=== PATIENT | female | born 1940 | race Caucasian/White ===

== ENCOUNTER 2019-11-09 06:32 | Outpatient (REF) | payer MEDICARE, OTHER, SELFPAY ==
[2019-11-09 09:39] LABS: Estmated Average Glucose 134; Hemoglobin A1C 6.3 % (4.0-6.0)
[2019-11-09 11:08] LABS: Chol HDL Ratio 5.28 mg/dL (0.0-4.40); Cholesterol 190 mg/dL (0-200); Glucose 114 mg/dL (65-115); HDL Cholesterol 36 mg/dL (60-100); LDL Cholesterol Calculated 105 mg/dL (50-129); LDL HDL Ratio 2.92 RATIO (0.00-3.22); Triglycerides 243 mg/dL (0-150)
== END 2019-11-09 06:33 | disposition home or self-care (01) ==
LOC: LAB 06:32
PROVIDERS: Family Provider Family Medicine; PCP Family Medicine; Visit Provider Dermatology
DX: Z01.89 Encounter for other specified special examinations (principal)
CPT/HCPCS: 80061; 82947; 83036

== ENCOUNTER → 2019-11-12 15:14 | Outpatient (BNVA) | payer MEDICARE, OTHER, SELFPAY | PROVIDERS: Family Provider Family Medicine; PCP Family Medicine; Visit Provider Nurse Practitioner Family | DX: N30.10 Interstitial cystitis (chronic) without hematuria (principal); N34.3 Urethral syndrome, unspecified | CPT/HCPCS: 81001 ==

== ENCOUNTER → 2019-11-30 09:07 | Outpatient (BNVA) | payer MEDICARE, OTHER, SELFPAY | PROVIDERS: Family Provider Family Medicine; PCP Family Medicine; Visit Provider Urology | DX: N34.3 Urethral syndrome, unspecified (principal); N30.10 Interstitial cystitis (chronic) without hematuria | CPT/HCPCS: 81001 ==

== ENCOUNTER 2020-02-09 09:43 | Emergency (ER) | payer MEDICARE, BC, SELFPAY ==
[2020-02-09] VITALS (8 sets, daily range): BP systolic 129–212; BP diastolic 74–118; PULSE 77–84; RESP 16–18; TEMP 36.4; O2SAT 91–96
--- NOTE | 2020-02-09 09:59 | ED_ITS ---
HPI - Female Genitourinary General: Chief complaint: Urogenital-Female Stated complaint: UNABLE TO PEE Time Seen by Provider: 02/09/20 09:48 History of Present Illness: HPI Narrative: Patient is a 80-year-old female who comes to the ED with urinary retention. Past medical history of chronic interstitial cystitis and urethral syndrome, multiple UTIs and sees Dr. Garcia in urology for urethral dilations. For the last week, she has been unable to urinate and has had constant dribbling. Patient also has lower abdominal distention and pain. She rates abdominal pain an 8 out of 10. She has had nausea and multiple episodes of vomiting over the past week. Patient says she has chronic diarrhea. Associated symptoms: Reports abdominal pain and nausea; Deny headache(s) Review of Systems Const: Denies: fever, chills or fatigue Eyes: Denies: change in vision or eye discomfort ENMT: Denies: throat pain, painful swallowing, nasal discharge or nasal congestion Card: Denies: chest pain, palpitations, edema, swelling of feet/ankles, shortness of breath on exertion or shortness of breath when lying down Resp: Denies: shortness of breath, productive cough or non-productive cough GI: Reports: abdominal pain, nausea, vomiting and diarrhea; Denies: constipation or blood in stool : Reports: difficulty urinating and urinary dribbling; Denies: painful urination or blood in urine Musc: Denies: neck pain, back pain or extremity swelling Skin/Breast: Denies: rash or new lesion Neuro: Denies: headache, numbness in extremities or weakness in extremities PFS ED PFSH: Medical History Chronic interstitial cystitis Urethral syndrome Surgical History H/O carpal tunnel repair H/O hand surgery H/O: hysterectomy S/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 S/P cholecystectomy S/P thyroidectomy Family History Father , cva Stroke Mother , 96 Dementia Social History Smoking and tobacco status: never smoked Alcohol intake: never Marital status: Current occupational status: retired History of recent travel: No Physical Exam Const: COMMON NORMALS: oriented x3 and alert GENERAL APPEARANCE: cooperative HENMT: COMMON NORMALS: normocephalic HEAD & SCALP: normocephalic MOUTH: moist mucous membranes abnormal Details: parched THROAT: posterior oropharynx normal and uvula midline Eye: COMMON NORMALS: PERRL PUPIL: Yes PERRL Neck/C-Spine: COMMON NORMALS: supple GENERAL: Yes normal visual inspection Resp: COMMON NORMALS: normal respiratory effort, no retractions, no use of accessory muscles and clear to auscultation bilaterally EFFORT & INSPECTION: Yes able to speak in complete sentences and No respiratory distress AUSCULTATION: clear to auscultation bilaterally Cardio: COMMON NORMALS: regular rate, regular rhythm, S1 normal heart sound, S2 normal heart sound, no gallops, no clicks, no murmurs and peripheral pulses 2+ throughout RATE: regular rate RHYTHM: regular rhythm HEART SOUNDS: S1 normal and S2 normal PERIPHERAL PULSES: pulses 2+ throughout GI: COMMON NORMALS: normal to inspection, nondistended, normoactive bowel sounds, soft to palpation and no masses INSPECTION: Yes abdominal distension and Yes scar (vertical scar from umbilicus to pelvis) AUSCULTATION: Yes high- pitched bowel sounds PALPATION: Yes soft and Yes tender (pt had moderate tenderness in R and L lower quadrants) Details: LLQ and RLQ : BLADDER/KIDNEY EXAM: Yes CVA tenderness bilateral Back/Pelvis: GENERAL BACK: Yes CVA tenderness Extremity: COMMON NORMALS: normal to inspection and no pedal edema Neuro: COMMON NORMALS: oriented x3 and moves all extremities SENSORIUM/ORIENTATION: Yes alert Skin: COMMON NORMALS: no rashes or lesions noted GENERAL SKIN EXAM: no rashes or lesions noted and dry skin Course Consultations: Consultation #1: I contacted Dr. Garcia the urologist case. Dr. Garcia has seen patient in the past. After discussing her case with him he told me to give her the decision on if she wants Mcdaniels catheter placed and sent home with it or if she would prefer not to have the Mcdaniels catheter. He was okay with either way. Put her on an antibiotic. He told me to have her call his office to set up an appointment on Tuesday. Time: 13:14 Vital Signs: Vital signs: Vital Signs Temperature 97.5 F L 05/09/20 09:45 Pulse Rate 77 02/09/20 14:22 Respiratory Rate 16 02/09/20 14:22 Blood Pressure 158/84 02/09/20 14:22 Pulse Oximetry 96 02/09/20 14:22 MDM - Female MDM Narrative: Medical decision making narrative: Patient is a 80-year-old female who comes to the ED with urinary retention and dribbling. Patient has a past medical history of chronic interstitial cystitis and urethral syndrome, multiple UTIs and sees Dr. Garcia in urology for urethral dilations. physical exam showed tender lower abdomen and distended bladder. Patient was bladder scanned and Mcdaniels catheter was placed. CBC, CMP, UA, lipase were all unremarkable. CT of the abdomen was performed and showed some thickening of the bladder wall, but no other acute findings. I contacted Dr. Garcia to discuss patient and he recommended that I give patient the choice of sending her home with or without a Mcdaniels catheter, put on antibiotic and have patient call his office on Tuesday to set up an appointment. Patient decided she wanted to keep Mcdaniels catheter in. Nursing provided Mcdaniels catheter education and leg cath bag. I sent her home with prescription for antibiotic. Patient will call Dr. Garcia's office on Tuesday. Patient understood and agreed with plan. Lab Data: Attestation: I reviewed the patient's lab results. Labs: Lab Results 02/09/20 02/09/20 02/09/20 Range/Units 10:19 10:54 10:54 WBC 5.5 (4.0-10.0) 10^3/ uL RBC 3.78 L (4.1-5.3) 10^6/u L Hgb 12.6 (11.5-15.3) g/dL Hct 38.3 (37.0-47.0) % MCV 101.3 H (81-99) fL MCH 33.3 (28.0-34.0) pg MCHC 32.9 (30.0-36.0) g/dL RDW 13.7 (12.1-15.1) % Plt Count 250 (130-400) 10^3/c mm MPV 9.6 (7.4-10.4) fL Neut % (Auto) 56.0 % Lymph % (Auto) 35.8 % Potter % (Auto) 6.4 % Eos % (Auto) 1.1 % Baso % (Auto) 0.5 % Neut # (Auto) 3.1 (1.8-7.7) 10^3/u L Lymph # (Auto) 2.0 (0.8-4.8) 10^3/u L Potter # (Auto) 0.4 (0.2-0.9) 10^3/u L Eos # (Auto) 0.1 (0.0-0.8) 10^3/u L Baso # (Auto) 0.0 (0.0-0.1) 10^3/u L Nucleated RBC % (a uto) 0 % Nucleated RBCs # 0.0 /100WBC Sodium 139 (136-145) mmol/L Potassium 3.9 (3.5-5.1) mmol/L Chloride 99 (98-107) mmol/L Carbon Dioxide 25 (22-29) mmol/L Anion Gap 18.9 (5-19) BUN 13 (8-23) mg/dL Creatinine 0.7 (0.5-0.9) mg/dL Glucose 110 (65-115) mg/dL Calculated Osmolal ity 285 (285-295) mOsm/k g Calcium 10.4 (8.5-10.5) mg/dL Total Bilirubin 0.3 (0.15-1.2) mg/dL AST 28 (0-32) U/L ALT 16 (0-33) U/L Alkaline Phosphata se 62 (35-105) IU/L Total Protein 7.8 (6.6-8.7) g/dL Albumin 4.6 (3.5-5.2) g/dL Globulin 3.2 (1.3-4.6) g/dL Urine Color Yellow (Yellow) Urine Appearance Clear (CLEAR) Urine pH 7 (5-7) Ur Specific Gravit y 1.005 (1.005-1.030) Urine Protein Neg (Negative) Urine Glucose (UA) Norm (Normal) Urine Ketones Negative (Negative) Urine Blood Neg (Negative) Urine Nitrate Negative (Negative) Urine Bilirubin Neg (NEGATIVE) Urine Urobilinogen Norm (Negative) mg/dL Ur Leukocyte Shania ase Negative (Negative) Urine RBC None (0-2) /hpf Urine WBC None (0-5) /hpf Ur Squamous Epith Cells 0-4 H (0-5) Urine Bacteria Trace (NONE) Urine Mucus Trace Imaging Data: CT Abd/Pel: Attestation: I personally reviewed and interpreted this imaging study as follows: Radiologist's impression: [facility] [address] [place] [address] CT Scan Report Signed Patient: Sarah Victoria Unit #: [id number] : 1940 Age/Sex: 80 / F ADM Date: 02/09/20 Loc: ER Room/Bed: Attending Dr: Ordering Provider/Ordering MD: Alek Griffin Date of Service: 02/09/20 Procedure(s): CT abdomen pelvis w con* [id number] Accession Number(s): [id number] Report Number: [id number] WS: [id number] CT abdomen pelvis w con* [id number] REASON FOR EXAM: abdominal pain, urinary retention IV CONTRAST ADMINISTERED: Omnipaque 395 mL TOTAL EXAM DLP: 1537.[address] scans at [facility] use at least one of these dose optimization techniques: automated exposure control; mA and/or kV adjustment per patient size (includes targeted exams where dose is matched to clinical indication); or iterative reconstruction. 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 The lower lungs were normal. The liver shows a hypodense area in the left lobe of the liver consistent with a benign cysts. Measured 1.3 cm. The spleen, stomach, adrenal glands, aorta inferior vena cava, are all normal. Cholecystectomy findings are noted. A small atrophic pancreas is seen. The adrenal glands are normal. Both kidneys show normal appearance There is fusion of the lumbar spine L3-L4-L5-S1 posterior instrumentation satisfactory placed. The ureters appear to be normal. The large bowel in the right was normal. The appendix is not well seen. The small bowel patterns show no dilatation no thickening of the large bowel or small bowel sanchez are seen. CT of the pelvis shows isolated diverticulosis throughout the sigmoid colon area no hernias are noted. A Mcdaniels catheter is seen and a thickened wall urinary bladder. The rectum was normal. There is fecal stasis seen throughout the colon. CT/CT abdomen pelvis w con* [id number] IMPRESSION: A Mcdaniels catheter seen in a thickened wall the urinary bladder. There is fusion L3-L4-L5-S1 posteriorly satisfactory alignment. A small benign cyst of the left lobe of the liver is noted. Status post cholecystectomy. Diverticulosis. Dictated By: Toño Mendez DO Signed By: Toño Mendez DO Signed Date/Time: 02/09/20 1246 DD/ 1238 Discharge Plan Discharge Patient Disposition: Home, Self-Care Clinical Impression: Urinary retention Condition: Stable Prescriptions: New doxycycline hyclate 100 mg capsule 100 mg PO BID 7 Days Qty: 14 RF: 0 No Action cyanocobalamin (vitamin B-12) 2,000 mcg tablet 2,000 mcg PO DAILY RF: 0 citalopram 40 mg tablet 20 mg PO DAILY RF: 0 metoprolol succinate 25 mg tablet extended release 24 hr 25 mg PO DAILY RF: 0 allopurinol 300 mg tablet 300 mg PO DAILY RF: 0 pantoprazole [Protonix] 40 mg tablet,delayed release (DR/EC) 40 mg PO DAILY RF: 0 nystatin 100,000 unit/gram powder 1 applic TOPICAL DAILY RF: 0 duloxetine 40 mg capsule,delayed release(DR/EC) 40 mg PO DAILY RF: 0 pregabalin [Lyrica] 100 mg capsule 100 mg PO DAILY RF: 0 alprazolam [Xanax] 0.25 mg tablet 0.25 mg PO TID PRN (Reason: Anxiety) RF: 0 furosemide 20 mg tablet 20 mg PO DAILY RF: 0 aspirin [Aspir-81] 81 mg tablet,delayed release (DR/EC) 81 mg PO DAILY RF: 0 acetaminophen [Tylenol] 325 mg capsule 325 mg PO QID PRN (Reason: Pain) RF: 0 levothyroxine [Levoxyl] 112 mcg tablet 100 mcg PO DAILY RF: 0 fluconazole 150 mg tablet 150 mg PO Q3D Qty: 2 RF: 0 28-800 mg-mcg Tablet 1 tab PO DAILY RF: 0 Discharge Orders: Discharge Order (Routine); Ordered 02/09/20 Ordered By: Alek Griffin Referrals: Juwan Hernández MD [Primary Care Provider] - Discharge Diet: Regular Discharge Activity: Resume usual activity Patient Instructions: Mcdaniels Catheter Care, Urinary Leg Bag (GEN) Activity Restrictions/Additional Instructions: Call Dr. Garcia's office on Karsten morning to set up an appointment. Nurse will instruct you on catheter care. Take full course of antibiotic as prescribed. Discharge Date/Time: 02/09/20 14:22 Coding Level of Care Code ED Flake Miller Helper for Marisol Reese Exam Comprehensive
[2020-02-09 10:46] LABS: Bilirubin Urine Neg (NEGATIVE); Blood Urine Neg (Negative); Glucose Urine UA Norm (Normal); Ketones Urine Negative (Negative); Leukocyte Esterase Urine Negative (Negative); Nitrate Urine Negative (Negative); Protein Urine Neg (Negative); Specific Gravity, Urine 1.005 (1.005-1.030); Urine Appearance Clear (CLEAR); Urine Color Yellow (Yellow); Urobilinogen Urine Norm (Negative); pH Urine 7 (5-7)
[2020-02-09 10:57] LABS: Squamous Epithelial Cell Urine 0-4 (0-5)
[2020-02-09 10:58] LABS: Add Urine Culture? No; Bacteria Urine TRACE; Mucus Urine TRACE
[2020-02-09] MEDS: sodium chloride 0.9% 500 ML IV (11:03)
[2020-02-09] MEDS: ondansetron 2 mg/ML SDV 2 mL 4 MG IVP (11:03)
[2020-02-09] MEDS: morphine 4 mg/mL SDV 1 mL 2 MG IVP (11:04)
[2020-02-09 11:07] LABS: Basophils % 0.5 %; Eosinophils # 0.1 10^3/uL (0.0-0.8); Eosinophils % 1.1 %; Hematocrit 38.3 % (37.0-47.0); Hemoglobin 12.6 g/dL (11.5-15.3); Lymphocytes % 35.8 %; Mean Corpuscular HGB Conc 32.9 g/dL (30.0-36.0); Mean Corpuscular Hemoglobin 33.3 pg (28.0-34.0); Mean Corpuscular Volume 101.3 fL (81-99); Mean Platelet Volume 9.6 fL (7.4-10.4); Monocytes # 0.4 10^3/uL (0.2-0.9); Monocytes % 6.4 %; Neutrophils # 3.1 10^3/uL (1.8-7.7); Nucleated Red Blood Cells % 0 %; Platelet Count 250 10^3/cmm (130-400); Red Blood Count 3.78 10^6/uL (4.1-5.3); Red Cell Distribution Width 13.7 % (12.1-15.1); White Blood Count 5.5 10^3/uL (4.0-10.0)
[2020-02-09 11:20] LABS: Alanine Aminotransferase 16 U/L (0-33); Albumin Level 4.6 g/dL (3.5-5.2); Alkaline Phosphatase 62 IU/L (35-105); Anion Gap 18.9 (5-19); Aspartate Amino Transferase 28 U/L (0-32); Blood Urea Nitrogen 13 mg/dL (8-23); Calcium 10.4 mg/dL (8.5-10.5); Carbon Dioxide 25 mmol/L (22-29); Chloride 99 mmol/L (98-107); Globulin 3.2 g/dL (1.3-4.6); Glucose 110 mg/dL (65-115); Osmolality Calculated 285 mOsm/kg (285-295); Potassium 3.9 mmol/L (3.5-5.1); Sodium 139 mmol/L (136-145); Total Bilirubin 0.3 mg/dL (0.15-1.2); Total Protein 7.8 g/dL (6.6-8.7)
[2020-02-09] MEDS: LORazepam 2 mg/mL INJ 1 mL 1 MG IVP (11:27)
--- NOTE | 2020-02-09 11:34 | CT_ITS ---
WS: [id number] CT abdomen pelvis w con* [id number] REASON FOR EXAM: abdominal pain, urinary retention IV CONTRAST ADMINISTERED: Omnipaque 395 mL TOTAL EXAM DLP: 1537.[address] scans at [facility] use at least one of these dose optimization techniques: automat ed exposure control; mA and/or kV adjustment per patient size (includes targeted exams where dose is matched to clinical indication); or iterative reconstruction. 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 The lower lungs were normal. The liver shows a hypodense area in the left lobe of the liver consistent with a benign cysts. Measur ed 1.3 cm. The spleen, stomach, adrenal glands, aorta inferior vena cava, are all normal. Cholecystectomy findings are noted. A small atrophic pancreas is seen. The adrenal glands are normal. Both kidneys show normal appearance There is fusion of the lumbar spine L3-L4-L5-S1 posterior instrumentation satisfactory placed. The ureters appear to be normal. The large bowel in the right was normal. The appendix is not well seen. The small bowel patterns show no dilatation no thickening of the large bowel or small bowel sanchez are seen. CT of the pelvis shows isolated diverticulosis throughout the sigmoid colon area no hernias are noted . A Mcdaniels catheter is seen and a thickened wall urinary bladder. The rectum was normal. There is fecal stasis seen throughout the colon. CT/CT abdomen pelvis w con* [id number] IMPRESSION: A Mcdaniels catheter seen in a thickened wall the urinary bladder. There is fusion L3-L4-L5-S1 posteriorly satisfactory alignment. A small benign cyst of the left lobe of the liver is noted. Status post cholecystectomy. Diverticulosis.
--- NOTE | 2020-02-09 11:34 | PC.NURSE ---
Placed on O2 due to drop in oxygen after morphine and ativan.
[2020-02-09] MEDS: iohexol 300 mg/mL 100 mL Btl IV (12:24)
== END 2020-02-09 14:22 | disposition home or self-care (01) ==
PROVIDERS: Emergency Provider Physician Assistant; Family Provider Family Medicine; PCP Family Medicine
DX: R33.9 Retention of urine, unspecified (principal); Z79.82 Long term (current) use of aspirin
CPT/HCPCS: 12345; 36415; 51702; 51798; 74177; 80053; 81001; 85025; 96361; 96374; 96375; 99283; J2060; J2270; J2405; J7040; Q9967

== ENCOUNTER 2020-02-10 09:35 | Observation (INO) | payer MEDICARE, SELFPAY ==
[2020-02-10 09:47] VITALS: BP 181/79; PULSE 94; RESP 18; TEMP 36.9; O2SAT 94; BMI 29.7
--- NOTE | 2020-02-10 09:56 | XR_ITS ---
WS: [id number] XR chest 1V portable [id number] REASON FOR EXAM: cough FINDINGS: The lower lung shows subsegmental atelectasis not noted on previous exam of October 19 9. There is previous sternotomy changes noted. The heart is similar in size. There is no evidence of definite pneumonia, pleural effusion or pulmonary edema. XR/XR chest 1V portable [id number] IMPRESSION: Subsegmental atelectasis particularly in the left lung base. Previous sternotomy changes.
--- NOTE | 2020-02-10 09:56 | CT_ITS ---
WS: [id number] CT head wo con* [id number] REASON FOR EXAM: AMS IV CONTRAST ADMINISTERED: None. TOTAL EXAM DLP: 629.[address] scans at [facility] use at least one of these dose optimization techniques: automat ed exposure control; mA and/or kV adjustment per patient size (includes targeted exams where dose is matched to clinical indication); or iterative reconstruction. FINDINGS: Variation was made to a previous examination June 03, 2018. There is again noted prominence of the sulci and mild dilatation the ventricles similar to the previo us exam. There is no evidence of hemorrhage, mass effect or infarction seen. The luke posterior fossa were normal. The paraventricular area shows small punctate hyperdense areas consistent with small vessel ischemic changes. Arteriosclerotic changes are seen in the cavernous sinus area but no aneurysms or masses. The 7th and 8th nerve complexes were normal. The paranasal sinuses appear to be normal. The orbits optic nerves optic chiasma were normal. CT/CT head wo con* [id number] IMPRESSION: Mild to moderate cerebral atrophy No interval change since previous exam of June 03, 2018 There is arteriosclerotic changes of the vasculature in the brain.
--- NOTE | 2020-02-10 09:57 | W.ED.AMS ---
Documented by User: CHICHI Coello 02/11/20 19:54 HPI - Altered Mental Status General: Chief Complaint: Altered Mental Status Stated Complaint: AMS Time Seen by Provider: 02/10/20 09:57 History of Present Illness: HPI narrative: Patient is a 80-year-old female who comes to the ED via ambulance for altered mental status. Patient has a past medical history of urinary retention, urethral syndrome and chronic interstitial cystitis. Patient was here in the ED yesterday for urinary retention. I was the healthcare provider for her while she was in the ED yesterday. Yesterday I could have a conversation with patient and she and she could follow and answer my questions accurately and accordingly. Today patient has a big change in mental status compared to yesterday. Patient told me that she is currently and [place]. She says she has no more pain anymore because Bebeto took it away. She was yelling glory salv[facility] all throughout my history and physical exam. Patient had a son who many years ago and states that she saw him today. Much of what patient told me during the history made no sense and was not relevant to the question I asked. Review of Systems Const: Denies: fever, chills or fatigue Eyes: Denies: change in vision or eye discomfort ENMT: Denies: throat pain, painful swallowing, nasal discharge or nasal congestion Card: Denies: chest pain, palpitations, edema, swelling of feet/ankles, shortness of breath on exertion or shortness of breath when lying down Resp: Denies: shortness of breath, productive cough or non-productive cough GI: Denies: abdominal pain, nausea, vomiting, diarrhea, constipation or blood in stool : Denies: flank pain, painful urination or blood in urine Musc: Denies: neck pain, back pain or extremity swelling Skin/Breast: Denies: rash or new lesion Neuro: Denies: headache, numbness in extremities or weakness in extremities Psych: Reports: other (Alt mental status) [facility] ED PFSH: Medical History Anxiety disorder Chronic interstitial cystitis Depression Fibromyalgia Irritable bowel syndrome Macrocytic anemia Severe sleep apnea Somatization disorder Urethral syndrome Surgical History H/O carpal tunnel repair H/O hand surgery H/O: hysterectomy S/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 S/P cholecystectomy S/P thyroidectomy Family History Father , cva Stroke Mother , 96 Dementia Social History Smoking and tobacco status: unknown if ever smoked Alcohol intake: never Marital status: Current occupational status: retired History of recent travel: No Physical Exam Narrative: EXAM NARRATIVE: Patient is a 80-year-old female that is lying on the exam bed when I enter the room. I saw patient yesterday in the ED and her mental status has significantly changed since yesterday. Yesterday I could have a conversation with patient she would not answer my questions accordingly and accurately. Today patient cannot have a normal conversation and respond accordingly. She would give me answers to my questions that made no sense and were not relevant to what I asked. She told me multiple times during my history and physical exam that she [facility] and [facility] She told me that I did not need to listen to her heartbeat because she is . Patient also told me she saw her son today, yesterday she told me her son at the age of 14, many years ago. During history and physical exam she was constantly hollering out [facility]. Const: COMMON NORMALS: oriented x3 and alert ORIENTATION/CONSCIOUSNESS: Yes oriented to person, Yes oriented to place and Yes oriented to time HENMT: COMMON NORMALS: normocephalic HEAD & SCALP: normocephalic MOUTH: oral and palatal mucosa normal THROAT: posterior oropharynx normal and uvula midline Eye: COMMON NORMALS: PERRL and conjunctivae normal CONJUNCTIVA: Yes conjunctivae normal PUPIL: Yes PERRL Neck/C-Spine: COMMON NORMALS: supple GENERAL: Yes normal visual inspection Resp: COMMON NORMALS: normal respiratory effort, no retractions, no use of accessory muscles and clear to auscultation bilaterally AUSCULTATION: clear to auscultation bilaterally Cardio: COMMON NORMALS: regular rate, regular rhythm, S1 normal heart sound, S2 normal heart sound, no gallops, no clicks, no murmurs and peripheral pulses 2+ throughout RATE: regular rate RHYTHM: regular rhythm HEART SOUNDS: S1 normal and S2 normal PERIPHERAL PULSES: pulses 2+ throughout GI: COMMON NORMALS: normal to inspection, nondistended, normoactive bowel sounds, soft to palpation, non-tender and no masses PALPATION: Yes soft : COMMON NORMALS: Yes no CVA tenderness BLADDER/KIDNEY EXAM: Yes no CVA tenderness Back/Pelvis: COMMON NORMALS: no CVA tenderness Neuro: HAKAN COMA SCALE: document GCS findings [place]ita coma scale eye opening: Spontaneous Hakan coma scale verbal response: Confused [place]ita coma scale motor response: Obey commands Hachita coma scale total score: 14 COMMON NORMALS: oriented x3 and moves all extremities SENSORIUM/ORIENTATION: Yes alert, Yes oriented to person, Yes oriented to place, Yes oriented to time and Yes orientation impaired (She was unable to tell me the current month or day of the week. Patient new year, current President Annabelle and talked about the coronavirus.) Course Vital Signs: Vital signs: Vital Signs Temperature 98.7 F 02/11/20 15:00 Pulse Rate 109 H 02/11/20 15:00 Respiratory Rate 18 02/11/20 15:00 Blood Pressure 180/75 02/11/20 15:00 Pulse Oximetry 90 02/11/20 15:00 MDM - Altered Mental Status Lab Data: Labs: Lab Results 02/10/20 02/10/20 02/10/20 Range/Units 10:09 10:24 10:24 WBC 6.8 (4.0-10.0) 10^3/ uL RBC 3.59 L (4.1-5.3) 10^6/u L Hgb 11.8 (11.5-15.3) g/dL Hct 36.5 L (37.0-47.0) % MCV 101.7 H (81-99) fL MCH 32.9 (28.0-34.0) pg MCHC 32.3 (30.0-36.0) g/dL RDW 13.9 (12.1-15.1) % Plt Count 243 (130-400) 10^3/c mm MPV 9.8 (7.4-10.4) fL Neut % (Auto) 71.9 % Lymph % (Auto) 20.4 % [place] % (Auto) 6.5 % Eos % (Auto) 0.4 % Baso % (Auto) 0.4 % Neut # (Auto) 4.9 (1.8-7.7) 10^3/u L Lymph # (Auto) 1.4 (0.8-4.8) 10^3/u L [place] # (Auto) 0.4 (0.2-0.9) 10^3/u L Eos # (Auto) 0.0 (0.0-0.8) 10^3/u L Baso # (Auto) 0.0 (0.0-0.1) 10^3/u L Nucleated RBC % (a uto) 0 % Nucleated RBCs # 0.0 /100WBC PT 13.20 (10.5-13.3) SECO NDS INR 0.97 (0.8-1.2) Specimen Type Arterial Sample Site Brachial, left ABG pH 7.49 H (7.35-7.45) ABG pCO2 29.3 L (35-45) mmHg ABG pO2 68.3 L (80.0-100.0) mmH g ABG HCO3 22.5 (22-26) mmol/L ABG O2 Saturation 94.3 ABG Base Excess 0.0 (-2.0-2.0) mmol/ L [place] Test Pos A-a O2 Gradient 44.1 H (5-10) mmHg Hematocrit 37.2 (37-47) % Hgb O2 Saturation 93.6 L (95-100) % Methemoglobin 0.9 (0.4-1.5) % Total Hemoglobin 12.1 (12-16) g/dL Sodium 140.0 (131-143) mmol/L Potassium 3.8 (3.5-5.0) mmol/L Glucose 117.0 H (70-115) mg/dL Ionized Calcium 1.2 (1.1-1.4) mmol/L O2 Delivery Device Room air FiO2 21.0 % Paid Search Specialist ID cak Chloride (98-107) mmol/L Carbon Dioxide (22-29) mmol/L Anion Gap (5-19) BUN (8-23) mg/dL Creatinine (0.5-0.9) mg/dL POC Glucose (70-110) mg/dL Calculated Osmolal ity (285-295) mOsm/k g Lactic Acid (0.5-2.2) mmol/L Lactic Acid (Sepsi s) (0.5-2.2) mmol/L Calcium (8.5-10.5) mg/dL Magnesium (1.7-2.3) mg/dL Total Bilirubin (0.15-1.2) mg/dL AST (0-32) U/L ALT (0-33) U/L Alkaline Phosphata se (35-105) IU/L Ammonia (11-51) umol/L Troponin I 6 Hour (0-10) ng/mL Troponin I Hi Sens Del (0-12) ng/L Troponin T Baselin e (0-10) ng/mL Troponin T 120 Min cabazon (0-10) ng/mL Delta Troponin T (0-10) ABS# Total Protein (6.6-8.7) g/dL Albumin (3.5-5.2) g/dL Globulin (1.3-4.6) g/dL Urine Color (Yellow) Urine Appearance (CLEAR) Urine pH (5-7) Ur Specific Gravit y (1.005-1.030) Urine Protein (Negative) Urine Glucose (UA) (Normal) Urine Ketones (Negative) Urine Blood (Negative) Urine Nitrate (Negative) Urine Bilirubin (NEGATIVE) Urine Urobilinogen (Negative) mg/dL Ur Leukocyte Shania ase (Negative) Urine RBC (0-2) /hpf Urine WBC (0-5) /hpf Ur Squamous Epith Cells (0-5) Urine Bacteria (NONE) Urine Opiates Scre en (Negative) ng/mL Ur Barbiturates Sc reen (Negative) ng/mL Ur Phencyclidine S crn (Negative) ng/mL Ur Amphetamines Sc reen (Negative) ng/mL U Benzodiazepines Scrn (Negative) ng/mL Urine Cocaine Scre en (Negative) ng/mL U Marijuana (THC) Screen (Negative) ng/mL Ethyl Alcohol (0-10) mg/dL 02/10/20 02/10/20 02/10/20 Range/Units 10:24 10:24 10:24 WBC (4.0-10.0) 10^3/ uL RBC (4.1-5.3) 10^6/u L Hgb (11.5-15.3) g/dL Hct (37.0-47.0) % MCV (81-99) fL MCH (28.0-34.0) pg MCHC (30.0-36.0) g/dL RDW (12.1-15.1) % Plt Count (130-400) 10^3/c mm MPV (7.4-10.4) fL Neut % (Auto) % Lymph % (Auto) % [place] % (Auto) % Eos % (Auto) % Baso % (Auto) % Neut # (Auto) (1.8-7.7) 10^3/u L Lymph # (Auto) (0.8-4.8) 10^3/u L [place] # (Auto) (0.2-0.9) 10^3/u L Eos # (Auto) (0.0-0.8) 10^3/u L Baso # (Auto) (0.0-0.1) 10^3/u L Nucleated RBC % (a uto) % Nucleated RBCs # /100WBC PT (10.5-13.3) SECO NDS INR (0.8-1.2) Specimen Type Sample Site ABG pH (7.35-7.45) ABG pCO2 (35-45) mmHg ABG pO2 (80.0-100.0) mmH g ABG HCO3 (22-26) mmol/L ABG O2 Saturation ABG Base Excess (-2.0-2.0) mmol/ L [place] Test A-a O2 Gradient (5-10) mmHg Hematocrit (37-47) % Hgb O2 Saturation (95-100) % Methemoglobin (0.4-1.5) % Total Hemoglobin (12-16) g/dL Sodium 137 (131-143) mmol/L Potassium 3.9 (3.5-5.0) mmol/L Glucose 121 H (70-115) mg/dL Ionized Calcium (1.1-1.4) mmol/L O2 Delivery Device FiO2 % Paid Search Specialist ID Chloride 98 (98-107) mmol/L Carbon Dioxide 22 (22-29) mmol/L Anion Gap 20.9 H (5-19) BUN 17 (8-23) mg/dL Creatinine 1.0 H (0.5-0.9) mg/dL POC Glucose (70-110) mg/dL Calculated Osmolal ity 282 L (285-295) mOsm/k g Lactic Acid 3.0 H (0.5-2.2) mmol/L Lactic Acid (Sepsi s) (0.5-2.2) mmol/L Calcium 10.3 (8.5-10.5) mg/dL Magnesium 2.0 (1.7-2.3) mg/dL Total Bilirubin 0.3 (0.15-1.2) mg/dL AST 25 (0-32) U/L ALT 16 (0-33) U/L Alkaline Phosphata se 60 (35-105) IU/L Ammonia (11-51) umol/L Troponin I 6 Hour (0-10) ng/mL Troponin I Hi Sens Del (0-12) ng/L Troponin T Baselin e 12 H (0-10) ng/mL Troponin T 120 Min cabazon (0-10) ng/mL Delta Troponin T (0-10) ABS# Total Protein 7.6 (6.6-8.7) g/dL Albumin 4.4 (3.5-5.2) g/dL Globulin 3.2 (1.3-4.6) g/dL Urine Color (Yellow) Urine Appearance (CLEAR) Urine pH (5-7) Ur Specific Gravit y (1.005-1.030) Urine Protein (Negative) Urine Glucose (UA) (Normal) Urine Ketones (Negative) Urine Blood (Negative) Urine Nitrate (Negative) Urine Bilirubin (NEGATIVE) Urine Urobilinogen (Negative) mg/dL Ur Leukocyte Shania ase (Negative) Urine RBC (0-2) /hpf Urine WBC (0-5) /hpf Ur Squamous Epith Cells (0-5) Urine Bacteria (NONE) Urine Opiates Scre en (Negative) ng/mL Ur Barbiturates Sc reen (Negative) ng/mL Ur Phencyclidine S crn (Negative) ng/mL Ur Amphetamines Sc reen (Negative) ng/mL U Benzodiazepines Scrn (Negative) ng/mL Urine Cocaine Scre en (Negative) ng/mL U Marijuana (THC) Screen (Negative) ng/mL Ethyl Alcohol < 10 (0-10) mg/dL 02/10/20 02/10/20 02/10/20 Range/Units 10:24 10:47 10:47 WBC (4.0-10.0) 10^3/ uL RBC (4.1-5.3) 10^6/u L Hgb (11.5-15.3) g/dL Hct (37.0-47.0) % MCV (81-99) fL MCH (28.0-34.0) pg MCHC (30.0-36.0) g/dL RDW (12.1-15.1) % Plt Count (130-400) 10^3/c mm MPV (7.4-10.4) fL Neut % (Auto) % Lymph % (Auto) % [place] % (Auto) % Eos % (Auto) % Baso % (Auto) % Neut # (Auto) (1.8-7.7) 10^3/u L Lymph # (Auto) (0.8-4.8) 10^3/u L [place] # (Auto) (0.2-0.9) 10^3/u L Eos # (Auto) (0.0-0.8) 10^3/u L Baso # (Auto) (0.0-0.1) 10^3/u L Nucleated RBC % (a uto) % Nucleated RBCs # /100WBC PT (10.5-13.3) SECO NDS INR (0.8-1.2) Specimen Type Sample Site ABG pH (7.35-7.45) ABG pCO2 (35-45) mmHg ABG pO2 (80.0-100.0) mmH g ABG HCO3 (22-26) mmol/L ABG O2 Saturation ABG Base Excess (-2.0-2.0) mmol/ L [place] Test A-a O2 Gradient (5-10) mmHg Hematocrit (37-47) % Hgb O2 Saturation (95-100) % Methemoglobin (0.4-1.5) % Total Hemoglobin (12-16) g/dL Sodium (131-143) mmol/L Potassium (3.5-5.0) mmol/L Glucose (70-115) mg/dL Ionized Calcium (1.1-1.4) mmol/L O2 Delivery Device FiO2 % Paid Search Specialist ID Chloride (98-107) mmol/L Carbon Dioxide (22-29) mmol/L Anion Gap (5-19) BUN (8-23) mg/dL Creatinine (0.5-0.9) mg/dL POC Glucose (70-110) mg/dL Calculated Osmolal ity (285-295) mOsm/k g Lactic Acid (0.5-2.2) mmol/L Lactic Acid (Sepsi s) (0.5-2.2) mmol/L Calcium (8.5-10.5) mg/dL Magnesium (1.7-2.3) mg/dL Total Bilirubin (0.15-1.2) mg/dL AST (0-32) U/L ALT (0-33) U/L Alkaline Phosphata se (35-105) IU/L Ammonia < 10 L (11-51) umol/L Troponin I 6 Hour (0-10) ng/mL Troponin I Hi Sens Del (0-12) ng/L Troponin T Baselin e (0-10) ng/mL Troponin T 120 Min cabazon (0-10) ng/mL Delta Troponin T (0-10) ABS# Total Protein (6.6-8.7) g/dL Albumin (3.5-5.2) g/dL Globulin (1.3-4.6) g/dL Urine Color Yellow (Yellow) Urine Appearance Sl hazy (CLEAR) Urine pH 5 (5-7) Ur Specific Gravit y 1.010 (1.005-1.030) Urine Protein Neg (Negative) Urine Glucose (UA) Norm (Normal) Urine Ketones Negative (Negative) Urine Blood 3+ H (Negative) Urine Nitrate Negative (Negative) Urine Bilirubin Neg (NEGATIVE) Urine Urobilinogen Norm (Negative) mg/dL Ur Leukocyte Shania ase 1+ H (Negative) Urine RBC 40-50 H (0-2) /hpf Urine WBC 15-25 H (0-5) /hpf Ur Squamous Epith Cells Rare (0-5) Urine Bacteria 2+ H (NONE) Urine Opiates Scre en Positive H (Negative) ng/mL Ur Barbiturates Sc reen Negative (Negative) ng/mL Ur Phencyclidine S crn Negative (Negative) ng/mL Ur Amphetamines Sc reen Negative (Negative) ng/mL U Benzodiazepines Scrn Positive H (Negative) ng/mL Urine Cocaine Scre en Negative (Negative) ng/mL U Marijuana (THC) Screen Negative (Negative) ng/mL Ethyl Alcohol (0-10) mg/dL 02/10/20 02/10/20 02/10/20 Range/Units 10:52 12:19 12:37 WBC (4.0-10.0) 10^3/ uL RBC (4.1-5.3) 10^6/u L Hgb (11.5-15.3) g/dL Hct (37.0-47.0) % MCV (81-99) fL MCH (28.0-34.0) pg MCHC (30.0-36.0) g/dL RDW (12.1-15.1) % Plt Count (130-400) 10^3/c mm MPV (7.4-10.4) fL Neut % (Auto) % Lymph % (Auto) % [place] % (Auto) % Eos % (Auto) % Baso % (Auto) % Neut # (Auto) (1.8-7.7) 10^3/u L Lymph # (Auto) (0.8-4.8) 10^3/u L [place] # (Auto) (0.2-0.9) 10^3/u L Eos # (Auto) (0.0-0.8) 10^3/u L Baso # (Auto) (0.0-0.1) 10^3/u L Nucleated RBC % (a uto) % Nucleated RBCs # /100WBC PT (10.5-13.3) SECO NDS INR (0.8-1.2) Specimen Type Sample Site ABG pH (7.35-7.45) ABG pCO2 (35-45) mmHg ABG pO2 (80.0-100.0) mmH g ABG HCO3 (22-26) mmol/L ABG O2 Saturation ABG Base Excess (-2.0-2.0) mmol/ L [place] Test A-a O2 Gradient (5-10) mmHg Hematocrit (37-47) % Hgb O2 Saturation (95-100) % Methemoglobin (0.4-1.5) % Total Hemoglobin (12-16) g/dL Sodium (131-143) mmol/L Potassium (3.5-5.0) mmol/L Glucose (70-115) mg/dL Ionized Calcium (1.1-1.4) mmol/L O2 Delivery Device FiO2 % Paid Search Specialist ID Chloride (98-107) mmol/L Carbon Dioxide (22-29) mmol/L Anion Gap (5-19) BUN (8-23) mg/dL Creatinine (0.5-0.9) mg/dL POC Glucose 120 (70-110) mg/dL Calculated Osmolal ity (285-295) mOsm/k g Lactic Acid (0.5-2.2) mmol/L Lactic Acid (Sepsi s) 1.3 (0.5-2.2) mmol/L Calcium (8.5-10.5) mg/dL Magnesium (1.7-2.3) mg/dL Total Bilirubin (0.15-1.2) mg/dL AST (0-32) U/L ALT (0-33) U/L Alkaline Phosphata se (35-105) IU/L Ammonia (11-51) umol/L Troponin I 6 Hour (0-10) ng/mL Troponin I Hi Sens Del (0-12) ng/L Troponin T Baselin e (0-10) ng/mL Troponin T 120 Min cabazon 10.80 H (0-10) ng/mL Delta Troponin T -1.20 L (0-10) ABS# Total Protein (6.6-8.7) g/dL Albumin (3.5-5.2) g/dL Globulin (1.3-4.6) g/dL Urine Color (Yellow) Urine Appearance (CLEAR) Urine pH (5-7) Ur Specific Gravit y (1.005-1.030) Urine Protein (Negative) Urine Glucose (UA) (Normal) Urine Ketones (Negative) Urine Blood (Negative) Urine Nitrate (Negative) Urine Bilirubin (NEGATIVE) Urine Urobilinogen (Negative) mg/dL Ur Leukocyte Shania ase (Negative) Urine RBC (0-2) /hpf Urine WBC (0-5) /hpf Ur Squamous Epith Cells (0-5) Urine Bacteria (NONE) Urine Opiates Scre en (Negative) ng/mL Ur Barbiturates Sc reen (Negative) ng/mL Ur Phencyclidine S crn (Negative) ng/mL Ur Amphetamines Sc reen (Negative) ng/mL U Benzodiazepines Scrn (Negative) ng/mL Urine Cocaine Scre en (Negative) ng/mL U Marijuana (THC) Screen (Negative) ng/mL Ethyl Alcohol (0-10) mg/dL 05/10/20 Range/Units 15:44 WBC (4.0-10.0) 10^3/ uL RBC (4.1-5.3) 10^6/u L Hgb (11.5-15.3) g/dL Hct (37.0-47.0) % MCV (81-99) fL MCH (28.0-34.0) pg MCHC (30.0-36.0) g/dL RDW (12.1-15.1) % Plt Count (130-400) 10^3/c mm MPV (7.4-10.4) fL Neut % (Auto) % Lymph % (Auto) % [place] % (Auto) % Eos % (Auto) % Baso % (Auto) % Neut # (Auto) (1.8-7.7) 10^3/u L Lymph # (Auto) (0.8-4.8) 10^3/u L [place] # (Auto) (0.2-0.9) 10^3/u L Eos # (Auto) (0.0-0.8) 10^3/u L Baso # (Auto) (0.0-0.1) 10^3/u L Nucleated RBC % (a uto) % Nucleated RBCs # /100WBC PT (10.5-13.3) SECO NDS INR (0.8-1.2) Specimen Type Sample Site ABG pH (7.35-7.45) ABG pCO2 (35-45) mmHg ABG pO2 (80.0-100.0) mmH g ABG HCO3 (22-26) mmol/L ABG O2 Saturation ABG Base Excess (-2.0-2.0) mmol/ L [place] Test A-a O2 Gradient (5-10) mmHg Hematocrit (37-47) % Hgb O2 Saturation (95-100) % Methemoglobin (0.4-1.5) % Total Hemoglobin (12-16) g/dL Sodium (131-143) mmol/L Potassium (3.5-5.0) mmol/L Glucose (70-115) mg/dL Ionized Calcium (1.1-1.4) mmol/L O2 Delivery Device FiO2 % Paid Search Specialist ID Chloride (98-107) mmol/L Carbon Dioxide (22-29) mmol/L Anion Gap (5-19) BUN (8-23) mg/dL Creatinine (0.5-0.9) mg/dL POC Glucose (70-110) mg/dL Calculated Osmolal ity (285-295) mOsm/k g Lactic Acid (0.5-2.2) mmol/L Lactic Acid (Sepsi s) (0.5-2.2) mmol/L Calcium (8.5-10.5) mg/dL Magnesium (1.7-2.3) mg/dL Total Bilirubin (0.15-1.2) mg/dL AST (0-32) U/L ALT (0-33) U/L Alkaline Phosphata se (35-105) IU/L Ammonia (11-51) umol/L Troponin I 6 Hour 9.87 (0-10) ng/mL Troponin I Hi Sens Del -2.13 L (0-12) ng/L Troponin T Baselin e (0-10) ng/mL Troponin T 120 Min cabazon (0-10) ng/mL Delta Troponin T (0-10) ABS# Total Protein (6.6-8.7) g/dL Albumin (3.5-5.2) g/dL Globulin (1.3-4.6) g/dL Urine Color (Yellow) Urine Appearance (CLEAR) Urine pH (5-7) Ur Specific Gravit y (1.005-1.030) Urine Protein (Negative) Urine Glucose (UA) (Normal) Urine Ketones (Negative) Urine Blood (Negative) Urine Nitrate (Negative) Urine Bilirubin (NEGATIVE) Urine Urobilinogen (Negative) mg/dL Ur Leukocyte Shania ase (Negative) Urine RBC (0-2) /hpf Urine WBC (0-5) /hpf Ur Squamous Epith Cells (0-5) Urine Bacteria (NONE) Urine Opiates Scre en (Negative) ng/mL Ur Barbiturates Sc reen (Negative) ng/mL Ur Phencyclidine S crn (Negative) ng/mL Ur Amphetamines Sc reen (Negative) ng/mL U Benzodiazepines Scrn (Negative) ng/mL Urine Cocaine Scre en (Negative) ng/mL U Marijuana (THC) Screen (Negative) ng/mL Ethyl Alcohol (0-10) mg/dL Imaging Data^: CT Head: Attestation: I personally reviewed and interpreted this imaging study as follows: Radiologist's impression: [facility] [address] [place] [address] CT Scan Report Signed Patient: Sarah Victoria Unit #: [id number] : 1940 Age/Sex: 80 / F ADM Date: 02/10/20 Loc: ER Room/Bed: Attending Dr: Ordering Provider/Ordering MD: Chichi White DO Date of Service: 02/10/20 Procedure(s): CT head wo con* [id number] Accession Number(s): [id number] Report Number: [id number] WS: [id number] CT head wo con* [id number] REASON FOR EXAM: AMS IV CONTRAST ADMINISTERED: None. TOTAL EXAM DLP: 629.[address] scans at [facility] use at least one of these dose optimization techniques: automated exposure control; mA and/or kV adjustment per patient size (includes targeted exams where dose is matched to clinical indication); or iterative reconstruction. FINDINGS: Variation was made to a previous examination June 03, 2018. There is again noted prominence of the sulci and mild dilatation the ventricles similar to the previous exam. There is no evidence of hemorrhage, mass effect or infarction seen. The luke posterior fossa were normal. The paraventricular area shows small punctate hyperdense areas consistent with small vessel ischemic changes. Arteriosclerotic changes are seen in the cavernous sinus area but no aneurysms or masses. The 7th and 8th nerve complexes were normal. The paranasal sinuses appear to be normal. The orbits optic nerves optic chiasma were normal. CT/CT head wo con* [id number] IMPRESSION: Mild to moderate cerebral atrophy No interval change since previous exam of June 03, 2018 There is arteriosclerotic changes of the vasculature in the brain. Dictated By: Toño Mendez DO Signed By: Toño Mendez DO Signed Date/Time: 02/10/20 1018 DD/ 1014 EKG Data^: EKG 1: Attestation: I personally reviewed and interpreted this EKG as follows: EKG interpretation date: 02/10/20 Interpretation: Normal sinus rhythm. 82 bpm, P waves present. No ST segment elevation or depression seen. Discharge Plan Discharge Patient Disposition: Admitted As Inpatient Admit Provider: Juancho Loaiza Referrals: Juwan Hernández MD [Primary Care Provider] - Discharge Date/Time: 02/11/20 01:30 Coding Level of Care Code ED Law Office Manager for Chg Fwd Exam Comprehensive Documented by User: Bridger Gates DO 02/11/20 02:02 HPI - Altered Mental Status General: Chief Complaint: Altered Mental Status Stated Complaint: AMS Time Seen by Provider: 02/10/20 09:57 PFSH ED PFSH: Medical History Anxiety disorder Chronic interstitial cystitis Depression Fibromyalgia Irritable bowel syndrome Macrocytic anemia Severe sleep apnea Somatization disorder Urethral syndrome Surgical History H/O carpal tunnel repair H/O hand surgery H/O: hysterectomy S/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 S/P cholecystectomy S/P thyroidectomy Family History Father , cva Stroke Mother , 96 Dementia Social History Smoking and tobacco status: unknown if ever smoked Alcohol intake: never Marital status: Current occupational status: retired History of recent travel: No Course Vital Signs: Vital signs: Vital Signs Temperature 98.7 F 02/11/20 15:00 Pulse Rate 109 H 02/11/20 15:00 Respiratory Rate 18 02/11/20 15:00 Blood Pressure 180/75 02/11/20 15:00 Pulse Oximetry 90 02/11/20 15:00 MDM - Altered Mental Status MDM Narrative: Medical decision making narrative: This is a 80-year-old female originally seen by Mr. Gaby PA-C. She was checked out to her [facility]. 24 hours or so prior, she had been seen with a complaint of urinary retention and dribbling. Mcdaniels had been placed. She was evidently given antibiotics for a mild urinary tract infection at that point. She returns today, her urine looks worse. Her lactic acid is 3.0. She does not have a fever or leukocytosis, but she has significant mental status changes that developed over the past [address] is negative. The most likely reason for the acute mental status change is a urinary tract infection with baseline dementia. She has been given Rocephin here. She will be admitted for urinary tract infection with mental status changes. Lab Data: Labs: Lab Results 02/10/20 02/10/20 02/10/20 Range/Units 10:09 10:24 10:24 WBC 6.8 (4.0-10.0) 10^3/ uL RBC 3.59 L (4.1-5.3) 10^6/u L Hgb 11.8 (11.5-15.3) g/dL Hct 36.5 L (37.0-47.0) % MCV 101.7 H (81-99) fL MCH 32.9 (28.0-34.0) pg MCHC 32.3 (30.0-36.0) g/dL RDW 13.9 (12.1-15.1) % Plt Count 243 (130-400) 10^3/c mm MPV 9.8 (7.4-10.4) fL Neut % (Auto) 71.9 % Lymph % (Auto) 20.4 % [place] % (Auto) 6.5 % Eos % (Auto) 0.4 % Baso % (Auto) 0.4 % Neut # (Auto) 4.9 (1.8-7.7) 10^3/u L Lymph # (Auto) 1.4 (0.8-4.8) 10^3/u L [place] # (Auto) 0.4 (0.2-0.9) 10^3/u L Eos # (Auto) 0.0 (0.0-0.8) 10^3/u L Baso # (Auto) 0.0 (0.0-0.1) 10^3/u L Nucleated RBC % (a uto) 0 % Nucleated RBCs # 0.0 /100WBC PT 13.20 (10.5-13.3) SECO NDS INR 0.97 (0.8-1.2) Specimen Type Arterial Sample Site Brachial, left ABG pH 7.49 H (7.35-7.45) ABG pCO2 29.3 L (35-45) mmHg ABG pO2 68.3 L (80.0-100.0) mmH g ABG HCO3 22.5 (22-26) mmol/L ABG O2 Saturation 94.3 ABG Base Excess 0.0 (-2.0-2.0) mmol/ L [place] Test Pos A-a O2 Gradient 44.1 H (5-10) mmHg Hematocrit 37.2 (37-47) % Hgb O2 Saturation 93.6 L (95-100) % Methemoglobin 0.9 (0.4-1.5) % Total Hemoglobin 12.1 (12-16) g/dL Sodium 140.0 (131-143) mmol/L Potassium 3.8 (3.5-5.0) mmol/L Glucose 117.0 H (70-115) mg/dL Ionized Calcium 1.2 (1.1-1.4) mmol/L O2 Delivery Device Room air FiO2 21.0 % Paid Search Specialist ID [email or web address] Chloride (98-107) mmol/L Carbon Dioxide (22-29) mmol/L Anion Gap (5-19) BUN (8-23) mg/dL Creatinine (0.5-0.9) mg/dL POC Glucose (70-110) mg/dL Calculated Osmolal ity (285-295) mOsm/k g Lactic Acid (0.5-2.2) mmol/L Lactic Acid (Sepsi s) (0.5-2.2) mmol/L Calcium (8.5-10.5) mg/dL Magnesium (1.7-2.3) mg/dL Total Bilirubin (0.15-1.2) mg/dL AST (0-32) U/L ALT (0-33) U/L Alkaline Phosphata se (35-105) IU/L Ammonia (11-51) umol/L Troponin I 6 Hour (0-10) ng/mL Troponin I Hi Sens Del (0-12) ng/L Troponin T Baselin e (0-10) ng/mL Troponin T 120 Min cabazon (0-10) ng/mL Delta Troponin T (0-10) ABS# Total Protein (6.6-8.7) g/dL Albumin (3.5-5.2) g/dL Globulin (1.3-4.6) g/dL Urine Color (Yellow) Urine Appearance (CLEAR) Urine pH (5-7) Ur Specific Gravit y (1.005-1.030) Urine Protein (Negative) Urine Glucose (UA) (Normal) Urine Ketones (Negative) Urine Blood (Negative) Urine Nitrate (Negative) Urine Bilirubin (NEGATIVE) Urine Urobilinogen (Negative) mg/dL Ur Leukocyte Shania ase (Negative) Urine RBC (0-2) /hpf Urine WBC (0-5) /hpf Ur Squamous Epith Cells (0-5) Urine Bacteria (NONE) Urine Opiates Scre en (Negative) ng/mL Ur Barbiturates Sc reen (Negative) ng/mL Ur Phencyclidine S crn (Negative) ng/mL Ur Amphetamines Sc reen (Negative) ng/mL U Benzodiazepines Scrn (Negative) ng/mL Urine Cocaine Scre en (Negative) ng/mL U Marijuana (THC) Screen (Negative) ng/mL Ethyl Alcohol (0-10) mg/dL 02/10/20 02/10/20 02/10/20 Range/Units 10:24 10:24 10:24 WBC (4.0-10.0) 10^3/ uL RBC (4.1-5.3) 10^6/u L Hgb (11.5-15.3) g/dL Hct (37.0-47.0) % MCV (81-99) fL MCH (28.0-34.0) pg MCHC (30.0-36.0) g/dL RDW (12.1-15.1) % Plt Count (130-400) 10^3/c mm MPV (7.4-10.4) fL Neut % (Auto) % Lymph % (Auto) % [place] % (Auto) % Eos % (Auto) % Baso % (Auto) % Neut # (Auto) (1.8-7.7) 10^3/u L Lymph # (Auto) (0.8-4.8) 10^3/u L [place] # (Auto) (0.2-0.9) 10^3/u L Eos # (Auto) (0.0-0.8) 10^3/u L Baso # (Auto) (0.0-0.1) 10^3/u L Nucleated RBC % (a uto) % Nucleated RBCs # /100WBC PT (10.5-13.3) SECO NDS INR (0.8-1.2) Specimen Type Sample Site ABG pH (7.35-7.45) ABG pCO2 (35-45) mmHg ABG pO2 (80.0-100.0) mmH g ABG HCO3 (22-26) mmol/L ABG O2 Saturation ABG Base Excess (-2.0-2.0) mmol/ L [place] Test A-a O2 Gradient (5-10) mmHg Hematocrit (37-47) % Hgb O2 Saturation (95-100) % Methemoglobin (0.4-1.5) % Total Hemoglobin (12-16) g/dL Sodium 137 (131-143) mmol/L Potassium 3.9 (3.5-5.0) mmol/L Glucose 121 H (70-115) mg/dL Ionized Calcium (1.1-1.4) mmol/L O2 Delivery Device FiO2 % Paid Search Specialist ID Chloride 98 (98-107) mmol/L Carbon Dioxide 22 (22-29) mmol/L Anion Gap 20.9 H (5-19) BUN 17 (8-23) mg/dL Creatinine 1.0 H (0.5-0.9) mg/dL POC Glucose (70-110) mg/dL Calculated Osmolal ity 282 L (285-295) mOsm/k g Lactic Acid 3.0 H (0.5-2.2) mmol/L Lactic Acid (Sepsi s) (0.5-2.2) mmol/L Calcium 10.3 (8.5-10.5) mg/dL Magnesium 2.0 (1.7-2.3) mg/dL Total Bilirubin 0.3 (0.15-1.2) mg/dL AST 25 (0-32) U/L ALT 16 (0-33) U/L Alkaline Phosphata se 60 (35-105) IU/L Ammonia (11-51) umol/L Troponin I 6 Hour (0-10) ng/mL Troponin I Hi Sens Del (0-12) ng/L Troponin T Baselin e 12 H (0-10) ng/mL Troponin T 120 Min cabazon (0-10) ng/mL Delta Troponin T (0-10) ABS# Total Protein 7.6 (6.6-8.7) g/dL Albumin 4.4 (3.5-5.2) g/dL Globulin 3.2 (1.3-4.6) g/dL Urine Color (Yellow) Urine Appearance (CLEAR) Urine pH (5-7) Ur Specific Gravit y (1.005-1.030) Urine Protein (Negative) Urine Glucose (UA) (Normal) Urine Ketones (Negative) Urine Blood (Negative) Urine Nitrate (Negative) Urine Bilirubin (NEGATIVE) Urine Urobilinogen (Negative) mg/dL Ur Leukocyte Shania ase (Negative) Urine RBC (0-2) /hpf Urine WBC (0-5) /hpf Ur Squamous Epith Cells (0-5) Urine Bacteria (NONE) Urine Opiates Scre en (Negative) ng/mL Ur Barbiturates Sc reen (Negative) ng/mL Ur Phencyclidine S crn (Negative) ng/mL Ur Amphetamines Sc reen (Negative) ng/mL U Benzodiazepines Scrn (Negative) ng/mL Urine Cocaine Scre en (Negative) ng/mL U Marijuana (THC) Screen (Negative) ng/mL Ethyl Alcohol < 10 (0-10) mg/dL 02/10/20 02/10/20 02/10/20 Range/Units 10:24 10:47 10:47 WBC (4.0-10.0) 10^3/ uL RBC (4.1-5.3) 10^6/u L Hgb (11.5-15.3) g/dL Hct (37.0-47.0) % MCV (81-99) fL MCH (28.0-34.0) pg MCHC (30.0-36.0) g/dL RDW (12.1-15.1) % Plt Count (130-400) 10^3/c mm MPV (7.4-10.4) fL Neut % (Auto) % Lymph % (Auto) % [place] % (Auto) % Eos % (Auto) % Baso % (Auto) % Neut # (Auto) (1.8-7.7) 10^3/u L Lymph # (Auto) (0.8-4.8) 10^3/u L [place] # (Auto) (0.2-0.9) 10^3/u L Eos # (Auto) (0.0-0.8) 10^3/u L Baso # (Auto) (0.0-0.1) 10^3/u L Nucleated RBC % (a uto) % Nucleated RBCs # /100WBC PT (10.5-13.3) SECO NDS INR (0.8-1.2) Specimen Type Sample Site ABG pH (7.35-7.45) ABG pCO2 (35-45) mmHg ABG pO2 (80.0-100.0) mmH g ABG HCO3 (22-26) mmol/L ABG O2 Saturation ABG Base Excess (-2.0-2.0) mmol/ L [place] Test A-a O2 Gradient (5-10) mmHg Hematocrit (37-47) % Hgb O2 Saturation (95-100) % Methemoglobin (0.4-1.5) % Total Hemoglobin (12-16) g/dL Sodium (131-143) mmol/L Potassium (3.5-5.0) mmol/L Glucose (70-115) mg/dL Ionized Calcium (1.1-1.4) mmol/L O2 Delivery Device FiO2 % Paid Search Specialist ID Chloride (98-107) mmol/L Carbon Dioxide (22-29) mmol/L Anion Gap (5-19) BUN (8-23) mg/dL Creatinine (0.5-0.9) mg/dL POC Glucose (70-110) mg/dL Calculated Osmolal ity (285-295) mOsm/k g Lactic Acid (0.5-2.2) mmol/L Lactic Acid (Sepsi s) (0.5-2.2) mmol/L Calcium (8.5-10.5) mg/dL Magnesium (1.7-2.3) mg/dL Total Bilirubin (0.15-1.2) mg/dL AST (0-32) U/L ALT (0-33) U/L Alkaline Phosphata se (35-105) IU/L Ammonia < 10 L (11-51) umol/L Troponin I 6 Hour (0-10) ng/mL Troponin I Hi Sens Del (0-12) ng/L Troponin T Baselin e (0-10) ng/mL Troponin T 120 Min cabazon (0-10) ng/mL Delta Troponin T (0-10) ABS# Total Protein (6.6-8.7) g/dL Albumin (3.5-5.2) g/dL Globulin (1.3-4.6) g/dL Urine Color Yellow (Yellow) Urine Appearance Sl hazy (CLEAR) Urine pH 5 (5-7) Ur Specific Gravit y 1.010 (1.005-1.030) Urine Protein Neg (Negative) Urine Glucose (UA) Norm (Normal) Urine Ketones Negative (Negative) Urine Blood 3+ H (Negative) Urine Nitrate Negative (Negative) Urine Bilirubin Neg (NEGATIVE) Urine Urobilinogen Norm (Negative) mg/dL Ur Leukocyte Shania ase 1+ H (Negative) Urine RBC 40-50 H (0-2) /hpf Urine WBC 15-25 H (0-5) /hpf Ur Squamous Epith Cells Rare (0-5) Urine Bacteria 2+ H (NONE) Urine Opiates Scre en Positive H (Negative) ng/mL Ur Barbiturates Sc reen Negative (Negative) ng/mL Ur Phencyclidine S crn Negative (Negative) ng/mL Ur Amphetamines Sc reen Negative (Negative) ng/mL U Benzodiazepines Scrn Positive H (Negative) ng/mL Urine Cocaine Scre en Negative (Negative) ng/mL U Marijuana (THC) Screen Negative (Negative) ng/mL Ethyl Alcohol (0-10) mg/dL 02/10/20 02/10/20 02/10/20 Range/Units 10:52 12:19 12:37 WBC (4.0-10.0) 10^3/ uL RBC (4.1-5.3) 10^6/u L Hgb (11.5-15.3) g/dL Hct (37.0-47.0) % MCV (81-99) fL MCH (28.0-34.0) pg MCHC (30.0-36.0) g/dL RDW (12.1-15.1) % Plt Count (130-400) 10^3/c mm MPV (7.4-10.4) fL Neut % (Auto) % Lymph % (Auto) % [place] % (Auto) % Eos % (Auto) % Baso % (Auto) % Neut # (Auto) (1.8-7.7) 10^3/u L Lymph # (Auto) (0.8-4.8) 10^3/u L [place] # (Auto) (0.2-0.9) 10^3/u L Eos # (Auto) (0.0-0.8) 10^3/u L Baso # (Auto) (0.0-0.1) 10^3/u L Nucleated RBC % (a uto) % Nucleated RBCs # /100WBC PT (10.5-13.3) SECO NDS INR (0.8-1.2) Specimen Type Sample Site ABG pH (7.35-7.45) ABG pCO2 (35-45) mmHg ABG pO2 (80.0-100.0) mmH g ABG HCO3 (22-26) mmol/L ABG O2 Saturation ABG Base Excess (-2.0-2.0) mmol/ L [place] Test A-a O2 Gradient (5-10) mmHg Hematocrit (37-47) % Hgb O2 Saturation (95-100) % Methemoglobin (0.4-1.5) % Total Hemoglobin (12-16) g/dL Sodium (131-143) mmol/L Potassium (3.5-5.0) mmol/L Glucose (70-115) mg/dL Ionized Calcium (1.1-1.4) mmol/L O2 Delivery Device FiO2 % Paid Search Specialist ID Chloride (98-107) mmol/L Carbon Dioxide (22-29) mmol/L Anion Gap (5-19) BUN (8-23) mg/dL Creatinine (0.5-0.9) mg/dL POC Glucose 120 (70-110) mg/dL Calculated Osmolal ity (285-295) mOsm/k g Lactic Acid (0.5-2.2) mmol/L Lactic Acid (Sepsi s) 1.3 (0.5-2.2) mmol/L Calcium (8.5-10.5) mg/dL Magnesium (1.7-2.3) mg/dL Total Bilirubin (0.15-1.2) mg/dL AST (0-32) U/L ALT (0-33) U/L Alkaline Phosphata se (35-105) IU/L Ammonia (11-51) umol/L Troponin I 6 Hour (0-10) ng/mL Troponin I Hi Sens Del (0-12) ng/L Troponin T Baselin e (0-10) ng/mL Troponin T 120 Min cabazon 10.80 H (0-10) ng/mL Delta Troponin T -1.20 L (0-10) ABS# Total Protein (6.6-8.7) g/dL Albumin (3.5-5.2) g/dL Globulin (1.3-4.6) g/dL Urine Color (Yellow) Urine Appearance (CLEAR) Urine pH (5-7) Ur Specific Gravit y (1.005-1.030) Urine Protein (Negative) Urine Glucose (UA) (Normal) Urine Ketones (Negative) Urine Blood (Negative) Urine Nitrate (Negative) Urine Bilirubin (NEGATIVE) Urine Urobilinogen (Negative) mg/dL Ur Leukocyte Shania ase (Negative) Urine RBC (0-2) /hpf Urine WBC (0-5) /hpf Ur Squamous Epith Cells (0-5) Urine Bacteria (NONE) Urine Opiates Scre en (Negative) ng/mL Ur Barbiturates Sc reen (Negative) ng/mL Ur Phencyclidine S crn (Negative) ng/mL Ur Amphetamines Sc reen (Negative) ng/mL U Benzodiazepines Scrn (Negative) ng/mL Urine Cocaine Scre en (Negative) ng/mL U Marijuana (THC) Screen (Negative) ng/mL Ethyl Alcohol (0-10) mg/dL 02/10/20 Range/Units 15:44 WBC (4.0-10.0) 10^3/ uL RBC (4.1-5.3) 10^6/u L Hgb (11.5-15.3) g/dL Hct (37.0-47.0) % MCV (81-99) fL MCH (28.0-34.0) pg MCHC (30.0-36.0) g/dL RDW (12.1-15.1) % Plt Count (130-400) 10^3/c mm MPV (7.4-10.4) fL Neut % (Auto) % Lymph % (Auto) % [place] % (Auto) % Eos % (Auto) % Baso % (Auto) % Neut # (Auto) (1.8-7.7) 10^3/u L Lymph # (Auto) (0.8-4.8) 10^3/u L [place] # (Auto) (0.2-0.9) 10^3/u L Eos # (Auto) (0.0-0.8) 10^3/u L Baso # (Auto) (0.0-0.1) 10^3/u L Nucleated RBC % (a uto) % Nucleated RBCs # /100WBC PT (10.5-13.3) SECO NDS INR (0.8-1.2) Specimen Type Sample Site ABG pH (7.35-7.45) ABG pCO2 (35-45) mmHg ABG pO2 (80.0-100.0) mmH g ABG HCO3 (22-26) mmol/L ABG O2 Saturation ABG Base Excess (-2.0-2.0) mmol/ L [place] Test A-a O2 Gradient (5-10) mmHg Hematocrit (37-47) % Hgb O2 Saturation (95-100) % Methemoglobin (0.4-1.5) % Total Hemoglobin (12-16) g/dL Sodium (131-143) mmol/L Potassium (3.5-5.0) mmol/L Glucose (70-115) mg/dL Ionized Calcium (1.1-1.4) mmol/L O2 Delivery Device FiO2 % Paid Search Specialist ID Chloride (98-107) mmol/L Carbon Dioxide (22-29) mmol/L Anion Gap (5-19) BUN (8-23) mg/dL Creatinine (0.5-0.9) mg/dL POC Glucose (70-110) mg/dL Calculated Osmolal ity (285-295) mOsm/k g Lactic Acid (0.5-2.2) mmol/L Lactic Acid (Sepsi s) (0.5-2.2) mmol/L Calcium (8.5-10.5) mg/dL Magnesium (1.7-2.3) mg/dL Total Bilirubin (0.15-1.2) mg/dL AST (0-32) U/L ALT (0-33) U/L Alkaline Phosphata se (35-105) IU/L Ammonia (11-51) umol/L Troponin I 6 Hour 9.87 (0-10) ng/mL Troponin I Hi Sens Del -2.13 L (0-12) ng/L Troponin T Baselin e (0-10) ng/mL Troponin T 120 Min cabazon (0-10) ng/mL Delta Troponin T (0-10) ABS# Total Protein (6.6-8.7) g/dL Albumin (3.5-5.2) g/dL Globulin (1.3-4.6) g/dL Urine Color (Yellow) Urine Appearance (CLEAR) Urine pH (5-7) Ur Specific Gravit y (1.005-1.030) Urine Protein (Negative) Urine Glucose (UA) (Normal) Urine Ketones (Negative) Urine Blood (Negative) Urine Nitrate (Negative) Urine Bilirubin (NEGATIVE) Urine Urobilinogen (Negative) mg/dL Ur Leukocyte Shania ase (Negative) Urine RBC (0-2) /hpf Urine WBC (0-5) /hpf Ur Squamous Epith Cells (0-5) Urine Bacteria (NONE) Urine Opiates Scre en (Negative) ng/mL Ur Barbiturates Sc reen (Negative) ng/mL Ur Phencyclidine S crn (Negative) ng/mL Ur Amphetamines Sc reen (Negative) ng/mL U Benzodiazepines Scrn (Negative) ng/mL Urine Cocaine Scre en (Negative) ng/mL U Marijuana (THC) Screen (Negative) ng/mL Ethyl Alcohol (0-10) mg/dL Discharge Plan Discharge Patient Disposition: Admitted As Inpatient Admit Provider: Juancho Loaiza Referrals: Juwan Hernández MD [Primary Care Provider] - Discharge Date/Time: 02/11/20 01:30 Coding Level of Care Code ED Law Office Manager for Chg Fwd Exam Comprehensive
[2020-02-10 10:07] VITALS: O2SAT 95
--- NOTE | 2020-02-10 10:08 | PC.NURSE ---
pt transported to CT by stretcher with tech
[2020-02-10 10:20] LABS: ABG PCO2 29.3 mmHg (35-45); ABG PH Result 7.49 (7.35-7.45); Alveolar-Arterial Oxygen Gradi 44.1 mmHg (5-10); Arterial Blood Gas Hematocrit 37.2 % (37-47); Blood Gas Allen Test Pos; Blood Gas Sample Site Brachial, left; Blood Gas Sample Type Arterial; HCO3 ABG 22.5 mmol/L (22-26); HGB O2 Sat 93.6 % (95-100); Ionized Calcium Level - ABG 1.2 mmol/L (1.1-1.4); Methemoglobin 0.9 % (0.4-1.5); Oxygen Device ROOM AIR; Oxygen Saturation ABG 94.3; PO2 ABG 68.3 mmHg (80.0-100.0); Potassium Level - ABG 3.8 mmol/L (3.5-5.0); Total Hemoglobin 12.1 g/dL (12-16)
[2020-02-10 10:42] LABS: Basophils % 0.4 %; Eosinophils % 0.4 %; Hematocrit 36.5 % (37.0-47.0); Hemoglobin 11.8 g/dL (11.5-15.3); Lymphocytes # 1.4 10^3/uL (0.8-4.8); Lymphocytes % 20.4 %; Mean Corpuscular HGB Conc 32.3 g/dL (30.0-36.0); Mean Corpuscular Hemoglobin 32.9 pg (28.0-34.0); Mean Corpuscular Volume 101.7 fL (81-99); Mean Platelet Volume 9.8 fL (7.4-10.4); Monocytes # 0.4 10^3/uL (0.2-0.9); Monocytes % 6.5 %; Neutrophils # 4.9 10^3/uL (1.8-7.7); Neutrophils % 71.9 %; Nucleated Red Blood Cells % 0 %; Platelet Count 243 10^3/cmm (130-400); Red Blood Count 3.59 10^6/uL (4.1-5.3); Red Cell Distribution Width 13.9 % (12.1-15.1); White Blood Count 6.8 10^3/uL (4.0-10.0)
[2020-02-10 10:55] LABS: Glucose Point of Care 120 mg/dL (70-110)
[2020-02-10 10:57] LABS: Alanine Aminotransferase 16 U/L (0-33); Albumin Level 4.4 g/dL (3.5-5.2); Alkaline Phosphatase 60 IU/L (35-105); Anion Gap 20.9 (5-19); Aspartate Amino Transferase 25 U/L (0-32); Blood Urea Nitrogen 17 mg/dL (8-23); Calcium 10.3 mg/dL (8.5-10.5); Carbon Dioxide 22 mmol/L (22-29); Chloride 98 mmol/L (98-107); Globulin 3.2 g/dL (1.3-4.6); Glucose 121 mg/dL (65-115); Osmolality Calculated 282 mOsm/kg (285-295); Potassium 3.9 mmol/L (3.5-5.1); Sodium 137 mmol/L (136-145); Total Bilirubin 0.3 mg/dL (0.15-1.2); Total Protein 7.6 g/dL (6.6-8.7)
[2020-02-10 10:59] VITALS: BP 200/79; PULSE 82; O2SAT 96
[2020-02-10 11:01] LABS: Troponin(5th) Baseline 12 ng/mL (0-10)
[2020-02-10 11:06] LABS: Ammonia < 10 umol/L (11-51)
[2020-02-10 11:07] LABS: Alcohol Level < 10 mg/dL (0-10)
[2020-02-10 11:09] LABS: Bilirubin Urine Neg (NEGATIVE); Blood Urine 3+ (Negative); Glucose Urine UA Norm (Normal); Ketones Urine Negative (Negative); Leukocyte Esterase Urine 1+ (Negative); Nitrate Urine Negative (Negative); Protein Urine Neg (Negative); Urine Appearance SL Hazy (CLEAR); Urine Color Yellow (Yellow); Urobilinogen Urine Norm (Negative); pH Urine 5 (5-7)
--- NOTE | 2020-02-10 11:14 | PC.NURSE ---
pt continues to be disoriented, shouting loudly statements praise wing I'm now and I'm in heaven . Pt asked to respect noise levels and not disturb other patients and Pt started yodeling very loudly. ED provider notified. Orders received.
[2020-02-10 11:15] LABS: Add Urine Culture? No; Bacteria Urine 2+; RBC Urine 40-50 /hpf (0-2); Squamous Epithelial Cell Urine RARE (0-5); WBC Urine 15-25 /hpf (0-5)
[2020-02-10] MEDS: ziprasidone 20 mg/mL SDV IM ×2 (11:16→16:38)
[2020-02-10 11:18] LABS: Amphetamines Screen Urine Negative (Negative); Barbiturates Screen Urine Negative (Negative); Benzodiazepines Screen Urine Positive (Negative); Cocaine Screen Urine Negative (Negative); Opiate Screen Urine Positive (Negative); PCP Screen Urine Negative (Negative); THC Screen Urine Negative (Negative)
--- NOTE | 2020-02-10 11:51 | PC.NURSE ---
pt oxygen saturation 87-88% on room air. 2L supplemental oxygen applied via nasal cannula
--- NOTE | 2020-02-10 11:56 | ECG_ITS ---
Measurements Intervals [place] Rate: 77 P: 44 OR: 171 QRS: -14 QRSD: 94 T: 94 QT: 395 QTc: 449 SINUS RHYTHM WITH OCCASIONAL VENTRICULAR PREMATURE COMPLEXES ANTERIOR MYOCARDIAL INFARCTION , OF INDETERMINATE AGE [40+ ms Q WAVE AND/OR ST/T ABNORMALITY IN V3/V4] INFERIOR MYOCARDIAL INFARCTION , PROBABLY OLD [40+ ms Q WAVE AND/OR ST/T ABNORMALITY IN II/aVF] MODERATE T-WAVE ABNORMALITY, CONSIDER LATERAL ISCHEMIA [-0.1+ mV T WAVE IN I/aVL/V5/V6] Compared to ECG 06/03/2018 12:04:59 Ventricular premature complex(es) now present T-wave abnormality now present Possible ischemia now present Myocardial infarct finding still present Electronically Signed On 02-10-2020 20:16:17 CDT by Gerard Sousa M.D. [id number]
[2020-02-10 12:23] LABS: Reflex Lactate Order REFLEX LACTIC ORDERD
[2020-02-10 12:54] LABS: Lactic Acid level (Lactate) 1.3 mmol/L (0.5-2.2)
[2020-02-10 13:11] LABS: INR 0.97 (0.8-1.2)
[2020-02-10 15:07] VITALS: BP 135/71; PULSE 70; RESP 18; O2SAT 96
[2020-02-10] MEDS: LORazepam 2 mg/mL INJ 1 mL 1 MG IVP (15:20)
--- NOTE | 2020-02-10 15:56 | ECG_ITS ---
Measurements Intervals [place] Rate: 79 P: 51 OR: 159 QRS: -15 QRSD: 94 T: 30 QT: 360 QTc: 415 SINUS RHYTHM POSSIBLE LEFT ATRIAL ENLARGEMENT [-0.1mV P WAVE IN V1/V2] LOW QRS VOLTAGE IN PRECORDIAL LEADS [QRS DEFLECTION < 1.0 mV IN CHEST LEADS] POSSIBLE ANTERIOR MYOCARDIAL INFARCTION [30 ms Q WAVE IN V3/V4, OR R < 0.2 mV IN V4], PROBABLY OLD INFERIOR MYOCARDIAL INFARCTION [40+ ms Q WAVE AND/OR ST/T ABNORMALITY IN II/aVF], PROBABLY OLD Compared to ECG 06/03/2018 12:04:59 Low QRS voltage now present Myocardial infarct finding still present Electronically Signed On 02-10-2020 20:15:56 CDT by Gerard Sousa M.D. [id number]
[2020-02-10 16:02] LABS: Troponin 5 6HR 9.87 ng/mL (0-10)
[2020-02-10 16:06] LABS: Troponin 5 6HR Delta -2.13 ng/L (0-12)
[2020-02-10] MEDS: cefTRIAXone 1,000 mg SDV 1000 MG IM (18:37)
[2020-02-10 22:34] VITALS: BP 128/74; PULSE 72; RESP 18; O2SAT 98
--- NOTE | 2020-02-10 22:54 | PM.HP ---
Providers/Chief Complaint Primary Care Provider: Juwan Hernández MD Chief Complaint: AMS History of Present Illness Sarah Victoria is a 80 year old female who carries a complex psychiatric history comes in with chief complaint of abdominal bloating and dysuria. Patient is not able to stay consistent with her reason to come to the hospital. She was seen in the ER yesterday and was discharged with doxycycline for urinary complaints. She has returned to the ER complaining about abdominal bloating, and dysuria. She is denying fever, nausea, vomiting. She is endorsing pain all over her body, while I was interviewing her she asked me if roof of the room is leaking, and water is dripping from the room which is making her uncomfortable. She is suffering from tangential thoughts, she started talking about her life, loves her and is afraid to get because of her current psychiatric history. She started complaining about her abdominal girth increasing and bloating. She is denying chest pain, shortness of breath, but is endorsing abdominal pain, she is not able to describe her abdominal pain. While her discussing abdominal pain she started talking about back surgery. When I asked her about food intake she stated that she coughs a lot while eating, she has not noticed any specific pattern with solids versus liquids. Nursing staff has tried to place her to [facility] psych but she has been declined. Because of her high lactic acid and possible worsening cystitis causing this delirious episode hospital service was requested to admit her overnight. Diagnostics in the ER revealed normal hemodynamics, no leukocytosis, no source of high lactic acid found, no active seizures, hemoglobin stable, CT abdomen yesterday did not show ischemic colitis Review of Systems Const: Reports: chills, body aches and fatigue; Denies: fever Eyes: Denies: change in vision ENMT: Denies: throat pain Card: Denies: chest pain Resp: Denies: shortness of breath GI: Reports: abdominal pain and heartburn/indigestion; Denies: nausea, vomiting, diarrhea or constipation : Reports: difficulty urinating, painful urination, urinary urgency, urinary hesitancy and urinary dribbling Musc: Reports: back pain and muscle cramps; Denies: neck pain Skin/Breast: Denies: rash Neuro: Reports: confusion and behavioral changes Psych: Reports: anxiety, sleeping less, change in appetite, irritability, difficulty concentrating and visual hallucinations Endo: Denies: excessive urination Grant/Lymph: Denies: easy bruising All/Imm: Denies: hives Medications/Allergies Home Medications Medication Instructions Recorded Confirmed Last Taken Type acetaminophen 325 mg capsule 325 mg PO QID PRN 11/12/19 02/10/20 02/09/20 History alprazolam 0.25 mg tablet 0.25 mg PO TID PRN 11/12/19 02/10/20 02/08/20 History aspirin 81 mg tablet,delayed 81 mg PO DAILY 11/12/19 02/10/20 02/08/20 History release duloxetine 40 mg capsule,delayed 40 mg PO DAILY 11/12/19 02/10/20 02/08/20 History release furosemide 20 mg tablet 20 mg PO DAILY 11/12/19 02/10/20 02/08/20 History nystatin 100,000 unit/gram topical 1 applic TOPICAL DAILY 11/12/19 02/10/20 02/08/20 History powder pantoprazole 40 mg tablet,delayed 40 mg PO DAILY 11/12/19 02/10/20 02/08/20 History release pregabalin 100 mg capsule 100 mg PO DAILY 11/12/19 02/10/20 02/08/20 History allopurinol 300 mg tablet 300 mg PO DAILY 11/30/19 02/10/20 02/08/20 History citalopram 40 mg tablet 20 mg PO DAILY 11/30/19 02/10/20 02/08/20 History cyanocobalamin (vitamin B-12) 2,000 mcg PO DAILY 11/30/19 02/10/20 02/08/20 History 2,000 mcg tablet levothyroxine 112 mcg tablet 100 mcg PO DAILY tab 11/30/19 02/10/20 02/08/20 History metoprolol succinate 25 mg 25 mg PO DAILY 11/30/19 02/10/20 02/08/20 History tablet,extended release 24 hr fluconazole 150 mg tablet 150 mg PO Q3D #2 tab 12/31/19 02/10/20 02/08/20 Rx [id number] [id number] 1 tab PO DAILY 02/09/20 02/10/20 02/08/20 History [] doxycycline hyclate 100 mg PO BID 7 Days #14 cap 02/09/20 02/10/20 Unknown Rx Allergies Allergy/AdvReac Type Severity Reaction Status Date / Time acetaminophen [From Ultracet] Allergy NA Verified 11/09/19 14:10 levofloxacin [From Levaquin] Allergy NA Verified 11/09/19 14:10 nitrofurantoin Allergy NA Verified 11/09/19 14:10 [From Macrobid] Penicillins Allergy NA Verified 11/09/19 14:10 phenazopyridine Allergy NA Verified 11/09/19 14:10 [From Pyridium] streptomycin Allergy NA Verified 11/09/19 14:10 Sulfa (Sulfonamide Allergy NA Verified 11/09/19 14:10 Antibiotics) tramadol [From Ultracet] Allergy NA Verified 11/09/19 14:10 PFSH Acute PFSH: Medical History Anxiety disorder Chronic interstitial cystitis Depression Fibromyalgia Irritable bowel syndrome Macrocytic anemia Severe sleep apnea Somatization disorder Urethral syndrome Surgical History H/O carpal tunnel repair H/O hand surgery H/O: hysterectomy S/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 S/P cholecystectomy S/P thyroidectomy Family History Father , cva Stroke Mother , 96 Dementia Social History Smoking and tobacco status: unknown if ever smoked Alcohol intake: never Marital status: Current occupational status: retired History of recent travel: No Vitals/I&O/Wt Last Vital Signs Temp 98.5 F 02/10/20 09:47 Pulse 82 02/10/20 10:59 Resp 18 02/10/20 09:47 BP 200/79 02/10/20 10:59 Pulse Ox 96 02/10/20 10:59 Weight last 48 hrs Weight 86.183 kg Physical Exam Narrative: EXAM NARRATIVE: Head to toe examination Patient started yelling when I entered the room She complained about leakage in the room and water dripping on her abdomen which is bothering her Very agitated and irritable, Tangential thoughts Poor span of concentration, She is stating gnosticism slogans S1, S2 no signs of heart failure Abdomen soft, nontender, nondistended no signs of peritonitis EOMI, PERRLA Bilateral breath sounds with good air movement without adventitious sounds Skin does not show any sign ischemia gangrene ulcer No active signs of seizure No signs of stroke No facial asymmetry She is awake and alert oriented to time place and person, GCS 15 Flight of ideas with special consideration to religiousity Pertinent negatives No signs of stroke No signs of seizure Data : 02/10/20 10:24 02/10/20 10:24 Micro: Microbiology 02/10/20 10:25 Blood Culture - Preliminary Blood SPECIMEN COLLECTED 02/10/20 10:24 Blood Culture - Preliminary Blood SPECIMEN COLLECTED A&P Assessment and plan (1) Acute hyperactive delirium due to another medical condition: Status: Acute (2) Urethral syndrome: Status: Acute (3) Chronic interstitial cystitis: Status: Acute (4) High serum lactic acid: Status: Acute Additional A&P Information Hyperactive delirium due to cystitis Pyuria, patient is afebrile, no leukocytosis, endorsing dysuria She does not want to have IV antibiotics and is stating that she would not like to have any kind of medications. Considering her drug allergies I would use Augmentin for now because of her limited options Urine culture Chest x-ray has right lower lobe infiltrates, she is endorsing coughing while eating, aspiration pneumonitis should be considered as well, Augmentin should suffice that as well High lactic acid without active source of infection No signs of ischemic colitis on CT abdomen, no active pneumonia, she has chronic cystitis without active septic sign, she is afebrile She has been on Lasix at home, clinically looks dry, she is avoiding IV fluids, Encouraged her to increase her p.o. intake, repeat lactic acid in the morning QUANG due to dehydration Encourage increased p.o. intake, currently refusing IV access and IV fluids Hyperactive delirium She will need placement to [facility] Full code DVT prophylaxis Lovenox Cardiac diet Attestations Medical Necessity Statement*: Anticipating discharge in less than 48 hours continue treatment for hyperactive delirium and UTI, she will need placement to [facility] Time Spent in Patient Care: 50 Coding Level of Care Code Acute Rope Making Machine Operator for [facility] Fwd Diagnoses Acute hyperactive delirium due to another medical condition F05 Urethral syndrome N34.3 Chronic interstitial cystitis N30.10 High serum lactic acid R79.89
[2020-02-10 23:07] VITALS: BP 141/68; PULSE 82; RESP 18; O2SAT 93
--- NOTE | 2020-02-10 23:07 | PC.NURSE ---
myers output was approximately 1500 MLs
[2020-02-11] VITALS (8 sets, daily range): BP systolic 119–196; BP diastolic 60–99; PULSE 68–120; RESP 18–24; TEMP 36.5–37.4; O2SAT 90–96
[2020-02-11] MEDS: haloperidol inj 5 mg/mL INJ 1 mL IM (00:23)
[2020-02-11] MEDS: LORazepam 2 mg/mL INJ 1 mL 1.5 MG IVP (02:26)
--- NOTE | 2020-02-11 02:44 | PC.NURSE ---
Addendum entered by Cathy Payton RN 02/11/20 03:51: patient is now on telemetry and showing NSR. will hope she will leave them on once awake. Original Note: patient slightly groggy and confused when reached the floor. during setup patient refused telemetry 3 times, kept trying to pull them off and refused to allow anyone to reach the sticky pads under the edges of her gown was slightly combatitive. 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
[2020-02-11] MEDS: acetaminophen 325 mg Tablet PO (05:24)
[2020-02-11] MEDS: ALPRAZolam 0.25 mg Tablet PO ×2 (05:29→14:31)
--- NOTE | 2020-02-11 05:45 | PC.NURSE ---
patient woke after a mere hourish very loud and cheering, priasing the Lord, sewing in her little world but was a happy loud unless you did something that wasnt part of her current game then shed start cussing but not directly at anyone. she was mumbling about getting her sewing parmar, fixing her marriage, some ballgame. and complaining of a headache. xanax and tyenol were given.
[2020-02-11 06:35] LABS: Basophils % 0.4 %; Eosinophils % 0.4 %; Hematocrit 38.2 % (37.0-47.0); Hemoglobin 12.3 g/dL (11.5-15.3); Lymphocytes # 1.7 10^3/uL (0.8-4.8); Lymphocytes % 24.4 %; Mean Corpuscular HGB Conc 32.2 g/dL (30.0-36.0); Mean Corpuscular Hemoglobin 33.4 pg (28.0-34.0); Mean Corpuscular Volume 103.8 fL (81-99); Mean Platelet Volume 10.1 fL (7.4-10.4); Monocytes # 0.4 10^3/uL (0.2-0.9); Monocytes % 5.2 %; Neutrophils # 4.8 10^3/uL (1.8-7.7); Neutrophils % 69.2 %; Nucleated Red Blood Cells % 0 %; Platelet Count 249 10^3/cmm (130-400); Red Blood Count 3.68 10^6/uL (4.1-5.3); Red Cell Distribution Width 13.9 % (12.1-15.1); White Blood Count 6.9 10^3/uL (4.0-10.0)
[2020-02-11 06:52] LABS: Lactic Acid level (Lactate) 1.5 mmol/L (0.5-2.2)
[2020-02-11 07:13] LABS: Slide Review Slide Review Perform
[2020-02-11] MEDS: haloperidol inj 5 mg/mL INJ 1 mL IVP ×2 (08:14→22:13)
--- NOTE | 2020-02-11 10:16 | PC.CHAP ---
Pastoral Care Encounter/Spiritual Assessment Type of Contact [] Declined electrical test technician visit [] Patient/Family/Request visit [] Outpatient visit [] Follow-up visit [] Physician referral [] Code/Alert [x] Routine visit [] Staff referral [] Actively dying [] Patient sleeping [] Family support [] [] Out of room [] Palliative care [] [] Receiving care in room [] Pre-surgical visit [] Trauma [] Long length of stay [] ICU visit [] Other: Relational/Emotional Strength [] Patient feels connected with others/family/visitors/staff [] Distress [] Loneliness/isolation [] Abandonment Spirituality of Patient [] Person of Greta [] Attends Zoroastrian of their Greta [x] Believes in Prayer [] Reads Bible or Denominational materials [] There are Spiritual issues to be addressed Packaging Engineer Interventions [x] Prayer [] Active listening [] Non-anxious presence [] Spiritual/emotional support [] Crisis/trauma care [] Spiritual counseling [] Bereavement support [] Provided bereavement packet [] Provided Bible/devotional materials [] Provided toy/stuffed animal, coloring book to patient or family member [] Provided Communion [] Anointing/[place] [] Salvation [x] Completed spiritual assessment [] Other: Impact on Illness or Injury [] Angry [x] Fearful [x] Anxious [] Often cries [] Exhaustion [] Unable to work [] Unable to attend faith [] Unable to walk/stand [] Unable to read [] Unable to drive [] Unable to eat/drink [] Unable to sleep [] Unable to be with family [] Patient intubated [] Other: Summary Patient drifts in and out. Not realizing where she is. Can be combative, but easily calmed by soft talking and holding of hand. Visited Patient twice. Time spent with patient 20min
--- NOTE | 2020-02-11 12:24 | PM.PN ---
Subjective Subjective: Interval history: The patient began yelling when I came in the room and said no distractions . She then began to squeeze on her left fingertips with her right fingers and squeezing them multiple times while counting from 1-5 in various orders. The sitter that is with her, said that the patient believes that her fingers are buttons and that one is for love had another is for hell. The patient completely ignored any of my questions and would not communicate with me in any way. She has apparently been yelling out throughout the day and saying that she is seeing the [employer] and the 10 commandments. Vitals/I&O/Wt Last Vital Signs Temp 98.6 F 02/11/20 10:56 Pulse 110 H 02/11/20 10:56 Resp 20 H 02/11/20 10:56 BP 168/75 02/11/20 10:56 Pulse Ox 95 02/11/20 10:56 02/10/20 02/11/20 02/11/20 22:59 06:59 14:59 Output Total 550 / 550 Balance -550 / -550 Weight last 48 hrs Weight 190 lb Physical Exam Narrative: EXAM NARRATIVE: General: Alert, however I am unable to assess her orientation as she will not answer questions. Speaking with her eyes closed most of the time, however she had her eyes open when I initially walked into the room. Cardiac: Regular rate and rhythm without murmurs Lungs: Clear to auscultation without crackles, wheezes or rhonchi. Abdomen: Soft, nontender, no hepatosplenomegaly noted. Extremities: No edema Data : 02/11/20 06:13 02/10/20 10:24 Micro: Microbiology 02/10/20 10:47 Urine Culture - Preliminary Urine Catheterized 02/10/20 10:25 Blood Culture - Preliminary Blood NEGATIVE TO DATE 02/10/20 10:24 Blood Culture - Preliminary Blood NEGATIVE TO DATE A&P Additional A&P Information 1. Acute delirium with hyperactivity -the patient has significant delirium and refuses to communicate with me in any way. She is hallucinating and is refusing all medications and IVs. At this time I do not feel that the cause is secondary to infection. The patient did receive 1 dose of Rocephin IM in the ER yesterday. She is refusing any further antibiotics or medications by mouth. The patient in my opinion can safely be transferred to geriatric psychiatry at this time. We will work on getting this set up. 2. Possible cystitis -the patient had possible cystitis, however I am not convinced that this is the cause of her above issues. The patient received Rocephin IM yesterday and if she continues to refuse oral antibiotics, we can give another dose IM tonight. Cultures pending, however again I do not feel that this is a certain infection. 3. Elevated lactic acid -repeat lactic acid level was normal at 1.3. 4. Hypothyroidism -I will check thyroid levels to rule this out as an underlying cause. 5. Prophylaxis -Lovenox while the patient is here for DVT prophylaxis. Attestations Medical Necessity Statement*: The patient is currently here to rule out underlying causes of the patient's acute delirium. I believe that this is likely a psychiatric cause and not secondary to infection. The patient does have a history of underlying psychiatric issues. We will work on placement. Coding Level of Care Code Acute Crew Leader Gluing for Marisol Reese
[2020-02-11 13:02] LABS: Free T4 Free Thyroxine 0.96 ng/dL (0.82-1.77); Thyroid Stimulating Hormone 4.38 uIU/mL (0.27-4.20)
[2020-02-11] MEDS: cefTRIAXone 1,000 MG in sodium chloride 0.9% (plus) 50 ML 100 MG IV (17:36)
[2020-02-12] VITALS (8 sets, daily range): BP systolic 176–192; BP diastolic 74–107; PULSE 87–111; RESP 18–20; TEMP 36.4–37.6; O2SAT 93–96
[2020-02-12] MEDS: haloperidol inj 5 mg/mL INJ 1 mL IVP (07:15)
[2020-02-12] MEDS: acetaminophen 325 mg Tablet PO (07:18)
--- NOTE | 2020-02-12 08:33 | PM.PN ---
Subjective Subjective: Interval history: The patient is more awake today and interactive. She states things like amen, hallelujah, and suffering over and over. She allowed me to examine her today. She denied any pain. Vitals/I&O/Wt Last Vital Signs Temp 99.5 F 02/12/20 03:00 Pulse 111 H 02/12/20 03:00 Resp 18 02/12/20 03:00 BP 192/94 02/12/20 03:00 Pulse Ox 94 02/12/20 03:00 02/11/20 02/12/20 02/12/20 22:59 06:59 14:59 Intake Total 0 / 0 Output Total 1375 / 1375 Balance 0 / 0 -1375 / -1375 Weight last 48 hrs Weight 190 lb Physical Exam Narrative: EXAM NARRATIVE: General: Alert, not oriented to time or place. Cardiac: Regular rate and rhythm without murmurs Lungs: Clear to auscultation without crackles, wheezes or rhonchi. Abdomen: Soft, nontender, no hepatosplenomegaly noted. Extremities: No edema Data : 02/11/20 06:13 02/10/20 10:24 Micro: Microbiology 02/10/20 10:47 Urine Culture - Preliminary Urine Catheterized 02/10/20 10:25 Blood Culture - Preliminary Blood NEGATIVE TO DATE 02/10/20 10:24 Blood Culture - Preliminary Blood NEGATIVE TO DATE A&P Additional A&P Information 1. Acute delirium with hyperactivity -the patient has significant delirium and has interacted a little bit more today. That being said, she continues to not answer questions well and repeats phrases and words over and over. The patient by no means can care for herself. The patient would certainly benefit from geriatric psychiatry at this time. 2. Possible cystitis -the patient had possible cystitis, however I am not convinced that this is the cause of her above issues. Just in case there is an infection, the patient has been getting Rocephin IM every 24 hours. Urine culture is still pending. Preliminary shows no growth at day 1. 3. Elevated lactic acid -repeat lactic acid level was normal at 1.3. 4. Hypothyroidism -TSH and T4 levels are in the normal range. 5. Prophylaxis -Lovenox while the patient is here for DVT prophylaxis. Attestations Medical Necessity Statement*: The patient is here while awaiting transfer to geriatric psychiatry. We will plan on discharge when a bed is available. Coding Level of Care Code Acute Vmware Consultant for Marisol Reese
[2020-02-12] MEDS: levothyroxine 100 mcg Tablet PO (09:18)
[2020-02-12] MEDS: citalopram 20 mg Tablet PO (09:18)
[2020-02-12] MEDS: duloxetine 20 mg Capsule 40 MG PO (09:18)
[2020-02-12] MEDS: aspirin 81 mg EC Tablet PO (09:19)
[2020-02-12] MEDS: metoprolol succinate ER (24 HR) 25 mg Tablet PO (09:19)
[2020-02-12] MEDS: pantoprazole DR 40 mg Tablet PO (09:19)
[2020-02-12] MEDS: allopurinol 300 mg Tablet PO (09:19)
[2020-02-12] MEDS: cephALEXin 500 mg Capsule PO ×4 (09:21→22:27)
[2020-02-12] MEDS: enoxaparin 40 mg/0.4 mL Syringe SUBCUT (09:22)
[2020-02-12 09:33] LABS: Basophils % 0.2 %; Hematocrit 38.6 % (37.0-47.0); Hemoglobin 12.7 g/dL (11.5-15.3); Lymphocytes # 1.1 10^3/uL (0.8-4.8); Lymphocytes % 12.6 %; Mean Corpuscular HGB Conc 32.9 g/dL (30.0-36.0); Mean Corpuscular Hemoglobin 33.1 pg (28.0-34.0); Mean Corpuscular Volume 100.5 fL (81-99); Mean Platelet Volume 9.3 fL (7.4-10.4); Monocytes # 0.5 10^3/uL (0.2-0.9); Monocytes % 6.3 %; Neutrophils # 6.9 10^3/uL (1.8-7.7); Neutrophils % 80.4 %; Nucleated Red Blood Cells % 0 %; Platelet Count 276 10^3/cmm (130-400); Red Blood Count 3.84 10^6/uL (4.1-5.3); Red Cell Distribution Width 14.1 % (12.1-15.1); White Blood Count 8.6 10^3/uL (4.0-10.0)
[2020-02-12 09:53] LABS: Alanine Aminotransferase 19 U/L (0-33); Alkaline Phosphatase 66 IU/L (35-105); Anion Gap 20.8 (5-19); Aspartate Amino Transferase 40 U/L (0-32); Blood Urea Nitrogen 13 mg/dL (8-23); Calcium 9.6 mg/dL (8.5-10.5); Carbon Dioxide 23 mmol/L (22-29); Chloride 98 mmol/L (98-107); Creatinine Clr Calc Pharmacy 65.3564; Globulin 2.7 g/dL (1.3-4.6); Glucose 148 mg/dL (65-115); Osmolality Calculated 285 mOsm/kg (285-295); Potassium 3.8 mmol/L (3.5-5.1); Sodium 138 mmol/L (136-145); Total Bilirubin 0.4 mg/dL (0.15-1.2); Total Protein 7.7 g/dL (6.6-8.7)
[2020-02-12] MEDS: metoprolol tartrate 1 mg/1 mL SDV 5 mL 5 MG IV ×3 (13:01→22:04)
[2020-02-12 14:43] LABS: Glucose Point of Care 155 mg/dL (70-110)
--- NOTE | 2020-02-12 14:48 | ECG_ITS ---
Measurements Intervals [place] Rate: 73 P: 61 MI: 159 QRS: -8 QRSD: 89 T: 77 QT: 394 QTc: 436 SINUS RHYTHM LOW QRS VOLTAGE IN PRECORDIAL LEADS [QRS DEFLECTION < 1.0 mV IN CHEST LEADS] V3/V4], OF INDET OF INDETERMINATE AGE INFERIOR MYOCARDIAL INFARCTION [40+ ms Q WAVE AND/OR ST/T ABNORMALITY IN II/aVF], PROBABL PROBABLY OLD Compared to ECG 02/10/2020 12:45:51 Low QRS voltage now present Electronically Signed On 02-12-2020 19:45:31 CDT by Juancho Adamson M.D. [id number]
[2020-02-12] MEDS: nitroglycerin 0.4 mg sublingual Tablet SUBLINGUAL (15:05)
[2020-02-12 16:28] LABS: Troponin(5th) Baseline 18 ng/mL (0-10)
--- NOTE | 2020-02-12 16:48 | ECG_ITS ---
Measurements Intervals [place] Rate: 89 P: 62 NH: 168 QRS: 9 QRSD: 82 T: 105 QT: 355 QTc: 434 SINUS RHYTHM WITH OCCASIONAL ECTOPIC PREMATURE COMPLEXES POSSIBLE LEFT ATRIAL ENLARGEMENT [-0.1mV P WAVE IN V1/V2] POSSIBLE INFERIOR MYOCARDIAL INFARCTION [30 ms Q WAVE IN II/aVF], OF INDETER INDETERMINATE AGE ANTEROSEPTAL MYOCARDIAL INFARCTION [40+ ms Q WAVE IN V1-V4], OF INDETERMINATE AGE Compared to ECG 02/10/2020 12:45:51 Ventricular premature complex(es) no longer present T-wave abnormality no longer present Possible ischemia no longer present Myocardial infarct finding still present Electronically Signed On 02-12-2020 19:48:30 CDT by Juancho Adamson M.D. [id number]
[2020-02-12] MEDS: amlodipine 5 mg Tablet PO (18:07)
[2020-02-12] MEDS: ALPRAZolam 0.25 mg Tablet PO (20:48)
--- NOTE | 2020-02-12 20:48 | ECG_ITS ---
Measurements Intervals [place] Rate: 89 P: 62 ID: [id number] QRS: 9 QRSD: 82 T: 105 QT: 355 QTc: 434 SINUS RHYTHM WITH OCCASIONAL ECTOPIC PREMATURE COMPLEXES POSSIBLE LEFT ATRIAL ENLARGEMENT [-0.1mV P WAVE IN V1/V2] POSSIBLE INFERIOR MYOCARDIAL INFARCTION [30 ms Q WAVE IN II/aVF], OF INDETERMINATE AGE ANTEROSEPTAL MYOCARDIAL INFARCTION [40+ ms Q WAVE IN V1-V4], OF INDETERMINATE AGE Compared to ECG 02/10/2020 12:45:51 Ventricular premature complex(es) no longer present T-wave abnormality no longer present Possible ischemia no longer present Myocardial infarct finding still present [id number]
[2020-02-12] MEDS: sodium chloride 0.9% 1,000 ML 100 ML IV (20:49)
[2020-02-12 21:51] LABS: Troponin 5 6HR 16.01 ng/mL (0-10); Troponin 5 6HR Delta -1.99 ng/L (0-12)
--- NOTE | 2020-02-12 22:11 | PC.NURSE ---
REPORTED BP TO NURSE!
--- NOTE | 2020-02-12 23:36 | PC.NURSE ---
pt complaint of being dirty, and having wet clothes, stated she had been wet all day from sweat - assessed and changed bedding to find skin slough off on her back in a round reddened, shearing 1x7/8 area. Cleaned and applied tegaderm. Pt currently resting with clean brief and bedding.
[2020-02-13] VITALS (7 sets, daily range): BP systolic 144–182; BP diastolic 71–81; PULSE 68–86; RESP 17–24; TEMP 36.4–37.2; O2SAT 89–95
[2020-02-13] MEDS: haloperidol inj 5 mg/mL INJ 1 mL IVP (01:05)
--- NOTE | 2020-02-13 01:55 | ECG_ITS ---
Measurements Intervals [place] Rate: 83 P: 53 SD: 140 QRS: 30 QRSD: 109 T: 79 QT: 402 QTc: 473 SINUS RHYTHM WITH OCCASIONAL VENTRICULAR PREMATURE COMPLEXES POSSIBLE LEFT ATRIAL ENLARGEMENT [-0.1mV P WAVE IN V1/V2] MODERATE T-WAVE ABNORMALITY, CONSIDER ANTERIOR ISCHEMIA [-0.1+ mV T WAVE IN V3/V4] Compared to ECG 02/12/2020 17:17:19 Ventricular premature complex(es) now present T-wave abnormality now present Possible ischemia now present Myocardial infarct finding no longer present Electronically Signed On 02-13-2020 20:30:13 CDT by Gerard Sousa M.D. [id number]
[2020-02-13 02:36] LABS: Troponin(5th) Baseline 15 ng/mL (0-10)
[2020-02-13 05:23] LABS: Basophils % 0.3 %; Eosinophils % 0.2 %; Hematocrit 36.3 % (37.0-47.0); Hemoglobin 12.1 g/dL (11.5-15.3); Lymphocytes # 1.7 10^3/uL (0.8-4.8); Lymphocytes % 14.9 %; Mean Corpuscular HGB Conc 33.3 g/dL (30.0-36.0); Mean Corpuscular Hemoglobin 33.5 pg (28.0-34.0); Mean Corpuscular Volume 100.6 fL (81-99); Mean Platelet Volume 9.9 fL (7.4-10.4); Monocytes # 0.8 10^3/uL (0.2-0.9); Monocytes % 7.2 %; Neutrophils # 8.8 10^3/uL (1.8-7.7); Neutrophils % 76.9 %; Nucleated Red Blood Cells % 0 %; Platelet Count 279 10^3/cmm (130-400); Red Blood Count 3.61 10^6/uL (4.1-5.3); Red Cell Distribution Width 13.7 % (12.1-15.1); White Blood Count 11.4 10^3/uL (4.0-10.0)
[2020-02-13 06:14] LABS: Alanine Aminotransferase 17 U/L (0-33); Albumin Level 4.4 g/dL (3.5-5.2); Alkaline Phosphatase 62 IU/L (35-105); Anion Gap 20.2 (5-19); Aspartate Amino Transferase 37 U/L (0-32); Blood Urea Nitrogen 14 mg/dL (8-23); Calcium 8.8 mg/dL (8.5-10.5); Carbon Dioxide 21 mmol/L (22-29); Chloride 93 mmol/L (98-107); Creatinine Clr Calc Pharmacy 65.3564; Glucose 116 mg/dL (65-115); Magnesium 2.6 mg/dL (1.7-2.3); Osmolality Calculated 267 mOsm/kg (285-295); Phosphorus 3.2 mg/dL (2.5-4.5); Potassium 4.2 mmol/L (3.5-5.1); Sodium 130 mmol/L (136-145); Total Bilirubin 0.5 mg/dL (0.15-1.2); Total Protein 6.4 g/dL (6.6-8.7)
[2020-02-13 06:15] LABS: Troponin 5 2HR 15.01 ng/mL (0-10); Troponin 5 2HR Delta 0.01 ABS# (0-10)
[2020-02-13 08:31] LABS: Troponin 5 6HR 14.13 ng/mL (0-10)
[2020-02-13 08:34] LABS: Troponin 5 6HR Delta -0.87 ng/L (0-12)
--- NOTE | 2020-02-13 10:41 | PC.SOCIAL ---
IMM Not Updated Attempted to contact patient's by phone to update IMM, unable to reach him at this time.
[2020-02-13] MEDS: levothyroxine 100 mcg Tablet PO (12:01)
[2020-02-13] MEDS: amlodipine 5 mg Tablet PO (12:01)
[2020-02-13] MEDS: ALPRAZolam 0.25 mg Tablet PO ×2 (12:01→20:34)
[2020-02-13] MEDS: aspirin 81 mg EC Tablet PO (12:01)
[2020-02-13] MEDS: pantoprazole DR 40 mg Tablet PO (12:02)
[2020-02-13] MEDS: cephALEXin 500 mg Capsule PO ×4 (12:02→20:31)
[2020-02-13] MEDS: duloxetine 20 mg Capsule 40 MG PO (12:02)
[2020-02-13] MEDS: allopurinol 300 mg Tablet PO (12:02)
[2020-02-13] MEDS: enoxaparin 40 mg/0.4 mL Syringe SUBCUT (12:03)
[2020-02-13] MEDS: sodium chloride 0.9% 1,000 ML 100 ML IV ×2 (12:03→17:27)
[2020-02-13] MEDS: citalopram 20 mg Tablet PO (12:05)
[2020-02-13] MEDS: metoprolol succinate ER (24 HR) 100 mg Tablet PO ×2 (12:05→12:09)
--- NOTE | 2020-02-13 14:09 | XR_ITS ---
WS: [id number] PORTABLE CHEST HISTORY: chest pain COMPARISON: 02/10/2020 Prior median sternotomy. Cardiac valve replacement is also present. Slight elevation of the RIGHT hemidiaphragm is stable. Atelectasis at the LEFT costophrenic angle. No pleural effusion or pneumothorax. Cardiac size: Mildly enlarged cardiac silhouette. Mediastinum/Aorta: Mild atherosclerosis aorta. No osseous abnormality seen. XR/XR chest 1V portable [id number] IMPRESSION: 1. Persistent atelectasis at the LEFT lung base. 2. No pneumonia.
--- NOTE | 2020-02-13 19:15 | PC.NURSE ---
Introduction of staff and report received, aidet.
[2020-02-13 20:24] LABS: Vitamin B12 > 2000 pg/mL (232-1245)
[2020-02-14] VITALS: BP 155/74; PULSE 68; RESP 18; TEMP 36.7; O2SAT 96
[2020-02-14] MEDS: sodium chloride 0.9% 1,000 ML 100 ML IV ×2 (02:31→07:42)
[2020-02-14 03:48] VITALS: BP 159/74; PULSE 62; RESP 18; TEMP 36.6; O2SAT 94
[2020-02-14] MEDS: acetaminophen 325 mg Tablet PO ×3 (03:56→21:55)
[2020-02-14 05:53] LABS: Basophils % 0.4 %; Eosinophils # 0.1 10^3/uL (0.0-0.8); Eosinophils % 1.9 %; Hemoglobin 11.7 g/dL (11.5-15.3); Lymphocytes # 1.8 10^3/uL (0.8-4.8); Lymphocytes % 24.5 %; Mean Corpuscular HGB Conc 32.5 g/dL (30.0-36.0); Mean Corpuscular Volume 101.4 fL (81-99); Mean Platelet Volume 9.5 fL (7.4-10.4); Monocytes # 0.6 10^3/uL (0.2-0.9); Monocytes % 8.1 %; Neutrophils # 4.8 10^3/uL (1.8-7.7); Neutrophils % 64.8 %; Nucleated Red Blood Cells % 0 %; Platelet Count 225 10^3/cmm (130-400); Red Blood Count 3.55 10^6/uL (4.1-5.3); Red Cell Distribution Width 13.5 % (12.1-15.1); White Blood Count 7.4 10^3/uL (4.0-10.0)
[2020-02-14 06:12] LABS: Alanine Aminotransferase 16 U/L (0-33); Albumin Level 3.7 g/dL (3.5-5.2); Alkaline Phosphatase 55 IU/L (35-105); Anion Gap 15.8 (5-19); Aspartate Amino Transferase 32 U/L (0-32); Blood Urea Nitrogen 10 mg/dL (8-23); Calcium 9.1 mg/dL (8.5-10.5); Carbon Dioxide 22 mmol/L (22-29); Chloride 99 mmol/L (98-107); Creatinine Clr Calc Pharmacy 65.3564; Globulin 2.7 g/dL (1.3-4.6); Glucose 113 mg/dL (65-115); Magnesium 2.4 mg/dL (1.7-2.3); Osmolality Calculated 273 mOsm/kg (285-295); Phosphorus 3.4 mg/dL (2.5-4.5); Potassium 3.8 mmol/L (3.5-5.1); Sodium 133 mmol/L (136-145); Total Bilirubin 0.3 mg/dL (0.15-1.2); Total Protein 6.4 g/dL (6.6-8.7)
[2020-02-14 07:22] VITALS: BP 130/71; PULSE 66; RESP 16; TEMP 37.1; O2SAT 94
[2020-02-14] MEDS: cephALEXin 500 mg Capsule PO ×4 (07:39→21:51)
[2020-02-14] MEDS: duloxetine 20 mg Capsule 40 MG PO (07:39)
[2020-02-14] MEDS: citalopram 20 mg Tablet PO (07:39)
[2020-02-14] MEDS: amlodipine 5 mg Tablet PO (07:39)
[2020-02-14] MEDS: aspirin 81 mg EC Tablet PO (07:39)
[2020-02-14] MEDS: ALPRAZolam 0.25 mg Tablet PO ×2 (07:40→17:49)
[2020-02-14] MEDS: pantoprazole DR 40 mg Tablet PO (07:40)
[2020-02-14] MEDS: levothyroxine 100 mcg Tablet PO (07:40)
[2020-02-14] MEDS: allopurinol 300 mg Tablet PO (07:40)
--- NOTE | 2020-02-14 08:26 | PM.PN ---
Subjective Subjective: Interval history: Date of service 02/13/2020 The patient continues to have some confusion, however slightly less than yesterday. She is slightly more interactive and has been able to ambulate some. Vitals/I&O/Wt Last Vital Signs Temp 98.7 F 02/14/20 07:22 Pulse 66 02/14/20 07:22 Resp 16 02/14/20 07:22 BP 130/71 02/14/20 07:22 Pulse Ox 94 02/14/20 07:22 02/13/20 02/14/20 02/14/20 22:59 06:59 14:59 Intake Total 780 / 1260 906.667 / 2166.667 518.333 / 518.333 Output Total 950 / 1500 1200 / 2700 Balance -170 / -240 -293.333 / -533.333 518.333 / 518.333 Physical Exam Narrative: EXAM NARRATIVE: General: Alert, oriented to time place. Cardiac: Regular rate and rhythm without murmurs Lungs: Clear to auscultation without crackles, wheezes or rhonchi. Abdomen: Soft, nontender to palpation, no hepatosplenomegaly noted. Extremities: No edema Data : 02/15/20 06:33 02/15/20 06:33 Micro: Microbiology 02/12/20 15:00 C.difficile Toxin B Gene (PCR) - Final Stool - Stool Aspirate A&P Additional A&P Information 1. Acute delirium with hyperactivity -the patient is showing signs of slight significant improvement at this time. The underlying cause may be secondary to acute cystitis, however it is not completely clear. If the patient is continuing to improve, we may be able to discharge back home instead of needing to transfer to geriatric psychiatry. Will follow. 2. Possible cystitis -the patient is urine culture is not growing out anything, however she is improving with IV hydration and Rocephin. Continue with treatment. 3. Elevated lactic acid -normal 4. Hypothyroidism -TSH and T4 levels are in the normal range. 5. Hypertension-the patient's blood pressures were significantly elevated and are starting to improve as the patient is taking oral medications again. We will continue to adjust as needed. 6. Prophylaxis -Lovenox while the patient is here for DVT prophylaxis. Attestations Medical Necessity Statement*: Patient continues need inpatient care secondary to continued confusion and treatment of her cystitis. Coding Level of Care Code Acute [employer] Customs And Border Officer for Marisol Reese
--- NOTE | 2020-02-14 08:40 | PM.PN ---
Subjective Subjective: Interval history: The patient is significantly more lucid today. She is now able to carry on a conversation with only a few positives for missed information. She is speaking of her and wanting to see him. She is no longer tearful. She has some burning with urination and some mild abdominal pain, however denies other chest pains, shortness of breath or other issues. Vitals/I&O/Wt Last Vital Signs Temp 98.7 F 02/14/20 07:22 Pulse 66 02/14/20 07:22 Resp 16 02/14/20 07:22 BP 130/71 02/14/20 07:22 Pulse Ox 94 02/14/20 07:22 02/13/20 02/14/20 02/14/20 22:59 06:59 14:59 Intake Total 780 / 1260 906.667 / 2166.667 518.333 / 518.333 Output Total 950 / 1500 1200 / 2700 Balance -170 / -240 -293.333 / -533.333 518.333 / 518.333 Physical Exam Narrative: EXAM NARRATIVE: General: Alert, oriented to time place. Cardiac: Regular rate and rhythm without murmurs Lungs: Clear to auscultation without crackles, wheezes or rhonchi. Abdomen: Soft, nontender to palpation, no hepatosplenomegaly noted. Extremities: No edema Data : 02/14/20 05:45 02/14/20 05:45 Micro: Microbiology 02/12/20 15:00 C.difficile Toxin B Gene (PCR) - Final Stool - Stool Aspirate A&P Additional A&P Information 1. Acute delirium with hyperactivity -the patient is showing signs of significant improvement at this time. The underlying cause may be secondary to acute cystitis, however it is not completely clear. If the patient is continuing to improve, we may be able to discharge back home instead of needing to transfer to geriatric psychiatry. Will follow. 2. Possible cystitis -the patient is urine culture is not growing out anything, however she is improving with IV hydration and Rocephin. Continue with treatment. 3. Elevated lactic acid -normal 4. Hypothyroidism -TSH and T4 levels are in the normal range. 5. Hypertension-the patient's blood pressures were significantly elevated and are starting to improve as the patient is taking oral medications again. We will continue to adjust as needed. 6. Prophylaxis -Lovenox while the patient is here for DVT prophylaxis. Attestations Medical Necessity Statement*: The patient continues need inpatient monitoring for elevated blood pressures and confusion with cystitis. My hope is that she can be discharged home over the next 1 to 2 days. Coding Level of Care Code Acute Building Construction Superintendent for Marisol Reese
[2020-02-14 11:15] VITALS: BP 136/73; PULSE 64; RESP 16; TEMP 37; O2SAT 96
[2020-02-14] MEDS: enoxaparin 40 mg/0.4 mL Syringe SUBCUT (14:28)
[2020-02-14 15:54] VITALS: BP 140/78; PULSE 74; RESP 16; TEMP 37.4; O2SAT 94
[2020-02-14 19:34] VITALS: BP 108/52; PULSE 68; RESP 18; TEMP 36.6; O2SAT 98
[2020-02-15] VITALS: BP 149/66; PULSE 77; RESP 18; TEMP 36.6; O2SAT 97
[2020-02-15 04:00] VITALS: BP 154/70; PULSE 86; RESP 18; TEMP 36.7; O2SAT 98
[2020-02-15] MEDS: acetaminophen 325 mg Tablet PO ×2 (04:36→13:08)
[2020-02-15 07:07] VITALS: BP 154/74; PULSE 82; RESP 16; TEMP 36.4; O2SAT 96
[2020-02-15] MEDS: sodium chloride 0.9% 1,000 ML 100 ML IV (07:09)
[2020-02-15 07:10] LABS: Basophils % 0.7 %; Eosinophils # 0.2 10^3/uL (0.0-0.8); Eosinophils % 2.9 %; Hematocrit 35.2 % (37.0-47.0); Hemoglobin 11.5 g/dL (11.5-15.3); Lymphocytes # 1.4 10^3/uL (0.8-4.8); Lymphocytes % 26.1 %; Mean Corpuscular HGB Conc 32.7 g/dL (30.0-36.0); Mean Corpuscular Hemoglobin 33.1 pg (28.0-34.0); Mean Corpuscular Volume 101.4 fL (81-99); Mean Platelet Volume 9.8 fL (7.4-10.4); Monocytes # 0.4 10^3/uL (0.2-0.9); Monocytes % 8.1 %; Neutrophils # 3.4 10^3/uL (1.8-7.7); Neutrophils % 61.8 %; Nucleated Red Blood Cells % 0 %; Platelet Count 231 10^3/cmm (130-400); Red Blood Count 3.47 10^6/uL (4.1-5.3); Red Cell Distribution Width 13.9 % (12.1-15.1); White Blood Count 5.5 10^3/uL (4.0-10.0)
[2020-02-15 07:32] LABS: Alanine Aminotransferase 21 U/L (0-33); Albumin Level 3.9 g/dL (3.5-5.2); Alkaline Phosphatase 56 IU/L (35-105); Anion Gap 17.8 (5-19); Aspartate Amino Transferase 34 U/L (0-32); Blood Urea Nitrogen 8 mg/dL (8-23); Calcium 9.5 mg/dL (8.5-10.5); Carbon Dioxide 23 mmol/L (22-29); Chloride 99 mmol/L (98-107); Globulin 2.7 g/dL (1.3-4.6); Glucose 113 mg/dL (65-115); Osmolality Calculated 279 mOsm/kg (285-295); Potassium 3.8 mmol/L (3.5-5.1); Sodium 136 mmol/L (136-145); Total Bilirubin 0.2 mg/dL (0.15-1.2); Total Protein 6.6 g/dL (6.6-8.7)
--- NOTE | 2020-02-15 09:52 | PC.CHAP ---
Pastoral Care Encounter/Spiritual Assessment Type of Contact [] Declined verification lead visit [] Patient/Family/Request visit [] Outpatient visit [x] Follow-up visit [] Physician referral [] Code/Alert [x] Routine visit [] Staff referral [] Actively dying [] Patient sleeping [] Family support [] [] Out of room [] Palliative care [] [] Receiving care in room [] Pre-surgical visit [] Trauma [] Long length of stay [] ICU visit [] Other: Relational/Emotional Strength [] Patient feels connected with others/family/visitors/staff [] Distress [] Loneliness/isolation [] Abandonment Spirituality of Patient [] Person of Greta [] Attends Alevism of their Greta [] Believes in Prayer [] Reads Bible or Oriental Orthodox materials [] There are Spiritual issues to be addressed Electric Repair Supervisor Interventions [x] Prayer [] Active listening [] Non-anxious presence [] Spiritual/emotional support [] Crisis/trauma care [] Spiritual counseling [] Bereavement support [] Provided bereavement packet [] Provided Bible/devotional materials [] Provided toy/stuffed animal, coloring book to patient or family member [] Provided Communion [] Anointing/[place] [] Salvation [x] Completed spiritual assessment [] Other: Impact on Illness or Injury [] Angry [] Fearful [] Anxious [] Often cries [] Exhaustion [] Unable to work [] Unable to attend christianity [] Unable to walk/stand [] Unable to read [] Unable to drive [] Unable to eat/drink [] Unable to sleep [] Unable to be with family [] Patient intubated [] Other: Summary Patient up walking. Patient cleared eyes and smiling Time spent with patient 5 min
[2020-02-15] MEDS: citalopram 20 mg Tablet PO (10:56)
[2020-02-15] MEDS: aspirin 81 mg EC Tablet PO (10:56)
[2020-02-15] MEDS: allopurinol 300 mg Tablet PO (10:56)
[2020-02-15] MEDS: duloxetine 20 mg Capsule 40 MG PO (10:57)
[2020-02-15] MEDS: metoprolol succinate ER (24 HR) 100 mg Tablet PO (10:57)
[2020-02-15] MEDS: amlodipine 5 mg Tablet PO (10:57)
[2020-02-15] MEDS: pantoprazole DR 40 mg Tablet PO (10:58)
[2020-02-15] MEDS: cephALEXin 500 mg Capsule PO ×2 (11:01→14:34)
[2020-02-15] MEDS: enoxaparin 40 mg/0.4 mL Syringe SUBCUT (11:01)
[2020-02-15] MEDS: levothyroxine 100 mcg Tablet PO (11:02)
[2020-02-15 11:36] VITALS: BP 162/74; PULSE 77; RESP 15; TEMP 36.6; O2SAT 98
--- NOTE | 2020-02-15 11:58 | PM.DCS ---
Discharge Providers Date of Admission: 02/10/20 23:02 Date of Discharge: February 15, 2020 Attending Provider at Admission: Juancho Loaiza MD Attending Provider at Discharge: Alek Colmenares MD Primary Care Provider: Juwan Hernández MD Diagnoses at Discharge Discharge Diagnosis (1) Acute hyperactive delirium due to another medical condition: Status: Acute (2) Urethral syndrome: Status: Acute (3) Chronic interstitial cystitis: Status: Acute (4) High serum lactic acid: Status: Acute (5) Urinary tract infection: Status: Acute Reason for Visit Reason for Visit: Reason For Visit: AMS Hospital Course Hospital Course: The patient was brought to the emergency department secondary to increasing confusion with combativeness directed towards her and visual hallucinations. The patient was initially going to be transferred to geriatric psychiatry, however there was concern that she may have cystitis, so she was admitted for further evaluation. The patient was given Rocephin in the hospital IM because she refused all IVs and medications. Initially the patient was using her fingers like buttons to press 1 for love and another for help. She had significant combativeness and would not communicate with staff regarding any needs. As her stay progressed, her altered mental status did improve gradually. The patient continued to receive Rocephin and eventually this could be given IV. The patient's urine culture did not grow out anything, however she had been on doxycycline, so it is possible that it was a false negative culture. At the time of discharge the patient is now remembering information from earlier in the day and the day before, interacting and speaking in a normal manner. She is tearful occasionally, however much more appropriate. I feel that she does have some underlying dementia that is affecting this and that the infection likely led to worsening of this. That being said I cannot be certain that this will not worsen over time. If she continues to have problems with combativeness in the future, then geriatric psychiatry should be again considered. We were unable to get her transferred during her stay. Since she is doing well, we will hold off on transfer at this time. I spoke with the family yesterday regarding the patient's improvements and they are in agreement to see how she does at home and go from there. Alternative options would be to go to a nursing facility. Currently the patient is in agreement with discharge home. All questions were answered. She will be discharged home on Keflex as she is allergies to multiple other antibiotics. Her blood pressure was also significantly elevated during her hospital stay and amlodipine was added that has helped bring it into a more normal range. This may need adjusted further as an outpatient. Physical Exam Narrative: EXAM NARRATIVE: General: Alert, oriented to time place. Cardiac: Regular rate and rhythm without murmurs Lungs: Clear to auscultation without crackles, wheezes or rhonchi. Abdomen: Soft, minimal tenderness to palpation over the suprapubic region, no hepatosplenomegaly noted. Extremities: No edema Discharge Data Data Completed and Pending: Completed Studies During Hospitalization Category Date Time Status CT head wo con* [id number] Urgent Cat Scan 02/10/20 09:56 Completed XR chest 1V maribel ble [id number] Routine Exams 02/13/20 14:09 Completed XR chest 1V maribel ble [id number] Stat Exams 02/10/20 09:56 Completed Pending at discharge Category Date Time Status Arterial Blood Ga s Full Routine Lab 02/10/20 10:09 Results Labs from last 24 hours 02/15/20 02/15/20 06:33 06:33 WBC 5.5 RBC 3.47 L Hgb 11.5 Hct 35.2 L MCV 101.4 H MCH 33.1 MCHC 32.7 RDW 13.9 Plt Count 231 MPV 9.8 Neut % (Auto) 61.8 Lymph % (Auto) 26.1 [place] % (Auto) 8.1 Eos % (Auto) 2.9 Baso % (Auto) 0.7 Neut # (Auto) 3.4 Lymph # (Auto) 1.4 [place] # (Auto) 0.4 Eos # (Auto) 0.2 Baso # (Auto) 0.0 Nucleated RBC % (a uto) 0 Nucleated RBCs # 0.0 Sodium 136 Potassium 3.8 Chloride 99 Carbon Dioxide 23 Anion Gap 17.8 BUN 8 Creatinine 0.7 Glucose 113 Calculated Osmolal ity 279 L Calcium 9.5 Total Bilirubin 0.2 AST 34 H ALT 21 Alkaline Phosphata se 56 C-React Prot High Sens 0.880 H Total Protein 6.6 Albumin 3.9 Globulin 2.7 Vitals: Last Vital Signs Temp 97.9 F 02/15/20 11:36 Pulse 77 02/15/20 11:36 Resp 15 02/15/20 11:36 BP 162/74 02/15/20 11:36 Pulse Ox 98 05/15/20 11:36 Discharge Plan Discharge Patient Disposition: Home, Self-Care Condition: Stable Prescriptions: New amlodipine 5 mg Tablet 5 mg PO DAILY Qty: 30 RF: 0 cephalexin 500 mg Capsule 500 mg PO TID 7 Days Qty: 21 RF: 0 Continued cyanocobalamin (vitamin B-12) 2,000 mcg tablet 2,000 mcg PO DAILY RF: 0 citalopram 40 mg tablet 20 mg PO DAILY RF: 0 metoprolol succinate 25 mg tablet extended release 24 hr 25 mg PO DAILY RF: 0 allopurinol 300 mg tablet 300 mg PO DAILY RF: 0 pantoprazole [Protonix] 40 mg tablet,delayed release (DR/EC) 40 mg PO DAILY RF: 0 nystatin 100,000 unit/gram powder 1 applic TOPICAL DAILY RF: 0 duloxetine 40 mg capsule,delayed release(DR/EC) 40 mg PO DAILY RF: 0 pregabalin [Lyrica] 100 mg capsule 100 mg PO DAILY RF: 0 alprazolam [Xanax] 0.25 mg tablet 0.25 mg PO TID PRN (Reason: Anxiety) RF: 0 furosemide 20 mg tablet 20 mg PO DAILY RF: 0 aspirin [Aspir-81] 81 mg tablet,delayed release (DR/EC) 81 mg PO DAILY RF: 0 acetaminophen [Tylenol] 325 mg capsule 325 mg PO QID PRN (Reason: Pain) RF: 0 levothyroxine [Levoxyl] 112 mcg tablet 100 mcg PO DAILY RF: 0 fluconazole 150 mg tablet 150 mg PO Q3D Qty: 2 RF: 0 28-800 mg-mcg Tablet 1 tab PO DAILY RF: 0 doxycycline hyclate 100 mg capsule 100 mg PO BID 7 Days Qty: 14 RF: 0 Discharge Orders: Discharge Order (Routine); Ordered 02/15/20 Ordered By: Alek Colmenares Referrals: Juwan Hernández MD [Primary Care Provider] - 1 week Discharge Diet: Usual diet Discharge Activity: Increase activity as tolerated Activity Restrictions/Additional Instructions: If there are concerns that her confusion is significantly worsening or she has becoming combative, please call [facility] for further instructions or consider going to the ER. Discharge Attestations Time Spent in Discharge Care*: greater than 30 min Specific Discharge Activities: Specific discharge activities: documenting/other paperwork and evaluating patient/reviewing data Quality Metrics Clinical Quality Measures During this hospital stay, did patient experience: None Coding Level of Care Code Acute Drum Carrier for Chg Fwd Diagnoses Acute hyperactive delirium due to another medical condition F05 Urethral syndrome N34.3 Chronic interstitial cystitis N30.10 High serum lactic acid R79.89 Urinary tract infection N39.0
[2020-02-15 13:45] VITALS: BP 162/74; PULSE 77; RESP 15; TEMP 36.6; O2SAT 98
== END 2020-02-15 15:38 | disposition home or self-care (01) ==
LOC: ER 17:06 → MEDSURG 23:29
PROVIDERS: Emergency Medicine; Physician Assistant; Admitting Provider Internal Medicine; Emergency Provider Nurse Practitioner Family; PCP Family Medicine; Visit Provider Family Medicine
DX: F05 Delirium due to known physiological condition (principal); N34.3 Urethral syndrome, unspecified; N30.10 Interstitial cystitis (chronic) without hematuria; R79.89 Other specified abnormal findings of blood chemistry; Z79.82 Long term (current) use of aspirin; G47.33 Obstructive sleep apnea (adult) (pediatric); M79.7 Fibromyalgia; E03.9 Hypothyroidism, unspecified; I10 Essential (primary) hypertension; E86.0 Dehydration
CPT/HCPCS: 12345; 36415; 36416; 36600; 70450; 71045; 80051; 80053; 80306; 80307; 81001; 82140; 82607; 82810; 82962; 83605; 83735; 83986; 84100; 84439; 84443; 84484; 85025; 85610; 86141; 87040; 87086; 87493; 93005; 96361; 96365; 96366; 96372; 96375; 97110; 97116; 97161; 97530; 99283; 99285; A4216; G0378; J0696; J1630; J1650; J2060; J3486; J3490; J7030

== ENCOUNTER 2020-03-03 14:47 | Emergency (ER) | payer MEDICARE, BC, SELFPAY ==
[2020-03-03 15:01] VITALS: BP 117/58; PULSE 80; RESP 14; TEMP 36.3; O2SAT 95; BMI 31.4
[2020-03-03 16:16] VITALS: RESP 17
--- NOTE | 2020-03-03 16:48 | W.ED.FEMALGU ---
HPI - Female Genitourinary General: Chief complaint: Urogenital-Female Stated complaint: UTI S/S Time Seen by Provider: 03/03/20 16:12 History of Present Illness: HPI Narrative: 72-year-old female comes in complaining of right flank pain that started 3 weeks ago. She also states she has been on Keflex for the last 2 or 3 weeks for bladder infection. She was seen a few weeks ago initially thought evidently there was some urinary retention and she had a catheter was placed. She was discharged home from that ER visit returned the next day was admitted for urosepsis seen Dr. Colmenares. She reports her temp at home was 99 8 she denies any vomiting or diarrhea but has been very nauseous she complains of a generalized abdominal pain more focal to the right flank. She also complains of continued dysuria urgency and frequency. During exam I noticed that her back pain is very very positional and she is lying in a left lateral recumbent position on the bed slight head of the bed slightly elevated when she rotates in her back she cries out in extreme pain she denies taking anything for it at home. MD elicited complaint: dysuria, UTI and flank pain Pertinent past history: recurrent UTIs Onset (ago): week(s) Location of symptoms: flank (Right flank) and other (Right suprapubic area) Severity: moderate Female Urogenital Radiation: Suprapubic and R Flank Severity scale (1-10): 6 Quality of pain: cramping and sharp Consistency: intermittent Vaginal discharge: none Vaginal bleeding: none Urinary symptoms: Dysuria and Flank Pain Exacerbating factors: none Relieving factors: none Associated symptoms: Reports abdominal pain, short of breath and nausea Treatment prior to arrival: other (Oral antibiotics) Review of Systems Const: Denies: fever(s), chills, body aches, change in appetite, fatigue or malaise ENMT: Denies: throat pain, ear or mastoid pain, nasal discharge or nasal congestion Card: Denies: chest pain, edema, dyspnea on exertion or orthopnea Resp: Denies: dyspnea, productive cough or non-productive cough GI: Reports: abdominal pain and nausea : Denies: flank pain, difficulty voiding, dysuria, urinary frequency or urinary urgency Skin/Breast: Denies: rash or pruritus PFSH ED PFSH: Medical History Anxiety disorder Chronic interstitial cystitis Depression Fibromyalgia Irritable bowel syndrome Macrocytic anemia Severe sleep apnea Somatization disorder Urethral syndrome Surgical History H/O carpal tunnel repair H/O hand surgery H/O: hysterectomy S/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 S/P cholecystectomy S/P thyroidectomy Family History Father , cva Stroke Mother , 96 Dementia Social History Smoking and tobacco status: never smoked Alcohol intake: never Marital status: Current occupational status: retired History of recent travel: No Physical Exam Const: COMMON NORMALS: no acute distress GENERAL APPEARANCE: cooperative and comfortable ORIENTATION/CONSCIOUSNESS: Yes awake, Yes oriented to person, Yes oriented to place and Yes oriented to time HENMT: COMMON NORMALS: normocephalic, atraumatic, hearing grossly normal bilaterally, external ears normal, EAC's normal, TM's normal bilaterally, Normal nasal mucous membranes and turbinates present, moist oral mucous membranes and oropharynx normal HEAD & SCALP: normocephalic and atraumatic NOSE: Normal nasal mucous membranes and turbinates present EXTERNAL EAR: Yes external ears normal EXTERNAL AUDITORY CANAL: EAC's normal TYMPANIC MEMBRANE: TM's normal bilaterally Eye: COMMON NORMALS: Equal, round and reactive pupils present, EOMs intact bilaterally, conjunctivae normal and no scleral icterus CONJUNCTIVA: Yes conjunctivae normal PUPIL: Yes Equal, round and reactive pupils present Neck/C-Spine: COMMON NORMALS: full ROM, no lymphadenopathy, supple and no JVD Lymph: LYMPHATIC: no lymphadenopathy noted and no lymphedema noted Resp: COMMON NORMALS: normal respiratory effort, No retractions, No use of accessory muscles and clear to auscultation bilaterally AUSCULTATION: clear to auscultation bilaterally Cardio: COMMON NORMALS: no JVD, regular rate, regular rhythm and No murmurs present (Cardio) RATE: regular rate RHYTHM: regular rhythm GI: COMMON NORMALS: Soft to palpation and No hepatosplenomegaly present AUSCULTATION: Yes normoactive bowel sounds PALPATION: Yes Soft to palpation, No Tenderness to palpation present (GI), No Guarding due to palpation present (GI) and Yes No hepatosplenomegaly present Extremity: COMMON NORMALS: normal to inspection, capillary refill normal, no clubbing, cyanosis or edema, no calf tenderness and no pedal edema Neuro: SENSORIUM/ORIENTATION: Yes oriented to person, Yes oriented to place and Yes oriented to time Skin: COMMON NORMALS: no rashes or lesions noted GENERAL SKIN EXAM: no rashes or lesions noted Course Vital Signs: Vital signs: Vital Signs Temperature 97.4 F L 03/03/20 15:01 Pulse Rate 65 03/03/20 18:23 Respiratory Rate 18 03/03/20 18:23 Blood Pressure 125/52 03/03/20 18:23 Pulse Oximetry 93 03/03/20 18:23 MDM - Female MDM Narrative: Medical decision making narrative: Is unremarkable. I recommend that she follow-up with Dr. Garcia as needed follow-up with Dr. Hernández to see about doing something for her back on a long-term basis most of her pain today seem to be precipitated by any movement or twisting in her back. Lab Data: Labs: Lab Results 03/03/20 03/03/20 03/03/20 Range/Units 17:03 17:03 17:31 WBC 4.1 (4.0-10.0) 10^3/ uL RBC 3.27 L (4.1-5.3) 10^6/u L Hgb 10.8 L (11.5-15.3) g/dL Hct 34.5 L (37.0-47.0) % MCV 105.5 H (81-99) fL MCH 33.0 (28.0-34.0) pg MCHC 31.3 (30.0-36.0) g/dL RDW 13.3 (12.1-15.1) % Plt Count 254 (130-400) 10^3/c mm MPV 9.8 (7.4-10.4) fL Neut % (Auto) 49.5 % Lymph % (Auto) 40.6 % [place] % (Auto) 8.0 % Eos % (Auto) 1.2 % Baso % (Auto) 0.5 % Neut # (Auto) 2.1 (1.8-7.7) 10^3/u L Lymph # (Auto) 1.7 (0.8-4.8) 10^3/u L [place] # (Auto) 0.3 (0.2-0.9) 10^3/u L Eos # (Auto) 0.1 (0.0-0.8) 10^3/u L Baso # (Auto) 0.0 (0.0-0.1) 10^3/u L Nucleated RBC % (a uto) 0 % Nucleated RBCs # 0.0 /100WBC Sodium 131 L (136-145) mmol/L Potassium 4.4 (3.5-5.1) mmol/L Chloride 94 L (98-107) mmol/L Carbon Dioxide 24 (22-29) mmol/L Anion Gap 17.4 (5-19) BUN 12 (8-23) mg/dL Creatinine 0.8 (0.5-0.9) mg/dL Glucose 105 (65-115) mg/dL Calculated Osmolal ity 268 L (285-295) mOsm/k g Calcium 9.5 (8.5-10.5) mg/dL Total Bilirubin 0.2 (0.15-1.2) mg/dL AST 20 (0-32) U/L ALT 13 (0-33) U/L Alkaline Phosphata se 72 (35-105) IU/L Total Protein 7.0 (6.6-8.7) g/dL Albumin 4.2 (3.5-5.2) g/dL Globulin 2.8 (1.3-4.6) g/dL Urine Color Straw (Yellow) Urine Appearance Clear (CLEAR) Urine pH 6 (5-7) Ur Specific Gravit y 1.010 (1.005-1.030) Urine Protein Neg (Negative) Urine Glucose (UA) Norm (Normal) Urine Ketones Negative (Negative) Urine Blood Neg (Negative) Urine Nitrate Negative (Negative) Urine Bilirubin Neg (NEGATIVE) Urine Urobilinogen Norm (Negative) mg/dL Ur Leukocyte Shania ase Negative (Negative) Discharge Plan Discharge Patient Disposition: Home, Self-Care Clinical Impression: Back pain Condition: Stable Prescriptions: New baclofen 10 mg tablet 10 mg PO Q8H Qty: 20 RF: 0 No Action cyanocobalamin (vitamin B-12) 2,000 mcg tablet 2,000 mcg PO DAILY RF: 0 citalopram 40 mg tablet 40 mg PO DAILY RF: 0 metoprolol succinate 25 mg tablet extended release 24 hr 25 mg PO DAILY RF: 0 pantoprazole [Protonix] 40 mg tablet,delayed release (DR/EC) 40 mg PO DAILY RF: 0 alprazolam [Xanax] 0.25 mg tablet 0.5 mg PO TID PRN (Reason: Anxiety) RF: 0 furosemide 20 mg tablet 20 mg PO DAILY RF: 0 aspirin [Aspir-81] 81 mg tablet,delayed release (DR/EC) 81 mg PO DAILY RF: 0 levothyroxine [Levoxyl] 112 mcg tablet 100 mcg PO DAILY RF: 0 Tylenol Extra Strength 500 mg Tablet 500 - 1,000 mg PO QID PRN (Reason: Pain) RF: 0 cephalexin 500 mg capsule 500 mg PO QID RF: 0 risperidone 1 mg tablet See Rx Instructions .ROUTE .COMPLEX RF: 0 fluconazole 150 mg tablet 150 mg PO DAILY RF: 0 amlodipine 5 mg tablet 10 mg PO DAILY RF: 0 Discharge Orders: Discharge Order (Routine); Ordered 03/03/20 Ordered By: Shahzad Evans Referrals: Juwan Hernández MD [Primary Care Provider] - Discharge Diet: Usual diet Discharge Activity: Increase activity as tolerated Activity Restrictions/Additional Instructions: Stop Keflex. You do not have a bladder infection. Use baclofen PRN follow-up with Dr. Boothe sometime this week for discussion of long-term maintenance of chronic back problems Discharge Date/Time: 03/03/20 18:23 Coding Level of Care Code ED Fiction And Nonfiction Prose Writer for Chg Fwd Exam Comprehensive
[2020-03-03] MEDS: ondansetron 2 mg/ML SDV 2 mL 4 MG IVP (17:03)
[2020-03-03 17:04] VITALS: RESP 17; O2SAT 97
[2020-03-03] MEDS: morphine 4 mg/mL SDV 1 mL IVP (17:04)
[2020-03-03 17:16] LABS: Basophils % 0.5 %; Eosinophils # 0.1 10^3/uL (0.0-0.8); Eosinophils % 1.2 %; Hematocrit 34.5 % (37.0-47.0); Hemoglobin 10.8 g/dL (11.5-15.3); Lymphocytes # 1.7 10^3/uL (0.8-4.8); Lymphocytes % 40.6 %; Mean Corpuscular HGB Conc 31.3 g/dL (30.0-36.0); Mean Corpuscular Volume 105.5 fL (81-99); Mean Platelet Volume 9.8 fL (7.4-10.4); Monocytes # 0.3 10^3/uL (0.2-0.9); Neutrophils # 2.1 10^3/uL (1.8-7.7); Neutrophils % 49.5 %; Nucleated Red Blood Cells % 0 %; Platelet Count 254 10^3/cmm (130-400); Red Blood Count 3.27 10^6/uL (4.1-5.3); Red Cell Distribution Width 13.3 % (12.1-15.1); White Blood Count 4.1 10^3/uL (4.0-10.0)
[2020-03-03 17:29] LABS: Alanine Aminotransferase 13 U/L (0-33); Albumin Level 4.2 g/dL (3.5-5.2); Alkaline Phosphatase 72 IU/L (35-105); Anion Gap 17.4 (5-19); Aspartate Amino Transferase 20 U/L (0-32); Blood Urea Nitrogen 12 mg/dL (8-23); Calcium 9.5 mg/dL (8.5-10.5); Carbon Dioxide 24 mmol/L (22-29); Chloride 94 mmol/L (98-107); Globulin 2.8 g/dL (1.3-4.6); Glucose 105 mg/dL (65-115); Osmolality Calculated 268 mOsm/kg (285-295); Potassium 4.4 mmol/L (3.5-5.1); Sodium 131 mmol/L (136-145); Total Bilirubin 0.2 mg/dL (0.15-1.2)
[2020-03-03 17:48] LABS: Add Urine Microscopic? NO
[2020-03-03 17:59] LABS: Bilirubin Urine Neg (NEGATIVE); Blood Urine Neg (Negative); Glucose Urine UA Norm (Normal); Ketones Urine Negative (Negative); Leukocyte Esterase Urine Negative (Negative); Nitrate Urine Negative (Negative); Protein Urine Neg (Negative); Urine Appearance Clear (CLEAR); Urine Color Straw (Yellow); Urobilinogen Urine Norm (Negative); pH Urine 6 (5-7)
[2020-03-03 18:23] VITALS: BP 125/52; PULSE 65; RESP 18; O2SAT 93
== END 2020-03-03 18:23 | disposition home or self-care (01) ==
PROVIDERS: Emergency Medicine; Emergency Provider Family Medicine; PCP Family Medicine
DX: M54.9 Dorsalgia, unspecified (principal); Z79.82 Long term (current) use of aspirin
CPT/HCPCS: 12345; 36415; 80053; 81003; 85025; 96374; 96375; 99281; 99283; J2270; J2405

== ENCOUNTER → 2020-03-24 14:42 | Outpatient (BNVA) | payer MEDICARE, BC, SELFPAY | PROVIDERS: PCP Family Medicine; Visit Provider Nurse Practitioner Family | DX: N30.10 Interstitial cystitis (chronic) without hematuria (principal); B37.3 Candidiasis of vulva and vagina | CPT/HCPCS: 81001 ==

== ENCOUNTER 2020-04-08 06:00 | Outpatient (RCR) | payer MEDICARE, BC, SELFPAY | END 2020-05-02 23:59 | disposition home or self-care (01) | LOC: SPT 06:00 | PROVIDERS: PCP Family Medicine; Referring Provider Family Medicine; Visit Provider Family Medicine | DX: G89.29 Other chronic pain (principal); M54.89 Other dorsalgia | CPT/HCPCS: 97110; 97161 ==

== ENCOUNTER 2020-05-03 06:00 | Outpatient (RCR) | payer MEDICARE, BC, SELFPAY | END 2020-06-02 23:59 | disposition home or self-care (01) | LOC: SPT 06:00 | PROVIDERS: PCP Family Medicine; Referring Provider Family Medicine; Visit Provider Family Medicine | DX: G89.29 Other chronic pain (principal); M54.9 Dorsalgia, unspecified | CPT/HCPCS: 97110 ==

== ENCOUNTER 2020-05-28 10:09 | Outpatient (CLI) | payer MEDICARE, BC, SELFPAY ==
--- NOTE | 2020-05-28 10:15 | XR_ITS ---
WS: [id number] DEXA (DUAL ENERGY X-RAY ABSORPTIOMETRY) Bone mineral density was performed using a [employer] machine. 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 Left forearm BMD: 0.714 g/cm2. T score: -1.9 Z score: 0.7 Total hip BMD: Left: 1.047 g/cm2. T score: 0.3 Z score: 1.6 Right: 1.084 g/cm2. T score: 0.6 Z score: 1.9 10 year probability of a major osteoporotic fracture is 15%. XR/XR DEXA axial skeleton* [id number] IMPRESSION: OSTEOPENIA based upon the WHO classification for females.
== END 2020-05-28 10:10 | disposition home or self-care (01) ==
LOC: RADWPI 10:14
PROVIDERS: Family Provider Family Medicine; PCP Family Medicine; Visit Provider Neurological Surgery
DX: M81.0 Age-related osteoporosis without current pathological fracture (principal); M85.88 Other specified disorders of bone density and structure, other site
CPT/HCPCS: 77080

== ENCOUNTER 2021-08-26 14:00 | Outpatient (CLI) | payer MEDICARE, BC, SELFPAY ==
--- NOTE | 2021-08-26 14:11 | MM_ITS ---
WS: [id number] BILATERAL SCREENING DIGITAL MAMMOGRAM WITH CAD HISTORY: SCREENING COMPARISON: 12/30/2016 and 03/13/2007 Bilateral CC and MLO views submitted. Computer aided detection analyzed. Breast composition: There are scattered areas of fibroglandular density. No suspicious masses, microc alcifications or architectural distortion. Benign rodlike calcifications along the 6:00 axis of the R IGHT breast. There are additional benign calcifications in the central LEFT breast. MM/[place] [id number] IMPRESSION: BI-RADS: 2-Benign FOLLOW UP: 1 Year Follow-up
== END 2021-08-26 14:01 | disposition home or self-care (01) ==
LOC: RADSHAW 14:10
PROVIDERS: PCP Family Medicine; Visit Provider Family Medicine
DX: Z12.31 Encounter for screening mammogram for malignant neoplasm of breast (principal)
CPT/HCPCS: 77067

== ENCOUNTER → 2022-02-10 14:54 | Outpatient (BNVA) | payer MEDICARE, SELFPAY | PROVIDERS: PCP Family Medicine; Visit Provider Clinical Nurse Specialist Adult Health | DX: R44.3 Hallucinations, unspecified (principal); N39.0 Urinary tract infection, site not specified | CPT/HCPCS: 80053; 81000; 85025; 85651; 86140; 87086 ==

== ENCOUNTER → 2022-02-18 16:36 | Outpatient (BNVA) | payer MEDICARE, SELFPAY | PROVIDERS: PCP Family Medicine; Visit Provider Family Medicine | DX: R53.83 Other fatigue (principal); N39.0 Urinary tract infection, site not specified | CPT/HCPCS: 80053; 81002; 84443; 85025; 85651; 86140; 86141; 87086 ==

== ENCOUNTER 2022-03-04 06:00 | Outpatient (RCR) | payer MEDICARE, SELFPAY | END 2022-04-01 23:59 | disposition home or self-care (01) | LOC: SPT 06:00 | PROVIDERS: PCP Family Medicine; Referring Provider Family Medicine; Visit Provider Family Medicine | DX: R26.9 Unspecified abnormalities of gait and mobility (principal); M54.89 Other dorsalgia | CPT/HCPCS: 97110; 97161 ==

== ENCOUNTER 2022-05-03 06:00 | Outpatient (RCR) | payer MEDICARE, SELFPAY | END 2022-06-02 23:59 | disposition home or self-care (01) | LOC: SPT 06:00 | PROVIDERS: PCP Family Medicine; Referring Provider Family Medicine; Visit Provider Family Medicine | DX: R26.9 Unspecified abnormalities of gait and mobility (principal); M54.89 Other dorsalgia | CPT/HCPCS: 97110 ==

== ENCOUNTER → 2022-05-03 12:51 | Outpatient (BNVA) | payer MEDICARE, SELFPAY | PROVIDERS: PCP Family Medicine; Referring Provider Family Medicine; Visit Provider Podiatrist Foot & Ankle Surgery | DX: M21.611 Bunion of right foot (principal); M21.621 Bunionette of right foot; M21.612 Bunion of left foot; M21.622 Bunionette of left foot; M1A.9XX1 Chronic gout, unspecified, with tophus (tophi); M20.40 Other hammer toe(s) (acquired), unspecified foot; G57.82 Other specified mononeuropathies of left lower limb | CPT/HCPCS: 99204 ==

== ENCOUNTER → 2022-05-05 08:38 | Outpatient (BNVA) | payer MEDICARE, SELFPAY | PROVIDERS: PCP Family Medicine; Visit Provider Family Medicine | DX: R30.0 Dysuria (principal) | CPT/HCPCS: 81000; 87086 ==

== ENCOUNTER → 2022-05-18 12:52 | Outpatient (BNVA) | payer MEDICARE, SELFPAY | PROVIDERS: PCP Family Medicine; Visit Provider Family Medicine | DX: R30.0 Dysuria (principal) | CPT/HCPCS: 81000; 87086 ==

== ENCOUNTER → 2022-06-10 10:18 | Outpatient (BNVA) | payer MEDICARE, SELFPAY | PROVIDERS: PCP Family Medicine; Visit Provider Family Medicine | DX: R30.0 Dysuria (principal) | CPT/HCPCS: 81000 ==

== ENCOUNTER → 2022-07-23 18:20 | Outpatient (BNVA) | payer MEDICARE, SELFPAY | PROVIDERS: PCP Family Medicine; Visit Provider Podiatrist Foot & Ankle Surgery | DX: Z98.890 Other specified postprocedural states (principal); M1A.9XX1 Chronic gout, unspecified, with tophus (tophi); M20.40 Other hammer toe(s) (acquired), unspecified foot; M21.611 Bunion of right foot; M21.621 Bunionette of right foot; G57.82 Other specified mononeuropathies of left lower limb; M21.612 Bunion of left foot; M21.622 Bunionette of left foot | CPT/HCPCS: 10140; 80503 ==

== ENCOUNTER → 2022-08-06 14:03 | Outpatient (BNVA) | payer MEDICARE, SELFPAY | PROVIDERS: PCP Family Medicine; Visit Provider Podiatrist Foot & Ankle Surgery | DX: G57.82 Other specified mononeuropathies of left lower limb (principal); M10.9 Gout, unspecified; M20.41 Other hammer toe(s) (acquired), right foot; M21.611 Bunion of right foot; M21.621 Bunionette of right foot; M21.612 Bunion of left foot; M21.622 Bunionette of left foot; M20.42 Other hammer toe(s) (acquired), left foot | CPT/HCPCS: 64455; 73630 ==

== ENCOUNTER → 2022-09-02 10:42 | Outpatient (BNVA) | payer MEDICARE, SELFPAY | PROVIDERS: PCP Family Medicine; Visit Provider Clinical Nurse Specialist Adult Health | DX: N39.0 Urinary tract infection, site not specified (principal); N30.10 Interstitial cystitis (chronic) without hematuria; N30.00 Acute cystitis without hematuria | CPT/HCPCS: 81000; 87086 ==

== ENCOUNTER 2022-09-30 12:50 | Outpatient (CLI) | payer MEDICARE, SELFPAY ==
--- NOTE | 2022-09-30 13:09 | US_ITS ---
WS: [id number] ULTRASOUND SOFT TISSUES RIGHT third toe. HISTORY: History of chronic. Pain RIGHT foot. Pain at site of gout and surgery. COMPARISON: 4 radiograph 08/06/2022. TECHNIQUE: 2-D and color Doppler imaging is submitted. Soft tissue surrounding the RIGHT third toe demonstrates no abnormality. There is no fluid collection . Patient also describes pain involving the LEFT foot along the plantar surface of the third toe. Altho ugh this was not requested the snaker driving horses did a few images in the area of pain with no abnormality. US/US soft tissue/extremity [id number] IMPRESSION: No soft tissue abnormality involving the RIGHT third toe.
== END 2022-09-30 12:51 | disposition home or self-care (01) ==
PROVIDERS: PCP Family Medicine; Visit Provider Podiatrist Foot & Ankle Surgery
DX: M79.671 Pain in right foot (principal); M1A.9XX1 Chronic gout, unspecified, with tophus (tophi)
CPT/HCPCS: 76882

== ENCOUNTER → 2022-10-13 11:25 | Outpatient (BNVA) | payer MEDICARE, SELFPAY | PROVIDERS: PCP Family Medicine; Visit Provider Podiatrist Foot & Ankle Surgery | DX: M10.9 Gout, unspecified (principal); M21.611 Bunion of right foot; M21.612 Bunion of left foot; M21.622 Bunionette of left foot; M21.621 Bunionette of right foot; G57.82 Other specified mononeuropathies of left lower limb | CPT/HCPCS: 99213 ==

== ENCOUNTER 2022-10-26 08:36 | Outpatient (CLI) | payer MEDICARE, SELFPAY ==
--- NOTE | 2022-10-26 08:55 | MM_ITS ---
WS: [id number] VIEWS: MLO and CC views both breasts. 3D digital tomosynthesis is also included in this exam. Comparison made with prior exam of 03/13/2017, 12/30/2016, 08/26/2021.. Findings: There was no sign of mass, architectural distortion or suspicious calcification in either breast. Sc attered fibroglandular densities MM/[place] [id number] Impression: BI-RADS: 2-Benign FOLLOW-UP: 1 Year Follow-up This mammogram was also analyzed by the Computer Aided Detection System R2 Imag e Psychiatric Aides Teacher.
== END 2022-10-26 08:37 | disposition home or self-care (01) ==
LOC: RAD 08:38
PROVIDERS: PCP Family Medicine; Referring Provider Obstetrics & Gynecology; Visit Provider Family Medicine
DX: Z12.31 Encounter for screening mammogram for malignant neoplasm of breast (principal)
CPT/HCPCS: 77063; 77067

== ENCOUNTER 2022-11-09 12:36 | Outpatient (CLI) | payer MEDICARE, SELFPAY ==
--- NOTE | 2022-11-09 12:52 | XRR_ITS ---
PROCEDURE INFORMATION: Exam: XR Left Hip Exam date and time: 11/09/2022 1:02 PM Age: 82 years old Clinical indication: Pain and injury or trauma; Fall; Blunt trauma (contusions or hematomas); Hip pain; Left hip; Prior surgery; Surgery type: L spine; Additional info: Left hip pain TECHNIQUE: Imaging protocol: Radiologic exam of the Left hip. Views: 2 or 3 views hip with pelvis when performed. COMPARISON: CT abdomen pelvis w con* [id number] 02/09/2020 12:20 PM FINDINGS: Bones/joints: Mild degenerative changes left hip joint consisting of mild joint space narrowing and subchondral sclerosis. No fracture or malalignment. Soft tissues: Unremarkable. XR/XR hip LT 2-3V wo/w pel* [id number] IMPRESSION: Mild degenerative changes right left joint. No acute bony abnormalities.
== END 2022-11-09 12:37 | disposition home or self-care (01) ==
LOC: RAD 12:40
PROVIDERS: PCP Family Medicine; Visit Provider Family Medicine
DX: M16.12 Unilateral primary osteoarthritis, left hip (principal)
CPT/HCPCS: 73502

== ENCOUNTER → 2022-11-11 09:45 | Outpatient (BNVA) | payer MEDICARE, SELFPAY | PROVIDERS: PCP Family Medicine; Visit Provider Podiatrist Foot & Ankle Surgery | DX: M1A.9XX1 Chronic gout, unspecified, with tophus (tophi) (principal); M20.40 Other hammer toe(s) (acquired), unspecified foot; G57.82 Other specified mononeuropathies of left lower limb; M21.612 Bunion of left foot; M21.611 Bunion of right foot; M21.622 Bunionette of left foot; M21.621 Bunionette of right foot | CPT/HCPCS: 99214 ==

== ENCOUNTER 2022-11-26 08:11 | Day surgery (SDC) | payer MEDICARE, SELFPAY ==
[2022-11-25 14:01] VITALS: BMI 33.8
[2022-11-26] VITALS (7 sets, daily range): BP systolic 126–174; BP diastolic 52–78; PULSE 63–79; RESP 14–18; TEMP 36.2–36.5; O2SAT 91–97
--- NOTE | 2022-11-26 | XR_ITS ---
WS: [id number] Right foot, C-arm fluoroscopy views, 11/26/2022 Clinical Data: CHRISTINE PICS Comparison: None. Findings: There is a longitudinal screw fusing the DIP joint of the right third toe. XR/XR foot RT 2V [id number] Impression: Longitudinal orthopedic screw fusing the middle and distal phalanges of the rig ht third toe.
--- NOTE | 2022-11-26 08:45 | ECG_ITS ---
[facility] Test Date: 2022-11-26 Pat Name: Sarah Victoria Department: Room: Gender: Female Training And Development Director: : 1940 Requested By: Eva Morgan Order Number: [id number] Rona MD: Gerard Sousa M.D. Measurements Intervals [place] Rate: 69 P: 42 AL: 138 QRS: -6 QRSD: 92 T: 75 QT: 402 QTc: 433 Interpretive Statements SINUS RHYTHM POSSIBLE ANTERIOR MYOCARDIAL INFARCTION , OF INDETERMINATE AGE [30 ms Q WAVE IN V3/V4, OR R < 0.2 mV IN V4] INFERIOR MYOCARDIAL INFARCTION , PROBABLY OLD [40+ ms Q WAVE AND/OR ST/T ABNORMALITY IN II/aVF] Compared to ECG 02/13/2020 02:11:51 Myocardial infarct finding now present Ventricular premature complex(es) no longer present T-wave abnormality no longer present Possible ischemia no longer present Electronically Signed On 11-26-2022 16:52:34 DIRECTOR MORTGAGE by eGrard Sousa M.D. [id number]
--- NOTE | 2022-11-26 08:57 | ANES.PREANE2 ---
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 Operation Date: 11/26/22 10:00 Proposed Procedures p ?Excision of tophaceous gout and arthrodesis of interphalangeal joint right third toe 69672, 87701,M10.9,M79.673,M1A.9XX1,M20.40(Right) - Giorgi Atkinson DPM s arthrodesis of interphalangeal joint right third toe(Right) - Giorgi Atkinson DPM Familial anesthetic complications: PONV many years ago Was Beta Maicol taken within 24 hours: N/A Was Clonidine taken within 24 hours: Yes Last intake: > 8 hrs Social No alcohol and No tobacco Exam alert, oriented x 3, clear to auscultation bilaterally and regular rate & rhythm Airway Mallampati: Class II Dentition: full Pulmonary Sleep Apnea (patient only ever wore her cpap twice, but states she doesn't snore anymore either) CV/HEM Hypertension S/P AVR in 2019 GI Gastroesophageal Reflux Disease Metabolic Thyroid Disease [facility] [place] Fibromyalgia and Lower Back Pain Anesthetic Plan ASA status: 3 Anesthesia: MAC Risk of > 500 ml blood loss (7ml/kg in children): No Medications/Allergies Home Medications Medication Instructions Recorded Confirmed Last Taken Type alprazolam 0.25 mg tablet (Xanax) 0.5 mg PO TID PRN Anxiety 11/12/19 11/25/22 11/26/22 07:00 History aspirin 81 mg tablet,delayed 81 mg PO DAILY 11/12/19 11/25/22 11/25/22 History release (Aspir-) cyanocobalamin (vitamin B-12) 2,000 mcg PO DAILY 11/30/19 11/25/22 11/25/22 History 2,000 mcg tablet metoprolol succinate 25 mg 25 mg PO DAILY 11/30/19 11/25/22 11/25/22 History tablet,extended release 24 hr acetaminophen 500 mg tablet 500 - 1,000 mg PO QID PRN Pain 03/03/20 11/25/22 11/25/22 History (Tylenol Extra Strength) levothyroxine 100 mcg capsule 100 mcg PO DAILY 04/21/22 11/25/22 11/25/22 History furosemide 40 mg tablet 40 mg PO DAILY 06/01/22 11/25/22 11/25/22 History losartan 25 mg tablet 25 mg PO DAILY 06/01/22 11/25/22 11/25/22 History potassium chloride 20 mEq 20 meq PO DAILY 06/01/22 11/25/22 11/25/22 History tablet,extended release(part/cryst) fluoxetine 20 mg capsule 20 mg PO DAILY #30 caps 07/05/22 11/25/22 11/25/22 Rx pantoprazole 40 mg tablet,delayed 40 mg PO DAILY #90 tabs 11/09/22 11/25/22 11/25/22 Rx release (Protonix) Allergies Allergy/AdvReac Type Severity Reaction Status Date / Time levofloxacin [From Levaquin] Allergy Severe NA Verified 11/26/22 08:50 codeine Allergy Intermediate headache/ Verified 11/26/22 08:50 lips numb hydrocodone Allergy Intermediate itching Verified 11/26/22 08:50 Penicillins Allergy Intermediate NA Verified 11/26/22 08:50 acetaminophen [From Ultracet] Allergy NA Verified 11/26/22 08:50 nitrofurantoin Allergy NA Verified 11/26/22 08:50 [From Macrobid] phenazopyridine Allergy NA Verified 11/26/22 08:50 [From Pyridium] streptomycin Allergy NA Verified 11/26/22 08:50 Sulfa (Sulfonamide Allergy NA Verified 11/26/22 08:50 Antibiotics) tramadol [From Ultracet] Allergy NA Verified 11/26/22 08:50 bupropion [From Wellbutrin] AdvReac Severe Unknown Verified 11/26/22 08:50 baclofen AdvReac Intermediate hallucinati Verified 11/26/22 08:50 ons duloxetine [From Cymbalta] AdvReac Intermediate stomach Verified 11/26/22 08:50 pain atorvastatin [From Lipitor] AdvReac Mild nausea Verified 11/26/22 08:50 PFSH Anesthesia Medical History Anxiety disorder Chronic interstitial cystitis Depression Fibromyalgia Irritable bowel syndrome Macrocytic anemia Severe sleep apnea Somatization disorder Urethral syndrome Surgical History H/O carpal tunnel repair H/O hand surgery H/O: hysterectomy S/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 S/P cholecystectomy S/P thyroidectomy Family History Father , cva Stroke Mother , 96 Dementia Social History Smoking and tobacco status: never smoked Alcohol intake: never Marital status: Current occupational status: retired Data Anesthesia Cardiac Studies: No Data to Display
--- NOTE | 2022-11-26 08:59 | XR_ITS ---
WS: [id number] Exam: XR foot RT min 3V* [id number] Date/Time of Exam: 11/26/2022 9:08 AM Reason For Exam: pre op No fracture or dislocation. Postoperative change at the distal end of the proximal fifth phalanx. Deg enerative changes in the IP joints and first MP joint. Normal soft tissues. XR/XR foot RT min 3V* [id number] IMPRESSION: 1. No fracture or dislocation. 2. Additional minor findings as detailed above.
--- NOTE | 2022-11-26 09:09 | W.PM.OPSUD ---
Surgery/Procedure H&P Update DATE OF PROCEDURE: November 26, 2022 DATE H&P PERFORMED: 11/11/22 CHANGES TO PREVIOUS DOCUMENTATION: None PREOP DIAGNOSIS: Tophaceous gout right third toe. PLANNED PROCEDURE: Operation Date: 11/26/22 10:00 Proposed Procedures p ?Excision of tophaceous gout and arthrodesis of interphalangeal joint right third toe 30790, 75392,M10.9,M79.673,M1A.9XX1,M20.40(Right) - Giorgi Atkinson DPM s arthrodesis of interphalangeal joint right third toe(Right) - Giorgi Atkinson DPM
[2022-11-26] MEDS: sodium chloride 0.9% 1,000 ML 30 ML IV (09:14)
--- NOTE | 2022-11-26 09:17 | PM.OP ---
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 Post-op diagnosis: Same Post-op findings: Tophaceous gout to the right third toe. Procedure done: Excision of tophaceous gout and arthrodesis of interphalangeal joint right third toe. CPT code 79209, 96147 Implants: 2.0 screw, 4 nylon Surgeon: Giorgi Atkinson D.P.M. 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 Brief History: Patient having tophaceous gout recurrence at the right third toe involves the distal phalangeal joint, gouty tophi tenting the skin several nodules visualized.? She states that her right third toe is painful on a daily basis, and has a history of incision and debridement with curettage of tophaceous gout which had only a brief window of relief and then a reoccurrence of additional gouty tophi returned.? She is wishing to undergo surgical intervention I discussed that source of tophaceous gout could involve both tendon and/or joint.? Surgical approach would be incision and debridement and arthrodesis of the distal interphalangeal joint of the right third toe.? I reviewed at length with the patient, the risks, potential complications, benefits, alternatives, expectations, and typical outcomes associated with the surgery. The risks and potential complications were explained in detail, including but not limited to infection, wound dehiscence or soft tissue complications, bleeding and hematoma, chronic edema, neuritis or nerve damage producing numbness or chronic pain, CRPS, failure to relieve pain or worsening pain, thick / painful / unsightly scar, limited motion / stiffness, malposition, delayed union, malunion, or nonunion, fracture, reaction to implants, anesthetic complications, venous thromboembolism, and deformity recurrence.? I discussed the notion of no regrets with the patient as it pertains to complications and outcomes. The patient seemed to understand the nature of the proposed care and required convalescence. They asked appropriate questions, answered to their satisfaction. They are aware no guarantees can be made as to a satisfactory outcome and they understand there may be other possible unforeseen complications or outcomes not listed here that will be treated accordingly if they arise. There were no written or implied guarantees given to the patient. They gave informed consent to proceed. discussed surgical option to remove tophaceous gout- Joint fusion to the right third toe at the DIPJ.? Would require K wire fixation versus 2.0 millimeter screw. Procedure: Under mild patient the patient was brought to the operating room and remained on the gurney in supine position. A timeout was performed. Anesthesia was then administered by the anesthesia service. Local anesthesia was then injected by myself consisting of 10 cc of 0.5% Marcaine plain in a right third ray block fashion as well as 10 cc of Exparel infiltrated dorsally and plantarly at the right forefoot proximal to the operative site in a grid like fashion subcutaneously. Well-padded pneumatic tourniquet applied to the right ankle. Right lower extremity was scrubbed, prepped and draped utilizing normal aseptic technique. Right foot was exanguinated with an Esmarch bandage and the tourniquet inflated to 250 mmHg. Attention was directed to the dorsal aspect of the right toe. Able to visualize gouty tophi clusters under the skin. A transverse incision was performed at the level of the distal interphalangeal joint dorsally at the right third toe through skin with a #15 blade, gouty tophi was encountered this was excised utilizing pickups, 15 blade as well as [place] elevator and irrigated with copious months of Staticin solution. Arthrosis at the distal interphalangeal joint of the right third toe was appreciated with erosive changes, loss of cartilage and spurring. Arthrodesis site was prepared utilizing bone nippers to transect the cartilage at the right third toe distal interphalangeal joint. This was then compressed and fixated utilizing standard AO technique with a Tarzan 2 mm headed screw care taken not to cross or violate the proximal interphalangeal joint. This was confirmed in all 3 views utilizing intraoperative C arm. A robust fixation was appreciated with excellent compression at the arthrodesis site of the right third distal interphalangeal joint. The incision was irrigated with copious amounts of sterile solution. Extensor tendons were reapproximated dorsally with the 4-0 Vicryl. Skin reapproximated with 4 nylon both distally at the right third toe and dorsally. The incision was dressed with Adaptic, sterile 4 x 4's, Kerlix and Ismael wrap. Postop shoe was applied. Tourniquet was then deflated and a prompt hyperemic response was noted to the distal digits of the right foot. Patient tolerated the procedure and anesthesia well and was transferred to the PACU with vital signs stable and vascular status intact. Following a period of postop monitoring she will be discharged home may be weightbearing as tolerated with a postop shoe at all times. Was also given a cam boot to have that option available to her for additional support, offloading and protection. She was given at home care instructions. She was provided my cell phone number to contact with any postoperative questions or concerns. She was instructed to keep her postoperative dressings clean, dry and intact until her follow-up visit scheduled in podiatry clinic next week. Was prescribed tramadol to be taken judiciously as needed for pain postoperatively.
[2022-11-26 09:23] LABS: Anion Gap 20.5 (5-19); Blood Urea Nitrogen 19 mg/dL (8-23); Calcium 9.5 mg/dL (8.5-10.5); Carbon Dioxide 22 mmol/L (22-29); Chloride 103 mmol/L (98-107); Glucose 115 mg/dL (65-115); Osmolality Calculated 295 mOsm/kg (285-295); Potassium 4.5 mmol/L (3.5-5.1); Sodium 141 mmol/L (136-145)
[2022-11-26] MEDS: clindamycin 600 MG/50 ML PREMIX 100 MG IV (09:23)
--- NOTE | 2022-11-26 18:04 | ANE.PACU2 ---
Inpatient post-anesthesia follow up: Airway intact: Yes Vital signs: Temperature 97.7 F Pulse Rate 66 Respiratory Rate 18 Blood Pressure 142/78 Pulse Oximetry 96 Oxygen Delivery Me thod Room Air Oxygen Flow Rate Fraction of Inspir ed Oxygen Hydration adequate: Yes Nausea and vomiting: No Pain level: 1 Mental status: Baseline
== END 2022-11-26 11:40 | disposition home or self-care (01) ==
PROVIDERS: Anesthesiology; PCP Family Medicine; Visit Provider Podiatrist Foot & Ankle Surgery
PROC: (CPT 28024; principal; 2022-11-26 09:50)
PROC: (CPT 28740; 2022-11-26 09:50)
DX: M1A.9XX1 Chronic gout, unspecified, with tophus (tophi) (principal); M19.071 Primary osteoarthritis, right ankle and foot; G47.30 Sleep apnea, unspecified; I10 Essential (primary) hypertension; K21.9 Gastro-esophageal reflux disease without esophagitis; M79.7 Fibromyalgia; Z79.82 Long term (current) use of aspirin; F41.9 Anxiety disorder, unspecified; F32.A Depression, unspecified
CPT/HCPCS: 28024; 36415; 73620; 73630; 76000; 80048; 93005; C1713; C9290; J2704; J3010; J3490; J7030

== ENCOUNTER → 2022-12-03 13:31 | Outpatient (BNVA) | payer MEDICARE, SELFPAY | PROVIDERS: PCP Family Medicine; Visit Provider Podiatrist Foot & Ankle Surgery | DX: Z98.890 Other specified postprocedural states (principal) | CPT/HCPCS: 99024 ==

== ENCOUNTER → 2022-12-09 13:42 | Outpatient (BNVA) | payer MEDICARE, SELFPAY | PROVIDERS: PCP Family Medicine; Visit Provider Podiatrist Foot & Ankle Surgery | DX: Z98.890 Other specified postprocedural states (principal) | CPT/HCPCS: 99024 ==

== ENCOUNTER → 2022-12-15 14:44 | Outpatient (BNVA) | payer MEDICARE, SELFPAY | PROVIDERS: PCP Family Medicine; Visit Provider Podiatrist Foot & Ankle Surgery | DX: Z98.890 Other specified postprocedural states (principal) | CPT/HCPCS: 99024 ==

== ENCOUNTER → 2022-12-27 09:06 | Outpatient (BNVA) | payer MEDICARE, SELFPAY | PROVIDERS: PCP Family Medicine; Visit Provider Specialist | DX: M70.62 Trochanteric bursitis, left hip (principal) | CPT/HCPCS: 20610; 73502; 99204; J1100; J2795; J3301 ==

== ENCOUNTER 2022-12-30 06:00 | Outpatient (RCR) | payer MEDICARE, SELFPAY | END 2022-12-31 23:59 | disposition home or self-care (01) | LOC: SPT 06:00 | PROVIDERS: Visit Provider Specialist | DX: M70.62 Trochanteric bursitis, left hip (principal); M25.552 Pain in left hip | CPT/HCPCS: 97161 ==

== ENCOUNTER 2023-01-01 06:00 | Outpatient (RCR) | payer MEDICARE, SELFPAY | END 2023-01-30 23:59 | disposition home or self-care (01) | LOC: SPT 06:00 | PROVIDERS: Visit Provider Specialist | DX: M70.62 Trochanteric bursitis, left hip (principal); M25.552 Pain in left hip | CPT/HCPCS: 97110 ==

== ENCOUNTER → 2023-01-01 18:13 | Outpatient (BNVA) | payer MEDICARE, SELFPAY | PROVIDERS: PCP Family Medicine; Visit Provider Nurse Practitioner Family | DX: R39.9 Unspecified symptoms and signs involving the genitourinary system (principal); N39.0 Urinary tract infection, site not specified; N30.00 Acute cystitis without hematuria | CPT/HCPCS: 87086 ==

== ENCOUNTER → 2023-01-06 13:09 | Outpatient (BNVA) | payer MEDICARE, SELFPAY | PROVIDERS: PCP Family Medicine; Visit Provider Podiatrist Foot & Ankle Surgery | DX: Z98.890 Other specified postprocedural states (principal) | CPT/HCPCS: 73630; 99024 ==

== ENCOUNTER 2023-01-31 06:00 | Outpatient (RCR) | payer MEDICARE, SELFPAY | END 2023-03-02 23:59 | disposition home or self-care (01) | LOC: SPT 06:00 | PROVIDERS: Visit Provider Specialist | DX: M70.62 Trochanteric bursitis, left hip (principal); M25.552 Pain in left hip | CPT/HCPCS: 97110 ==

== ENCOUNTER 2023-02-02 06:00 | Outpatient (RCR) | payer MEDICARE, SELFPAY | END 2023-03-02 23:59 | disposition home or self-care (01) | LOC: SPT 06:00 | PROVIDERS: Visit Provider Family Medicine | DX: H81.10 Benign paroxysmal vertigo, unspecified ear (principal) | CPT/HCPCS: 95992; 97161 ==

== ENCOUNTER → 2023-02-17 13:26 | Outpatient (BNVA) | payer MEDICARE, SELFPAY | PROVIDERS: Visit Provider Podiatrist Foot & Ankle Surgery | DX: Z98.890 Other specified postprocedural states (principal) | CPT/HCPCS: 99024 ==

== ENCOUNTER 2023-03-03 06:00 | Outpatient (RCR) | payer MEDICARE, SELFPAY | END 2023-03-22 23:59 | disposition home or self-care (01) | LOC: SPT 06:00 | PROVIDERS: Visit Provider Specialist | DX: M70.62 Trochanteric bursitis, left hip (principal); M25.552 Pain in left hip | CPT/HCPCS: 97110 ==

== ENCOUNTER 2023-03-23 09:50 | Outpatient (CLI) | payer MEDICARE, SELFPAY ==
--- NOTE | 2023-03-23 10:00 | USCV_ITS ---
Sarah Victoria Age: 83 Gender: F : 1940 Exam Date: 03/23/2023 10:10 Ordering Phys: Juwan Hernández MD Technologist: Samuel Schwartz [place] [facility] [place]: increasing dyspnea BP: 152 / 74 HR: 79 Rhythm: Sinus Technical Quality: Adequate MEASUREMENTS (Male / Female) Normal Values 2D ECHO LVOT Diameter 2.1 cm LV Ejection Fraction MOD 2C 59.9 % LV Ejection Fraction 2C AL 61.5 % LA Diameter 3.4 cm LA Width 3.1 cm LA Height 4.1 cm RA Width 3.8 cm RA Height 4.2 cm Aorta at Sinotubular Diameter 2.2 cm IVC Diameter 1.3 cm M-MODE MV E Point Septal Separation 0.9 cm DOPPLER AV Peak Velocity 212.0 cm/s LVOT Peak Velocity 99.0 cm/s AV Area Cont Eq vti 1.9 cm squared AV Area Cont Eq pk 1.6 cm squared MV Peak Velocity 100.0 cm/s MV Area PHT 2.7 cm squared Mitral E to A Ratio 0.8 MV E' Velocity 36.5 cm/s Mitral E to MV E' Ratio 8.4 Mitral E to LV E' Lateral Ratio 9.1 Mitral E to LV E' Septal Ratio 7.9 TR Peak Velocity 310.1 cm/s TR Peak Gradient 38.5 mmHg TR Mean Velocity 231.6 cm/s TR Mean Gradient 22.8 mmHg TR Velocity Time Integral 78.2 cm Right Atrial Pressure 3.0 mmHg Pulmonary Artery Systolic Pressu 41.5 mmHg PV Peak Velocity 124.3 cm/s RV Acceleration Time 0.1 s RV Ejection Time 0.2 s RV AcT/ET 0.3 FINDINGS Left Ventricle Normal left ventricular size, systolic function and wall thickness, with no regional wall motion abnormalities. Left ventricular ejection fraction is estimated at 55-60 %. Abnormal septal motion. Grade I diastolic dysfunction (abnormal relaxation filling pattern), normal to mildly elevated filling pressures. Right Ventricle Normal right ventricular size and systolic function. Right ventricular systolic pressure 42 mmHg. Right Atrium Normal right atrial size. Left Atrium Mildly increased left atrial size. Mitral Valve Structurally normal mitral valve. No mitral valve stenosis. Trace mitral valve regurgitation. Aortic Valve Thickened and calcified aortic valve. Aortic valve sclerosis without stenosis. Trace aortic valve regurgitation. Tricuspid Valve Structurally normal tricuspid valve. No tricuspid valve stenosis. Juvq-zr-[id number] tricuspid valve regurgitation. Pulmonic Valve Pulmonic valve not well visualized. No pulmonary valve stenosis. No pulmonary valve regurgitation. Pericardium No pericardial effusion. Aorta Normal size aortic root and proximal ascending aorta. Plaque seen in the ascending aorta. IVC Normal IVC dimension with >50% respiratory change of the inferior vena cava. CONCLUSIONS 1. Normal left ventricular size, systolic function and wall thickness, with no regional wall motion abnormalities. Left ventricular ejection fraction is estimated at 55-60 %. Abnormal septal motion. Grade I diastolic dysfunction (abnormal relaxation filling pattern), normal to mildly elevated filling pressures. 2. Mildly increased left atrial size. 3. [id number] tricuspid valve regurgitation. 4. Aortic valve sclerosis without stenosis. Trace aortic valve regurgitation. 5. No prior similar studies to compare. Patricia Marrero MD (Electronically Signed) Final Date: 29 March 2023 12:35 S
== END 2023-03-23 09:51 | disposition home or self-care (01) ==
PROVIDERS: PCP Family Medicine; Visit Provider Family Medicine
DX: R07.9 Chest pain, unspecified (principal); R06.00 Dyspnea, unspecified; Z95.2 Presence of prosthetic heart valve; R93.1 Abnormal findings on diagnostic imaging of heart and coronary circulation; I51.7 Cardiomegaly; I07.1 Rheumatic tricuspid insufficiency; I35.8 Other nonrheumatic aortic valve disorders
CPT/HCPCS: 80053; 83880; 84443; 85025; 93306

== ENCOUNTER 2023-04-02 13:43 | Emergency (ER) | payer MEDICARE, SELFPAY ==
[2023-04-02 13:49] VITALS: BP 155/71; PULSE 91; RESP 20; TEMP 36.1; O2SAT 98; BMI 32.2
--- NOTE | 2023-04-02 13:52 | ECG_ITS ---
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 Measurements Intervals [place] Rate: 81 P: 44 AL: 130 QRS: 13 QRSD: 89 T: 62 QT: 375 QTc: 435 Interpretive Statements SINUS RHYTHM LOW QRS VOLTAGE IN PRECORDIAL LEADS [QRS DEFLECTION < 1.0 mV IN CHEST LEADS] NONSPECIFIC T-WAVE ABNORMALITY Compared to ECG 11/26/2022 09:08:24 Low QRS voltage now present T-wave abnormality now present Myocardial infarct finding no longer present Electronically Signed On 04-02-2023 15:55:51 CDT by Gerard Sousa M.D. [email or web address]
--- NOTE | 2023-04-02 13:52 | XRR_ITS ---
PROCEDURE INFORMATION: Exam: XR Chest Exam date and time: 04/02/2023 2:14 PM Age: 83 years old Clinical indication: Pain; Angina pectoris; Additional info: Chest pain TECHNIQUE: Imaging protocol: Radiologic exam of the chest. Views: 1 view. COMPARISON: CR XR chest 1V portable [id number] 02/13/2020 2:37 PM FINDINGS: Lungs: There are pulmonary parenchymal calcifications consistent with remote granulomatous organism exposure. No focal pulmonary consolidation. Pleural spaces: Unremarkable. No pleural effusion. No pneumothorax. Heart/Mediastinum: Unremarkable. No cardiomegaly. Bones/joints: Unremarkable. Other findings: There are post-sternotomy changes and postoperative changes overlying the mediastinum. XR/XR chest 1V portable [id number] IMPRESSION: No evidence for acute cardiopulmonary disease.
[2023-04-02] MEDS: LORazepam 2 mg/mL INJ 1 mL 1 MG IVP (14:06)
--- NOTE | 2023-04-02 14:17 | ED_ITS ---
HPI - Chest Pain General: Chief Complaint: Chest Pain Stated Complaint: chest tightness, SOB Time Seen by Provider: 04/02/23 13:52 History of Present Illness: Patient presents to the ER with complaints of shortness of breath and chest pain. She states she has artificial aortic valve and is starting to leak and needs she needs replaced. Patient's been short of breath for the last couple weeks she has seen her PCP about this and had an echo. Patient reports her chest pain is a pressure on both left and right sides radiating around to her back and started today. She rates it as minor in nature nothing brings it on nothing makes it worse. She also reports that her hands on both sides are falling asleep. Per patient she does not have a history of LA cardiac stents or open heart surgery. But she does have the aortic valve. Review of Systems General: Reports: 10 or more systems reviewed and unremarkable except in HPI and below PFS ED PFSH: Medical History Anxiety disorder Chronic interstitial cystitis Depression Fibromyalgia Irritable bowel syndrome Macrocytic anemia Severe sleep apnea Somatization disorder Urethral syndrome Surgical History H/O carpal tunnel repair H/O hand surgery H/O: hysterectomy S/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 S/P cholecystectomy S/P thyroidectomy Family History Father , cva Stroke Mother , 96 Dementia Social History Smoking and tobacco status: never smoked Alcohol intake: never Substance/Drug Use: never Marital status: Current occupational status: retired Physical Exam Const: COMMON NORMALS: no acute distress, average body habitus, patient oriented x3, no limitations, healthy appearing, alert and well nourished OTHER: Anxious appearing with fast speech HENMT: COMMON NORMALS: normocephalic, atraumatic, hearing grossly normal bilaterally, external ears normal, Normal external nose present and moist oral mucous membranes HEAD & SCALP: normocephalic and atraumatic NOSE: Normal external nose present EXTERNAL EAR: Yes external ears normal Eye: COMMON NORMALS: Equal, round and reactive pupils present, EOMs intact bilaterally, conjunctivae normal and no scleral icterus CONJUNCTIVA: Yes conj unctivae normal PUPIL: Yes Equal, round and reactive pupils present Neck/C-Spine: COMMON NORMALS: full ROM, no lymphadenopathy, supple, no meningeal signs, no JVD and Thyroid normal THYROID: Thyroid normal Chest: COMMONS NORMALS: normal inspection of the chest and normal palpation of entire chest wall Resp: COMMON NORMALS: normal respiratory effort, No retractions, No use of accessory muscles and clear to auscultation bilaterally AUSCULTATION: clear to auscultation bilaterally Cardio: COMMON NORMALS: no JVD, regular rate, regular rhythm, S1 normal heart sound present, S2 normal heart sound present, No gallops present (Cardio), No clicks present (Cardio), No murmurs present (Cardio) and No rub (Cardio) RATE: regular rate RHYTHM: regular rhythm HEART SOUNDS: S1 normal heart sound present and S2 normal heart sound present GI: COMMON NORMALS: Normal to inspection, nondistended, normoactive bowel sounds present, Soft to palpation, non-tender, No hepatosplenomegaly present and no masses PALPATION: Yes Soft to palpation and Yes No hepatosplenomegaly present : COMMON NORMALS: Yes no CVA tenderness BLADDER/KIDNEY EXAM: Yes no CVA tenderness Back/Pelvis: COMMON NORMALS: no CVA tenderness Neuro: COMMON NORMALS: patient oriented x3 SENSORIUM/ORIENTATION: Yes alert MENINGEAL SIGNS: Yes no meningeal signs Course Vital Signs: Vital signs: Vital Signs Temperature 96.9 F L 04/02/23 13:49 Pulse Rate 75 04/02/23 15:17 Respiratory Rate 22 H 04/02/23 15:17 Blood Pressure 124/46 04/02/23 15:17 Pulse Oximetry 96 04/02/23 15:17 Oxygen Delivery Me thod Room Air 04/02/23 15:17 MDM - Chest Pain Medical Decision Making Presents to the ER complaining of chest tightness and shortness of breath. Patient does states she has a aortic valve that needs replaced. Patient states this been going on for several weeks. Patient undergone a chest pain work-up with a baseline troponin of 23 delta troponin of 0.7 and 2-hour troponin of 22.7. EKGs showed nonspecific T wave abnormalities. Is thought that patient's chest pain is noncardiac in nature and the shortness of breath is mild if any upon examination. Patient be discharged home to follow-up with her primary care doctor in approximately 1 week or sooner as needed. Differential Diagnosis Unlikely acute massive pulmonary embolism, acute respiratory failure, acute myocardial infarction, cardiac arrest or sudden cardiac Medical Records I reviewed the patient's medical records. Lab Data I reviewed the patient's lab results. 04/02/23 Unknown 04/02/23 Unknown Radiology Impressions Chest X-Ray 04/02/23 13:52 IMPRESSION: No evidence for acute cardiopulmonary disease. Laboratory Results WBC 6.3 10^3/uL (4.0-10.0) 04/02/23 Unknown RBC 3.84 10^6/uL (4.1-5.3) L 04/02/23 Unknown Hgb 12.5 g/dL (11.5-15.3) 04/02/23 Unknown Hct 36.8 % (37.0-47.0) L 04/02/23 Unknown MCV 95.8 fl (81-99) 04/02/23 Unknown MCH 32.6 pg (28.0-34.0) 04/02/23 Unknown MCHC 34.0 g/dL (30.0-36.0) 04/02/23 Unknown RDW 13.2 % (12.1-15.1) 04/02/23 Unknown Plt Count 219 10^3/cmm (130-400) 04/02/23 Unknown MPV 9.9 fL (7.4-10.4) 04/02/23 Unknown Neut % (Auto) 49.4 % 04/02/23 Unknown Lymph % (Auto) 41.7 % 04/02/23 Unknown Kidder % (Auto) 6.7 % 04/02/23 Unknown Eos % (Auto) 1.4 % 04/02/23 Unknown Baso % (Auto) 0.5 % 04/02/23 Unknown Neut # (Auto) 3.11 10^3/uL (1.8-7.7) 04/02/23 Unknown Lymph # (Auto) 2.6 10^3/uL (0.8-4.8) 04/02/23 Unknown Kidder # (Auto) 0.4 10^3/uL (0.2-0.9) 04/02/23 Unknown Eos # (Auto) 0.1 10^3/uL (0.0-0.8) 04/02/23 Unknown Baso # (Auto) 0.0 10^3/uL (0.0-0.1) 04/02/23 Unknown Nucleated RBC % (auto) 0 % 04/02/23 Unknown Nucleated RBCs # 0.0 /100WBC 04/02/23 Unknown Sodium 135 mmol/L (136-145) L 04/02/23 Unknown Potassium 3.9 mmol/L (3.5-5.1) 04/02/23 Unknown Chloride 98 mmol/L (98-107) 04/02/23 Unknown Carbon Dioxide 22 mmol/L (22-29) 04/02/23 Unknown Anion Gap 18.9 (5-19) 04/02/23 Unknown BUN 22 mg/dL (8-23) 04/02/23 Unknown Creatinine 1.3 mg/dL (0.5-0.9) H 04/02/23 Unknown GFR Calculation Not Reportable 04/02/23 Unknown Glucose 137 mg/dL (65-115) H 04/02/23 Unknown Calculated Osmolality 285 mOsm/kg (285-295) 04/02/23 Unknown Calcium 8.9 mg/dL (8.5-10.5) 04/02/23 Unknown Total Bilirubin 0.2 mg/dL (0.15-1.2) 04/02/23 Unknown AST 23 U/L (0-32) 04/02/23 Unknown ALT 15 U/L (0-33) 04/02/23 Unknown Alkaline Phosphatase 62 U/L (35-105) 04/02/23 Unknown Troponin T Baseline 23 ng/L (0-10) H 04/02/23 Unknown Troponin T 120 Minute 22.30 ng/L (0-10) H 04/02/23 16:05 Delta Troponin T -0.70 ABS# (0-10) L 04/02/23 16:05 NT-Pro-B Natriuret Pep 298 pg/mL (0-450) 04/02/23 Unknown Total Protein 6.6 g/dL (6.6-8.7) 04/02/23 Unknown Albumin 4.4 g/dL (3.5-5.2) 04/02/23 Unknown Globulin 2.2 g/dL (1.3-4.6) 04/02/23 Unknown Urine Color Straw (Yellow) 04/02/23 14:30 Urine Appearance Clear (CLEAR) 04/02/23 14:30 Urine pH 5 (5-7) 04/02/23 14:30 Ur Specific [place] 1.010 (1.005-1.030) 04/02/23 14:30 Urine Protein Neg (Negative) 04/02/23 14:30 Urine Glucose (UA) Norm (Normal) 04/02/23 14:30 Urine Ketones Negative (Negative) 04/02/23 14:30 Urine Blood Neg (Negative) 04/02/23 14:30 Urine Nitrate Negative (Negative) 04/02/23 14:30 Urine Bilirubin Neg (Negative) 04/02/23 14:30 Urine Urobilinogen Norm mg/dL (Negative) 04/02/23 14:30 Ur Leukocyte Esterase Trace (Negative) H 04/02/23 14:30 Urine RBC None /hpf (0-2) 04/02/23 14:30 Urine WBC 5-10 /hpf (0-5) H 04/02/23 14:30 Ur Squamous Epith Cells 5-10 /hpf (0-5) H 04/02/23 14:30 Amorphous Sediment Not Reportable 04/02/23 14:30 Urine Bacteria Trace /hpf (NONE) 04/02/23 14:30 EKG Data EKG 1: I personally reviewed and interpreted this EKG as follows: EKG interpretation date: 04/02/23 EKG interpretation time: 14:13 Prior EKG tracings: not available for review Interpretation: EKG shows ventricular rate 81 beats a minute, GA interval 130, QRS duration 89, QTc 412, sinus rhythm, nonspecific T wave abnormality. Discharge Plan Discharge Patient Disposition: Home Clinical Impression: Atypical chest pain, Shortness of breath Condition: Stable Prescriptions: No Action cyanocobalamin (vitamin B-12) 2,000 mcg tablet 2,000 mcg PO DAILY metoprolol succinate 25 mg tablet extended release 24 hr 25 mg PO DAILY furosemide 40 mg tablet 40 mg PO BID pantoprazole [Protonix] 40 mg tablet,delayed release (DR/EC) 40 mg PO DAILY Qty: 90 3RF fluoxetine 20 mg capsule 20 mg PO DAILY Qty: 30 11RF acetaminophen [Tylenol Extra Strength] 500 mg Tablet 500 - 1,000 mg PO BID losartan 50 mg tablet 50 mg PO DAILY Aspir-81 81 mg Tablet,Delayed Release (Dr/Ec) 81 mg PO DAILY levothyroxine 100 mcg tablet 100 mcg PO DAILY Klor-Con M20 20 mEq tablet,ER particles/crystals 20 meq PO DAILY ibuprofen 200 mg Tablet 200 - 400 mg PO BID clotrimazole 10 mg debra 10 mg PO TID PRN (Reason: mouth sores) cranberry 400 mg Capsule 400 mg PO BID Rx Instructions: administer with meals Cbd Gummies See Rx Instructions .ROUTE .COMPLEX Rx Instructions: as needed Silver Biotics 5 ml PO DAILY alprazolam 0.5 mg tablet 0.5 mg PO BID Discharge Orders: Discharge ED (Routine); Ordered 04/02/23 Ordered By: Antione Ray Referrals: Juwan Hernández MD [Primary Care Provider] - 1 week Patient Instructions: Noncardiac Chest Pain (ED), Shortness of Breath (ED) Coding Level of Care Code ED [employer] P[employer] Representative for Marisol Reese
[2023-04-02 14:29] VITALS: BP 130/66; PULSE 88; RESP 16; O2SAT 93
[2023-04-02 14:29] LABS: Basophils % 0.5 %; Eosinophils # 0.1 10^3/uL (0.0-0.8); Eosinophils % 1.4 %; Hematocrit 36.8 % (37.0-47.0); Hemoglobin 12.5 g/dL (11.5-15.3); Lymphocytes # 2.6 10^3/uL (0.8-4.8); Lymphocytes % 41.7 %; Mean Corpuscular Hemoglobin 32.6 pg (28.0-34.0); Mean Corpuscular Volume 95.8 fl (81-99); Mean Platelet Volume 9.9 fL (7.4-10.4); Monocytes # 0.4 10^3/uL (0.2-0.9); Monocytes % 6.7 %; Neutrophils # 3.11 10^3/uL (1.8-7.7); Neutrophils % 49.4 %; Nucleated Red Blood Cells % 0 %; Platelet Count 219 10^3/cmm (130-400); Red Blood Count 3.84 10^6/uL (4.1-5.3); Red Cell Distribution Width 13.2 % (12.1-15.1); White Blood Count 6.3 10^3/uL (4.0-10.0)
[2023-04-02 14:33] VITALS: BP 121/56; PULSE 89; RESP 23; O2SAT 94
[2023-04-02 14:43] LABS: Troponin(5th) Baseline 23 ng/L (0-10)
[2023-04-02 14:52] LABS: Alanine Aminotransferase 15 U/L (0-33); Albumin Level 4.4 g/dL (3.5-5.2); Alkaline Phosphatase 62 U/L (35-105); Anion Gap 18.9 (5-19); Aspartate Amino Transferase 23 U/L (0-32); Blood Urea Nitrogen 22 mg/dL (8-23); Calcium 8.9 mg/dL (8.5-10.5); Carbon Dioxide 22 mmol/L (22-29); Chloride 98 mmol/L (98-107); Globulin 2.2 g/dL (1.3-4.6); Glucose 137 mg/dL (65-115); NT Pro B Type Natriuretic Pept 298 pg/mL (0-450); Osmolality Calculated 285 mOsm/kg (285-295); Potassium 3.9 mmol/L (3.5-5.1); Sodium 135 mmol/L (136-145); Total Bilirubin 0.2 mg/dL (0.15-1.2); Total Protein 6.6 g/dL (6.6-8.7)
[2023-04-02 15:17] VITALS: BP 124/46; PULSE 75; RESP 22; O2SAT 96
[2023-04-02 15:29] LABS: Add Urine Culture? No; Add Urine Microscopic? YES; Bacteria Urine TRACE /hpf; Bilirubin Urine Neg (Negative); Blood Urine Neg (Negative); Glucose Urine UA Norm (Normal); Ketones Urine Negative (Negative); Leukocyte Esterase Urine Trace (Negative); Nitrate Urine Negative (Negative); Protein Urine Neg (Negative); Urine Appearance Clear (CLEAR); Urine Color Straw (Yellow); Urobilinogen Urine Norm (Negative); pH Urine 5 (5-7)
--- NOTE | 2023-04-02 16:03 | PC.PHAR ---
pt states her takes care of her medications-waiting for pts to get done with dialysis to verify pts medications-
--- NOTE | 2023-04-02 16:16 | ECG_ITS ---
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 Measurements Intervals [place] Rate: 67 P: 51 AR: 134 QRS: 16 QRSD: 86 T: 67 QT: 359 QTc: 381 Interpretive Statements SINUS RHYTHM WITH OCCASIONAL VENTRICULAR PREMATURE COMPLEXES LOW QRS VOLTAGE IN PRECORDIAL LEADS [QRS DEFLECTION < 1.0 mV IN CHEST LEADS] NONSPECIFIC T-WAVE ABNORMALITY Compared to ECG 04/02/2023 14:13:08 Ventricular premature complex(es) now present T-wave abnormality still present Electronically Signed On 04-03-2023 14:51:11 CDT by Gerard Sousa M.D. [email or web address]
[2023-04-02 17:06] VITALS: BP 154/68; PULSE 72; RESP 16; O2SAT 97
== END 2023-04-02 17:08 | disposition home or self-care (01) ==
PROVIDERS: Emergency Provider Emergency Medicine; PCP Family Medicine
DX: R07.89 Other chest pain (principal); R06.02 Shortness of breath; Z79.899 Other long term (current) drug therapy
CPT/HCPCS: 36415; 71045; 80053; 81001; 83880; 84484; 85025; 93005; 96374; 99285; J2060

== ENCOUNTER → 2023-04-14 09:35 | Outpatient (BNVA) | payer MEDICARE, SELFPAY | PROVIDERS: PCP Family Medicine; Visit Provider Specialist | DX: M70.62 Trochanteric bursitis, left hip (principal); M10.9 Gout, unspecified | CPT/HCPCS: 20610; 99213; J1100; J2795; J3301 ==

== ENCOUNTER → 2023-05-09 13:53 | Outpatient (BNVA) | payer MEDICARE, SELFPAY | PROVIDERS: PCP Family Medicine; Visit Provider Specialist | DX: M70.61 Trochanteric bursitis, right hip | CPT/HCPCS: 20610; 73502; 99214; J1100; J2795; J3301 ==

== ENCOUNTER 2023-05-30 09:36 | Outpatient (RCR) | payer MEDICARE, SELFPAY | END 2023-06-02 23:59 | disposition home or self-care (01) | LOC: SPT 09:36 | PROVIDERS: Visit Provider Specialist | DX: M70.61 Trochanteric bursitis, right hip (principal) | CPT/HCPCS: 97161 ==

== ENCOUNTER 2023-06-03 06:00 | Outpatient (RCR) | payer MEDICARE, SELFPAY | END 2023-07-02 23:59 | disposition home or self-care (01) | LOC: SPT 06:00 | PROVIDERS: PCP Family Medicine; Visit Provider Specialist | DX: M70.61 Trochanteric bursitis, right hip (principal) | CPT/HCPCS: 97110 ==

== ENCOUNTER → 2023-06-14 11:10 | Outpatient (BNVA) | payer MEDICARE, SELFPAY | PROVIDERS: PCP Family Medicine; Visit Provider Clinical Nurse Specialist Adult Health | DX: R30.0 Dysuria (principal) | CPT/HCPCS: 81000; 87077; 87086; 87184 ==

== ENCOUNTER 2023-06-17 16:58 | Emergency (ER) | payer MEDICARE, SELFPAY ==
[2023-06-17 17:09] VITALS: BP 180/82; PULSE 67; RESP 18; TEMP 36.9; O2SAT 96; BMI 32.1
--- NOTE | 2023-06-17 17:22 | ED_ITS ---
HPI - Female Genitourinary General: Chief complaint: Urogenital-Female Stated complaint: Lower abdominal pain, nausea, back and neck pain Time Seen by Provider: 06/17/23 17:06 Source: patient and family Mode of arrival: ambulatory Limitations: no limitations History of Present Illness: Patient is 83-year-old female reports has been on 4 days of cefdinir for E. coli UTI prescribed by her doctor. She states has been having dysuria and vaginal pain as well as lower and upper abdominal pain, neck and back pain. She has had nausea. Denies fever or chills. Other chronic complaints as well. She has taken Tylenol for pain. She is allergic to Pyridium. Denies hematuria. Denies vomiting. Has had some constipation with no diarrhea or black or bloody stools. Reports she has had many UTIs and has multiple antibiotic allergies Associated symptoms: Reports abdominal pain, nausea and weakness; Deny fevers/chills or headache(s) Review of Systems Const: Reports: body aches; Denies: fever(s) or chills Card: Denies: chest pain, edema or dyspnea on exertion Resp: Denies: dyspnea or non-productive cough GI: Reports: abdominal pain, nausea and constipation; Denies: vomiting : Reports: flank pain and dysuria; Denies: hematuria Musc: Reports: neck pain (Chronic) and back pain (Chronic) Neuro: Denies: headache(s) Psych: Reports: anxiety PFS ED PFSH: Medical History Anxiety disorder Chronic interstitial cystitis Depression Fibromyalgia Irritable bowel syndrome Macrocytic anemia Severe sleep apnea Somatization disorder Urethral syndrome Surgical History H/O carpal tunnel repair H/O hand surgery H/O: hysterectomy S/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 S/P cholecystectomy S/P thyroidectomy Family History Father , cva Stroke Mother , 96 Dementia Social History Smoking and tobacco status: never smoked Alcohol intake: never Substance/Drug Use: never Marital status: Current occupational status: retired Physical Exam Const: COMMON NORMALS: healthy appearing GENERAL APPEARANCE: cooperative, well kempt, anxious and well hydrated HENMT: COMMON NORMALS: normocephalic and atraumatic HEAD & SCALP: normocephalic and atraumatic Eye: COMMON NORMALS: Equal, round and reactive pupils present PUPIL: Yes Equal, round and reactive pupils present Neck/C-Spine: COMMON NORMALS: full ROM and no meningeal signs Lymph: LYMPHATIC: no lymphadenopathy noted Resp: COMMON NORMALS: normal respiratory effort and clear to auscultation bilaterally AUSCULTATION: clear to auscultation bilaterally Cardio: COMMON NORMALS: regular rate, regular rhythm and Peripheral pulses 2+ throughout; negative for No murmurs present (Cardio) RATE: regular rate RHYTHM: regular rhythm PERIPHERAL PULSES: Peripheral pulses 2+ throughout GI: COMMON NORMALS: Normal to inspection, nondistended, normoactive bowel sounds present; negative for non-tender (general mild TTP WITHOUT peritoneal signs) : COMMON NORMALS: No no CVA tenderness (bilateral CVA ttp) BLADDER/KIDNEY EXAM: No no CVA tenderness (bilateral CVA ttp) Back/Pelvis: COMMON NORMALS: negative for no CVA tenderness (bilateral CVA ttp) Extremity: COMMON NORMALS: normal to inspection and full ROM Neuro: MENINGEAL SIGNS: Yes no meningeal signs Psych: APPEARANCE: Yes well kempt MOOD & AFFECT: Yes anxious Course Vital Signs: Vital signs: Vital Signs Temperature 98.4 F 06/17/23 17:09 Pulse Rate 67 06/17/23 17:09 Respiratory Rate 18 06/17/23 17:09 Blood Pressure 154/68 06/17/23 18:12 Pulse Oximetry 96 06/17/23 17:09 Oxygen Delivery Me thod Room Air 06/17/23 17:09 [facility] - Female Medical Decision Making Patient is a 83-year-old female who presents with multiple complaints that appear to be chronic in nature. When I asked the patient what brought her to the ER today she states it is because she is having vaginal pain and dysuria, neck and back pain and nausea and has been ongoing since diagnosed with a UTI and does not seem to be getting better. She is afebrile and nontoxic-appearing. She is quite anxious. Past labs and microbiology reviewed. She has been on 4 days of cefdinir for E. coli UTI. She has mild diffuse abdominal tenderness on exam with bilateral CVA tenderness but no peritoneal signs. Will check basic labs, recheck her urine, CT of the abdomen pelvis without contrast and provide IV Toradol and Zofran and reassess. Patient's UTI appears to be resolving, CT and labs are unremarkable. She continues to complain of pain in her neck and back and seems to be consistent with her chronic fibromyalgia pain. She tells me multiple times that she has fibromyalgia. She has multiple drug allergies. She is also having increased anxiety and has not had her nighttime anxiety lytic. She is otherwise stable for discharge home I do not feel she would benefit from further emergent treatment or hospitalization. She was treated with IV fluids, pain medicine and nausea medicine. Advised to continue her cefdinir as prescribed and follow-up closely with her PCP. Return precautions given. Differential Diagnosis Likely abdominal pain, calculus of kidney, constipation, diverticulitis and gastroenteritis Medical Records I reviewed the patient's medical records. Lab Data I reviewed the patient's lab results. 06/17/23 17:30 06/17/23 17:30 Radiology Impressions Abdomen/Pelvis CT 06/17/23 17:25 IMPRESSION: No acute findings. Laboratory Results WBC 7.12 10^3/uL (3.29-11.43) 06/17/23 17:30 RBC 3.43 10^6/uL (3.85-5.65) L 06/17/23 17:30 Hgb 10.80 g/dL (11.27-16.99) L 06/17/23 17:30 Hct 31.5 % (36-47) L 06/17/23 17:30 MCV 91.8 fl (85-98) 06/17/23 17:30 MCH 31.5 pg (27-33) 06/17/23 17:30 MCHC 34.3 g/dL (30-55) 06/17/23 17:30 RDW 13.1 % (12.1-15.1) 06/17/23 17:30 Plt Count 291 10^3/cmm (157-399) 06/17/23 17:30 MPV 8.8 fL (7.4-10.4) 06/17/23 17: Neut % (Auto) 55.6 % 06/17/23 17:30 Lymph % (Auto) 30.9 % 06/17/23 17:30 [place] % (Auto) 7.7 % 06/17/23 17:30 Eos % (Auto) 1.0 % 06/17/23 17:30 Baso % (Auto) 0.6 % 06/17/23 17:30 Neut # (Auto) 3.96 10^3/uL (1.8-7.7) 06/17/23 17:30 Lymph # (Auto) 2.2 10^3/uL (0.8-4.8) 06/17/23 17:30 [place] # (Auto) 0.6 10^3/uL (0.2-0.9) 06/17/23 17:30 Eos # (Auto) 0.1 10^3/uL (0.0-0.8) 06/17/23 17:30 Baso # (Auto) 0.0 10^3/uL (0.0-0.1) 06/17/23 17: Nucleated RBC % (auto) 0 % 06/17/23 17: Nucleated RBCs # 0.0 /100WBC 06/17/23 17:30 Sodium 126 mmol/L (136-145) L 06/17/23 17:30 Potassium 4.3 mmol/L (3.5-5.1) 06/17/23 17:30 Chloride 89 mmol/L (98-107) L 06/17/23 17:30 Carbon Dioxide 25 mmol/L (22-29) 06/17/23 17:30 Anion Gap 16.3 (5-19) 06/17/23 17:30 BUN 15 mg/dL (8-23) 06/17/23 17:30 Creatinine 0.9 mg/dL (0.5-0.9) 06/17/23 17:30 GFR Calculation Not Reportable 06/17/23 17:30 Glucose 104 mg/dL (65-115) 06/17/23 17:30 Calculated Osmolality 263 mOsm/kg (285-295) L 06/17/23 17:30 Calcium 8.9 mg/dL (8.5-10.5) 06/17/23 17:30 Total Bilirubin 0.2 mg/dL (0.15-1.2) 06/17/23 17:30 AST 24 U/L (0-32) 06/17/23 17:30 ALT 19 U/L (0-33) 06/17/23 17:30 Alkaline Phosphatase 78 U/L (35-105) 06/17/23 17:30 Total Protein 6.6 g/dL (6.6-8.7) 06/17/23 17:30 Albumin 3.9 g/dL (3.5-5.2) 06/17/23 17:30 Globulin 2.7 g/dL (1.3-4.6) 06/17/23 17:30 Lipase 34 U/L (13-60) 06/17/23 17:30 Urine Color Yellow (Yellow) 06/17/23 17:53 Urine Appearance Cloudy (CLEAR) A 06/17/23 17:53 Urine pH 6 (5-7) 06/17/23 17:53 Ur Specific [place] 1.010 (1.005-1.030) 06/17/23 17:53 Urine Protein Neg (Negative) 06/17/23 17:53 Urine Glucose (UA) Norm (Normal) 06/17/23 17:53 Urine Ketones Negative (Negative) 06/17/23 17:53 Urine Blood Neg (Negative) 06/17/23 17:53 Urine Nitrate Negative (Negative) 06/17/23 17:53 Urine Bilirubin Neg (Negative) 06/17/23 17:53 Urine Urobilinogen Norm mg/dL (Negative) 06/17/23 17:53 Ur Leukocyte Esterase 1+ (Negative) H 06/17/23 17:53 Urine RBC 0-4 /hpf (0-2) H 06/17/23 17:53 Urine WBC 0-4 /hpf (0-5) H 06/17/23 17:53 Ur Squamous Epith Cells 15-25 /hpf (0-5) H 06/17/23 17:53 Amorphous Sediment Not Reportable 06/17/23 17:53 Urine Bacteria None /hpf (NONE) 06/17/23 17:53 Coronavirus 229E (PCR) Not detected (NOT DETECT) 06/17/23 17:53 SARS-CoV-2 (PCR) Not detected (NOT DETECT) 06/17/23 17:53 All radiology interpretation(s) finalized by discharge Discharge Plan Discharge Patient Disposition: Home Clinical Impression: Bacterial UTI, Fibromyalgia, Anxiety Condition: Stable Prescriptions: No Action cyanocobalamin (vitamin B-12) 2,000 mcg tablet 2,000 mcg PO DAILY metoprolol succinate 25 mg tablet extended release 24 hr 25 mg PO DAILY furosemide 40 mg tablet 40 mg PO BID pantoprazole [Protonix] 40 mg tablet,delayed release (DR/EC) 40 mg PO DAILY Qty: 90 3RF alprazolam 1 mg tablet 1 mg PO BID Qty: 60 5RF sertraline [Zoloft] 50 mg tablet 50 mg PO DAILY Qty: 30 11RF cefdinir 300 mg capsule 300 mg PO Q12H Qty: 14 0RF acetaminophen [Tylenol Extra Strength] 500 mg Tablet 500 - 1,000 mg PO BID losartan 50 mg tablet 50 mg PO DAILY Aspir-81 81 mg Tablet,Delayed Release (Dr/Ec) 81 mg PO DAILY levothyroxine 100 mcg tablet 100 mcg PO DAILY Klor-Con M20 20 mEq tablet,ER particles/crystals 20 meq PO DAILY ibuprofen 200 mg Tablet 200 - 400 mg PO BID clotrimazole 10 mg debra 10 mg PO TID PRN (Reason: mouth sores) cranberry 400 mg Capsule 400 mg PO BID Rx Instructions: administer with meals Cbd Gummies See Rx Instructions .ROUTE .COMPLEX Rx Instructions: as needed Silver Biotics 5 ml PO DAILY Discharge Orders: Discharge ED (Routine); Ordered 06/17/23 Ordered By: Smita Bang Referrals: Juwan Hernández MD [Primary Care Provider] - 06/20/23 (call for ER follow up appointment) Discharge Diet: Regular Discharge Activity: Resume usual activity Patient Instructions: Urinary Tract Infection in Women (DC), Fibromyalgia (ED), Anxiety (ED), Pain Management Activity Restrictions/Additional Instructions: Continue cefdinir as prescribed by your doctor for continued treatment of UTI Continue current medications Stay well-hydrated and rest until feeling better Follow-up with your family physician Tuesday Return to the ER for new or worsening symptoms Print Language: French Coding Level of Care Code 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
--- NOTE | 2023-06-17 17:25 | CTR_ITS ---
PROCEDURE INFORMATION: Exam: CT Abdomen And Pelvis Without Contrast Exam date and time: 06/17/2023 5:52 PM Age: 83 years old Clinical indication: Abdominal pain; Generalized; Patient HX: Diffuse abd and back pain. Currently has UTI. ; Additional info: Abd pain/back pain TECHNIQUE: Imaging protocol: Computed tomography of the abdomen and pelvis without contrast. Radiation optimization: All CT scans at this facility use at least one of these dose optimization techniques: automated exposure control; mA and/or kV adjustment per patient size (includes targeted exams where dose is matched to clinical indication); or iterative reconstruction. REPORTING DATA: Count of CT and Cardiac NM exams in prior 12 months: This patient has received 0 known CTs and 0 known cardiac nuclear medicine studies in the 12 months prior to the current study. COMPARISON: CT abdomen pelvis w con* [id number] 02/09/2020 12:20 PM RADIATION DOSE METRICS: Total DLP (mGy-cm): 991.45 FINDINGS: Liver: 1.3 cm cyst noted in the left hepatic lobe. Gallbladder and bile ducts: Cholecystectomy. No ductal dilation. Pancreas: Normal. No ductal dilation. Spleen: Normal. No splenomegaly. Adrenal glands: Normal. No mass. Kidneys and ureters: No renal stones. No hydronephrosis. Stomach and bowel: Colonic diverticulosis. No obstruction. No mucosal thickening. Appendix: No evidence of appendicitis. Intraperitoneal space: Unremarkable. No free air. No significant fluid collection. Vasculature: Unremarkable. No abdominal aortic aneurysm. Lymph nodes: Unremarkable. No enlarged lymph nodes. Urinary bladder: Unremarkable as visualized. Reproductive: Hysterectomy. Bones/joints: Posterior spinal decompression and fusion hardware noted at the L3-S1 segment with intervertebral disc spacers. No acute fracture. Soft tissues: Unremarkable. CT/CT abdomen pelvis con [id number] IMPRESSION: No acute findings.
[2023-06-17 17:38] LABS: Basophils % 0.6 %; Eosinophils # 0.1 10^3/uL (0.0-0.8); Hematocrit 31.5 % (36-47); Lymphocytes # 2.2 10^3/uL (0.8-4.8); Lymphocytes % 30.9 %; Mean Corpuscular HGB Conc 34.3 g/dL (30-55); Mean Corpuscular Hemoglobin 31.5 pg (27-33); Mean Corpuscular Volume 91.8 fl (85-98); Mean Platelet Volume 8.8 fL (7.4-10.4); Monocytes # 0.6 10^3/uL (0.2-0.9); Monocytes % 7.7 %; Neutrophils # 3.96 10^3/uL (1.8-7.7); Neutrophils % 55.6 %; Nucleated Red Blood Cells % 0 %; Platelet Count 291 10^3/cmm (157-399); Red Blood Count 3.43 10^6/uL (3.85-5.65); Red Cell Distribution Width 13.1 % (12.1-15.1); White Blood Count 7.12 10^3/uL (3.29-11.43)
[2023-06-17] MEDS: sodium chloride 0.9% 1,000 ML 999 ML IV (17:39)
[2023-06-17] MEDS: ondansetron 2 mg/ML SDV 2 mL 4 MG IVP (17:41)
[2023-06-17] MEDS: ketorolac 30 mg/mL INJ IVP (17:41)
[2023-06-17 18:08] LABS: Alanine Aminotransferase 19 U/L (0-33); Albumin Level 3.9 g/dL (3.5-5.2); Alkaline Phosphatase 78 U/L (35-105); Anion Gap 16.3 (5-19); Aspartate Amino Transferase 24 U/L (0-32); Blood Urea Nitrogen 15 mg/dL (8-23); Calcium 8.9 mg/dL (8.5-10.5); Carbon Dioxide 25 mmol/L (22-29); Chloride 89 mmol/L (98-107); Globulin 2.7 g/dL (1.3-4.6); Glucose 104 mg/dL (65-115); Lipase 34 U/L (13-60); Osmolality Calculated 263 mOsm/kg (285-295); Potassium 4.3 mmol/L (3.5-5.1); Sodium 126 mmol/L (136-145); Total Bilirubin 0.2 mg/dL (0.15-1.2); Total Protein 6.6 g/dL (6.6-8.7)
[2023-06-17 18:12] VITALS: BP 154/68
[2023-06-17 18:22] LABS: Bilirubin Urine Neg (Negative); Blood Urine Neg (Negative); Glucose Urine UA Norm (Normal); Ketones Urine Negative (Negative); Nitrate Urine Negative (Negative); Protein Urine Neg (Negative); Urine Appearance Cloudy (CLEAR); Urine Color Yellow (Yellow); Urobilinogen Urine Norm (Negative); pH Urine 6 (5-7)
[2023-06-17 18:23] LABS: Add Urine Culture? No; Add Urine Microscopic? YES; Leukocyte Esterase Urine 1+ (Negative); RBC Urine 0-4 /hpf (0-2); Squamous Epithelial Cell Urine 15-25 /hpf (0-5); WBC Urine 0-4 /hpf (0-5)
[2023-06-17 20:01] LABS: Adenovirus Not Detected (NOT DETECT); Chlamydia Pneumoniae Not Detected (NOT DETECT); Coronavirus 229E,HKU1,NL63,OC4 Not Detected (NOT DETECT); Human Metapneumovirus Not Detected (NOT DETECT); Human Rhinovirus/Enterovirus Not Detected (NOT DETECT); Influenza A Not Detected (NOT DETECT); Influenza A H1 Not Detected (NOT DETECT); Influenza A H1-2009 Not Detected (NOT DETECT); Influenza A H3 Not Detected (NOT DETECT); Influenza B Not Detected (NOT DETECT); Mycoplasma Pneumoniae Not Detected (NOT DETECT); Parainfluenza Virus Type 1 Not Detected (NOT DETECT); Parainfluenza Virus Type 2 Not Detected (NOT DETECT); Parainfluenza Virus Type 3 Not Detected (NOT DETECT); Parainfluenza Virus Type 4 Not Detected (NOT DETECT); Respiratory Syncytial Virus A Not Detected (NOT DETECT); Respiratory Syncytial Virus B Not Detected (NOT DETECT); SARS-COV-2 Not Detected (NOT DETECT)
[2023-06-17] MEDS: ALPRAZolam 0.5 mg Tablet PO (20:30)
[2023-06-17] MEDS: TRAMadol 50 mg Tablet 100 MG PO (20:30)
== END 2023-06-17 20:55 | disposition home or self-care (01) ==
PROVIDERS: Emergency Medicine; Emergency Provider Nurse Practitioner Family; PCP Family Medicine
DX: N39.0 Urinary tract infection, site not specified (principal); B96.89 Other specified bacterial agents as the cause of diseases classified elsewhere; F41.9 Anxiety disorder, unspecified; M79.7 Fibromyalgia; Z79.82 Long term (current) use of aspirin; Z20.822 Contact with and (suspected) exposure to COVID-19
CPT/HCPCS: 36415; 74176; 80053; 81001; 83690; 85025; 87635; 96374; 96375; 99285; J1885; J2405; J7030

== ENCOUNTER → 2023-06-21 14:49 | Outpatient (BNVA) | payer MEDICARE, SELFPAY | PROVIDERS: PCP Family Medicine; Visit Provider Family Medicine | DX: N39.0 Urinary tract infection, site not specified; E87.1 Hypo-osmolality and hyponatremia | CPT/HCPCS: 80048; 85025; 87086 ==

== ENCOUNTER → 2023-06-23 13:08 | Outpatient (BNVA) | payer MEDICARE, SELFPAY | PROVIDERS: PCP Family Medicine; Visit Provider Family Medicine | DX: R30.0 Dysuria (principal) | CPT/HCPCS: 81000 ==

== ENCOUNTER → 2023-06-29 09:20 | Outpatient (BNVA) | payer MEDICARE, SELFPAY | PROVIDERS: PCP Family Medicine; Visit Provider Family Medicine | DX: E87.1 Hypo-osmolality and hyponatremia (principal) | CPT/HCPCS: 80048 ==

== ENCOUNTER 2023-07-03 06:00 | Outpatient (RCR) | payer MEDICARE, SELFPAY | END 2023-08-02 23:59 | disposition home or self-care (01) | LOC: SPT 06:00 | PROVIDERS: PCP Family Medicine; Visit Provider Specialist | DX: M25.559 Pain in unspecified hip (principal); M54.2 Cervicalgia | CPT/HCPCS: 97110 ==

== ENCOUNTER → 2023-07-07 09:27 | Outpatient (BNVA) | payer MEDICARE, SELFPAY | PROVIDERS: PCP Family Medicine; Visit Provider Family Medicine | DX: R19.7 Diarrhea, unspecified (principal); F32.9 Major depressive disorder, single episode, unspecified; E87.1 Hypo-osmolality and hyponatremia; Z95.2 Presence of prosthetic heart valve | CPT/HCPCS: 80053; 85025; 87045; 87324; 87427; 87449 ==

== ENCOUNTER → 2023-07-28 09:01 | Outpatient (BNVA) | payer MEDICARE, SELFPAY | PROVIDERS: PCP Family Medicine; Visit Provider Specialist | DX: M70.61 Trochanteric bursitis, right hip (principal); Z71.89 Other specified counseling; M25.552 Pain in left hip | CPT/HCPCS: 20610; J1100; J2795; J3301 ==

== ENCOUNTER 2023-08-03 06:00 | Outpatient (RCR) | payer MEDICARE, SELFPAY | END 2023-09-01 23:59 | disposition home or self-care (01) | LOC: SPT 06:00 | PROVIDERS: PCP Family Medicine; Referring Provider Family Medicine; Visit Provider Family Medicine | DX: M70.61 Trochanteric bursitis, right hip (principal); M25.551 Pain in right hip; M54.50 Low back pain, unspecified | CPT/HCPCS: 97110 ==

== ENCOUNTER → 2023-08-11 10:45 | Outpatient (BNVA) | payer MEDICARE, SELFPAY | PROVIDERS: PCP Family Medicine; Visit Provider Internal Medicine | DX: F41.9 Anxiety disorder, unspecified (principal); R61 Generalized hyperhidrosis; R06.00 Dyspnea, unspecified; E03.9 Hypothyroidism, unspecified; Z79.890 Hormone replacement therapy; Z90.710 Acquired absence of both cervix and uterus | CPT/HCPCS: 99204 ==

== ENCOUNTER 2023-09-02 06:00 | Outpatient (RCR) | payer MEDICARE, SELFPAY | END 2023-10-02 23:59 | disposition home or self-care (01) | LOC: SPT 06:00 | PROVIDERS: PCP Family Medicine; Referring Provider Family Medicine; Visit Provider Family Medicine | DX: M70.61 Trochanteric bursitis, right hip (principal) | CPT/HCPCS: 97110 ==

== ENCOUNTER → 2023-09-06 13:06 | Outpatient (BNVA) | payer MEDICARE, SELFPAY | PROVIDERS: PCP Family Medicine; Visit Provider Family Medicine | DX: F41.9 Anxiety disorder, unspecified (principal); R25.2 Cramp and spasm | CPT/HCPCS: 83735; 84439; 84443 ==

== ENCOUNTER → 2023-09-13 10:34 | Outpatient (BNVA) | payer MEDICARE, SELFPAY | PROVIDERS: PCP Family Medicine; Visit Provider Internal Medicine | DX: E03.9 Hypothyroidism, unspecified; E16.2 Hypoglycemia, unspecified | CPT/HCPCS: 99214 ==

== ENCOUNTER 2023-09-29 15:04 | Emergency (ER) | payer MEDICARE, SELFPAY ==
[2023-09-29 15:19] VITALS: BP 171/102; PULSE 100; TEMP 36.5; O2SAT 97; BMI 31.6
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
--- NOTE | 2023-09-29 15:37 | XRR_ITS ---
PROCEDURE INFORMATION: Exam: XR Left Knee Exam date and time: 09/29/2023 3:53 PM Age: 83 years old Clinical indication: Pain and injury or trauma; Fall; Blunt trauma; Knee; Left TECHNIQUE: Imaging protocol: Radiologic exam of the left knee. Views: 3 views. COMPARISON: US soft tissue/extremity [id number] 09/30/2022 1:41 PM FINDINGS: Bones/joints: No joint effusion. No acute fracture identified. No dislocation evident. Soft tissues: small subcutaneous calcifications present in the medial soft tissues superficial to the medial femoral condyle. Vasculature: Vascular calcifications are noted. XR/XR knee LT 3V* [id number] IMPRESSION: No acute fracture identified.
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
[2023-09-29] MEDS: naproxen 500 mg Tablet PO (15:43)
--- NOTE | 2023-09-29 15:45 | XRR_ITS ---
PROCEDURE INFORMATION: Exam: XR Left Hip Exam date and time: 09/29/2023 3:55 PM Age: 83 years old Clinical indication: Pain and injury or trauma; Fall; Blunt trauma (contusions or hematomas); Hip pain; Left hip; Additional info: Fall/pain TECHNIQUE: Imaging protocol: Radiologic exam of the left hip. Views: 2 or 3 views hip with pelvis when performed. COMPARISON: Radiographs 12/27/2022 FINDINGS: Bones/joints: The sacroiliac joints and pubic symphysis are not diastatic. The osseous ring of the pelvis appears intact. There is no acute fracture identified in the left hip. Curvilinear lucency overlies the right hip intertrochanteric region, thought to reflect artifact from overlying densities in the absence of clinical symptoms. Clinical correlation is therefore required. Enthesopathic changes noted associated with the iliac crest. Previous lumbosacral spinal fusion with hardware. Soft tissues: No acute abnormality evident. XR/XR hip LT 2-3V wo/w pel* [id number] IMPRESSION: No acute fracture identified in the left hip. Curvilinear lucency overlying right intertrochanteric region, favored artifact in the absence of clinical signs or symptoms, please correlate clinically.
[2023-09-29 16:28] VITALS: BP 137/77; PULSE 91; O2SAT 92
--- NOTE | 2023-09-29 16:33 | CTR_ITS ---
PROCEDURE INFORMATION: Exam: CT Pelvis Without Contrast; Skeletal Exam date and time: 09/29/2023 4:46 PM Age: 83 years old Clinical indication: Injury or trauma; Fall; Blunt trauma (contusions or hematomas); Bilateral TECHNIQUE: Imaging protocol: Computed tomography of the pelvis without contrast. Exam focused on the skeleton. Radiation optimization: All CT scans at this facility use at least one of these dose optimization techniques: automated exposure control; mA and/or kV adjustment per patient size (includes targeted exams where dose is matched to clinical indication); or iterative reconstruction. REPORTING DATA: Count of CT and Cardiac NM exams in prior 12 months: This patient has received [address] and 0 known cardiac nuclear medicine studies in the 12 months prior to the current study. COMPARISON: CT abdomen pelvis wo con [id number] 06/17/2023 5:52 PM RADIATION DOSE METRICS: Total DLP (mGy-cm): 505 FINDINGS: Stomach and bowel: Mild colonic diverticulosis. Reproductive: Stable hysterectomy. Vasculature: Calcification of the abdominal aorta and/or iliac arteries consistent with atherosclerotic vessel disease. 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 Compared with previous axial series 4, image 66. This is also present on CT abdomen pelvis dated February 09, 2020. Chronic probably benign condition. Soft tissues: Unremarkable. Other findings: Stable postoperative changes over the lumbar spine with metallic fixation and metallic artifact. CT/CT pelvis wo con [id number] IMPRESSION: 1. Stable postoperative changes over the lumbar spine with metallic fixation and metallic artifact. 2. 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 Compared with previous axial series 4, image 66. This was also present on CT abdomen pelvis dated February 09, 2020. Chronic probably benign condition. No followup needed. 3. No acute posttraumatic findings.
[2023-09-29] MEDS: morphine 4 mg/mL SDV 1 mL IM (17:39)
[2023-09-29] MEDS: ondansetron 2 mg/ML SDV 2 mL 4 MG IVP (17:43)
--- NOTE | 2023-10-04 10:02 | DCPLANNER ---
I faxed patients enitre ER visit from 10/30/[address] Tubbs office for referral to ENT. Fax number of [phone]. Phone number to Dr. Grigsby office is [phone]. This clinic will contact patient for appt.
== END 2023-09-29 18:09 | disposition home or self-care (01) ==
PROVIDERS: Emergency Provider Emergency Medicine; PCP Family Medicine
DX: S02.2XXA Fracture of nasal bones, initial encounter for closed fracture (principal); Z79.82 Long term (current) use of aspirin; W18.09XA Striking against other object with subsequent fall, initial encounter
CPT/HCPCS: 70450; 70486; 72125; 72192; 73080; 73502; 73562; 96372; 96374; 99285; J2270; J2405

== ENCOUNTER → 2023-10-10 15:51 | Outpatient (BNVA) | payer MEDICARE, SELFPAY | PROVIDERS: PCP Family Medicine; Visit Provider Clinical Nurse Specialist Adult Health | DX: R11.2 Nausea with vomiting, unspecified (principal); R30.0 Dysuria | CPT/HCPCS: 81000; 87077; 87086; 87184; 87400; 87426 ==

== ENCOUNTER 2023-10-13 16:49 | Emergency (ER) | payer MEDICARE, SELFPAY ==
[2023-10-13 16:50] VITALS: BP 157/67; PULSE 88; RESP 16; TEMP 36.4; O2SAT 94; BMI 32.8
--- NOTE | 2023-10-13 17:52 | XRR_ITS ---
PROCEDURE INFORMATION: Exam: XR Chest Exam date and time: 10/13/2023 6:32 PM Age: 83 years old Clinical indication: Pain; Chest pressure; Additional info: Cp TECHNIQUE: Imaging protocol: Radiologic exam of the chest. Views: 1 view. COMPARISON: CR XR chest 1V portable [id number] 10/09/2022 14:14 FINDINGS: Tubes, catheters and devices: Heart valve prosthesis. Lungs: Mild linear atelectasis or scar in the left lung base. Calcified granuloma in the right base. The lungs otherwise are clear. Pleural spaces: Unremarkable. No pleural effusion. No pneumothorax. Heart/Mediastinum: Unremarkable. No cardiomegaly. Diaphragm: Stable chronic elevation of the right diaphragm. Bones/joints: Sternotomy wires. Thoracic curvature. XR/XR chest 1V portable [id number] IMPRESSION: No acute findings.
--- NOTE | 2023-10-13 17:59 | ECG_ITS ---
[facility] Test Date: 2023-10-13 Pat Name: Sarah Victoria Department: Room: Gender: Female [place] Operator: : 1940 Requested By: Aida Isabel Order Number: [id number] Rona MD: Gerard Sousa M.D. Measurements Intervals [place] Rate: 77 P: 57 NV: 170 QRS: -12 QRSD: 88 T: 80 QT: 371 QTc: 421 Interpretive Statements SINUS RHYTHM LOW QRS VOLTAGE IN PRECORDIAL LEADS [QRS DEFLECTION < 1.0 mV IN CHEST LEADS] POSSIBLE ANTERIOR MYOCARDIAL INFARCTION , OF INDETERMINATE AGE [30 ms Q WAVE IN V3/V4, OR R < 0.2 mV IN V4] POSSIBLE INFERIOR MYOCARDIAL INFARCTION , OF INDETERMINATE AGE [30 ms Q WAVE IN II/aVF] Compared to ECG 04/02/2023 16:16:53 Myocardial infarct finding now present Ventricular premature complex(es) no longer present T-wave abnormality no longer present Electronically Signed On 10-13-2023 21:50:29 CONTACT WORKER by Gerard Sousa M.D. [id number]
--- NOTE | 2023-10-13 18:01 | CTR_ITS ---
PROCEDURE INFORMATION: Exam: CT Head Without Contrast Exam date and time: 10/13/2023 7:01 PM Age: 83 years old Clinical indication: Pain; Headache; Additional info: MAXWELL TECHNIQUE: Imaging protocol: Computed tomography of the head without contrast. Radiation optimization: All CT scans at this facility use at least one of these dose optimization techniques: automated exposure control; mA and/or kV adjustment per patient size (includes targeted exams where dose is matched to clinical indication); or iterative reconstruction. COMPARISON: CT head wo con* [id number] 29/09/2023 16:39 RADIATION DOSE METRICS: Total DLP (mGy-cm): 1075 FINDINGS: Brain: Moderate diffuse cortical volume loss. Moderate hypodensities in supratentorial periventricular and subcortical white matter, consistent with microangiopathy. No intracranial hemorrhage. Cerebral ventricles: No ventriculomegaly. Paranasal sinuses: Visualized sinuses are unremarkable. No fluid levels. Mastoid air cells: Visualized mastoid air cells are well aerated. Bones/joints: Unremarkable. No acute fracture. Soft tissues: Unremarkable. Vasculature: No hyperdense artery. CT/CT head wo con* [id number] IMPRESSION: 1. No acute intracranial abnormality.
[2023-10-13 18:12] VITALS: RESP 16; O2SAT 98
[2023-10-13] MEDS: ondansetron 2 mg/ML SDV 2 mL 4 MG IVP (18:12)
[2023-10-13] MEDS: morphine 4 mg/mL SDV 1 mL IVP (18:12)
--- NOTE | 2023-10-13 18:24 | ED_ITS ---
HPI - General Adult 2 General: Chief complaint: General Medical Stated complaint: lots of pain, d, n Time Seen by Provider: 10/13/23 17:41 Source: patient Mode of arrival: ambulatory Limitations: no limitations History of Present Illness: 83-year-old female who would have a fall 2 weeks ago and she had fractured her nose. She states that since then she hurts everywhere she is telling me that her head hurts her face hurts her throat hurts her back hurts all of her skin hurts and itches. States she feels like she has a knot on her head she is felt dizzy she is felt nauseous denies any worsening improving factors. Associated symptoms: Reports chest pain and headache(s); Deny dyspnea, nausea, rash or vomiting Review of Systems 2 Const: Reports: body aches; Denies: fever(s), chills or change in appetite Eyes: Denies: blurry vision or eye discomfort ENMT: Reports: throat pain; Denies: dental pain Card: Reports: chest pain Resp: Denies: dyspnea GI: Reports: abdominal pain; Denies: nausea, vomiting or diarrhea Musc: Reports: back pain and extremity pain; Denies: neck pain Skin/Breast: Reports: pruritus; Denies: rash Neuro: Reports: headache(s) PFSH ED 2 PFSH: Medical History Macrocytic anemia Severe sleep apnea Irritable bowel syndrome Fibromyalgia Depression Somatization disorder Anxiety disorder Urethral syndrome Chronic interstitial cystitis Surgical History S/P thyroidectomy H/O: hysterectomy S/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 H/O hand surgery H/O carpal tunnel repair S/P cholecystectomy Family History Father , cva Stroke Mother , 96 Dementia Social History Smoking and tobacco/nicotine status: never used tobacco/nicotine Alcohol intake: never Substance/Drug Use: never Marital status: Current occupational status: retired Physical Exam 2 Const: COMMON NORMALS: no acute distress, patient oriented x3 and healthy appearing HENMT: COMMON NORMALS: normocephalic and atraumatic HEAD & SCALP: n ormocephalic and atraumatic Eye: COMMON NORMALS: Equal, round and reactive pupils present and EOMs intact bilaterally PUPIL: Yes Equal, round and reactive pupils present Neck/C-Spine: COMMON NORMALS: full ROM and supple Chest: COMMONS NORMALS: normal inspection of the chest and normal palpation of entire chest wall Resp: COMMON NORMALS: normal respiratory effort, No retractions, No use of accessory muscles and clear to auscultation bilaterally AUSCULTATION: clear to auscultation bilaterally Cardio: COMMON NORMALS: regular rate, regular rhythm and No murmurs present (Cardio) RATE: regular rate RHYTHM: regular rhythm GI: COMMON NORMALS: Normal to inspection, nondistended, normoactive bowel sounds present, Soft to palpation, non-tender and no masses PALPATION: Yes Soft to palpation Extremity: COMMON NORMALS: normal to inspection and full ROM Neuro: COMMON NORMALS: patient oriented x3, moves all extremities and no focal motor deficits Psych: COMMON NORMALS: mental status grossly normal, Normal thought process present and cooperative THOUGHT PROCESS: Normal thought process present Skin: COMMON NORMALS: no rashes or lesions noted and no wounds GENERAL SKIN EXAM: no rashes or lesions noted Course 2 Vital Signs: Vital signs: Vital Signs Temperature 97.5 F L 10/13/23 16:50 Pulse Rate 74 10/13/23 19:18 Respiratory Rate 32 H 10/13/23 19:18 Blood Pressure 129/71 10/13/23 19:18 Pulse Oximetry 96 10/13/23 19:18 Oxygen Delivery Me thod Room Air 10/13/23 19:18 MDM - General Adult Medical Decision Making Patient presents here with pain all over along with itchiness and a headache did repeat her head CT is normal blood work here is all normal she is stable for discharge follow-up with PCP return if worsening. Medical Records I reviewed the patient's medical records. Lab Data I reviewed the patient's lab results. 10/13/23 18:05 10/13/23 18:05 Radiology Impressions Chest X-Ray 10/13/23 17:52 IMPRESSION: No acute findings. Head CT 10/13/23 18:01 IMPRESSION: 1. No acute intracranial abnormality. Laboratory Results WBC 6.74 10^3/uL (3.29-11.43) 10/13/23 18:05 RBC 3.70 10^6/uL (3.85-5.65) L 10/13/23 18:05 Hgb 11.50 g/dL (11.27-16.99) 10/13/23 18:05 Hct 34.5 % (36-47) L 10/13/23 18:05 MCV 93.2 fl (85-98) 10/13/23 18:05 MCH 31.1 pg (27-33) 10/13/23 18: MCHC 33.3 g/dL (30-55) 10/13/23 18:05 RDW 13.3 % (12.1-15.1) 10/13/23 18:05 Plt Count 263 10^3/cmm (157-399) 10/13/23 18:05 MPV 9.3 fL (7.4-10.4) 10/13/23 18:05 Neut % (Auto) 51.0 % 10/13/23 18:05 Lymph % (Auto) 36.2 % 10/13/23 18:05 Becker % (Auto) 8.5 % 10/13/23 18:05 Eos % (Auto) 2.4 % 10/13/23 18:05 Baso % (Auto) 1.2 % 10/13/23 18:05 Neut # (Auto) 3.44 10^3/uL (1.8-7.7) 10/13/23 18:05 Lymph # (Auto) 2.4 10^3/uL (0.8-4.8) 10/13/23 18:05 Becker # (Auto) 0.6 10^3/uL (0.2-0.9) 10/13/23 18:05 Eos # (Auto) 0.2 10^3/uL (0.0-0.8) 10/13/23 18:05 Baso # (Auto) 0.1 10^3/uL (0.0-0.1) 10/13/23 18:05 Nucleated RBC % (auto) 0 % 10/13/23 18:05 Nucleated RBCs # 0.0 /100WBC 10/13/23 18:05 Sodium 132 mmol/L (136-145) L 10/13/23 18:05 Potassium 4.6 mmol/L (3.5-5.1) 10/13/23 18:05 Chloride 94 mmol/L (98-107) L 10/13/23 18:05 Carbon Dioxide 23 mmol/L (22-29) 10/13/23 18:05 Anion Gap 19.6 (5-19) H 10/13/23 18:05 BUN 19 mg/dL (8-23) 10/13/23 18:05 Creatinine 0.9 mg/dL (0.5-0.9) 10/13/23 18:05 GFR Calculation Not Reportable 10/13/23 18:05 Glucose 103 mg/dL (65-115) 10/13/23 18:05 Calculated Osmolality 277 mOsm/kg (285-295) L 10/13/23 18:05 Calcium 9.1 mg/dL (8.5-10.5) 10/13/23 18:05 Total Bilirubin 0.2 mg/dL (0.15-1.2) 10/13/23 18:05 AST 22 U/L (0-32) 10/13/23 18:05 ALT 15 U/L (0-33) 10/13/23 18:05 Alkaline Phosphatase 73 U/L (35-105) 10/13/23 18:05 Troponin T Baseline 18 ng/L (0-10) H 10/13/23 18:05 Total Protein 6.9 g/dL (6.6-8.7) 10/13/23 18:05 Albumin 4.5 g/dL (3.5-5.2) 10/13/23 18:05 Globulin 2.4 g/dL (1.3-4.6) 10/13/23 18:05 Urine Color Yellow (Yellow) 10/13/23 18:44 Urine Appearance Cloudy (CLEAR) A 10/13/23 18:44 Urine pH 5 (5-7) 10/13/23 18:44 Ur Specific [place] 1.020 (1.005-1.030) 10/13/23 18:44 Urine Protein Neg (Negative) 10/13/23 18:44 Urine Glucose (UA) Norm (Normal) 10/13/23 18:44 Urine Ketones Negative (Negative) 10/13/23 18:44 Urine Blood Neg (Negative) 10/13/23 18:44 Urine Nitrate Negative (Negative) 10/13/23 18:44 Urine Bilirubin Neg (Negative) 10/13/23 18:44 Urine Urobilinogen Norm mg/dL (Negative) 10/13/23 18:44 Ur Leukocyte Esterase Trace (Negative) H 10/13/23 18:44 Urine RBC None /hpf (0-2) 10/13/23 18:44 Urine WBC 25-40 /hpf (0-5) H 10/13/23 18:44 Ur Squamous Epith Cells 0-4 /hpf (0-5) H 10/13/23 18:44 Ur Transition Epith Cell 0-4 /hpf 10/13/23 18:44 Ur Renal Epithelial Cell 0-4 /hpf 10/13/23 18:44 Amorphous Sediment 1+ /hpf 10/13/23 18:44 Urine Bacteria Trace /hpf (NONE) 10/13/23 18:44 Fine Granular Casts 0-4 /lpf H 10/13/23 18:44 Urine Mucus None /hpf 10/13/23 18:44 All radiology interpretation(s) finalized by discharge EKG Data EKG 1: I personally reviewed and interpreted this EKG as follows: EKG interpretation date: 10/13/23 EKG interpretation time: 17:59 Computer generated interpretation: Chest X-Ray 10/13/23 17:52 IMPRESSION: No acute findings. Head CT 10/13/23 18:01 IMPRESSION: 1. No acute intracranial abnormality. Discharge Plan Discharge Patient Disposition: Home Clinical Impression: Headache Condition: Stable Prescriptions: No Action cyanocobalamin (vitamin B-12) 2,000 mcg tablet 2,000 mcg PO DAILY metoprolol succinate 25 mg tablet extended release 24 hr 25 mg PO DAILY furosemide 40 mg tablet 40 mg PO BID pantoprazole [Protonix] 40 mg tablet,delayed release (DR/EC) 40 mg PO DAILY Qty: 90 3RF duloxetine [Cymbalta] 20 mg capsule,delayed release(DR/EC) 20 mg PO DAILY Qty: 30 11RF methenamine hippurate 1 gram tablet 1 g PO BID Qty: 60 11RF levothyroxine 100 mcg tablet See Rx Instructions .ROUTE .COMPLEX Qty: 90 3RF Dose Instruction: Take 1 tablet by mouth once daily Rx Instructions: Take 1 tablet by mouth once daily clotrimazole 10 mg debra See Rx Instructions .ROUTE .COMPLEX Qty: 90 3RF Dose Instruction: DISSOLVE 1 TABLET BY MOUTH THREE TIMES DAILY NEEDED Rx Instructions: DISSOLVE 1 TABLET BY MOUTH THREE TIMES DAILY NEEDED alprazolam 1 mg tablet 1 mg PO BID Qty: 60 5RF cefdinir 300 mg capsule 300 mg PO Q12H Qty: 14 0RF acetaminophen [Tylenol Extra Strength] 500 mg Tablet 500 - 1,000 mg PO BID losartan 50 mg tablet 50 mg PO DAILY Aspir-81 81 mg Tablet,Delayed Release (Dr/Ec) 81 mg PO DAILY Klor-Con M20 20 mEq tablet,ER particles/crystals 20 meq PO DAILY ibuprofen 200 mg Tablet 200 - 400 mg PO BID cranberry 400 mg Capsule 400 mg PO BID Rx Instructions: administer with meals Cbd Gummies See Rx Instructions .ROUTE .COMPLEX Rx Instructions: as needed Silver Biotics 5 ml PO DAILY Discharge Orders: Discharge ED (Routine); Ordered 10/13/23 Ordered By: Aida Isabel Referrals: Juwan Hernández MD [Primary Care Provider] - 1-3 days Discharge Diet: Advance as tolerated Discharge Activity: Resume usual activity Patient Instructions: Headache Coding Level of Care Code ED Technical Assistance Consultant for Marisol Reese
[2023-10-13 18:42] LABS: Basophils # 0.1 10^3/uL (0.0-0.1); Basophils % 1.2 %; Eosinophils # 0.2 10^3/uL (0.0-0.8); Eosinophils % 2.4 %; Hematocrit 34.5 % (36-47); Lymphocytes # 2.4 10^3/uL (0.8-4.8); Lymphocytes % 36.2 %; Mean Corpuscular HGB Conc 33.3 g/dL (30-55); Mean Corpuscular Hemoglobin 31.1 pg (27-33); Mean Corpuscular Volume 93.2 fl (85-98); Mean Platelet Volume 9.3 fL (7.4-10.4); Monocytes # 0.6 10^3/uL (0.2-0.9); Monocytes % 8.5 %; Neutrophils # 3.44 10^3/uL (1.8-7.7); Nucleated Red Blood Cells % 0 %; Platelet Count 263 10^3/cmm (157-399); Red Cell Distribution Width 13.3 % (12.1-15.1); White Blood Count 6.74 10^3/uL (3.29-11.43)
[2023-10-13 18:53] VITALS: BP 142/66; PULSE 77; RESP 24; O2SAT 96
[2023-10-13 19:05] LABS: Troponin(5th) Baseline 18 ng/L (0-10)
[2023-10-13 19:06] LABS: Alanine Aminotransferase 15 U/L (0-33); Albumin Level 4.5 g/dL (3.5-5.2); Alkaline Phosphatase 73 U/L (35-105); Anion Gap 19.6 (5-19); Aspartate Amino Transferase 22 U/L (0-32); Blood Urea Nitrogen 19 mg/dL (8-23); Calcium 9.1 mg/dL (8.5-10.5); Carbon Dioxide 23 mmol/L (22-29); Chloride 94 mmol/L (98-107); Globulin 2.4 g/dL (1.3-4.6); Glucose 103 mg/dL (65-115); Osmolality Calculated 277 mOsm/kg (285-295); Potassium 4.6 mmol/L (3.5-5.1); Sodium 132 mmol/L (136-145); Total Bilirubin 0.2 mg/dL (0.15-1.2); Total Protein 6.9 g/dL (6.6-8.7)
[2023-10-13 19:18] VITALS: BP 129/71; PULSE 74; RESP 32; O2SAT 96
[2023-10-13 19:21] LABS: Bilirubin Urine Neg (Negative); Blood Urine Neg (Negative); Glucose Urine UA Norm (Normal); Ketones Urine Negative (Negative); Nitrate Urine Negative (Negative); Protein Urine Neg (Negative); Urine Appearance Cloudy (CLEAR); Urine Color Yellow (Yellow); Urobilinogen Urine Norm (Negative); pH Urine 5 (5-7)
[2023-10-13 19:22] LABS: Add Urine Microscopic? YES; Leukocyte Esterase Urine Trace (Negative)
[2023-10-13 19:24] LABS: Bacteria Urine TRACE /hpf; Renal Epithelial Cells Urine 0-4 /hpf; Squamous Epithelial Cell Urine 0-4 /hpf (0-5); Transitional Epi Cells Urine 0-4 /hpf; WBC Urine 25-40 /hpf (0-5)
[2023-10-13 19:25] LABS: Add Urine Culture? No; Amorphous Sediment Urine 1+ /hpf; Fine Granular Casts Urine 0-4 /lpf
[2023-10-13] MEDS: diphenhydrAMINE 25 mg Capsule PO (19:46)
--- NOTE | 2023-10-13 19:53 | ECG_ITS ---
[facility] Test Date: 2023-12-23 Pat Name: Sarah Victoria Department: Room: Gender: Female Payroll Manager: : 1940 Requested By: Aida Isabel Order Number: [id number] Rona MD: Phill Mata M.D. Measurements Intervals [place] Rate: 80 P: 0 NH: 0 QRS: -7 QRSD: 84 T: 54 QT: 281 QTc: 324 Interpretive Statements SUPRAVENTRICULAR RHYTHM LOW QRS VOLTAGE IN PRECORDIAL LEADS [QRS DEFLECTION < 1.0 mV IN CHEST LEADS] POSSIBLE ANTERIOR MYOCARDIAL INFARCTION , PROBABLY OLD [30 ms Q WAVE IN V3/V4, OR R < 0.2 mV IN V4] POSSIBLE INFERIOR MYOCARDIAL INFARCTION , PROBABLY OLD [30 ms Q WAVE IN II/aVF] Compared to ECG 10/13/2023 17:59:56 Supraventricular rhythm now present Sinus rhythm no longer present Myocardial infarct finding still present Electronically Signed On 12-24-2023 15:58:30 CDT by Phill Mata M.D. [email or web address]
[2023-10-13 20:11] VITALS: BP 129/71; PULSE 74; RESP 32; TEMP 36.4; O2SAT 96
--- NOTE | 2023-10-14 09:02 | DCPLANNER ---
Message was sent to [facility] on 10/14/23 at 0902. Clinic to contact patient
== END 2023-10-13 20:12 | disposition home or self-care (01) ==
PROVIDERS: Nurse Practitioner Family; Emergency Provider Emergency Medicine; PCP Family Medicine
DX: R51.9 Headache, unspecified (principal); Z79.82 Long term (current) use of aspirin
CPT/HCPCS: 36415; 70450; 71045; 80053; 81001; 84484; 85025; 93005; 96374; 96375; 99285; J2270; J2405

== ENCOUNTER → 2023-10-21 13:20 | Outpatient (BNVA) | payer MEDICARE, SELFPAY | PROVIDERS: PCP Family Medicine; Visit Provider Family Medicine | DX: R30.0 Dysuria (principal) | CPT/HCPCS: 81000; 87086 ==

== ENCOUNTER → 2023-10-31 15:01 | Outpatient (BNVA) | payer MEDICARE, SELFPAY | PROVIDERS: PCP Family Medicine; Visit Provider Family Medicine | DX: E87.1 Hypo-osmolality and hyponatremia (principal); D64.9 Anemia, unspecified | CPT/HCPCS: 80053; 85025 ==

== ENCOUNTER → 2023-11-01 12:43 | Outpatient (BNVA) | payer MEDICARE, SELFPAY | PROVIDERS: PCP Family Medicine; Visit Provider Family Medicine | DX: R19.7 Diarrhea, unspecified (principal) | CPT/HCPCS: 87177; 87209 ==

== ENCOUNTER → 2023-11-03 09:31 | Outpatient (BNVA) | payer MEDICARE, SELFPAY | PROVIDERS: PCP Family Medicine; Visit Provider Nurse Practitioner | DX: M70.61 Trochanteric bursitis, right hip (principal); M70.62 Trochanteric bursitis, left hip; Z71.89 Other specified counseling | CPT/HCPCS: 20610; J1100; J2795; J3301 ==

== ENCOUNTER → 2023-11-04 12:21 | Outpatient (BNVA) | payer MEDICARE, SELFPAY | PROVIDERS: PCP Family Medicine; Visit Provider Nurse Practitioner | DX: R30.0 Dysuria (principal) | CPT/HCPCS: 81003 ==

== ENCOUNTER → 2023-11-08 11:40 | Outpatient (BNVA) | payer MEDICARE, SELFPAY | PROVIDERS: PCP Family Medicine; Visit Provider Family Medicine | DX: E03.9 Hypothyroidism, unspecified (principal) | CPT/HCPCS: 82533; 84439; 84443 ==

== ENCOUNTER 2023-11-16 07:21 | Oncology outpatient (recurring) (ONCR) | payer MEDICARE, SELFPAY ==
[2023-11-16 08:13] VITALS: BP 123/68; PULSE 83; RESP 16; TEMP 36.2; O2SAT 93
[2023-11-16] MEDS: cosyntropin 0.25 mg SDV IVP (08:14)
[2023-11-16 08:46] LABS: Cosyntropin Baseline 5.87 mcg/dL
[2023-11-16 09:33] LABS: Cosyntropin 30 Minute 15.92 mcg/dL
[2023-11-16 09:38] VITALS: BP 120/69; PULSE 72; RESP 16; TEMP 36.6; O2SAT 98
[2023-11-16 10:24] LABS: Cosyntropin 1 Hour 19.09 mcg/dL
== END 2023-12-01 23:59 | disposition home or self-care (01) ==
LOC: ONCMED 07:22
PROVIDERS: PCP Family Medicine; Visit Provider Internal Medicine
DX: R79.89 Other specified abnormal findings of blood chemistry (principal)
CPT/HCPCS: 82533; 96374; 96375; J0834

== ENCOUNTER → 2023-11-17 09:36 | Outpatient (BNVA) | payer MEDICARE, SELFPAY | PROVIDERS: PCP Family Medicine; Visit Provider Internal Medicine | DX: F41.9 Anxiety disorder, unspecified (principal); R61 Generalized hyperhidrosis; E03.9 Hypothyroidism, unspecified; E16.2 Hypoglycemia, unspecified; Z79.890 Hormone replacement therapy | CPT/HCPCS: 99214 ==

== ENCOUNTER 2023-12-02 06:00 | Outpatient (RCR) | payer MEDICARE, SELFPAY | END 2024-01-01 23:59 | disposition home or self-care (01) | LOC: SPT 06:00 | PROVIDERS: PCP Family Medicine; Referring Provider Family Medicine; Visit Provider Family Medicine | DX: M70.61 Trochanteric bursitis, right hip (principal) | CPT/HCPCS: 97110 ==

== ENCOUNTER → 2023-12-15 13:40 | Outpatient (BNVA) | payer MEDICARE, SELFPAY | PROVIDERS: PCP Family Medicine; Referring Provider Internal Medicine; Visit Provider Nurse Practitioner Family | DX: L74.511 Primary focal hyperhidrosis, face (principal); T14.8XXA Other injury of unspecified body region, initial encounter; X58.XXXA Exposure to other specified factors, initial encounter; L82.1 Other seborrheic keratosis; D22.5 Melanocytic nevi of trunk; L57.8 Other skin changes due to chronic exposure to nonionizing radiation; L81.4 Other melanin hyperpigmentation | CPT/HCPCS: 99204 ==

== ENCOUNTER 2023-12-23 17:40 | Emergency (ER) | payer MEDICARE, SELFPAY ==
[2023-12-23 17:44] VITALS: BP 133/70; PULSE 101; RESP 20; TEMP 36.4; O2SAT 96
[2023-12-23 19:02] LABS: Basophils % 0.7 %; Eosinophils # 0.1 10^3/uL (0.0-0.8); Eosinophils % 2.3 %; Hematocrit 36.8 % (36-47); Lymphocytes # 2.1 10^3/uL (0.8-4.8); Lymphocytes % 36.8 %; Mean Corpuscular HGB Conc 32.1 g/dL (30-55); Mean Corpuscular Hemoglobin 31.6 pg (27-33); Mean Corpuscular Volume 98.4 fl (85-98); Mean Platelet Volume 9.1 fL (7.4-10.4); Monocytes # 0.5 10^3/uL (0.2-0.9); Monocytes % 7.9 %; Neutrophils # 2.94 10^3/uL (1.8-7.7); Neutrophils % 51.3 %; Nucleated Red Blood Cells % 0 %; Platelet Count 271 10^3/cmm (157-399); Red Blood Count 3.74 10^6/uL (3.85-5.65); Red Cell Distribution Width 13.8 % (12.1-15.1); White Blood Count 5.73 10^3/uL (3.29-11.43)
--- NOTE | 2023-12-23 19:10 | ED_ITS ---
HPI - General Adult 2 General: Chief complaint: General Medical Stated complaint: hallucinations Time Seen by Provider: 12/23/23 18:59 History of Present Illness: Patient presents to the ER with complaints of pain all over and hallucinations. Patient says she has been seeing people and dogs in her house and not really there. This been going on for about the last 3 days. Patient is recently had surgery on her right middle finger. Patient has seen Follow-up on it and she says it looks okay. Patient says she gets urinary tract infections a lot and may have 1 now. Review of Systems 2 General: Reports: 10 or more systems reviewed and unremarkable except in HPI and below PFSH ED 2 PFSH: Medical History Greater trochanteric bursitis of both hips Macrocytic anemia Severe sleep apnea Irritable bowel syndrome Fibromyalgia Depression Somatization disorder Anxiety disorder Urethral syndrome Chronic interstitial cystitis Surgical History S/P thyroidectomy H/O: hysterectomy S/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 H/O hand surgery H/O carpal tunnel repair S/P cholecystectomy Family History Father , cva Stroke Mother , 96 Dementia Social History Smoking and tobacco/nicotine status: never used tobacco/nicotine Alcohol intake: never Substance/Drug Use: never Marital status: Current occupational status: retired Physical Exam 2 Const: COMMON NORMALS: no acute distress, average body habitus, patient oriented x3, no limitations, healthy appearing, alert and well nourished HENMT: COMMON NORMALS: normocephalic, atraumatic, hearing grossly normal bilaterally, external ears normal, Normal external nose present, moist oral mucous membranes and oropharynx normal HEAD & SCALP: normocephalic and atraumatic NOSE: Normal external nose present EXTERNAL EAR: Yes external ears normal Neck/C-Spine: COMMON NORMALS: no JVD Chest: COMMONS NORMALS: normal inspection of the chest and normal palpation of entire chest wall Resp: COMMON NORMALS: normal respiratory effort, No retractions, No use of accessory muscles and clear to auscultation bilaterally AUSCULTATION: clear to auscultation bilaterally Cardio: COMMON NORMALS: no JVD, regular rate, regular rhythm, S1 normal heart sound present, S2 normal heart sound present, No gallops present (Cardio), No clicks present (Cardio), No murmurs present (Cardio) and No rub (Cardio) R ATE: regular rate RHYTHM: regular rhythm HEART SOUNDS: S1 normal heart sound present and S2 normal heart sound present GI: COMMON NORMALS: Normal to inspection, nondistended, normoactive bowel sounds present, Soft to palpation, non-tender, No hepatosplenomegaly present and no masses PALPATION: Yes Soft to palpation and Yes No hepatosplenomegaly present Neuro: COMMON NORMALS: patient oriented x3 SENSORIUM/ORIENTATION: Yes alert Course 2 Vital Signs: Vital signs: Vital Signs Temperature 97.6 F 12/23/23 17:44 Pulse Rate 83 12/23/23 23:07 Respiratory Rate 18 12/23/23 23:07 Blood Pressure 176/85 12/23/23 23:07 Pulse Oximetry 97 12/23/23 23:07 Oxygen Delivery Me thod Room Air 12/23/23 22:29 [facility] - General Adult Medical Decision Making Consult to Dr. Holguin for possible admission for hallucinations, went over patient's physical exam, lab work, x-ray, head CT, medications, he suggested that she may not meet the criteria with all of her lab work being normal he did suggest a B12 level upon talking to the patient she is on B12 supplementation because her B12 level was low in the past. He also suggested follow-up with neurology. Patient be discharged home we will consult case management to consult neurology. Differential Diagnosis Visual and auditory hallucinations Medical Records I reviewed the patient's medical records. Lab Data I reviewed the patient's lab results. 12/23/23 18:53 12/23/23 18:53 Radiology Impressions Abdomen X-Ray 12/23/23 19:11 IMPRESSION: Prominent fecal debris in the proximal colon with relative decompression of the rectosigmoid. Findings may reflect constipation. An obstructing process in the distal colon cannot be excluded. Head CT 12/23/23 21:27 IMPRESSION: No evidence of acute intracranial hemorrhage, mass effect, or edema. Age expected involutional change. Laboratory Results WBC 5.73 10^3/uL (3.29-11.43) 12/23/23 18:53 RBC 3.74 10^6/uL (3.85-5.65) L 12/23/23 18:53 Hgb 11.80 g/dL (11.27-16.99) 12/23/23 18:53 Hct 36.8 % (36-47) 12/23/23 18:53 MCV 98.4 fl (85-98) H 12/23/23 18:53 MCH 31.6 pg (27-33) 12/23/23 18:53 MCHC 32.1 g/dL (30-55) 12/23/23 18:53 RDW 13.8 % (12.1-15.1) 12/23/23 18:53 Plt Count 271 10^3/cmm (157-399) 12/23/23 18:53 MPV 9.1 fL (7.4-10.4) 12/23/23 18:53 Neut % (Auto) 51.3 % 12/23/23 18:53 Lymph % (Auto) 36.8 % 12/23/23 18:53 [place] % (Auto) 7.9 % 12/23/23 18:53 Eos % (Auto) 2.3 % 12/23/23 18:53 Baso % (Auto) 0.7 % 12/23/23 18:53 Neut # (Auto) 2.94 10^3/uL (1.8-7.7) 12/23/23 18:53 Lymph # (Auto) 2.1 10^3/uL (0.8-4.8) 12/23/23 18:53 [place] # (Auto) 0.5 10^3/uL (0.2-0.9) 12/23/23 18:53 Eos # (Auto) 0.1 10^3/uL (0.0-0.8) 12/23/23 18:53 Baso # (Auto) 0.0 10^3/uL (0.0-0.1) 12/23/23 18:53 Nucleated RBC % (auto) 0 % 12/23/23 18:53 Nucleated RBCs # 0.0 /100WBC 12/23/23 18:53 Sodium 137 mmol/L (136-145) 12/23/23 18:53 Potassium 3.8 mmol/L (3.5-5.1) 12/23/23 18:53 Chloride 98 mmol/L (98-107) 12/23/23 18:53 Carbon Dioxide 24 mmol/L (22-29) 12/23/23 18:53 Anion Gap 18.8 (5-19) 12/23/23 18:53 BUN 18 mg/dL (8-23) 12/23/23 18:53 Creatinine 1.0 mg/dL (0.5-0.9) H 12/23/23 18:53 GFR Calculation Not Reportable 12/23/23 18:53 Glucose 87 mg/dL (65-115) 12/23/23 18:53 Calculated Osmolality 285 mOsm/kg (285-295) 12/23/23 18:53 Calcium 9.3 mg/dL (8.5-10.5) 12/23/23 18:53 Magnesium 1.8 mg/dL (1.7-2.3) 12/23/23 18:53 Total Bilirubin 0.2 mg/dL (0.15-1.2) 12/23/23 18:53 AST 20 U/L (0-32) 12/23/23 18:53 ALT 14 U/L (0-33) 12/23/23 18:53 Alkaline Phosphatase 69 U/L (35-105) 12/23/23 18:53 Total Protein 7.2 g/dL (6.6-8.7) 12/23/23 18:53 Albumin 4.2 g/dL (3.5-5.2) 12/23/23 18:53 Globulin 3.0 g/dL (1.3-4.6) 12/23/23 18:53 Procalcitonin 0.09 ng/mL (0-0.5) 12/23/23 18:53 TSH 2.52 uIU/mL (0.27-4.20) 12/23/23 18:53 Urine Color Yellow (Yellow) 12/23/23 20:14 Urine Appearance Clear (CLEAR) 12/23/23 20:14 Urine pH 5 (5-7) 12/23/23 20:14 Ur Specific [place] 1.015 (1.005-1.030) 12/23/23 20:14 Urine Protein Neg (Negative) 12/23/23 20:14 Urine Glucose (UA) Norm (Normal) 12/23/23 20:14 Urine Ketones Negative (Negative) 12/23/23 20:14 Urine Blood Neg (Negative) 12/23/23 20:14 Urine Nitrate Negative (Negative) 12/23/23 20:14 Urine Bilirubin Neg (Negative) 12/23/23 20:14 Urine Urobilinogen Neg mg/dL (Negative) 12/23/23 20:14 Ur Leukocyte Esterase Negative (Negative) 12/23/23 20:14 All radiology interpretation(s) finalized by discharge Discharge Plan Discharge Patient Disposition: Home Clinical Impression: Auditory hallucinations, Visual hallucination Condition: Stable Prescriptions: No Action cyanocobalamin (vitamin B-12) 2,000 mcg tablet 2,000 mcg PO DAILY metoprolol succinate 25 mg tablet extended release 24 hr 25 mg PO DAILY furosemide 40 mg tablet 40 mg PO BID duloxetine 60 mg capsule,delayed release(DR/EC) 60 mg PO DAILY Qty: 90 11RF methenamine hippurate 1 gram tablet 1 g PO BID Qty: 60 11RF alprazolam 1 mg tablet 1 mg PO TID Qty: 90 5RF celecoxib [Celebrex] 100 mg capsule 100 mg PO DAILY Qty: 30 11RF Rx Instructions: take with food. clotrimazole 10 mg debra See Rx Instructions .ROUTE .COMPLEX Qty: 90 3RF Dose Instruction: DISSOLVE 1 TABLET BY MOUTH THREE TIMES DAILY NEEDED Rx Instructions: DISSOLVE 1 TABLET BY MOUTH THREE TIMES DAILY NEEDED doxycycline monohydrate 100 mg capsule 100 mg PO BID Qty: 14 0RF levothyroxine 100 mcg tablet See Rx Instructions .ROUTE .COMPLEX Qty: 90 3RF Dose Instruction: Take 1 tablet by mouth once daily Rx Instructions: Take 1 tablet by mouth once daily pantoprazole [Protonix] 40 mg tablet,delayed release (DR/EC) 40 mg PO DAILY Qty: 90 3RF fluconazole 150 mg tablet 150 mg PO Q3D Qty: 3 0RF Rx Instructions: may repeat dose 72 hrs after if symptoms persist acetaminophen [Tylenol Extra Strength] 500 mg Tablet 500 - 1,000 mg PO BID losartan 50 mg tablet 50 mg PO DAILY Aspir-81 81 mg Tablet,Delayed Release (Dr/Ec) 81 mg PO DAILY Klor-Con M20 20 mEq tablet,ER particles/crystals 20 meq PO DAILY cranberry 400 mg Capsule 400 mg PO BID Rx Instructions: administer with meals Silver Biotics 5 ml PO DAILY Discharge Orders: Discharge ED (Routine); Ordered 12/23/23 Ordered By: Antione Ray Referrals: Juwan Hernández MD [Primary Care Provider] - 1 week Patient Instructions: Hallucinations (ED) Activity Restrictions/Additional Instructions: Your physical exam and lab work including imaging did not reveal an acute cause of your hallucinations. It was suggested we refer you to Dr. Guadarrama at as an outpatient. Case management will be consulted for this and they will be calling you probably Tuesday morning to arrange an appointment. Otherwise follow-up with your family practice physician with a neck 7 days for further evaluation and treatment. Please use [id number] anticonstipation medicine such as MiraLAX, milk of mag or mag citrate for constipation. Coding Level of Care Code ED Service Plumber for Marisol Reese
--- NOTE | 2023-12-23 19:11 | XRR_ITS ---
PROCEDURE INFORMATION: Exam: XR Abdomen Exam date and time: 12/23/2023 7:46 PM Age: 83 years old Clinical indication: Abdominal pain; Generalized; Prior surgery; Surgery date: 6+ months; Surgery type: Aortic valve. Gb. Hysterectomy; Patient HX: Diffuse abd pain with constipation; Additional info: Abd pain constipation TECHNIQUE: Imaging protocol: Radiologic exam of the abdomen. Views: Frontal supine view of the abdomen. 1 View. COMPARISON: CT abdomen pelvis con [id number] 06/17/2023 5:52 PM FINDINGS: Tubes, catheters and devices: Aortic valve prosthesis and sternal wires are partly visualized. No abnormal calcification over the kidneys or expected course of either ureter. Gastrointestinal tract: Abundant fecal debris in the proximal colon with relative decompression of the rectosigmoid. No small bowel dilation. Bones/joints: Lumbar fusion hardware noted. Subjective bony demineralization. XR/XR abdomen 1V* [id number] IMPRESSION: Prominent fecal debris in the proximal colon with relative decompression of the rectosigmoid. Findings may reflect constipation. An obstructing process in the distal colon cannot be excluded.
[2023-12-23 19:25] LABS: Alanine Aminotransferase 14 U/L (0-33); Albumin Level 4.2 g/dL (3.5-5.2); Alkaline Phosphatase 69 U/L (35-105); Anion Gap 18.8 (5-19); Aspartate Amino Transferase 20 U/L (0-32); Blood Urea Nitrogen 18 mg/dL (8-23); Calcium 9.3 mg/dL (8.5-10.5); Carbon Dioxide 24 mmol/L (22-29); Chloride 98 mmol/L (98-107); Creatinine Clr Calc Pharmacy 51.6506; Glucose 87 mg/dL (65-115); Osmolality Calculated 285 mOsm/kg (285-295); Potassium 3.8 mmol/L (3.5-5.1); Sodium 137 mmol/L (136-145); Total Bilirubin 0.2 mg/dL (0.15-1.2); Total Protein 7.2 g/dL (6.6-8.7)
[2023-12-23 19:57] LABS: Procalcitonin 0.09 ng/mL (0-0.5); Thyroid Stimulating Hormone 2.52 uIU/mL (0.27-4.20)
[2023-12-23 20:04] LABS: Magnesium 1.8 mg/dL (1.7-2.3)
[2023-12-23] MEDS: ondansetron 2 mg/ML SDV 2 mL 4 MG IVP (20:47)
[2023-12-23 20:49] VITALS: RESP 16; O2SAT 97
[2023-12-23] MEDS: morphine 4 mg/mL SDV 1 mL IVP (20:49)
[2023-12-23 21:00] VITALS: BP 137/75; PULSE 92; O2SAT 94
[2023-12-23 21:13] LABS: Add Urine Microscopic? NO; Charge for UA Resulting for Rev
[2023-12-23 21:19] LABS: Bilirubin Urine Neg (Negative); Blood Urine Neg (Negative); Glucose Urine UA Norm (Normal); Ketones Urine Negative (Negative); Leukocyte Esterase Urine Negative (Negative); Nitrate Urine Negative (Negative); Protein Urine Neg (Negative); Specific Gravity, Urine 1.015 (1.005-1.030); Urine Appearance Clear (CLEAR); Urine Color Yellow (Yellow); Urobilinogen Urine Neg (Negative); pH Urine 5 (5-7)
--- NOTE | 2023-12-23 21:27 | CTR_ITS ---
PROCEDURE INFORMATION: Exam: CT Head Without Contrast Exam date and time: 12/23/2023 9:46 PM Age: 83 years old Clinical indication: Pain; Visual disturbance; Headache; Patient HX: MAXWELL with visual hallucinations TECHNIQUE: Imaging protocol: Computed tomography of the head without contrast. Radiation optimization: All CT scans at this facility use at least one of these dose optimization techniques: automated exposure control; mA and/or kV adjustment per patient size (includes targeted exams where dose is matched to clinical indication); or iterative reconstruction. COMPARISON: CT head wo con* [id number] 10/13/2023 7:01 PM RADIATION DOSE METRICS: Total DLP (mGy-cm): 1005.78 FINDINGS: Brain: Diffuse cerebral volume loss noted throughout. Low attenuation noted in the white matter. No mass effect. No intra-axial or extra-axial hemorrhage. Preserved viveros-white interfaces. Cerebral ventricles: Mild ex vacuo ventriculomegaly. Paranasal sinuses: Visualized sinuses are unremarkable. No fluid levels. Mastoid air cells: Visualized mastoid air cells are well aerated. Bones/joints: No destructive lesion. No acute fracture. Soft tissues: Unremarkable. CT/CT head wo con* [id number] IMPRESSION: No evidence of acute intracranial hemorrhage, mass effect, or edema. Age expected involutional change.
[2023-12-23 22:29] VITALS: BP 137/75; PULSE 98; RESP 18; O2SAT 95
[2023-12-23 23:07] VITALS: BP 176/85; PULSE 83; RESP 18; O2SAT 97
--- NOTE | 2023-12-26 08:13 | DCPLANNER ---
Message sent to Neurology - Your physical exam and lab work including imaging did not reveal an acute cause of your hallucinations. It was suggested we refer you to Dr. Guadarrama at as an outpatient.
== END 2023-12-23 23:08 | disposition home or self-care (01) ==
PROVIDERS: Internal Medicine; Emergency Provider Emergency Medicine; PCP Family Medicine
DX: R44.1 Visual hallucinations (principal); R44.0 Auditory hallucinations; Z79.82 Long term (current) use of aspirin
CPT/HCPCS: 36415; 70450; 74018; 80053; 81003; 83735; 84145; 84443; 85025; 96374; 96375; 99285; J2270; J2405

== ENCOUNTER 2024-01-02 06:00 | Outpatient (RCR) | payer MEDICARE, SELFPAY | END 2024-01-31 23:59 | disposition home or self-care (01) | LOC: SPT 06:00 | PROVIDERS: PCP Family Medicine; Visit Provider Family Medicine | DX: M70.61 Trochanteric bursitis, right hip (principal) | CPT/HCPCS: 97110 ==

== ENCOUNTER → 2024-01-19 07:51 | Outpatient (BNVA) | payer MEDICARE, SELFPAY | PROVIDERS: PCP Family Medicine; Visit Provider Otolaryngology | DX: S02.2XXA Fracture of nasal bones, initial encounter for closed fracture (principal); W19.XXXA Unspecified fall, initial encounter; W18.09XA Striking against other object with subsequent fall, initial encounter | CPT/HCPCS: 99204 ==

== ENCOUNTER 2024-02-01 06:00 | Outpatient (RCR) | payer MEDICARE, SELFPAY | END 2024-03-02 23:59 | disposition home or self-care (01) | LOC: SPT 06:00 | PROVIDERS: PCP Family Medicine; Visit Provider Family Medicine | DX: M70.61 Trochanteric bursitis, right hip (principal) | CPT/HCPCS: 97110 ==

== ENCOUNTER → 2024-02-06 14:25 | Outpatient (BNVA) | payer MEDICARE, SELFPAY | PROVIDERS: PCP Family Medicine; Visit Provider Podiatrist Foot & Ankle Surgery | DX: M79.671 Pain in right foot (principal); M79.672 Pain in left foot; G62.89 Other specified polyneuropathies | CPT/HCPCS: 73630; 99213 ==

== ENCOUNTER → 2024-02-17 12:52 | Outpatient (BNVA) | payer MEDICARE, SELFPAY | PROVIDERS: PCP Family Medicine; Visit Provider Specialist | DX: M70.61 Trochanteric bursitis, right hip (principal); M70.62 Trochanteric bursitis, left hip | CPT/HCPCS: 20610; J1100; J2795; J3301 ==

== ENCOUNTER → 2024-02-20 15:43 | Outpatient (BNVA) | payer MEDICARE, SELFPAY | PROVIDERS: PCP Family Medicine; Visit Provider Family Medicine | DX: R30.0 Dysuria | CPT/HCPCS: 81003; 87086 ==

== ENCOUNTER → 2024-02-28 08:10 | Outpatient (BNVA) | payer MEDICARE, SELFPAY | PROVIDERS: PCP Family Medicine; Visit Provider Family Medicine | DX: E53.8 Deficiency of other specified B group vitamins (principal) | CPT/HCPCS: 82607 ==

== ENCOUNTER 2024-03-03 06:00 | Outpatient (RCR) | payer MEDICARE, SELFPAY | END 2024-04-01 23:59 | disposition home or self-care (01) | LOC: SPT 06:00 | PROVIDERS: PCP Family Medicine; Visit Provider Family Medicine | DX: M70.61 Trochanteric bursitis, right hip (principal) | CPT/HCPCS: 97110 ==

== ENCOUNTER → 2024-03-08 07:29 | Outpatient (BNVA) | payer MEDICARE, SELFPAY | PROVIDERS: PCP Family Medicine; Visit Provider Psychiatry & Neurology Neurology | DX: R29.818 Other symptoms and signs involving the nervous system (principal); G44.309 Post-traumatic headache, unspecified, not intractable; R41.3 Other amnesia; R44.1 Visual hallucinations; R41.0 Disorientation, unspecified; E53.8 Deficiency of other specified B group vitamins; M79.7 Fibromyalgia; M17.31 Unilateral post-traumatic osteoarthritis, right knee; D51.9 Vitamin B12 deficiency anemia, unspecified; G62.89 Other specified polyneuropathies; D64.9 Anemia, unspecified; R06.00 Dyspnea, unspecified; I51.9 Heart disease, unspecified; R29.90 Unspecified symptoms and signs involving the nervous system; S06.0XAA Concussion with loss of consciousness status unknown, initial encounter; W19.XXXA Unspecified fall, initial encounter; Y99.9 Unspecified external cause status | CPT/HCPCS: 36415; 82306; 82565; 82607; 82746; 83921; 84591; 99203 ==

== ENCOUNTER → 2024-03-19 13:30 | Outpatient (BNVA) | payer MEDICARE, SELFPAY | PROVIDERS: PCP Family Medicine; Visit Provider Nurse Practitioner Family | DX: L74.511 Primary focal hyperhidrosis, face (principal); L74.519 Primary focal hyperhidrosis, unspecified; L74.510 Primary focal hyperhidrosis, axilla; L82.1 Other seborrheic keratosis; D22.5 Melanocytic nevi of trunk | CPT/HCPCS: 17000; 17110; 99214 ==

== ENCOUNTER 2024-04-02 06:00 | Outpatient (RCR) | payer MEDICARE, SELFPAY | END 2024-05-02 23:59 | disposition home or self-care (01) | LOC: SPT 06:00 | PROVIDERS: PCP Family Medicine; Visit Provider Family Medicine | DX: M70.61 Trochanteric bursitis, right hip (principal) | CPT/HCPCS: 97110 ==

== ENCOUNTER 2024-04-10 10:21 | Outpatient (CLI) | payer MEDICARE, SELFPAY ==
--- NOTE | 2024-04-10 11:00 | MR_ITS ---
WS: [email or web address] MRI HEAD WITH CONTRAST TECHNIQUE: Sagittal T1, T2 axial, T2 axial FLAIR, axial susceptibility weighted imaging, axial diffus ion weighted images, and coronal T2 images were obtained. Pre and post-T1 axial and post T1 coronal i mages. ADC and FSPGR images. CLINICAL INFORMATION: R41.3 - Other amnesia COMPARISON: MRI [address] 12/23/2023 FINDINGS: No evidence of restricted diffusion to suggest acute ischemia. Mild to moderate small vessel changes. Moderate parenchymal volume loss worse in the frontal lobes. Moderate atrophy temporal lobes and hip pocampal formations. A few tiny chronic lacunar infarcts in the cerebellum. Normal vascular flow void s at the skull base. No extra-axial fluid collections. Paranasal sinuses are well aerated. Mastoid ai r cells are well aerated. Normal posterior nasopharynx. No hemosiderin on the susceptibility weighted images. Normal optic chiasm and pituitary infundibulum. No abnormal gadolinium enhancement. Normal visualized dural venous sinuses. MR/MR head wo/w con [id number] IMPRESSION: 1. No evidence of restricted diffusion to suggest acute ischemia. 2. Mild to moderate small vessel changes with moderate parenchymal volume loss worse in the frontal lobes and temporal lobes. This has progressed since 2006 3. 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 4. No hemosiderin on susceptibility-weighted images. 5. No abnormal gadolinium enhancement.
--- NOTE | 2024-04-10 11:45 | MR_ITS ---
WS: [email or web address] MRA CAROTID WITHOUT AND WITH GADOLINIUM ENHANCEMENT TECHNIQUE: Axial 2-D TOF and gadolinium bolus images obtained with axial images and axial, sagittal, and coronal 2-D reformatted images. CLINICAL INFORMATION: R41.3 - Other amnesia COMPARISON: None. FINDINGS: Codominant and patent vertebral arteries bilaterally. Proximal basilar artery is patent. RIGHT: RIGHT common carotid artery is patent. No significant RIGHT ICA stenosis. Mild atheromatous di sease. RIGHT ICA is patent to the skull base. LEFT: LEFT common carotid artery is patent. No significant LEFT ICA stenosis. Mild atheromatous disea se. LEFT ICA is patent to the skull base. Proximal subclavian arteries are patent. MR/MR angio neck w con* [id number] IMPRESSION: 1. Codominant and patent vertebral arteries bilaterally. 2. No significant ICA stenosis bilaterally. Mild atheromatous plaque in both c arotid bulbs and ICAs. 3. Both ICAs are patent to the skull base.
--- NOTE | 2024-04-10 12:15 | MR_ITS ---
WS: [email or web address] MRA HEAD TECHNIQUE: Axial 3-D TOF images obtained with axial images and axial, sagittal, and coronal 2-D refor matted images. CLINICAL INFORMATION: R41.3 - Other amnesia COMPARISON: 2006 FINDINGS: Distal vertebral arteries are patent. Basilar artery is patent. Normal vascularity to the COMPENSATION ANALYST territo ry bilaterally. Mild segmental atheromatous disease in the COMPENSATION ANALYST territories. No flow limiting stenosis . Both ICAs are patent at the skull base. Normal vascularity to the FREEMAN and MCA territories bilaterally . No evidence of flow-limiting stenosis. MR/MR angio head wo con [id number] IMPRESSION: 1. Mild intracranial atheromatous disease progressed since 2005. 2. No evidence of flow-limiting stenosis.
[2024-04-10] MEDS: gadobenate dimeglumine 20 mL vial IV (12:43)
== END 2024-04-10 10:22 | disposition home or self-care (01) ==
LOC: RAD 10:21
PROVIDERS: PCP Family Medicine; Visit Provider Psychiatry & Neurology Neurology
DX: R41.3 Other amnesia (principal)
CPT/HCPCS: 70544; 70548; 70553; A9577

== ENCOUNTER → 2024-04-11 14:15 | Outpatient (BNVA) | payer MEDICARE, SELFPAY | PROVIDERS: PCP Family Medicine; Visit Provider Podiatrist Foot & Ankle Surgery | DX: G62.89 Other specified polyneuropathies (principal); M20.41 Other hammer toe(s) (acquired), right foot | CPT/HCPCS: 99213 ==

== ENCOUNTER → 2024-04-30 14:22 | Outpatient (BNVA) | payer MEDICARE, SELFPAY | PROVIDERS: PCP Family Medicine; Visit Provider Podiatrist Foot & Ankle Surgery | DX: S90.32XA Contusion of left foot, initial encounter; X58.XXXA Exposure to other specified factors, initial encounter | CPT/HCPCS: 73630; 99212; 99213 ==

== ENCOUNTER 2024-05-03 06:00 | Outpatient (RCR) | payer MEDICARE, SELFPAY | END 2024-06-02 23:59 | disposition home or self-care (01) | LOC: SPT 06:00 | PROVIDERS: PCP Family Medicine; Visit Provider Family Medicine | DX: M70.61 Trochanteric bursitis, right hip (principal) | CPT/HCPCS: 97110 ==

== ENCOUNTER → 2024-05-04 12:52 | Outpatient (BNVA) | payer MEDICARE, SELFPAY | PROVIDERS: PCP Family Medicine; Visit Provider Specialist | DX: M70.61 Trochanteric bursitis, right hip (principal); M70.62 Trochanteric bursitis, left hip; Z71.89 Other specified counseling | CPT/HCPCS: 20610; J1100; J2795; J3301 ==

== ENCOUNTER 2024-05-15 08:59 | Outpatient (CLI) | payer MEDICARE, SELFPAY ==
--- NOTE | 2024-05-15 09:03 | MM_ITS ---
WS: [email or web address] BILATERAL 3D TOMOSYNTHESIS DIGITAL SCREENING MAMMOGRAPHY WITH CAD CLINICAL INFORMATION: SCREENING HISTORY: Screening mammogram. No current complaints. COMPARISON: 2022 TECHNIQUE: Bilateral CC and MLO views. FINDINGS: The breasts are composed of heterogeneous fibroglandular density tissue, which can limit the detectio n of small underlying mass lesions. No suspicious mass, asymmetry, calcifications, or architectural d istortion. No evidence of malignancy. Stable secretory calcifications RIGHT breast. Stable calcificat ions LEFT breast. MM/[place] [id number] IMPRESSION: BI-RADS: 2-Benign FOLLOW UP: 1 Year Follow-up Recommend return to annual screening mammography.
== END 2024-05-15 09:00 | disposition home or self-care (01) ==
LOC: RAD 08:59
PROVIDERS: PCP Family Medicine; Visit Provider Obstetrics & Gynecology
DX: S06.0XAA Concussion with loss of consciousness status unknown, initial encounter (principal); R41.0 Disorientation, unspecified; X58.XXXA Exposure to other specified factors, initial encounter; R56.9 Unspecified convulsions; Z12.31 Encounter for screening mammogram for malignant neoplasm of breast
CPT/HCPCS: 73630; 77063; 77067; 95819; 99212; 99213

== ENCOUNTER → 2024-05-29 08:58 | Outpatient (BNVA) | payer MEDICARE, SELFPAY | PROVIDERS: PCP Family Medicine; Visit Provider Orthopaedic Surgery | DX: M54.50 Low back pain, unspecified (principal); M54.9 Dorsalgia, unspecified; R10.2 Pelvic and perineal pain; G89.29 Other chronic pain | CPT/HCPCS: 72110; 99204 ==

== ENCOUNTER 2024-06-03 06:00 | Outpatient (RCR) | payer MEDICARE, SELFPAY | END 2024-07-02 23:59 | disposition home or self-care (01) | LOC: SPT 06:00 | PROVIDERS: PCP Family Medicine; Visit Provider Family Medicine | DX: M70.61 Trochanteric bursitis, right hip (principal) | CPT/HCPCS: 97110 ==

== ENCOUNTER 2024-06-07 10:32 | Outpatient (CLI) | payer MEDICARE, SELFPAY ==
--- NOTE | 2024-06-07 11:00 | MR_ITS ---
WS: [email or web address] MRI CERVICAL SPINE NONCONTRAST TECHNIQUE: Sagittal T1, T2 and STIR imaging. Axial T2, gradient, and fiesta imaging. Gadolinium not a dministered due to inability to obtain IV access CLINICAL INFORMATION: R44.1 - Visual hallucinations COMPARISON: MRI [address] 2022 FINDINGS: Straightening of the normal cervical lordosis. Cord signal is normal. Spondylitic changes have progre ssed since 2018. Disc bulging worse at C5-6 with progressed disc desiccation at C4-C5 C5-C6 and C6-C7 . C2-C3: Mild facet arthropathy. Spinal canal and foramina are patent. C3-C4: Moderate LEFT facet arthropathy. Mild LEFT foraminal narrowing. C4-C5: Advanced RIGHT facet arthropathy. Mild RIGHT and no significant LEFT foraminal narrowing. C5-C6: Small LEFT paracentral disc osteophyte protrusion with slight indentation of the cervical cord . Mild central canal stenosis. Moderate to advanced facet arthropathy with mild LEFT foraminal narrow ing. C6-C7: Disc osteophyte complex with endplate ridging. Mild LEFT and no significant RIGHT foraminal na rrowing. Spinal canal is patent. Mild facet arthropathy. C7-T1: Endplate ridging. Mild LEFT and no significant RIGHT foraminal narrowing. Spinal canal is rousseau nt. Visualized brain stem structures: Normal. Prevertebral soft tissues: Normal. MR/MR cervical spin wo con* [id number] IMPRESSION: 1. Straightening of the normal cervical lordosis. 2. LEFT paracentral protrusion C5-C6 with mild central canal stenosis and slig ht indentation on the cervical cord. 3. Mild bony foraminal narrowing LEFT C3-C4, RIGHT C4-C5, LEFT C6-7, and LEFT C7-T1. 4. Moderate LEFT C3-C4 and advanced RIGHT C4-5 facet arthropathy.
== END 2024-06-07 10:33 | disposition home or self-care (01) ==
LOC: RAD 10:34
PROVIDERS: PCP Family Medicine; Visit Provider Psychiatry & Neurology Neurology
DX: M47.892 Other spondylosis, cervical region (principal); M25.78 Osteophyte, vertebrae; M99.61 Osseous and subluxation stenosis of intervertebral foramina of cervical region; M50.20 Other cervical disc displacement, unspecified cervical region; S06.0XAA Concussion with loss of consciousness status unknown, initial encounter; R44.1 Visual hallucinations; G44.309 Post-traumatic headache, unspecified, not intractable; R41.0 Disorientation, unspecified
CPT/HCPCS: 72141

== ENCOUNTER → 2024-06-19 13:38 | Outpatient (BNVA) | payer MEDICARE, SELFPAY | PROVIDERS: PCP Family Medicine; Visit Provider Orthopaedic Surgery | DX: M54.2 Cervicalgia (principal); M54.50 Low back pain, unspecified; G89.29 Other chronic pain | CPT/HCPCS: 99214 ==

== ENCOUNTER → 2024-07-05 16:16 | Outpatient (BNVA) | payer MEDICARE, SELFPAY | PROVIDERS: PCP Family Medicine; Visit Provider Family Medicine | DX: M10.9 Gout, unspecified (principal) | CPT/HCPCS: 80053; 84550 ==

== ENCOUNTER → 2024-07-17 14:11 | Outpatient (BNVA) | payer MEDICARE, SELFPAY | PROVIDERS: PCP Family Medicine; Visit Provider Podiatrist Foot & Ankle Surgery | DX: G62.89 Other specified polyneuropathies (principal); M79.7 Fibromyalgia | CPT/HCPCS: 99213 ==

== ENCOUNTER → 2024-07-19 14:57 | Outpatient (BNVA) | payer MEDICARE, SELFPAY | PROVIDERS: PCP Family Medicine; Visit Provider Nurse Practitioner Family | DX: L74.511 Primary focal hyperhidrosis, face (principal); L74.519 Primary focal hyperhidrosis, unspecified; L74.510 Primary focal hyperhidrosis, axilla; L82.1 Other seborrheic keratosis; L57.8 Other skin changes due to chronic exposure to nonionizing radiation | CPT/HCPCS: 17000; 17110; 99214 ==

== ENCOUNTER → 2024-08-01 14:20 | Outpatient (BNVA) | payer MEDICARE, SELFPAY | PROVIDERS: PCP Family Medicine; Visit Provider Psychiatry & Neurology Neurology | DX: M79.7 Fibromyalgia (principal); G44.309 Post-traumatic headache, unspecified, not intractable; E55.9 Vitamin D deficiency, unspecified; E03.9 Hypothyroidism, unspecified; R10.2 Pelvic and perineal pain; M47.816 Spondylosis without myelopathy or radiculopathy, lumbar region; Z98.890 Other specified postprocedural states; M54.50 Low back pain, unspecified | CPT/HCPCS: 72148; 72195; 99212; 99213 ==

== ENCOUNTER 2024-08-01 15:40 | Outpatient (CLI) | payer MEDICARE, SELFPAY | END 2024-08-01 15:41 | disposition home or self-care (01) | LOC: RAD 15:41 | PROVIDERS: PCP Family Medicine; Visit Provider Orthopaedic Surgery | DX: M79.7 Fibromyalgia (principal) | CPT/HCPCS: 36415; 82306; 82607; 83735; 84207; 84425; 84591 ==

== ENCOUNTER → 2024-08-17 13:00 | Outpatient (BNVA) | payer MEDICARE, SELFPAY | PROVIDERS: PCP Family Medicine; Visit Provider Specialist | DX: M70.61 Trochanteric bursitis, right hip; M70.62 Trochanteric bursitis, left hip; Z71.89 Other specified counseling | CPT/HCPCS: 20610; J1100; J2795; J3301 ==

== ENCOUNTER → 2024-09-10 14:33 | Outpatient (BNVA) | payer MEDICARE, SELFPAY | PROVIDERS: PCP Family Medicine; Visit Provider Internal Medicine Cardiovascular Disease | DX: R07.9 Chest pain, unspecified (principal) | CPT/HCPCS: 93005; 99204 ==

== ENCOUNTER → 2024-09-13 14:52 | Outpatient (BNVA) | payer MEDICARE, SELFPAY | PROVIDERS: PCP Family Medicine; Visit Provider Orthopaedic Surgery | DX: M48.062 Spinal stenosis, lumbar region with neurogenic claudication (principal) | CPT/HCPCS: 99214 ==

== ENCOUNTER 2024-09-21 10:53 | Outpatient (CLI) | payer MEDICARE, SELFPAY ==
--- NOTE | 2024-09-21 12:00 | USCV_ITS ---
Sarah Victoria Age: 84 Gender: F : 1940 Exam Date: 09/21/2024 12:21 Ordering Phys: Juancho Adamson MD ([email or web address]) Technologist: [place] [facility] [place]: sob sob BP: 140 / 70 HR: 67 Rhythm: Sinus Technical Quality: Adequate MEASUREMENTS (Male / Female) Normal Values 2D ECHO LVOT Diameter 2.0 cm LV Ejection Fraction MOD 4C 56.3 % LV Ejection Fraction MOD 2C 54.2 % LV Ejection Fraction 2C AL 55.0 % LA Diameter 3.3 cm RA Systolic Volume 4C AL 21.8 ml RA Systolic Volume 4C MOD 20.8 ml LA Sys Volume AL 33.6 cm cubed LA Sys Volume Index AL 16.1 cm cubed/m squared Aorta at Sinotubular Diameter 2.4 cm IVC Diameter 1.5 cm M-MODE LA Ao Ratio MM 1.5 AV Cusp Separation MM 1.6 cm DOPPLER AV Peak Velocity 316.7 cm/s LVOT Peak Velocity 72.0 cm/s AV Area Cont Eq vti 1.1 cm squared AV Area Cont Eq pk 0.7 cm squared MV Peak Velocity 88.0 cm/s MV Area PHT 3.1 cm squared Mitral E to A Ratio 0.7 TV Peak Velocity 235.3 cm/s TR Peak Velocity 271.0 cm/s TR Peak Gradient 29.4 mmHg TR Mean Velocity 209.0 cm/s TR Mean Gradient 20.2 mmHg TR Velocity Time Integral 83.1 cm TV Peak E Velocity 80.0 cm/s PV Peak Velocity 90.5 cm/s FINDINGS Left Ventricle Technically limited quality echocardiogram because of poor ultrasonic windows. Left ventricle is normal size. LV systolic function is normal with EF 50 to 55%. No regional wall motion abnormalities are seen. Grade 1 diastolic dysfunction Right Ventricle Normal in size and function Right Atrium Normal in size Left Atrium Normal in size Mitral Valve Structurally normal mitral valve. Mild mitral regurgitation. Aortic Valve Aortic valve is thickened. Mild aortic stenosis with aortic valve area 1.12 cm squared and mean gradient of 10 mmHg. Mild aortic regurgitation Tricuspid Valve Mild tricuspid regurgitation. RVSP is normal. Pulmonic Valve Not well visualized Pericardium Normal Aorta Normal in size IVC Appears to be normal CONCLUSIONS Technically limited quality echocardiogram because of poor ultrasonic windows. LV systolic function is normal with EF 50 to 55%. Mild mitral regurgitation Mild aortic stenosis with aortic valve area 1.12 cm squared and mean gradient of 10 mmHg. Mild aortic regurgitation Mild tricuspid regurgitation. Phill Mata MD (Electronically Signed) Final Date: 06 October 2024 10:33 S
== END 2024-09-21 10:54 | disposition home or self-care (01) ==
LOC: RAD 10:53
PROVIDERS: PCP Family Medicine; Visit Provider Internal Medicine Cardiovascular Disease
DX: I50.30 Unspecified diastolic (congestive) heart failure (principal); I35.8 Other nonrheumatic aortic valve disorders
CPT/HCPCS: 93306

== ENCOUNTER → 2024-10-09 09:31 | Outpatient (BNVA) | payer MEDICARE, SELFPAY | PROVIDERS: PCP Family Medicine; Visit Provider Podiatrist Foot & Ankle Surgery | DX: G62.89 Other specified polyneuropathies (principal); M10.9 Gout, unspecified | CPT/HCPCS: 99213 ==

== ENCOUNTER → 2024-10-19 12:34 | Outpatient (BNVA) | payer MEDICARE, SELFPAY | PROVIDERS: PCP Family Medicine; Visit Provider Family Medicine | DX: N30.10 Interstitial cystitis (chronic) without hematuria | CPT/HCPCS: 81000; 87077; 87086; 87184 ==

== ENCOUNTER → 2024-10-30 16:02 | Outpatient (BNVA) | payer MEDICARE, SELFPAY | PROVIDERS: PCP Family Medicine; Visit Provider Orthopaedic Surgery | DX: M48.062 Spinal stenosis, lumbar region with neurogenic claudication (principal); M54.50 Low back pain, unspecified; M54.2 Cervicalgia | CPT/HCPCS: 72040; 72100; 99213 ==

== ENCOUNTER → 2024-12-13 12:44 | Outpatient (BNVA) | payer MEDICARE, SELFPAY | PROVIDERS: PCP Family Medicine; Visit Provider Orthopaedic Surgery | DX: M48.062 Spinal stenosis, lumbar region with neurogenic claudication (principal) | CPT/HCPCS: 99213 ==

== ENCOUNTER → 2024-12-18 10:52 | Outpatient (BNVA) | payer MEDICARE, SELFPAY | PROVIDERS: PCP Family Medicine; Visit Provider Nurse Practitioner Family | DX: M48.062 Spinal stenosis, lumbar region with neurogenic claudication (principal) | CPT/HCPCS: 99214 ==

== ENCOUNTER → 2024-12-19 12:25 | Outpatient (BNVA) | payer MEDICARE, SELFPAY | PROVIDERS: PCP Family Medicine; Visit Provider Family Medicine | DX: F41.9 Anxiety disorder, unspecified (principal); R44.3 Hallucinations, unspecified; E03.9 Hypothyroidism, unspecified; R06.00 Dyspnea, unspecified | CPT/HCPCS: 80053; 83880; 84443; 85025 ==

== ENCOUNTER → 2024-12-25 13:34 | Outpatient (BNVA) | payer MEDICARE, SELFPAY | PROVIDERS: PCP Family Medicine; Visit Provider Family Medicine | DX: I10 Essential (primary) hypertension (principal) | CPT/HCPCS: 84550 ==

== ENCOUNTER → 2024-12-26 11:45 | Outpatient (BNVA) | payer MEDICARE, SELFPAY | PROVIDERS: PCP Family Medicine; Visit Provider Specialist | DX: M70.61 Trochanteric bursitis, right hip (principal); M70.62 Trochanteric bursitis, left hip; Z71.89 Other specified counseling | CPT/HCPCS: 20610; 73502; 99213; J1100; J2795; J3301; J9999 ==

== ENCOUNTER → 2025-01-02 14:18 | Outpatient (BNVA) | payer MEDICARE, SELFPAY | PROVIDERS: PCP Family Medicine; Visit Provider Nurse Practitioner Family | DX: M79.18 Myalgia, other site (principal); M48.062 Spinal stenosis, lumbar region with neurogenic claudication | CPT/HCPCS: 20553; 99214; J1010; J3490 ==

== ENCOUNTER → 2025-01-15 10:58 | Outpatient (BNVA) | payer MEDICARE, SELFPAY | PROVIDERS: PCP Family Medicine; Visit Provider Podiatrist Foot & Ankle Surgery | DX: M79.671 Pain in right foot (principal); M79.672 Pain in left foot; G62.89 Other specified polyneuropathies | CPT/HCPCS: 99213 ==

== ENCOUNTER → 2025-01-29 10:41 | Outpatient (BNVA) | payer MEDICARE, SELFPAY | PROVIDERS: PCP Family Medicine; Visit Provider Nurse Practitioner Family | DX: M48.062 Spinal stenosis, lumbar region with neurogenic claudication (principal) | CPT/HCPCS: 99213 ==

== ENCOUNTER 2025-02-09 10:38 | Emergency (ER) | payer MEDICARE, SELFPAY ==
[2025-02-09 10:45] VITALS: BP 172/78; PULSE 94; RESP 18; TEMP 36.7; O2SAT 94
--- NOTE | 2025-02-09 10:48 | CTR_ITS ---
PROCEDURE INFORMATION: Exam: CT Head Without Contrast Exam date and time: 02/09/2025 11:13 AM Age: 85 years old Clinical indication: Injury or trauma; Fall; Blunt trauma (contusions or hematomas) TECHNIQUE: Imaging protocol: Computed tomography of the head without contrast. Radiation optimization: All CT scans at this facility use at least one of these dose optimization techniques: automated exposure control; mA and/or kV adjustment per patient size (includes targeted exams where dose is matched to clinical indication); or iterative reconstruction. COMPARISON: MR head wo/w con [id number] 04/10/2024 10:49 AM RADIATION DOSE METRICS: Total DLP (mGy-cm): 1077 FINDINGS: Brain: Mild nonspecific white matter low attenuation which may be related to microvascular ischemic changes. No acute confluent lobar ischemic infarct. No acute intracranial hemorrhage. Cerebral ventricles: The ventricles and sulci are prominent in size compatible with moderate atrophy. Paranasal sinuses: No fluid levels. Mastoid air cells: Visualized mastoid air cells are well aerated. Bones: No acute calvarial fracture. Soft tissues: Visualized soft tissues are unremarkable. CT/CT head wo con* [id number] IMPRESSION: No acute intracranial abnormality. If symptoms persist, consider further evaluation with MRI, if there are no contraindications to obtaining a MRI scan.
--- NOTE | 2025-02-09 10:48 | CTR_ITS ---
PROCEDURE INFORMATION: Exam: CT Cervical Spine Without Contrast Exam date and time: 02/09/2025 11:13 AM Age: 85 years old Clinical indication: Injury or trauma; Fall; Blunt trauma TECHNIQUE: Imaging protocol: Computed tomography of the cervical spine without contrast. Radiation optimization: All CT scans at this facility use at least one of these dose optimization techniques: automated exposure control; mA and/or kV adjustment per patient size (includes targeted exams where dose is matched to clinical indication); or iterative reconstruction. COMPARISON: MR cervical spin wo con* [id number] 06/07/2024 11:17 AM RADIATION DOSE METRICS: Total DLP (mGy-cm): 261.4 FINDINGS: Bones/joints: The cervical vertebral body heights are maintained. There is a 0.2 cm anterolisthesis of C4 on C5. The facet joints are not jumped or perched. C2-C3: No significant disc bulge or herniation. No severe spinal canal stenosis. No significant neuroforaminal narrowing. C3-C4: Spinal canal is patent. Moderate left neuroforaminal narrowing secondary to uncovertebral and facet hypertrophy. C4-C5: Spinal canal is patent. Mild right neuroforaminal narrowing secondary to uncovertebral and facet hypertrophy. C5-C6: Broad-based disc osteophyte complex with mild central canal stenosis. No significant neuroforaminal narrowing. C6-C7: No significant disc bulge or herniation. No severe spinal canal stenosis. No significant neuroforaminal narrowing. C7-T1: No significant disc bulge or herniation. No severe spinal canal stenosis. No significant neuroforaminal narrowing. Lungs: Lung apices are normal. Soft tissues: Bilateral carotid bulb calcifications. CT/CT cervical spin wo con* [id number] IMPRESSION: No acute bony abnormality. If symptoms persist, consider further evaluation with MRI, if there are no contraindications to obtaining a MRI scan.
--- NOTE | 2025-02-09 10:48 | CTR_ITS ---
PROCEDURE INFORMATION: Exam: CT Abdomen And Pelvis With Contrast Exam date and time: 02/09/2025 11:18 AM Age: 85 years old Clinical indication: Abdominal pain; Fall TECHNIQUE: Imaging protocol: Computed tomography of the abdomen and pelvis with contrast. Radiation optimization: All CT scans at this facility use at least one of these dose optimization techniques: automated exposure control; mA and/or kV adjustment per patient size (includes targeted exams where dose is matched to clinical indication); or iterative reconstruction. Contrast material: OMNI 350; Contrast volume: 100 ml; Contrast route: INTRAVENOUS (IV); COMPARISON: MR pelvis wo con* [id number] 08/01/2024 4:03 PM RADIATION DOSE METRICS: Total DLP (mGy-cm): 1050.33 FINDINGS: Lungs: Lung bases are clear. No pleural effusion. Liver: Normal. No mass. Gallbladder and biliary ducts: The gallbladder has been resected. Pancreas: Normal. No ductal dilation. Spleen: Normal. No splenomegaly. Adrenal glands: Normal. No mass. Kidneys and ureters: Normal. No hydronephrosis. Stomach and bowel: Multiple diverticula involve the sigmoid colon. There is no sign of diverticulitis. Appendix: No evidence of appendicitis. Intraperitoneal space: Unremarkable. No free air. No significant fluid collection. Vasculature: Unremarkable. No abdominal aortic aneurysm. Lymph nodes: Unremarkable. No enlarged lymph nodes. Urinary bladder: Unremarkable as visualized. Reproductive: Unremarkable as visualized. Bones/joints: Metallic surgical hardware can be seen in the lumbar spine. Soft tissues: Unremarkable. CT/CT abdomen pelvis w con* [id number] IMPRESSION: No acute findings.
--- NOTE | 2025-02-09 10:48 | XRR_ITS ---
PROCEDURE INFORMATION: Exam: XR Chest Exam date and time: 02/09/2025 11:17 AM Age: 85 years old Clinical indication: Injury or trauma; Fall; Blunt trauma (contusions or hematomas); Prior surgery; Surgery date: 6+ months; Surgery type: Cabg TECHNIQUE: Imaging protocol: Radiologic exam of the chest. Views: 1 view. COMPARISON: CR XR chest 1V portable [id number] 10/13/2023 6:32 PM FINDINGS: Lungs: Unremarkable. No consolidation or mass. Pleural spaces: Unremarkable. No pleural effusion. No pneumothorax. Heart/Mediastinum: Unremarkable. No cardiomegaly. Diaphragm: There is chronic elevation of the right hemidiaphragm. Bones/joints: Sternal sutures are noted. XR/XR chest 1V portable [id number] IMPRESSION: No acute findings.
--- NOTE | 2025-02-09 10:50 | W.ED.FALL ---
HPI - Fall General: Chief Complaint: Fall Stated Complaint: fall left side pain Time Seen by Provider: 02/09/25 10:41 Source: patient Mode of arrival: ambulatory Limitations: no limitations History of Present Illness: 85-year-old female states that she has had some generalized weakness over the last 4 to 5 days states she got up in the [place] and fell and was unable to get up. She typically walks a walker states she did hit her head has some head neck pain also complains of some low back and left flank pain denies any fevers had some slight confusion at home but able answer all my questions here appropriately Associated symptoms-after fall: Reports headache(s) and neck pain; Denies abdominal pain or chest pain Related Data Home Medications ?Medication ?Instructions ?Recorded ?Confirmed furosemide 40 mg tablet 40 mg PO BID 06/01/22 02/09/25 Silver Biotics 5 ml PO DAILY 04/02/23 02/09/25 aspirin 81 mg tablet,delayed 81 mg PO DAILY 04/02/23 02/09/25 release cyanocobalamin (vitamin B-12) 2,000 mcg PO DAILY 02/09/25 02/09/25 2,000 mcg tablet,extended release (Vitamin B-12 ER) estradiol 0.01% (0.1 mg/gram) See Rx Instructions .Route .COMPLEX 02/09/25 02/09/25 vaginal cream levothyroxine 100 mcg tablet 100 mcg PO DAILY 02/09/25 02/09/25 losartan 50 mg tablet 50 mg PO DAILY 02/09/25 02/09/25 pantoprazole 40 mg tablet,delayed 40 mg PO BID 02/09/25 02/09/25 release Previous Rx's ?Medication ?Instructions ?Recorded Rollator walker with seat #1 ea 01/26/24 acetaminophen 500 mg tablet 500 - 1,000 mg (1 - 2 x 500 mg) PO 03/02/24 (Tylenol Extra Strength) BID pain #100 tabs allopurinol 100 mg tablet 100 mg PO BID #60 tabs 08/17/24 metoprolol succinate 25 mg 25 mg PO DAILY #90 tabs 08/23/24 tablet,extended release 24 hr potassium chloride 20 mEq 20 meq PO DAILY #30 tabs 10/02/24 tablet,extended release(part/cryst) (Klor-Con M) clotrimazole 10 mg debra See Rx Instructions .Route 10/22/24 .COMPLEX #90 ea methenamine hippurate 1 gram tablet 1 g PO BID #180 tabs 12/19/24 amlodipine 5 mg tablet 5 mg PO DAILY #90 tabs 01/04/25 alprazolam 1 mg tablet 1 mg PO TID #90 tabs 02/01/25 duloxetine 20 mg capsule,delayed 20 mg PO QDAY #30 caps 02/07/25 release olanzapine 2.5 mg tablet (Zyprexa) 2.5 mg PO DAILY #60 tabs 02/07/25 cephalexin 500 mg capsule 500 mg PO TID 7 days #21 caps 02/09/25 Allergies Allergy/AdvReac Type Severity Reaction Status Date / Time levofloxacin (From Levaquin) Allergy Severe NA Verified 01/29/25 10:44 codeine Allergy Intermediate headache/ Verified 01/29/25 10:44 lips numb hydrocodone Allergy Intermediate itching Verified 01/29/25 10:44 Penicillins Allergy Intermediate NA Verified 01/29/25 10:44 solifenacin (From Vesicare) Allergy Intermediate hallucinati Verified 01/29/25 10:44 ons nitrofurantoin (From Allergy NA Verified 01/29/25 10:44 Macrobid) phenazopyridine (From Allergy NA Verified 01/29/25 10:44 Pyridium) streptomycin Allergy NA Verified 01/29/25 10:44 Sulfa (Sulfonamide Allergy NA Verified 01/29/25 10:44 Antibiotics) tramadol (From Ultracet) Allergy NA Verified 01/29/25 10:44 bupropion (From Wellbutrin) AdvReac Severe Unknown Verified 01/29/25 10:44 baclofen AdvReac Intermediate hallucinati Verified 01/29/25 10:44 ons duloxetine (From Cymbalta) AdvReac Intermediate stomach Verified 01/29/25 10:44 pain fluoxetine AdvReac Intermediate hallucinati Verified 01/29/25 10:44 ons sertraline (From Zoloft) AdvReac Intermediate diarrhea/ Verified 01/29/25 10:44 hyponatremia atorvastatin (From Lipitor) AdvReac Mild nausea Verified 01/29/25 10:44 Review of Systems Const: Reports: fatigue; Denies: fever(s), chills, body aches or change in appetite ENMT: Denies: throat pain or dental pain Card: Denies: chest pain Resp: Denies: dyspnea GI: Denies: abdominal pain, nausea, vomiting or diarrhea Musc: Reports: neck pain and back pain Skin/Breast: Denies: rash Neuro: Reports: headache(s) PFS ED PFSH: Medical History Greater trochanteric bursitis of both hips Macrocytic anemia Severe sleep apnea Irritable bowel syndrome Fibromyalgia Depression Somatization disorder Anxiety disorder Urethral syndrome Chronic interstitial cystitis Surgical History S/P thyroidectomy H/O: hysterectomy S/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 H/O hand surgery H/O carpal tunnel repair S/P cholecystectomy Family History Father , cva Stroke Mother , 96 Dementia Social History Smoking and tobacco/nicotine status: never used tobacco/nicotine Physical Exam Const: COMMON NORMALS: no acute distress, patient oriented x3 and healthy appearing HENMT: COMMON NORMALS: normocephalic HEAD & SCALP: normocephalic OTHER: tenderness to posterior scalp Eye: COMMON NORMALS: conjunctivae normal CONJUNCTIVA: Yes conjunctivae normal Neck/C-Spine: OTHER: tenderness along c spine Chest: COMMONS NORMALS: normal inspection of the chest and normal palpation of entire chest wall Resp: COMMON NORMALS: normal respiratory effort, No retractions, No use of accessory muscles and clear to auscultation bilaterally AUSCULTATION: clear to auscultation bilaterally Cardio: COMMON NORMALS: regular rate, regular rhythm and No murmurs present (Cardio) RATE: regular rate RHYTHM: regular rhythm GI: COMMON NORMALS: Normal to inspection, nondistended, normoactive bowel sounds present, Soft to palpation, non-tender and no masses PALPATION: Yes Soft to palpation Back/Pelvis: OTHER: tenderness over left flank Extremity: COMMON NORMALS: normal to inspection and full ROM Neuro: COMMON NORMALS: patient oriented x3, moves all extremities and no focal motor deficits Psych: COMMON NORMALS: mental status grossly normal, Normal thought process present and cooperative THOUGHT PROCESS: Normal thought process present Skin: COMMON NORMALS: no rashes or lesions noted and no wounds GENERAL SKIN EXAM: no rashes or lesions noted Course Vital Signs: Vital signs: Vital Signs Temperature 98.0 F 02/09/25 10:45 Pulse Rate 81 02/09/25 12:00 Respiratory Rate 18 02/09/25 10:45 Blood Pressure 143/73 02/09/25 12:00 Pulse Oximetry 93 02/09/25 12:00 Oxygen Delivery Me thod Room Air 02/09/25 12:00 MDM - Fall Medical Decision Making Patient presents after falls had some weakness she has been well-appearing here she is able to walk with a walker she does have a UTI no other acute findings no signs of sepsis we will start her on antibiotics she is follow-up with her PCP and return if worsening. Medical Records I reviewed the patient's medical records. Lab Data I reviewed the patient's lab results. 02/09/25 11:10 02/09/25 11:10 Radiology Impressions Abdomen/Pelvis CT 02/09/25 10:48 IMPRESSION: No acute findings. Cervical Spine CT 02/09/25 10:48 IMPRESSION: No acute bony abnormality. If symptoms persist, consider further evaluation with MRI, if there are no contraindications to obtaining a MRI scan. Chest X-Ray 02/09/25 10:48 IMPRESSION: No acute findings. Head CT 02/09/25 10:48 IMPRESSION: No acute intracranial abnormality. If symptoms persist, consider further evaluation with MRI, if there are no contraindications to obtaining a MRI scan. Laboratory Results WBC 8.34 10^3/uL (3.29-11.43) 02/09/25 11:10 RBC 3.70 10^6/uL (3.85-5.65) L 02/09/25 11:10 Hgb 11.90 g/dL (11.27-16.99) 02/09/25 11:10 Hct 35.6 % (36-47) L 02/09/25 11:10 MCV 96.2 fl (85-98) 02/09/25 11:10 MCH 32.2 pg (27-33) 02/09/25 11:10 MCHC 33.4 g/dL (30-55) 02/09/25 11:10 RDW 14.4 % (12.1-15.1) 02/09/25 11:10 Plt Count 195 10^3/cmm (157-399) 02/09/25 11:10 MPV 9.2 fL (7.4-10.4) 02/09/25 11:10 Neut % (Auto) 65.1 % 02/09/25 11:10 Lymph % (Auto) 26.3 % 02/09/25 11:10 [place] % (Auto) 7.2 % 02/09/25 11:10 Eos % (Auto) 0.1 % 02/09/25 11:10 Baso % (Auto) 0.6 % 02/09/25 11:10 Neut # (Auto) 5.43 10^3/uL (1.8-7.7) 02/09/25 11:10 Lymph # (Auto) 2.2 10^3/uL (0.8-4.8) 02/09/25 11:10 [place] # (Auto) 0.6 10^3/uL (0.2-0.9) 02/09/25 11:10 Eos # (Auto) 0.0 10^3/uL (0.0-0.8) 02/09/25 11:10 Baso # (Auto) 0.1 10^3/uL (0.0-0.1) 02/09/25 11:10 Nucleated RBC % (auto) 0 % 02/09/25 11:10 Nucleated RBCs # 0.0 /100WBC 02/09/25 11:10 Sodium 135 mmol/L (136-145) L 02/09/25 11:10 Potassium 3.8 mmol/L (3.5-5.1) 02/09/25 11:10 Chloride 98 mmol/L (98-107) 02/09/25 11:10 Carbon Dioxide 20 mmol/L (22-29) L 02/09/25 11:10 Anion Gap 20.8 (5-19) H 02/09/25 11:10 BUN 14 mg/dL (8-23) 02/09/25 11:10 Creatinine 0.9 mg/dL (0.5-0.9) 02/09/25 11:10 GFR Calculation Not Reportable 02/09/25 11:10 Glucose 123 mg/dL (65-115) H 02/09/25 11:10 Calculated Osmolality 282 mOsm/kg (285-295) L 02/09/25 11:10 Calcium 9.6 mg/dL (8.5-10.5) 02/09/25 11:10 Total Bilirubin 0.3 mg/dL (0.15-1.2) 02/09/25 11:10 AST 23 U/L (0-32) 02/09/25 11:10 ALT 16 U/L (0-33) 02/09/25 11:10 Alkaline Phosphatase 65 U/L (35-105) 02/09/25 11:10 Total Protein 7.1 g/dL (6.6-8.7) 02/09/25 11:10 Albumin 4.5 g/dL (3.5-5.2) 02/09/25 11:10 Globulin 2.6 g/dL (1.3-4.6) 02/09/25 11:10 TSH 3.70 uIU/mL (0.27-4.20) 02/09/25 11:10 Urine Color Yellow (Yellow) 02/09/25 11: Urine Appearance Cloudy (CLEAR) A 02/09/25 11: Urine pH 6.0 (5-7) 02/09/25 11:30 Ur Specific [place] 1.044 (1.005-1.030) H 02/09/25 11: Urine Protein 1+ (Negative) A 02/09/25 11: Urine Glucose (UA) Negative (Normal) 02/09/25 11: Urine Ketones Negative (Negative) 02/09/25 11: Urine Blood Trace (Negative) A 02/09/25 11: Urine Nitrate Positive (Negative) A 02/09/25 11: Urine Bilirubin Negative (Negative) 02/09/25 11:30 Urine Urobilinogen 0.2 mg/dL (Negative) 02/09/25 11:30 Ur Leukocyte Esterase 2+ (Negative) A 02/09/25 11: Urine RBC 11-20 /hpf (0-2) H 02/09/25 11:30 Urine WBC 51-100 /hpf (0-5) H 02/09/25 11:30 Ur Squamous Epith Cells 0-5 /hpf (0-5) 02/09/25 11: Amorphous Sediment Not Reportable 02/09/25 11: Urine Bacteria 4+ /hpf (NONE) H 02/09/25 11:30 Hyaline Casts 2.46 /lpf 02/09/25 11:30 All radiology interpretation(s) finalized by discharge Discharge Plan Discharge Patient Disposition: Home Clinical Impression: Acute UTI (urinary tract infection), Fall Condition: Stable Prescriptions: New cephalexin 500 mg capsule 500 mg PO TID 7 Days Qty: 21 0RF No Action furosemide 40 mg tablet 40 mg PO BID (DME) Rollator walker with seat See Rx Instructions .Route .MEDSUPPLY Qty: 1 0RF Rx Instructions: As directed allopurinol 100 mg tablet 100 mg PO BID Qty: 60 11RF olanzapine [Zyprexa] 2.5 mg tablet 2.5 mg PO DAILY Qty: 60 2RF duloxetine 20 mg capsule,delayed release(DR/EC) 20 mg PO QDAY Qty: 30 11RF acetaminophen [Tylenol Extra Strength] 500 mg tablet 500 - 1,000 mg PO BID Qty: 100 0RF metoprolol succinate 25 mg tablet extended release 24 hr 25 mg PO DAILY Qty: 90 3RF methenamine hippurate 1 gram tablet 1 g PO BID Qty: 180 11RF Klor-Con M20 20 mEq tablet,ER particles/crystals 20 meq PO DAILY Qty: 30 11RF clotrimazole 10 mg debra See Rx Instructions .ROUTE .COMPLEX Qty: 90 3RF Dose Instruction: DISSOLVE 1 TABLET BY MOUTH THREE TIMES DAILY NEEDED Rx Instructions: DISSOLVE 1 TABLET BY MOUTH THREE TIMES DAILY NEEDED. amlodipine 5 mg tablet 5 mg PO DAILY Qty: 90 11RF alprazolam 1 mg tablet 1 mg PO TID Qty: 90 5RF aspirin [Aspir-81] 81 mg Tablet,Delayed Release (Dr/Ec) 81 mg PO DAILY Silver Biotics 5 ml PO DAILY cyanocobalamin (vitamin B-12) [Vitamin B-12] 2,000 mcg Tablet Extended Release 2,000 mcg PO DAILY estradiol 0.01 % (0.1 mg/gram) cream See Rx Instructions .ROUTE .COMPLEX Rx Instructions: INSERT ONE GRAM VAGINALLY DAILY AT BEDTIME FOR 2 WEEKS, AND THEN DECREASE TO 2 TIMES WEEKLY (SUCH TUESDAY/TUESDAY) losartan 50 mg tablet 50 mg PO DAILY levothyroxine 100 mcg tablet 100 mcg PO DAILY pantoprazole 40 mg tablet,delayed release (DR/EC) 40 mg PO BID Discharge Orders: Discharge ED (Routine); Ordered 02/09/25 Ordered By: Aida Isabel Discharge Diet: Advance as tolerated Discharge Activity: Resume usual activity Patient Instructions: Urinary Tract Infection in Women (ED) Print Language: Kiswahili Coding Level of Care Code ED Viscose Cellar Worker for Marisol Reese
[2025-02-09 11:22] LABS: Basophils # 0.1 10^3/uL (0.0-0.1); Basophils % 0.6 %; Eosinophils % 0.1 %; Hematocrit 35.6 % (36-47); Lymphocytes # 2.2 10^3/uL (0.8-4.8); Lymphocytes % 26.3 %; Mean Corpuscular HGB Conc 33.4 g/dL (30-55); Mean Corpuscular Hemoglobin 32.2 pg (27-33); Mean Corpuscular Volume 96.2 fl (85-98); Mean Platelet Volume 9.2 fL (7.4-10.4); Monocytes # 0.6 10^3/uL (0.2-0.9); Monocytes % 7.2 %; Neutrophils # 5.43 10^3/uL (1.8-7.7); Neutrophils % 65.1 %; Nucleated Red Blood Cells % 0 %; Platelet Count 195 10^3/cmm (157-399); Red Cell Distribution Width 14.4 % (12.1-15.1); White Blood Count 8.34 10^3/uL (3.29-11.43)
[2025-02-09] MEDS: iohexol 350 mg/mL 500 mL Btl (per mL) IV (11:29)
[2025-02-09 11:43] LABS: Bilirubin Urine Negative (Negative); Blood Urine Trace (Negative); Glucose Urine UA Negative (Normal); Ketones Urine Negative (Negative); Leukocyte Esterase Urine 2+ (Negative); Nitrate Urine Positive (Negative); Protein Urine 1+ (Negative); Urine Appearance Cloudy (CLEAR); Urine Color Yellow (Yellow); Urobilinogen Urine 0.2 mg/dL (Negative)
[2025-02-09 11:43] LABS: Alanine Aminotransferase 16 U/L (0-33); Albumin Level 4.5 g/dL (3.5-5.2); Alkaline Phosphatase 65 U/L (35-105); Anion Gap 20.8 (5-19); Aspartate Amino Transferase 23 U/L (0-32); Blood Urea Nitrogen 14 mg/dL (8-23); Calcium 9.6 mg/dL (8.5-10.5); Carbon Dioxide 20 mmol/L (22-29); Chloride 98 mmol/L (98-107); Creatinine Clr Calc Pharmacy 56.8295; Globulin 2.6 g/dL (1.3-4.6); Glucose 123 mg/dL (65-115); Osmolality Calculated 282 mOsm/kg (285-295); Potassium 3.8 mmol/L (3.5-5.1); Sodium 135 mmol/L (136-145); Total Bilirubin 0.3 mg/dL (0.15-1.2); Total Protein 7.1 g/dL (6.6-8.7)
[2025-02-09 11:48] LABS: Add Urine Microscopic? YES; Bacteria Urine 4+ /hpf; Hyaline Casts Urine 2.46 /lpf; Squamous Epithelial Cell Urine 0-5 /hpf (0-5); WBC Urine 51-100 /hpf (0-5)
[2025-02-09 11:56] VITALS: BP 143/80; PULSE 80; O2SAT 94
[2025-02-09 11:56] LABS: Add Urine Culture? Yes; Specific Gravity, Urine 1.044 (1.005-1.030); UA Slide Review UA Slide Review Perf
[2025-02-09 12:00] VITALS: BP 143/73; PULSE 81; O2SAT 93
--- NOTE | 2025-02-09 12:05 | ECG_ITS ---
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: : 1940 Requested By: Aida Isabel Order Number: [id number] Reading MD: NIECY EVANS Measurements Intervals [place] Rate: 76 P: 15 [place]: 156 QRS: -16 QRSD: 90 T: 67 QT: 345 QTc: 389 Interpretive Statements SINUS RHYTHM LOW QRS VOLTAGE IN PRECORDIAL LEADS [QRS DEFLECTION < 1.0 mV IN CHEST LEADS] POSSIBLE ANTERIOR MYOCARDIAL INFARCTION , OF INDETERMINATE AGE [30 ms Q WAVE IN V3/V4, OR R < 0.2 mV IN V4] INFERIOR MYOCARDIAL INFARCTION , PROBABLY OLD [40+ ms Q WAVE AND/OR ST/T ABNORMALITY IN II/aVF] Compared to ECG 12/23/2023 20:46:34 Supraventricular rhythm no longer present Myocardial infarct finding still present Electronically Signed On 02-09-2025 16:23:21 CDT by NIECY EVANS [email or web address] [id number]
[2025-02-09] MEDS: cefTRIAXone 1,000 mg SDV 1000 MG IVP (12:13)
[2025-02-09 12:30] VITALS: PULSE 82; O2SAT 94
[2025-02-09] MEDS: ketorolac 30 mg/mL INJ 15 MG IVP (12:49)
--- NOTE | 2025-02-09 12:50 | PC.NURSE ---
pt ambulated in hallway with walker down hallway w/o difficulty.
[2025-02-09] MEDS: fluconazole 100 mg Tablet 150 MG PO ×2 (12:57→13:08)
[2025-02-09 13:17] VITALS: BP 143/74; PULSE 80; O2SAT 94
== END 2025-02-09 13:18 | disposition home or self-care (01) ==
PROVIDERS: Emergency Provider Emergency Medicine
DX: N39.0 Urinary tract infection, site not specified (principal); W19.XXXA Unspecified fall, initial encounter; Z79.82 Long term (current) use of aspirin
CPT/HCPCS: 70450; 71045; 72125; 74177; 80053; 81001; 84443; 85025; 87077; 87086; 87186; 93005; 96374; 96375; 99285; J0696; J1885; J9999

== ENCOUNTER 2025-02-14 14:01 | Outpatient (RCR) | payer MEDICARE, SELFPAY | END 2025-03-02 23:59 | disposition home or self-care (01) | LOC: SPT 14:01 | PROVIDERS: PCP Family Medicine; Visit Provider Orthopaedic Surgery | DX: R10.2 Pelvic and perineal pain (principal); G89.29 Other chronic pain | CPT/HCPCS: 97110; 97161 ==

== ENCOUNTER 2025-03-03 05:00 | Outpatient (RCR) | payer MEDICARE, SELFPAY | END 2025-04-01 23:59 | disposition home or self-care (01) | LOC: SPT 05:00 | PROVIDERS: PCP Family Medicine; Visit Provider Orthopaedic Surgery | DX: R10.2 Pelvic and perineal pain (principal); G89.29 Other chronic pain | CPT/HCPCS: 97110 ==

== ENCOUNTER 2025-03-06 12:22 | Emergency (ER) | payer MEDICARE, SELFPAY ==
--- NOTE | 2025-03-06 12:32 | ECG_ITS ---
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: : 1940 Requested By: Maggie Oneill Order Number: [id number] Reading MD: NIECY EVANS Measurements Intervals [place] Rate: 77 P: 40 [place]: 138 QRS: -13 QRSD: 96 T: 68 QT: 353 QTc: 400 Interpretive Statements SINUS RHYTHM WITH OCCASIONAL VENTRICULAR PREMATURE COMPLEXES LOW QRS VOLTAGE IN PRECORDIAL LEADS [QRS DEFLECTION < 1.0 mV IN CHEST LEADS] INFERIOR MYOCARDIAL INFARCTION , PROBABLY OLD [40+ ms Q WAVE AND/OR ST/T ABNORMALITY IN II/aVF] Compared to ECG 02/09/2025 12:05:17 Ventricular premature complex(es) now present Myocardial infarct finding still present Electronically Signed On 03-06-2025 22:51:54 CDT by NIECY EVANS [email or web address] [id number]
[2025-03-06 12:36] LABS: Glucose Point of Care 121 mg/dL (70-110)
--- NOTE | 2025-03-06 12:36 | CT_ITS ---
WS: [id number] CT HEAD TECHNIQUE: Noncontrast CT of the head obtained from the skullbase to the vertex. CLINICAL INFORMATION: Symptoms of acute stroke COMPARISON: 02/09/2025 DLP: [address] scans at [facility] use at least one of these dose optimization techniques: automated exposure control; mA and/or kV adjustment per patient size (includes targeted exams where dose is matched to clinical indication); or iterative reconstruction. FINDINGS: No evidence of intracranial hemorrhage or mass effect. Ventricular system and basal cisterns are patent. Moderate small vessel changes with moderate parenchymal volume loss. No extra-axial fluid collections. No evidence of mass or mass effect. Vascular calcification. Air-fluid level in the RIGHT maxillary sinus. Mild mucosal thickening in the paranasal sinuses. Mastoid air cells are well aerated. Vascular calcification. CT/CT head thrombolytic [id number] IMPRESSION: 1. No evidence of intracranial hemorrhage or mass effect. 2. RIGHT maxillary sinusitis. 3. No acute intracranial findings. Notified Maggie Sandy MD at 03/06/2025 12:48 PM.
[2025-03-06 12:42] LABS: Basophils % 0.6 %; Eosinophils % 0.4 %; Hematocrit 38.3 % (36-47); Lymphocytes % 42.7 %; Mean Corpuscular HGB Conc 31.9 g/dL (30-55); Mean Corpuscular Hemoglobin 32.4 pg (27-33); Mean Corpuscular Volume 101.6 fl (85-98); Mean Platelet Volume 9.6 fL (7.4-10.4); Monocytes # 0.6 10^3/uL (0.2-0.9); Monocytes % 8.3 %; Neutrophils # 3.29 10^3/uL (1.8-7.7); Neutrophils % 46.3 %; Nucleated Red Blood Cells % 0 %; Platelet Count 194 10^3/cmm (157-399); Red Blood Count 3.77 10^6/uL (3.85-5.65); Red Cell Distribution Width 15.3 % (12.1-15.1)
--- NOTE | 2025-03-06 12:43 | W.ED.NEUROSD ---
HPI - Neuro Symptoms/Deficit General: Chief Complaint: Neuro Symptoms/Deficit Stated Complaint: stroke like symptoms Time Seen by Provider: 03/06/25 12:32 History of Present Illness: 85-year-old female with a history of anemia, sleep apnea, irritable bowel syndrome, fibromyalgia, depression, somatization disorder and anxiety who presents to the emergency room with neurologic symptoms. She says she just does not feel right and her left side was drawing up . She moves everything appropriately now. Her initial NIH is 0. Apparently her recently. Perhaps having some stress from this. She was also treated recently for urinary tract infection. Related Data Home Medications ?Medication ?Instructions ?Recorded ?Confirmed furosemide 40 mg tablet 40 mg PO BID 06/01/22 03/06/25 Silver Biotics 5 ml PO DAILY 04/02/23 03/06/25 aspirin 81 mg tablet,delayed 81 mg PO DAILY 04/02/23 03/06/25 release cyanocobalamin (vitamin B-12) 2,000 mcg PO DAILY 02/09/25 03/06/25 2,000 mcg tablet,extended release (Vitamin B-12 ER) estradiol 0.01% (0.1 mg/gram) See Rx Instructions .Route .COMPLEX 02/09/25 03/06/25 vaginal cream levothyroxine 100 mcg tablet 100 mcg PO DAILY 02/09/25 03/06/25 losartan 50 mg tablet 50 mg PO DAILY 02/09/25 03/06/25 pantoprazole 40 mg tablet,delayed 40 mg PO BID 02/09/25 03/06/25 release Previous Rx's ?Medication ?Instructions ?Recorded Rollator walker with seat #1 ea 01/26/24 acetaminophen 500 mg tablet 500 - 1,000 mg (1 - 2 x 500 mg) PO 03/02/24 (Tylenol Extra Strength) BID pain #100 tabs allopurinol 100 mg tablet 100 mg PO BID #60 tabs 08/17/24 metoprolol succinate 25 mg 25 mg PO DAILY #90 tabs 08/23/24 tablet,extended release 24 hr potassium chloride 20 mEq 20 meq PO DAILY #30 tabs 10/02/24 tablet,extended release(part/cryst) (Klor-Con M) clotrimazole 10 mg debra See Rx Instructions .Route 10/22/24 .COMPLEX #90 ea amlodipine 5 mg tablet 5 mg PO DAILY #90 tabs 01/04/25 alprazolam 1 mg tablet 1 mg PO TID #90 tabs 02/01/25 duloxetine 20 mg capsule,delayed 20 mg PO QDAY #30 caps 02/07/25 release lamotrigine 25 mg tablet (Lamictal) 25 mg PO BID 30 days #60 tabs 02/27/25 olanzapine 5 mg tablet 5 mg PO BID #60 tabs 02/28/25 quetiapine 25 mg tablet (Seroquel) 25 mg PO BID #60 tabs 03/04/25 methenamine hippurate 1 gram tablet 1 g PO BID #180 tabs 03/05/25 Allergies Allergy/AdvReac Type Severity Reaction Status Date / Time levofloxacin (From Levaquin) Allergy Severe NA Verified 01/29/25 10:44 codeine Allergy Intermediate headache/ Verified 01/29/25 10:44 lips numb hydrocodone Allergy Intermediate itching Verified 01/29/25 10:44 Penicillins Allergy Intermediate NA Verified 01/29/25 10:44 solifenacin (From Vesicare) Allergy Intermediate hallucinati Verified 01/29/25 10:44 ons nitrofurantoin (From Allergy NA Verified 01/29/25 10:44 Macrobid) phenazopyridine (From Allergy NA Verified 01/29/25 10:44 Pyridium) streptomycin Allergy NA Verified 01/29/25 10:44 Sulfa (Sulfonamide Allergy NA Verified 01/29/25 10:44 Antibiotics) tramadol (From Ultracet) Allergy NA Verified 01/29/25 10:44 bupropion (From Wellbutrin) AdvReac Severe Unknown Verified 01/29/25 10:44 baclofen AdvReac Intermediate hallucinati Verified 01/29/25 10:44 ons duloxetine (From Cymbalta) AdvReac Intermediate stomach Verified 01/29/25 10:44 pain fluoxetine AdvReac Intermediate hallucinati Verified 01/29/25 10:44 ons sertraline (From Zoloft) AdvReac Intermediate diarrhea/ Verified 01/29/25 10:44 hyponatremia atorvastatin (From Lipitor) AdvReac Mild nausea Verified 01/29/25 10:44 Review of Systems Narrative: Constitutional symptoms: Negative except as documented in HPI. Skin symptoms: Negative except as documented in HPI. Eye symptoms: Negative except as documented in HPI. ENMT symptoms: Negative except as documented in HPI. Respiratory symptoms: Negative except as documented in HPI. Cardiovascular symptoms: Negative except as documented in HPI. Gastrointestinal symptoms: Negative except as documented in HPI. Genitourinary symptoms: Negative except as documented in HPI. Musculoskeletal symptoms: Negative except as documented in HPI. Neurologic symptoms: Negative except as documented in HPI. Psychiatric symptoms: Negative except as documented in HPI. Endocrine symptoms: Negative except as documented in HPI. PFS ED PFSH: Medical History Greater trochanteric bursitis of both hips Macrocytic anemia Severe sleep apnea Irritable bowel syndrome Fibromyalgia Depression Somatization disorder Anxiety disorder Urethral syndrome Chronic interstitial cystitis Surgical History S/P thyroidectomy H/O: hysterectomy S/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 H/O hand surgery H/O carpal tunnel repair S/P cholecystectomy Family History Father , cva Stroke Mother , 96 Dementia Social History Smoking and tobacco/nicotine status: unknown if used tobacco/nicotine Physical Exam Narrative: EXAM NARRATIVE: General: Alert, no acute distress. Skin: Warm, dry. Head: Normocephalic, atraumatic. Neck: Supple, trachea midline. Eye: Extraocular movements are intact. Ears, nose, mouth and throat: mucosa moist. Cardiovascular: Regular, Normal peripheral perfusion. Respiratory: Lungs are clear to auscultation, respirations are non-labored, breath sounds are equal, Symmetrical chest wall expansion. Gastrointestinal: Soft, Nontender, Non distended Musculoskeletal: Normal ROM, no deformity. Neurological: Alert and oriented, No focal neurological deficit observed. No speech deficits. No facial droop. Psychiatric: Cooperative, patient appears quite anxious MDM - Neuro Symptoms/Deficit Medical Decision Making Medical decision making: Differential diagnosis for patient with focal neurologic deficit(s) includes but not limited to and based on the above HPI, review of systems and physical exam: ischemic stroke, hemorrhagic stroke and embolic stroke secondary to atrial fibrillation), TIA, Carrington's palsey, metabolic encephalopathy with previous stroke. Orders placed to evaluate differential diagnosis based on the above differential, HPI and physical exam Initial exam: Upon triage stroke code was called. Patient brought immediately back to the CT scanner. I asked evaluated her there around 12:45 PM. She described a drawing up of her left arm. She said this has been going on quite a bit lately and moves anxiety up the list of my differential. She does appear quite anxious. NIH Stroke Scale/Score (NIHSS) from [email or web address] on 03/06/2025 All calculations should be rechecked by clinician prior to use RESULT SUMMARY: 0 points NIH Stroke Scale INPUTS: 1A: Level of consciousness ?> 0 = Alert; keenly responsive 1B: Ask month and age ?> 0 = Both questions right 1C: 'Blink eyes' & 'squeeze hands' ?> 0 = Performs both tasks 2: Horizontal extraocular movements ?> 0 = Normal 3: Visual ?> 0 = No visual loss 4: Facial palsy ?> 0 = Normal symmetry 5A: Left arm motor drift ?> 0 = No drift for 10 seconds 5B: Right arm motor drift ?> 0 = No drift for 10 seconds 6A: Left leg motor drift ?> 0 = No drift for 5 seconds 6B: Right leg motor drift ?> 0 = No drift for 5 seconds 7: Limb Ataxia ?> 0 = No ataxia 8: Sensation ?> 0 = Normal; no sensory loss 9: Language/aphasia ?> 0 = Normal; no aphasia 10: Dysarthria ?> 0 = Normal 11: Extinction/inattention ?> 0 = No abnormality Consultation: Immediately spoke with Dr. Guadarrama after evaluating the patient. He agrees NIH is 0 and agrees no TNKase at this time. He also agrees that this is likely anxiety but does agree that workup is appropriate. CT head: No acute intracranial process. no intracranial hemorrhage, no evidence of infarct. no evidence of acute fracture.This was reviewed and interpreted by myself the ER physician. Lab Review: Laboratory results were reviewed and interpreted by myself the emergency room physician. No leukocytosis. No anemia. No renal failure. ABG showed some slight hypercapnia which would support tachypnea associated with anxiety. The drawing up of her hands are also consistent with anxiety. I reviewed the patient's medical record. Reexamination: Patient remained stable. No increased work of breathing. No altered mental status. No focal motor deficits. She still feels a bit anxious but has improved quite a bit. Blood pressure is coming down. She agrees that this is likely anxiety and panic related to the loss of her . She says that her 67th anniversary would have been yesterday. I discussed further treatment of her anxiety would need to go through her primary as far as medications go. We also discussed the use of a paper bag to bring her CO2 back up if she is been tachypneic Assessment and plan: Panic attack Grief Hypertension ? IV Ativan in the emergency room. - Discharged home - Discussed plan with patient. Answered any questions. - Evaluation and treatment of this problem were appropriate in the emergency setting. Lab Data 03/06/25 12:34 03/06/25 13:[address] 03/06/25 12:36 IMPRESSION: 1. No evidence of intracranial hemorrhage or mass effect. 2. RIGHT maxillary sinusitis. 3. No acute intracranial findings. Notified Maggie Sandy MD at 03/06/2025 12:48 PM. Laboratory Results WBC 7.10 10^3/uL (3.29-11.43) 03/06/25 12:34 RBC 3.77 10^6/uL (3.85-5.65) L 03/06/25 12:34 Hgb 12.20 g/dL (11.27-16.99) 03/06/25 12:34 Hct 38.3 % (36-47) 03/06/25 12:34 MCV 101.6 fl (85-98) H 03/06/25 12:34 MCH 32.4 pg (27-33) 03/06/25 12:34 MCHC 31.9 g/dL (30-55) 03/06/25 12:34 RDW 15.3 % (12.1-15.1) H 03/06/25 12:34 Plt Count 194 10^3/cmm (157-399) 03/06/25 12:34 MPV 9.6 fL (7.4-10.4) 03/06/25 12:34 Neut % (Auto) 46.3 % 03/06/25 12:34 Lymph % (Auto) 42.7 % 03/06/25 12:34 [place] % (Auto) 8.3 % 03/06/25 12:34 Eos % (Auto) 0.4 % 03/06/25 12:34 Baso % (Auto) 0.6 % 03/06/25 12:34 Neut # (Auto) 3.29 10^3/uL (1.8-7.7) 03/06/25 12:34 Lymph # (Auto) 3.0 10^3/uL (0.8-4.8) 03/06/25 12:34 [place] # (Auto) 0.6 10^3/uL (0.2-0.9) 03/06/25 12:34 Eos # (Auto) 0.0 10^3/uL (0.0-0.8) 03/06/25 12:34 Baso # (Auto) 0.0 10^3/uL (0.0-0.1) 03/06/25 12:34 Nucleated RBC % (auto) 0 % 03/06/25 12:34 Nucleated RBCs # 0.0 /100WBC 03/06/25 12:34 PT 12.20 SECONDS (12.1-14.9) 03/06/25 12:34 INR 0.85 (0.8-1.2) 03/06/25 12:34 APTT 24.1 SECONDS (23.9-36.7) 03/06/25 12:34 Specimen Type Arterial 03/06/25 12:36 Sample Site Radial, left 03/06/25 12:36 ABG pH 7.43 (7.35-7.45) 03/06/25 12:36 ABG pCO2 36.6 mmHg (35-45) 03/06/25 12:36 ABG pO2 67.4 mmHg (80.0-100.0) L 03/06/25 12:36 ABG PO2/FiO2 Ratio 320 03/06/25 12:36 ABG HCO3 24.1 mmol/L (22-26) 03/06/25 12:36 ABG O2 Saturation 94.3 03/06/25 12:36 ABG Base Excess 0.0 mmol/L (-2.0-2.0) 03/06/25 12:36 [place] Test Pos 03/06/25 12:36 A-a O2 Gradient 4.7 mmHg (5-10) L 03/06/25 12:36 Hematocrit 36.2 % (37-47) L 03/06/25 12:36 Hgb O2 Saturation 93.0 % (95-100) L 03/06/25 12:36 Carboxyhemoglobin 1.1 %THgb (0.4-20.1) 03/06/25 12:36 Methemoglobin 0.2 % (0.4-1.5) L 03/06/25 12:36 Total Hemoglobin 11.8 g/dL (12-16) L 03/06/25 12:36 Sodium 137.0 mmol/L (131-143) 03/06/25 12:36 Potassium 4.0 mmol/L (3.5-5.0) 03/06/25 12:36 Glucose 102.0 mg/dL (70-115) 03/06/25 12:36 Ionized Calcium 1.2 mmol/L (1.1-1.4) 03/06/25 12:36 O2 Delivery Device Room air 03/06/25 12:36 FiO2 21.0 % 03/06/25 12:36 Transport Aide ID [place] 03/06/25 12:36 Sodium 136 mmol/L (136-145) 03/06/25 13:15 Potassium 4.3 mmol/L (3.5-5.1) 03/06/25 13:15 Chloride 98 mmol/L (98-107) 03/06/25 13:15 Carbon Dioxide 23 mmol/L (22-29) 03/06/25 13:15 Anion Gap 19.3 (5-19) H 03/06/25 13:15 BUN 16 mg/dL (8-23) 03/06/25 13:15 Creatinine 0.9 mg/dL (0.5-0.9) 03/06/25 13:15 GFR Calculation Not Reportable 03/06/25 13:15 Glucose 97 mg/dL (65-115) 03/06/25 13:15 POC Glucose 121 mg/dL (70-110) H 03/06/25 12:29 Calculated Osmolality 283 mOsm/kg (285-295) L 03/06/25 13:15 Calcium 9.3 mg/dL (8.5-10.5) 03/06/25 13:15 Total Bilirubin 0.2 mg/dL (0.15-1.2) 03/06/25 13:15 AST 18 U/L (0-32) 03/06/25 13:15 ALT 18 U/L (0-33) 03/06/25 13:15 Alkaline Phosphatase 79 U/L (35-105) 03/06/25 13:15 C-Reactive Protein 5.6 mg/L (0.0-4.9) H 03/06/25 13:15 Total Protein 7.2 g/dL (6.6-8.7) 03/06/25 13:15 Albumin 4.2 g/dL (3.5-5.2) 03/06/25 13:15 Globulin 3.0 g/dL (1.3-4.6) 03/06/25 13:15 Urine Color Yellow (Yellow) 03/06/25 13:41 Urine Appearance Clear (CLEAR) 03/06/25 13:41 Urine pH 6.5 (5-7) 03/06/25 13:41 Ur Specific [place] 1.007 (1.005-1.030) 03/06/25 13:41 Urine Protein Negative (Negative) 03/06/25 13:41 Urine Glucose (UA) Negative (Normal) 03/06/25 13:41 Urine Ketones Negative (Negative) 03/06/25 13:41 Urine Blood Negative (Negative) 03/06/25 13:41 Urine Nitrate Negative (Negative) 03/06/25 13:41 Urine Bilirubin Negative (Negative) 03/06/25 13:41 Urine Urobilinogen 0.2 mg/dL (Negative) 03/06/25 13:41 Ur Leukocyte Esterase Negative (Negative) 03/06/25 13:41 Urine RBC 0-2 /hpf (0-2) 03/06/25 13:41 Urine WBC 0-5 /hpf (0-5) 03/06/25 13:41 Ur Squamous Epith Cells 0-5 /hpf (0-5) 03/06/25 13:41 Amorphous Sediment Not Reportable 03/06/25 13:41 Urine Bacteria None seen /hpf (NONE) 03/06/25 13:41 Hyaline Casts 0.40 /lpf 03/06/25 13:41 Urine Opiates Screen Negative ng/mL (Negative) 03/06/25 13:41 Ur Barbiturates Screen Negative ng/mL (Negative) 03/06/25 13:41 Ur Phencyclidine Scrn Negative ng/mL (Negative) 03/06/25 13:41 Ur Amphetamines Screen Negative ng/mL (Negative) 03/06/25 13:41 U Benzodiazepines Scrn Positive ng/mL (Negative) H 03/06/25 13:41 Urine Cocaine Screen Negative ng/mL (Negative) 03/06/25 13:41 U Marijuana (THC) Screen Negative ng/mL (Negative) 03/06/25 13:41 All radiology interpretation(s) finalized by discharge Discharge Plan Discharge Patient Disposition: Home Clinical Impression: Panic attack, Normal grief reaction, Hypertension Condition: Stable Prescriptions: No Action furosemide 40 mg tablet 40 mg PO BID (DME) Rollator walker with seat See Rx Instructions .Route .MEDSUPPLY Qty: 1 0RF Rx Instructions: As directed allopurinol 100 mg tablet 100 mg PO BID Qty: 60 11RF duloxetine 20 mg capsule,delayed release(DR/EC) 20 mg PO QDAY Qty: 30 11RF olanzapine 5 mg tablet 5 mg PO BID Qty: 60 2RF acetaminophen [Tylenol Extra Strength] 500 mg tablet 500 - 1,000 mg PO BID Qty: 100 0RF metoprolol succinate 25 mg tablet extended release 24 hr 25 mg PO DAILY Qty: 90 3RF quetiapine [Seroquel] 25 mg tablet 25 mg PO BID Qty: 60 11RF Klor-Con M20 20 mEq tablet,ER particles/crystals 20 meq PO DAILY Qty: 30 11RF clotrimazole 10 mg debra See Rx Instructions .ROUTE .COMPLEX Qty: 90 3RF Dose Instruction: DISSOLVE 1 TABLET BY MOUTH THREE TIMES DAILY NEEDED Rx Instructions: DISSOLVE 1 TABLET BY MOUTH THREE TIMES DAILY NEEDED. amlodipine 5 mg tablet 5 mg PO DAILY Qty: 90 11RF alprazolam 1 mg tablet 1 mg PO TID Qty: 90 5RF lamotrigine [Lamictal] 25 mg tablet 25 mg PO BID 30 Days Qty: 60 3RF methenamine hippurate 1 gram tablet 1 g PO BID Qty: 180 11RF aspirin [Aspir-81] 81 mg Tablet,Delayed Release (Dr/Ec) 81 mg PO DAILY Silver Biotics 5 ml PO DAILY cyanocobalamin (vitamin B-12) [Vitamin B-12] 2,000 mcg Tablet Extended Release 2,000 mcg PO DAILY estradiol 0.01 % (0.1 mg/gram) cream See Rx Instructions .ROUTE .COMPLEX Rx Instructions: INSERT ONE GRAM VAGINALLY DAILY AT BEDTIME FOR 2 WEEKS, AND THEN DECREASE TO 2 TIMES WEEKLY (SUCH TUESDAY/TUESDAY) losartan 50 mg tablet 50 mg PO DAILY levothyroxine 100 mcg tablet 100 mcg PO DAILY pantoprazole 40 mg tablet,delayed release (DR/EC) 40 mg PO BID Discharge Orders: Discharge ED (Routine); Ordered 03/06/25 Ordered By: Maggie Sandy Referrals: Juwan Hernández MD [Primary Care Provider, Family Practice] Discharge Diet: Usual diet Discharge Activity: Increase activity as tolerated Patient Instructions: Grief and Loss (ED), Panic Attack (ED), Opioid Safety, Pain Management Activity Restrictions/Additional Instructions: Thank you for choosing [facility] for your healthcare needs today. You have been screened and evaluated and felt safe for discharge. Health conditions do change or evolve sometimes and as such it is important that you follow up with your Primary Doctor to be re checked, 3-5 days is a general good time frame for follow up. You are always welcome to return to the ED for re assessment if your symptoms are worsening or you have new concerns Print Language: Bengali Coding Level of Care Code ED Polish Compounder for Marisol Reese
[2025-03-06 12:53] LABS: INR 0.85 (0.8-1.2)
[2025-03-06 12:54] LABS: Partial Thromboplastin Time 24.1 SECONDS (23.9-36.7)
[2025-03-06 13:03] LABS: ABG PCO2 36.6 mmHg (35-45); ABG PH Result 7.43 (7.35-7.45); Alveolar-Arterial Oxygen Gradi 4.7 mmHg (5-10); Arterial Blood Gas Hematocrit 36.2 % (37-47); Blood Gas Allen Test Pos; Blood Gas Operator Identificat MONRO; Blood Gas Sample Site Radial, left; Blood Gas Sample Type Arterial; Carboxyhemoglobin 1.1 %THgb (0.4-20.1); HCO3 ABG 24.1 mmol/L (22-26); Ionized Calcium Level - ABG 1.2 mmol/L (1.1-1.4); Methemoglobin 0.2 % (0.4-1.5); Oxygen Device ROOM AIR; Oxygen Saturation ABG 94.3; PO2 ABG 67.4 mmHg (80.0-100.0); PO2 FiO2 Ratio Arterial Blood 320; Total Hemoglobin 11.8 g/dL (12-16)
--- NOTE | 2025-03-06 13:03 | PM.CONSULT ---
Providers/Reason For Consult Consulting Physician/Specialty*: Vinicius Guadarrama MD neurology and epilepsy Reason for Consult*: Stroke alert emergency department room #3 Primary Care Provider: Juwan Hernández MD History of Present Illness History of Present Illness Sarah Victoria is a 85 year old female with a history of bovine valve aortic valve replacement, pernicious anemia, vitamin D deficiency, and hypothyroidism. The patient was referred for neurological assessment secondary to closed head trauma with fracture of the nose September 29, 2023 followed by constant bifrontal and temporal headaches, right ear pain with blood in the ear canal associated with decreased hearing, visual hallucinations, visual distortions, right eye pain, and difficulty processing and using technological equipment such as iPhone as well as balance difficulty. The patient was reported to be getting her nails done and experienced acute onset of not feeling well with the left side drawing up/angelica. Patient was brought to the [facility] emergency department. Stroke alert was initiated at 12:26 PM. Stat noncontrast head CT was performed and revealed no acute findings. Neurological NIH stroke score = 0. Point of contact glucose Accu-Chek 121 Surface EEG recording was also ordered to assess for posttraumatic seizures since the patient reported episodes of visual hallucinations, visual distortions, processing difficulty and difficulty using electronic technology such as her iPhone, and episodes where her upper extremities will contract or drawl without alteration in consciousness but this study was not performed. Patient was also referred to ENT for complaints of decreased hearing in the right ear with right ear pain and blood in the right external ear canal. The patient was encouraged to follow-up with ophthalmology for history of visual distortions to assess for retinal detachment and I recommended GI evaluation for history of dark tarry stools. The patient presented for reassessment accompanied by her family. The results of the patient's test were discussed. According to the patient she is scheduled to see the ENT physician on 06/03/2024, ophthalmology on 05/02/2024 and she has not obtained a GI appointment. She stated that she saw a general surgeon, Dr. Parsons in the past for GI issues and colonoscopy and patient wanted to follow-up with this physician therefore will be scheduled. I recommended rescheduling the patient's sleep deprived surface EEG recording to assess for any posttraumatic seizures. The patient and the patient's family agree with this plan. Also recommend the patient discontinue Celebrex since she has reported history of remote lacunar infarcts on the head MRI in the cerebellum. The patient was scheduled for surface EEG recording to assess for seizures. This study was performed on 05/15/2024 and was a normal awake and asleep 56-minute surface EEG recording. The patient did not experience any involuntary movements or contractures during the recording. The patient also underwent cervical MRI 06/07/2024 without contrast which revealed a left paracentral disc protrusion at C5-C6 with slight indentation of the cervical cord as well as moderate to advanced left C3-C4 and right C4-C5 facet arthropathy. The patient was referred to Dr. Ocasio, orthospine. According to the patient she was referred to pain clinic doctor for injections. The patient also was referred to GI specialty for reports of tarry stools. Patient stated that she was evaluated by GI physician and since she had a colonoscopy approximately 2 years ago no further workup was indicated. Patient denied any further tarry stools. Drug allergies: Levaquin type reaction unknown Codeine which resulted in numbness in her lips and headaches Hydrocodone which resulted in itching Penicillin type reaction unknown Macrobid type reaction unknown Phenazopyridine (from Pyridium) type reaction unknown Streptomycin type reaction unknown Sulfonamide antibiotics type reaction unknown Tramadol type reaction unknown Wellbutrin type reaction unknown Baclofen which resulted in hallucinations Cymbalta which resulted in stomach pains Prozac which resulted in hallucinations Lipitor which resulted in nausea Zoloft which resulted in hyponatremia and diarrhea Risperidone which resulted in hallucinations Current medications: Protonix 40 mg p.o. acute Potassium 20 mEq p.o. daily Extra strength Tylenol 500 mg tablets 1-2 p.o. twice daily for pain Alprazolam 1 mg p.o. 3 times daily Norvasc 5 mg p.o. daily Aspirin 81 mg p.o. daily Celebrex 100 mg p.o. daily for pain Clotrimazole 10 mg p.o. 3 times daily as needed Cranberry 400 mg capsules 1 p.o. twice daily B12 (Cyanocobalamin) 2000 mcg p.o. daily (discontinued a few weeks ago) Olanzapine 5 mg p.o. twice daily Seroquel 25 mg p.o. twice daily Lasix 40 mg p.o. twice daily Synthroid 100 mcg p.o. daily Losartan 50 mg p.o. daily Methenamine 1 g p.o. twice daily Metoprolol ER 25 mg p.o. daily Cymbalta ER 20 mg p.o. daily Estradiol use as directed Lamictal 25 mg p.o. twice daily for headaches Cefdinir 300 mg p.o. twice daily Past medical history: Porcine aortic valve replacement Pernicious anemia Vitamin D deficiency Hypothyroidism Recurrent urinary tract infections associated with hallucinations Status post right finger surgery which resulted in hallucinations with the anesthesia Black tarry stools Constipation Fibromyalgia Lumbar disc surgery with darlene placement Bilateral trochanteric bursitis both hips Bladder prolapse Cystocele with prolapse Peripheral neuropathy Bilateral cataract surgery Right hand surgery Status post hysterectomy Past medications: Tramadol which resulted in hallucinations Indomethacin Risperidone Hydrocodone, tramadol, Wellbutrin, baclofen, Cymbalta, Prozac, Lipitor, Zoloft Doxycycline 100 mg p.o. twice daily Habits: None Family history: Remarkable for a mother with dementia Review of Systems General: Reports: 10 or more systems reviewed and unremarkable except in HPI and below Medications/Allergies Home Medications ?Medication ?Instructions ?Recorded ?Confirmed ?Last Taken ?Type furosemide 40 mg tablet 40 mg PO BID 06/01/22 03/04/25 02/09/25 History Silver Biotics 5 ml PO DAILY 04/02/23 03/04/25 Unknown History aspirin 81 mg tablet,delayed 81 mg PO DAILY 04/02/23 03/04/25 02/09/25 History release Rollator walker with seat #1 ea 01/26/24 03/04/25 Unknown Rx acetaminophen 500 mg tablet 500 - 1,000 mg (1 - 2 x 500 mg) PO 03/02/24 03/04/25 02/09/25 Rx (Tylenol Extra Strength) BID pain #100 tabs allopurinol 100 mg tablet 100 mg PO BID #60 tabs 08/17/24 03/04/25 02/09/25 Rx metoprolol succinate 25 mg 25 mg PO DAILY #90 tabs 08/23/24 03/04/25 02/09/25 Rx tablet,extended release 24 hr potassium chloride 20 mEq 20 meq PO DAILY #30 tabs 10/02/24 03/04/25 02/09/25 Rx tablet,extended release(part/cryst) (Klor-Con M) clotrimazole 10 mg debra See Rx Instructions .Route 10/22/24 03/04/25 Unknown Rx .COMPLEX #90 ea amlodipine 5 mg tablet 5 mg PO DAILY #90 tabs 01/04/25 03/04/25 02/09/25 Rx alprazolam 1 mg tablet 1 mg PO TID #90 tabs 02/01/25 03/04/25 02/09/25 Rx duloxetine 20 mg capsule,delayed 20 mg PO QDAY #30 caps 02/07/25 03/04/25 02/09/25 Rx release cyanocobalamin (vitamin B-12) 2,000 mcg PO DAILY 02/09/25 03/04/25 Unknown History 2,000 mcg tablet,extended release (Vitamin B-12 ER) estradiol 0.01% (0.1 mg/gram) See Rx Instructions .Route .COMPLEX 02/09/25 03/04/25 02/08/25 History vaginal cream levothyroxine 100 mcg tablet 100 mcg PO DAILY 02/09/25 03/04/25 02/09/25 History losartan 50 mg tablet 50 mg PO DAILY 02/09/25 03/04/25 02/09/25 History pantoprazole 40 mg tablet,delayed 40 mg PO BID 02/09/25 03/04/25 02/09/25 History release cefdinir 300 mg capsule 300 mg PO BID #10 caps 02/14/25 03/04/25 Unknown Rx lamotrigine 25 mg tablet (Lamictal) 25 mg PO BID 30 days #60 tabs 02/27/25 03/04/25 Unknown Rx olanzapine 5 mg tablet 5 mg PO BID #60 tabs 02/28/25 03/04/25 Unknown Rx quetiapine 25 mg tablet (Seroquel) 25 mg PO BID #60 tabs 03/04/25 03/04/25 Unknown Rx methenamine hippurate 1 gram tablet 1 g PO BID #180 tabs 03/05/25 Unknown Rx Allergies Allergy/AdvReac Type Severity Reaction Status Date / Time levofloxacin (From Levaquin) Allergy Severe NA Verified 01/29/25 10:44 codeine Allergy Intermediate headache/ Verified 01/29/25 10:44 lips numb hydrocodone Allergy Intermediate itching Verified 01/29/25 10:44 Penicillins Allergy Intermediate NA Verified 01/29/25 10:44 solifenacin (From Vesicare) Allergy Intermediate hallucinati Verified 01/29/25 10:44 ons nitrofurantoin (From Allergy NA Verified 01/29/25 10:44 Macrobid) phenazopyridine (From Allergy NA Verified 01/29/25 10:44 Pyridium) streptomycin Allergy NA Verified 01/29/25 10:44 Sulfa (Sulfonamide Allergy NA Verified 01/29/25 10:44 Antibiotics) tramadol (From Ultracet) Allergy NA Verified 01/29/25 10:44 bupropion (From Wellbutrin) AdvReac Severe Unknown Verified 01/29/25 10:44 baclofen AdvReac Intermediate hallucinati Verified 01/29/25 10:44 ons duloxetine (From Cymbalta) AdvReac Intermediate stomach Verified 01/29/25 10:44 pain fluoxetine AdvReac Intermediate hallucinati Verified 01/29/25 10:44 ons sertraline (From Zoloft) AdvReac Intermediate diarrhea/ Verified 01/29/25 10:44 hyponatremia atorvastatin (From Lipitor) AdvReac Mild nausea Verified 01/29/25 10:44 PFSH Acute PFSH: Medical History Greater trochanteric bursitis of both hips Macrocytic anemia Severe sleep apnea Irritable bowel syndrome Fibromyalgia Depression Somatization disorder Anxiety disorder Urethral syndrome Chronic interstitial cystitis Surgical History S/P thyroidectomy H/O: hysterectomy S/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 H/O hand surgery H/O carpal tunnel repair S/P cholecystectomy Family History Father , cva Stroke Mother , 96 Dementia Social History Smoking and tobacco/nicotine status: unknown if used tobacco/nicotine Vitals/I&O/Wt Weight last 48 hrs Weight 210 lb Physical Exam Narrative: The patient is alert and oriented x 3. Speech fluent. Head revealed scar on the nasal ridge. Neck supple. Cranial nerves II through XII intact. Pupils 3 mm round reactive to light and accommodation. Extraocular movements intact. Motor testing 5/5 bilaterally. Gait: Patient was able to ambulate without assistance but. Somewhat unsteady and she complained of hip pain during ambulation as well as feet pain. Therefore, tandem walking, heel and toe walking were not assessed. Deep tendon reflexes 1-2+ bilaterally except for areflexia at the Achilles bilaterally. Plantar responses flexor bilaterally. There was no clonus. Sensory examination was intact to touch. Throat clear. Lungs clear. Heart heart regular rhythm and rate. Extremities were negative for cyanosis or edema. Data 03/06/25 12:34 A&P Assessment and plan (1) Anxiety: Impression: 1. Paroxysmal episodes described as left arm drawing and feeling with dry mouth while she was having her nails done on 03/06/2025. Neurological examination unrevealing with NIH score =[address] was negative for acute findings on 03/06/2025, possible anxiety reaction 1a. History of postconcussive syndrome related to a fall when the patient tripped on the curve and landed on her face with fracture of her nose with subcutaneous hematoma in the forehead region September 29, 2023 2. Posttraumatic headaches September 29, 2023 3. Episodic confusion and visual hallucinations following closed head trauma 4. B12 deficiency, patient no longer on B12 replacement 5. Vitamin D deficiency 6. Porcine valve aortic valve replacement 7. Hypothyroidism 8. Report of black tarry stools, currently stable addressed by GI physician 9. Mild elevated creatinine 10. History of recurrent urinary tract infections associated with hallucination 11. History of lumbar disc disease with darlene placement and screws 12. Right ear pain with decreased hearing with blood in the ear canal since the closed head trauma September 29, 2023 13. Episodic floaters in her vision and right eye pain since the closed head trauma that occurred September 29, 2023 14. Paroxysmal episodes of upper extremity contractures and drawing of her hands and feet without alteration in consciousness since the closed head trauma associated with fracture of her nose September 29, 2023, currently stable without recurrence Plan: 1. Agree with workup for anxiety 2. Schedule patient for follow-up in [facility] neurology clinic 3. Will consider repeating surface EEG recording on outpatient basis PDMP PDMP Reviewed: Not Reviewed Consult Attestations Medical Necessity Statement: The patient was evaluated by neurology for stroke alert Coding Level of Care Code 69502 Diagnoses Anxiety F41.9
[2025-03-06 14:00] LABS: Alanine Aminotransferase 18 U/L (0-33); Albumin Level 4.2 g/dL (3.5-5.2); Alkaline Phosphatase 79 U/L (35-105); Anion Gap 19.3 (5-19); Aspartate Amino Transferase 18 U/L (0-32); Blood Urea Nitrogen 16 mg/dL (8-23); C Reactive Protein 5.6 mg/L (0.0-4.9); Calcium 9.3 mg/dL (8.5-10.5); Carbon Dioxide 23 mmol/L (22-29); Chloride 98 mmol/L (98-107); Creatinine Clr Calc Pharmacy 58.1861; Glucose 97 mg/dL (65-115); Osmolality Calculated 283 mOsm/kg (285-295); Potassium 4.3 mmol/L (3.5-5.1); Sodium 136 mmol/L (136-145); Total Bilirubin 0.2 mg/dL (0.15-1.2); Total Protein 7.2 g/dL (6.6-8.7)
[2025-03-06 14:02] LABS: Bilirubin Urine Negative (Negative); Blood Urine Negative (Negative); Glucose Urine UA Negative (Normal); Ketones Urine Negative (Negative); Leukocyte Esterase Urine Negative (Negative); Nitrate Urine Negative (Negative); Protein Urine Negative (Negative); Specific Gravity, Urine 1.007 (1.005-1.030); Urine Appearance Clear (CLEAR); Urine Color Yellow (Yellow); Urobilinogen Urine 0.2 mg/dL (Negative); pH Urine 6.5 (5-7)
[2025-03-06 14:05] LABS: Add Urine Microscopic? YES; Bacteria Urine None Seen /hpf; RBC Urine 0-2 /hpf (0-2); Squamous Epithelial Cell Urine 0-5 /hpf (0-5); WBC Urine 0-5 /hpf (0-5)
[2025-03-06 14:08] LABS: Add Urine Culture? No
[2025-03-06 14:11] LABS: Amphetamines Screen Urine Negative (Negative); Barbiturates Screen Urine Negative (Negative); Benzodiazepines Screen Urine Positive (Negative); Cocaine Screen Urine Negative (Negative); Opiate Screen Urine Negative (Negative); PCP Screen Urine Negative (Negative); THC Screen Urine Negative (Negative)
[2025-03-06] MEDS: LORazepam 1 MG/0.5 ML injection 0.5 MG IVP (14:50)
[2025-03-06 15:30] VITALS: BP 195/94; PULSE 93; O2SAT 94
== END 2025-03-06 15:31 | disposition home or self-care (01) ==
PROVIDERS: Emergency Provider Emergency Medicine; PCP Family Medicine
DX: F41.0 Panic disorder [episodic paroxysmal anxiety] (principal); F43.20 Adjustment disorder, unspecified; I10 Essential (primary) hypertension; Z79.82 Long term (current) use of aspirin
CPT/HCPCS: 36416; 70450; 80051; 80053; 80306; 81001; 82330; 82805; 82962; 85025; 85610; 85730; 86140; 93005; 96374; 99285; J2060

== ENCOUNTER 2025-03-07 19:55 | Emergency (ER) | payer MEDICARE, SELFPAY ==
[2025-03-07 19:58] VITALS: BP 187/84; PULSE 81; RESP 16; TEMP 36.3; O2SAT 96; BMI 31.0
--- NOTE | 2025-03-07 20:18 | XRR_ITS ---
PROCEDURE INFORMATION: Exam: XR Chest Exam date and time: 03/07/2025 8:46 PM Age: 85 years old Clinical indication: Pain; Chest pressure; Prior surgery; Surgery date: 6+ months; Surgery type: Open heart; Additional info: Chest pain TECHNIQUE: Imaging protocol: Radiologic exam of the chest. Views: 1 view. COMPARISON: CR (CHEST, ) 02/09/2025 11:17 AM FINDINGS: Lungs: Clear, symmetrically inflated lungs. Pleural spaces: No pleural effusion. No pneumothorax. Heart/Mediastinum: Cardiac silhouette is normal in size for technique. Vasculature: Mediastinal surgical clips and vascular markers suggest prior myocardial revascularization. 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 Bones/joints: Age appropriate. XR/XR chest 1V portable [id number] IMPRESSION: No acute cardiopulmonary abnormality.
--- NOTE | 2025-03-07 20:57 | ECG_ITS ---
[facility] Pat Name: Sarah Victoria Department: Room: Gender: Female Demo Specialist: : [id number] Requested By: Sascha Edwards Order Number: [id number] Reading MD: NIECY EVANS Measurements Intervals Otho Rate: 80 P: 47 MT: 170 QRS: -8 QRSD: 94 T: 93 QT: 348 QTc: 403 Interpretive Statements SINUS RHYTHM POSSIBLE ANTERIOR MYOCARDIAL INFARCTION , OF INDETERMINATE AGE [30 ms Q WAVE IN V3/V4, OR R < 0.2 mV IN V4] INFERIOR MYOCARDIAL INFARCTION , OF INDETERMINATE AGE [40+ ms Q WAVE AND/OR ST/T ABNORMALITY IN II/aVF] Compared to ECG 03/06/2025 12:32:48 Ventricular premature complex(es) no longer present Myocardial infarct finding still present Electronically Signed On 03-09-2025 23:47:48 CDT by NIECY EVANS [email or web address]
[2025-03-07 21:04] LABS: Basophils % 0.3 %; Eosinophils % 0.3 %; Hematocrit 33.5 % (36-47); Lymphocytes # 1.8 10^3/uL (0.8-4.8); Mean Corpuscular HGB Conc 35.2 g/dL (30-55); Mean Corpuscular Hemoglobin 32.5 pg (27-33); Mean Corpuscular Volume 92.3 fl (85-98); Mean Platelet Volume 9.5 fL (7.4-10.4); Monocytes # 0.4 10^3/uL (0.2-0.9); Monocytes % 5.5 %; Neutrophils # 4.25 10^3/uL (1.8-7.7); Neutrophils % 64.7 %; Nucleated Red Blood Cells % 0 %; Platelet Count 240 10^3/cmm (157-399); Red Blood Count 3.63 10^6/uL (3.85-5.65); Red Cell Distribution Width 14.5 % (12.1-15.1); White Blood Count 6.57 10^3/uL (3.29-11.43)
[2025-03-07] MEDS: LORazepam 1 MG/0.5 ML injection 0.5 MG IV (21:10)
[2025-03-07] MEDS: ondansetron 2 mg/ML SDV 2 mL 4 MG IVP (21:10)
[2025-03-07 21:36] VITALS: BP 163/88; PULSE 82; RESP 18; O2SAT 95
[2025-03-07 21:37] LABS: Troponin(5th) Baseline 20 ng/L (0-10)
[2025-03-07 21:46] LABS: Alanine Aminotransferase 18 U/L (0-33); Albumin Level 4.7 g/dL (3.5-5.2); Alkaline Phosphatase 75 U/L (35-105); Anion Gap 21.8 (5-19); Aspartate Amino Transferase 21 U/L (0-32); Blood Urea Nitrogen 14 mg/dL (8-23); Calcium 9.7 mg/dL (8.5-10.5); Carbon Dioxide 20 mmol/L (22-29); Chloride 92 mmol/L (98-107); Creatinine Clr Calc Pharmacy 65.4593; Globulin 2.6 g/dL (1.3-4.6); Glucose 142 mg/dL (65-115); Lipase 22 U/L (13-60); NT Pro B Type Natriuretic Pept 535 pg/mL (0-450); Osmolality Calculated 273 mOsm/kg (285-295); Potassium 3.8 mmol/L (3.5-5.1); Sodium 130 mmol/L (136-145); Total Bilirubin 0.5 mg/dL (0.15-1.2); Total Protein 7.3 g/dL (6.6-8.7)
--- NOTE | 2025-03-07 21:50 | W.ED.CHESTPA ---
Documented by User: Sascha Edwards MD 03/07/25 22:03 HPI - Chest Pain General: Chief Complaint: Chest Pain Stated Complaint: CP nausea Time Seen by Provider: 03/07/25 20:08 History of Present Illness: This patient is an 85-year-old white female who presents to the emergency department with nausea and vomiting over the past hour. She also has some dizziness. No diarrhea. Patient is also complained of some chest discomfort. She states she does have a hiatal hernia and acid reflux. Associated symptoms: Reports nausea and vomiting Related Data Home Medications ?Medication ?Instructions ?Recorded ?Confirmed furosemide 40 mg tablet 40 mg PO BID 06/01/22 03/06/25 Silver Biotics 5 ml PO DAILY 04/02/23 03/06/25 aspirin 81 mg tablet,delayed 81 mg PO DAILY 04/02/23 03/06/25 release cyanocobalamin (vitamin B-12) 2,000 mcg PO DAILY 02/09/25 03/06/25 2,000 mcg tablet,extended release (Vitamin B-12 ER) estradiol 0.01% (0.1 mg/gram) See Rx Instructions .Route .COMPLEX 02/09/25 03/06/25 vaginal cream levothyroxine 100 mcg tablet 100 mcg PO DAILY 02/09/25 03/06/25 losartan 50 mg tablet 50 mg PO DAILY 02/09/25 03/06/25 pantoprazole 40 mg tablet,delayed 40 mg PO BID 02/09/25 03/06/25 release Previous Rx's ?Medication ?Instructions ?Recorded Rollator walker with seat #1 ea 01/26/24 acetaminophen 500 mg tablet 500 - 1,000 mg (1 - 2 x 500 mg) PO 03/02/24 (Tylenol Extra Strength) BID pain #100 tabs allopurinol 100 mg tablet 100 mg PO BID #60 tabs 08/17/24 metoprolol succinate 25 mg 25 mg PO DAILY #90 tabs 08/23/24 tablet,extended release 24 hr potassium chloride 20 mEq 20 meq PO DAILY #30 tabs 10/02/24 tablet,extended release(part/cryst) (Klor-Con M) clotrimazole 10 mg debra See Rx Instructions .Route 10/22/24 .COMPLEX #90 ea amlodipine 5 mg tablet 5 mg PO DAILY #90 tabs 01/04/25 duloxetine 20 mg capsule,delayed 20 mg PO QDAY #30 caps 02/07/25 release lamotrigine 25 mg tablet (Lamictal) 25 mg PO BID 30 days #60 tabs 02/27/25 olanzapine 5 mg tablet 5 mg PO BID #60 tabs 02/28/25 quetiapine 25 mg tablet (Seroquel) 25 mg PO BID #60 tabs 03/04/25 methenamine hippurate 1 gram tablet 1 g PO BID #180 tabs 03/05/25 alprazolam 1 mg tablet 1 mg PO TID #90 tabs 03/07/25 lorazepam 0.5 mg tablet (Ativan) 0.5 mg PO DAILY PRN anxiety #14 03/07/25 tabs Allergies Allergy/AdvReac Type Severity Reaction Status Date / Time levofloxacin (From Levaquin) Allergy Severe NA Verified 01/29/25 10:44 codeine Allergy Intermediate headache/ Verified 01/29/25 10:44 lips numb hydrocodone Allergy Intermediate itching Verified 01/29/25 10:44 Penicillins Allergy Intermediate NA Verified 01/29/25 10:44 solifenacin (From Vesicare) Allergy Intermediate hallucinati Verified 01/29/25 10:44 ons nitrofurantoin (From Allergy NA Verified 01/29/25 10:44 Macrobid) phenazopyridine (From Allergy NA Verified 01/29/25 10:44 Pyridium) streptomycin Allergy NA Verified 01/29/25 10:44 Sulfa (Sulfonamide Allergy NA Verified 01/29/25 10:44 Antibiotics) tramadol (From Ultracet) Allergy NA Verified 01/29/25 10:44 bupropion (From Wellbutrin) AdvReac Severe Unknown Verified 01/29/25 10:44 baclofen AdvReac Intermediate hallucinati Verified 01/29/25 10:44 ons duloxetine (From Cymbalta) AdvReac Intermediate stomach Verified 01/29/25 10:44 pain fluoxetine AdvReac Intermediate hallucinati Verified 01/29/25 10:44 ons sertraline (From Zoloft) AdvReac Intermediate diarrhea/ Verified 01/29/25 10:44 hyponatremia atorvastatin (From Lipitor) AdvReac Mild nausea Verified 01/29/25 10:44 Review of Systems General: Reports: 10 or more systems reviewed and unremarkable except in HPI and below GI: Reports: nausea and vomiting PFSH ED PFSH: Medical History Greater trochanteric bursitis of both hips Macrocytic anemia Severe sleep apnea Irritable bowel syndrome Fibromyalgia Depression Somatization disorder Anxiety disorder Urethral syndrome Chronic interstitial cystitis Surgical History S/P thyroidectomy H/O: hysterectomy S/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 H/O hand surgery H/O carpal tunnel repair S/P cholecystectomy Family History Father , cva Stroke Mother , 96 Dementia Social History Smoking and tobacco/nicotine status: unknown if used tobacco/nicotine Physical Exam Const: COMMON NORMALS: patient oriented x3 and no limitations GENERAL APPEARANCE: cooperative and comfortable OTHER: Patient anxious. HENMT: COMMON NORMALS: normocephalic, atraumatic, Normal nasal mucous membranes and turbinates present, moist oral mucous membranes and oropharynx normal HEAD & SCALP: normal to inspection, normocephalic and atraumatic FACE & SINUS: normal facial exam NOSE: Normal nasal mucous membranes and turbinates present Eye: COMMON NORMALS: Equal, round and reactive pupils present, EOMs intact bilaterally and conjunctivae normal GENERAL EYE: appearance normal, both eyes and all related structures CONJUNCTIVA: Yes conjunctivae normal PUPIL: Yes Equal, round and reactive pupils present Neck/C-Spine: COMMON NORMALS: supple and no JVD Chest: COMMONS NORMALS: normal inspection of the chest Resp: COMMON NORMALS: normal respiratory effort and clear to auscultation bilaterally AUSCULTATION: clear to auscultation bilaterally Cardio: COMMON NORMALS: no JVD, regular rate, regular rhythm, No gallops present (Cardio), No murmurs present (Cardio) and No rub (Cardio) RATE: regular rate RHYTHM: regular rhythm GI: COMMON NORMALS: Normal to inspection, nondistended, normoactive bowel sounds present, Soft to palpation and non-tender AUSCULTATION: Yes normoactive bowel sounds PALPATION: Yes Soft to palpation : COMMON NORMALS: Yes no CVA tenderness BLADDER/KIDNEY EXAM: Yes no CVA tenderness Back/Pelvis: COMMON NORMALS: no CVA tenderness and thoracic and lumbar spine normal to inspection Extremity: COMMON NORMALS: normal to inspection Neuro: COMMON NORMALS: patient oriented x3 and CN's II-XII intact bilaterally Psych: COMMON NORMALS: mental status grossly normal, Normal thought process present and cooperative THOUGHT PROCESS: Normal thought process present Skin: COMMON NORMALS: no rashes or lesions noted, turgor normal and no jaundice GENERAL SKIN EXAM: no rashes or lesions noted and turgor normal Course Vital Signs: Vital signs: Vital Signs Temperature 97.4 F L 03/07/25 19:58 Pulse Rate 89 03/07/25 23:00 Respiratory Rate 21 H 03/07/25 23:00 Blood Pressure 195/83 03/07/25 23:00 Pulse Oximetry 95 03/07/25 23:00 Oxygen Delivery Me thod Room Air 03/07/25 23:00 MDM - Chest Pain Medical Decision Making CBC CMP and lipase normal. Troponin 20. BNP 535. EKG without acute ST segment abnormalities. Chest x-ray was normal. Patient was initially given 4 mg of Zofran IV and 0.5 mg of Ativan IV. She is feeling significantly better but still has some chest discomfort. We then administered a GI cocktail. A 2-hour troponin is pending. Patient care will be transferred to Dr. Sandy. Patient is stable. Lab Data 03/07/25 20:40 03/07/25 20:40 Radiology Impressions Chest X-Ray 03/07/25 20:18 IMPRESSION: No acute cardiopulmonary abnormality. Laboratory Results WBC 6.57 10^3/uL (3.29-11.43) 03/07/25 20:40 RBC 3.63 10^6/uL (3.85-5.65) L 03/07/25 20:40 Hgb 11.80 g/dL (11.27-16.99) 03/07/25 20:40 Hct 33.5 % (36-47) L 03/07/25 20:40 MCV 92.3 fl (85-98) 03/07/25 20:40 MCH 32.5 pg (27-33) 03/07/25 20:40 MCHC 35.2 g/dL (30-55) 03/07/25 20:40 RDW 14.5 % (12.1-15.1) 03/07/25 20:40 Plt Count 240 10^3/cmm (157-399) 03/07/25 20:40 MPV 9.5 fL (7.4-10.4) 03/07/25 20:40 Neut % (Auto) 64.7 % 03/07/25 20:40 Lymph % (Auto) 28.0 % 03/07/25 20:40 [place] % (Auto) 5.5 % 03/07/25 20:40 Eos % (Auto) 0.3 % 03/07/25 20:40 Baso % (Auto) 0.3 % 03/07/25 20:40 Neut # (Auto) 4.25 10^3/uL (1.8-7.7) 03/07/25 20:40 Lymph # (Auto) 1.8 10^3/uL (0.8-4.8) 03/07/25 20:40 [place] # (Auto) 0.4 10^3/uL (0.2-0.9) 03/07/25 20:40 Eos # (Auto) 0.0 10^3/uL (0.0-0.8) 03/07/25 20:40 Baso # (Auto) 0.0 10^3/uL (0.0-0.1) 03/07/25 20:40 Nucleated RBC % (auto) 0 % 03/07/25 20:40 Nucleated RBCs # 0.0 /100WBC 03/07/25 20:40 Sodium 130 mmol/L (136-145) L 03/07/25 20:40 Potassium 3.8 mmol/L (3.5-5.1) 03/07/25 20:40 Chloride 92 mmol/L (98-107) L 03/07/25 20:40 Carbon Dioxide 20 mmol/L (22-29) L 03/07/25 20:40 Anion Gap 21.8 (5-19) H 03/07/25 20:40 BUN 14 mg/dL (8-23) 03/07/25 20:40 Creatinine 0.8 mg/dL (0.5-0.9) 03/07/25 20:40 GFR Calculation Not Reportable 03/07/25 20:40 Glucose 142 mg/dL (65-115) H 03/07/25 20:40 Calculated Osmolality 273 mOsm/kg (285-295) L 03/07/25 20:40 Calcium 9.7 mg/dL (8.5-10.5) 03/07/25 20:40 Total Bilirubin 0.5 mg/dL (0.15-1.2) 03/07/25 20:40 AST 21 U/L (0-32) 03/07/25 20:40 ALT 18 U/L (0-33) 03/07/25 20:40 Alkaline Phosphatase 75 U/L (35-105) 03/07/25 20:40 Troponin T Baseline 20 ng/L (0-10) H 03/07/25 20:40 Troponin T 120 Minute 16.99 ng/L (0-10) H 03/07/25 22:37 Delta Troponin T -3.01 ABS# (0-10) L 03/07/25 22:37 NT-Pro-B Natriuret Pep 535 pg/mL (0-450) H 03/07/25 20:40 Total Protein 7.3 g/dL (6.6-8.7) 03/07/25 20:40 Albumin 4.7 g/dL (3.5-5.2) 03/07/25 20:40 Globulin 2.6 g/dL (1.3-4.6) 03/07/25 20:40 Lipase 22 U/L (13-60) 03/07/25 20:40 All radiology interpretation(s) finalized by discharge Discharge Plan Discharge Patient Disposition: Home Clinical Impression: Non-cardiac chest pain, Anxiety, Grief Condition: Stable Prescriptions: New lorazepam [Ativan] 0.5 mg tablet 0.5 mg PO DAILY PRN (Reason: anxiety) Qty: 14 0RF No Action furosemide 40 mg tablet 40 mg PO BID (DME) Rollator walker with seat See Rx Instructions .Route .MEDSUPPLY Qty: 1 0RF Rx Instructions: As directed allopurinol 100 mg tablet 100 mg PO BID Qty: 60 11RF duloxetine 20 mg capsule,delayed release(DR/EC) 20 mg PO QDAY Qty: 30 11RF olanzapine 5 mg tablet 5 mg PO BID Qty: 60 2RF acetaminophen [Tylenol Extra Strength] 500 mg tablet 500 - 1,000 mg PO BID Qty: 100 0RF metoprolol succinate 25 mg tablet extended release 24 hr 25 mg PO DAILY Qty: 90 3RF quetiapine [Seroquel] 25 mg tablet 25 mg PO BID Qty: 60 11RF Klor-Con M20 20 mEq tablet,ER particles/crystals 20 meq PO DAILY Qty: 30 11RF clotrimazole 10 mg debra See Rx Instructions .ROUTE .COMPLEX Qty: 90 3RF Dose Instruction: DISSOLVE 1 TABLET BY MOUTH THREE TIMES DAILY NEEDED Rx Instructions: DISSOLVE 1 TABLET BY MOUTH THREE TIMES DAILY NEEDED. amlodipine 5 mg tablet 5 mg PO DAILY Qty: 90 11RF lamotrigine [Lamictal] 25 mg tablet 25 mg PO BID 30 Days Qty: 60 3RF methenamine hippurate 1 gram tablet 1 g PO BID Qty: 180 11RF alprazolam 1 mg tablet 1 mg PO TID Qty: 90 5RF aspirin [Aspir-81] 81 mg Tablet,Delayed Release (Dr/Ec) 81 mg PO DAILY Silver Biotics 5 ml PO DAILY cyanocobalamin (vitamin B-12) [Vitamin B-12] 2,000 mcg Tablet Extended Release 2,000 mcg PO DAILY estradiol 0.01 % (0.1 mg/gram) cream See Rx Instructions .ROUTE .COMPLEX Rx Instructions: INSERT ONE GRAM VAGINALLY DAILY AT BEDTIME FOR 2 WEEKS, AND THEN DECREASE TO 2 TIMES WEEKLY (SUCH TUESDAY/TUESDAY) losartan 50 mg tablet 50 mg PO DAILY levothyroxine 100 mcg tablet 100 mcg PO DAILY pantoprazole 40 mg tablet,delayed release (DR/EC) 40 mg PO BID Discharge Orders: Discharge ED (Routine); Ordered 03/07/25 Ordered By: Maggie Sandy Referrals: Juwan Hernández MD [Primary Care Provider, Family Practice] Discharge Diet: Usual diet Discharge Activity: Increase activity as tolerated Patient Instructions: Noncardiac Chest Pain (ED), Opioid Safety, Pain Management Activity Restrictions/Additional Instructions: Thank you for choosing [facility] for your healthcare needs today. You have been screened and evaluated and felt safe for discharge. Health conditions do change or evolve sometimes and as such it is important that you follow up with your Primary Doctor to be re checked, 3-5 days is a general good time frame for follow up. You are always welcome to return to the ED for re assessment if your symptoms are worsening or you have new concerns Print Language: Lithuanian Coding Level of Care Code ED Resolution Analyst for Chg Fwd Documented by User: Maggie Sandy MD 03/07/25 23:35 HPI - Chest Pain General: Chief Complaint: Chest Pain Stated Complaint: CP nausea Time Seen by Provider: 03/07/25 20:08 Related Data Home Medications ?Medication ?Instructions ?Recorded ?Confirmed furosemide 40 mg tablet 40 mg PO BID 06/01/22 03/06/25 Silver Biotics 5 ml PO DAILY 04/02/23 03/06/25 aspirin 81 mg tablet,delayed 81 mg PO DAILY 04/02/23 03/06/25 release cyanocobalamin (vitamin B-12) 2,000 mcg PO DAILY 02/09/25 03/06/25 2,000 mcg tablet,extended release (Vitamin B-12 ER) estradiol 0.01% (0.1 mg/gram) See Rx Instructions .Route .COMPLEX 02/09/25 03/06/25 vaginal cream levothyroxine 100 mcg tablet 100 mcg PO DAILY 02/09/25 03/06/25 losartan 50 mg tablet 50 mg PO DAILY 02/09/25 03/06/25 pantoprazole 40 mg tablet,delayed 40 mg PO BID 02/09/25 03/06/25 release Previous Rx's ?Medication ?Instructions ?Recorded Rollator walker with seat #1 ea 01/26/24 acetaminophen 500 mg tablet 500 - 1,000 mg (1 - 2 x 500 mg) PO 03/02/24 (Tylenol Extra Strength) BID pain #100 tabs allopurinol 100 mg tablet 100 mg PO BID #60 tabs 08/17/24 metoprolol succinate 25 mg 25 mg PO DAILY #90 tabs 08/23/24 tablet,extended release 24 hr potassium chloride 20 mEq 20 meq PO DAILY #30 tabs 10/02/24 tablet,extended release(part/cryst) (Klor-Con M) clotrimazole 10 mg debra See Rx Instructions .Route 10/22/24 .COMPLEX #90 ea amlodipine 5 mg tablet 5 mg PO DAILY #90 tabs 01/04/25 duloxetine 20 mg capsule,delayed 20 mg PO QDAY #30 caps 02/07/25 release lamotrigine 25 mg tablet (Lamictal) 25 mg PO BID 30 days #60 tabs 02/27/25 olanzapine 5 mg tablet 5 mg PO BID #60 tabs 02/28/25 quetiapine 25 mg tablet (Seroquel) 25 mg PO BID #60 tabs 03/04/25 methenamine hippurate 1 gram tablet 1 g PO BID #180 tabs 03/05/25 alprazolam 1 mg tablet 1 mg PO TID #90 tabs 03/07/25 lorazepam 0.5 mg tablet (Ativan) 0.5 mg PO DAILY PRN anxiety #14 03/07/25 tabs Allergies Allergy/AdvReac Type Severity Reaction Status Date / Time levofloxacin (From Levaquin) Allergy Severe NA Verified 01/29/25 10:44 codeine Allergy Intermediate headache/ Verified 01/29/25 10:44 lips numb hydrocodone Allergy Intermediate itching Verified 01/29/25 10:44 Penicillins Allergy Intermediate NA Verified 01/29/25 10:44 solifenacin (From Vesicare) Allergy Intermediate hallucinati Verified 01/29/25 10:44 ons nitrofurantoin (From Allergy NA Verified 01/29/25 10:44 Macrobid) phenazopyridine (From Allergy NA Verified 01/29/25 10:44 Pyridium) streptomycin Allergy NA Verified 01/29/25 10:44 Sulfa (Sulfonamide Allergy NA Verified 01/29/25 10:44 Antibiotics) tramadol (From Ultracet) Allergy NA Verified 01/29/25 10:44 bupropion (From Wellbutrin) AdvReac Severe Unknown Verified 01/29/25 10:44 baclofen AdvReac Intermediate hallucinati Verified 01/29/25 10:44 ons duloxetine (From Cymbalta) AdvReac Intermediate stomach Verified 01/29/25 10:44 pain fluoxetine AdvReac Intermediate hallucinati Verified 01/29/25 10:44 ons sertraline (From Zoloft) AdvReac Intermediate diarrhea/ Verified 01/29/25 10:44 hyponatremia atorvastatin (From Lipitor) AdvReac Mild nausea Verified 01/29/25 10:44 PFS ED PFSH: Medical History Greater trochanteric bursitis of both hips Macrocytic anemia Severe sleep apnea Irritable bowel syndrome Fibromyalgia Depression Somatization disorder Anxiety disorder Urethral syndrome Chronic interstitial cystitis Surgical History S/P thyroidectomy H/O: hysterectomy S/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 H/O hand surgery H/O carpal tunnel repair S/P cholecystectomy Family History Father , cva Stroke Mother , 96 Dementia Social History Smoking and tobacco/nicotine status: unknown if used tobacco/nicotine Course Vital Signs: Vital signs: Vital Signs Temperature 97.4 F L 03/07/25 19:58 Pulse Rate 89 03/07/25 23:00 Respiratory Rate 21 H 03/07/25 23:00 Blood Pressure 195/83 03/07/25 23:00 Pulse Oximetry 95 03/07/25 23:00 Oxygen Delivery Me thod Room Air 03/07/25 23:00 MDM - Chest Pain Medical Decision Making CBC CMP and lipase normal. Troponin 20. BNP 535. EKG without acute ST segment abnormalities. Chest x-ray was normal. Patient was initially given 4 mg of Zofran IV and 0.5 mg of Ativan IV. She is feeling significantly better but still has some chest discomfort. We then administered a GI cocktail. A 2-hour troponin is pending. Patient care will be transferred to Dr. Sandy. Patient is stable. Patient care transitioned me at shift change. Cardiac markers are 20 and 17 with no significant delta. I spoke with the patient. She does believe this is anxiety I am going to give her a brief course of Ativan. Discussed the dangers of taking this too frequently. Lab Data 03/07/25 20:40 03/07/25 20:40 Radiology Impressions Chest X-Ray 03/07/25 20:18 IMPRESSION: No acute cardiopulmonary abnormality. Laboratory Results WBC 6.57 10^3/uL (3.29-11.43) 03/07/25 20:40 RBC 3.63 10^6/uL (3.85-5.65) L 03/07/25 20:40 Hgb 11.80 g/dL (11.27-16.99) 03/07/25 20:40 Hct 33.5 % (36-47) L 03/07/25 20:40 MCV 92.3 fl (85-98) 03/07/25 20:40 MCH 32.5 pg (27-33) 03/07/25 20: MCHC 35.2 g/dL (30-55) 03/07/25 20:40 RDW 14.5 % (12.1-15.1) 03/07/25 20:40 Plt Count 240 10^3/cmm (157-399) 03/07/25: MPV 9.5 fL (7.4-10.4) 03/07/25 20:40 Neut % (Auto) 64.7 % 03/07/25 20:40 Lymph % (Auto) 28.0 % 03/07/25 20:40 [place] % (Auto) 5.5 % 03/07/25 20:40 Eos % (Auto) 0.3 % 03/07/25 20:40 Baso % (Auto) 0.3 % 03/07/25 20:40 Neut # (Auto) 4.25 10^3/uL (1.8-7.7) 03/07/25 20:40 Lymph # (Auto) 1.8 10^3/uL (0.8-4.8) 03/07/25 20:40 [place] # (Auto) 0.4 10^3/uL (0.2-0.9) 03/07/25 20:40 Eos # (Auto) 0.0 10^3/uL (0.0-0.8) 03/07/25 20:40 Baso # (Auto) 0.0 10^3/uL (0.0-0.1) 03/07/25 20:40 Nucleated RBC % (auto) 0 % 03/07/25 20:40 Nucleated RBCs # 0.0 /100WBC 03/07/25 20:40 Sodium 130 mmol/L (136-145) L 03/07/25 20:40 Potassium 3.8 mmol/L (3.5-5.1) 03/07/25 20:40 Chloride 92 mmol/L (98-107) L 03/07/25 20:40 Carbon Dioxide 20 mmol/L (22-29) L 03/07/25 20:40 Anion Gap 21.8 (5-19) H 03/07/25 20:40 BUN 14 mg/dL (8-23) 03/07/25 20:40 Creatinine 0.8 mg/dL (0.5-0.9) 03/07/25 20:40 GFR Calculation Not Reportable 03/07/25 20:40 Glucose 142 mg/dL (65-115) H 03/07/25 20:40 Calculated Osmolality 273 mOsm/kg (285-295) L 03/07/25 20:40 Calcium 9.7 mg/dL (8.5-10.5) 03/07/25 20:40 Total Bilirubin 0.5 mg/dL (0.15-1.2) 03/07/25 20:40 AST 21 U/L (0-32) 03/07/25 20:40 ALT 18 U/L (0-33) 03/07/25 20:40 Alkaline Phosphatase 75 U/L (35-105) 03/07/25 20:40 Troponin T Baseline 20 ng/L (0-10) H 03/07/25 20:40 Troponin T 120 Minute 16.99 ng/L (0-10) H 03/07/25 22:37 Delta Troponin T -3.01 ABS# (0-10) L 03/07/25 22:37 NT-Pro-B Natriuret Pep 535 pg/mL (0-450) H 03/07/25 20:40 Total Protein 7.3 g/dL (6.6-8.7) 03/07/25 20:40 Albumin 4.7 g/dL (3.5-5.2) 03/07/25 20:40 Globulin 2.6 g/dL (1.3-4.6) 03/07/25 20:40 Lipase 22 U/L (13-60) 03/07/25 20:40 Discharge Plan Discharge Patient Disposition: Home Clinical Impression: Non-cardiac chest pain, Anxiety, Grief Condition: Stable Prescriptions: New lorazepam [Ativan] 0.5 mg tablet 0.5 mg PO DAILY PRN (Reason: anxiety) Qty: 14 0RF No Action furosemide 40 mg tablet 40 mg PO BID (DME) Rollator walker with seat See Rx Instructions .Route .MEDSUPPLY Qty: 1 0RF Rx Instructions: As directed allopurinol 100 mg tablet 100 mg PO BID Qty: 60 11RF duloxetine 20 mg capsule,delayed release(DR/EC) 20 mg PO QDAY Qty: 30 11RF olanzapine 5 mg tablet 5 mg PO BID Qty: 60 2RF acetaminophen [Tylenol Extra Strength] 500 mg tablet 500 - 1,000 mg PO BID Qty: 100 0RF metoprolol succinate 25 mg tablet extended release 24 hr 25 mg PO DAILY Qty: 90 3RF quetiapine [Seroquel] 25 mg tablet 25 mg PO BID Qty: 60 11RF Klor-Con M20 20 mEq tablet,ER particles/crystals 20 meq PO DAILY Qty: 30 11RF clotrimazole 10 mg debra See Rx Instructions .ROUTE .COMPLEX Qty: 90 3RF Dose Instruction: DISSOLVE 1 TABLET BY MOUTH THREE TIMES DAILY NEEDED Rx Instructions: DISSOLVE 1 TABLET BY MOUTH THREE TIMES DAILY NEEDED. amlodipine 5 mg tablet 5 mg PO DAILY Qty: 90 11RF lamotrigine [Lamictal] 25 mg tablet 25 mg PO BID 30 Days Qty: 60 3RF methenamine hippurate 1 gram tablet 1 g PO BID Qty: 180 11RF alprazolam 1 mg tablet 1 mg PO TID Qty: 90 5RF aspirin [Aspir-81] 81 mg Tablet,Delayed Release (Dr/Ec) 81 mg PO DAILY Silver Biotics 5 ml PO DAILY cyanocobalamin (vitamin B-12) [Vitamin B-12] 2,000 mcg Tablet Extended Release 2,000 mcg PO DAILY estradiol 0.01 % (0.1 mg/gram) cream See Rx Instructions .ROUTE .COMPLEX Rx Instructions: INSERT ONE GRAM VAGINALLY DAILY AT BEDTIME FOR 2 WEEKS, AND THEN DECREASE TO 2 TIMES WEEKLY (SUCH TUESDAY/TUESDAY) losartan 50 mg tablet 50 mg PO DAILY levothyroxine 100 mcg tablet 100 mcg PO DAILY pantoprazole 40 mg tablet,delayed release (DR/EC) 40 mg PO BID Discharge Orders: Discharge ED (Routine); Ordered 03/07/25 Ordered By: Maggie Sandy Referrals: Juwan Hernández MD [Primary Care Provider, Family Practice] Discharge Diet: Usual diet Discharge Activity: Increase activity as tolerated Patient Instructions: Noncardiac Chest Pain (ED), Opioid Safety, Pain Management Activity Restrictions/Additional Instructions: Thank you for choosing [facility] for your healthcare needs today. You have been screened and evaluated and felt safe for discharge. Health conditions do change or evolve sometimes and as such it is important that you follow up with your Primary Doctor to be re checked, 3-5 days is a general good time frame for follow up. You are always welcome to return to the ED for re assessment if your symptoms are worsening or you have new concerns Print Language: Lithuanian Coding Level of Care Code ED Resolution Analyst for Marisol Reese
[2025-03-07 22:06] VITALS: BP 154/92; PULSE 82; RESP 15; O2SAT 94
[2025-03-07] MEDS: lidocaine 2% viscous 15 ML, aluminum-mag hydrox-simethicon 30 ML, sucralfate oral liq 1 GM PO (22:10)
--- NOTE | 2025-03-07 22:19 | ECG_ITS ---
[facility]25[facility]07 Pat Name: Sarah Victoria Department: Room: Gender: Female Utility Locator: : 1940 Requested By: Sascha Edwards Order Number: [id number] Reading MD: NIECY EVANS Measurements Intervals [place] Rate: 81 P: 71 WV: 153 QRS: -6 QRSD: 98 T: 66 QT: 372 QTc: 433 Interpretive Statements SINUS RHYTHM LOW QRS VOLTAGE IN PRECORDIAL LEADS [QRS DEFLECTION < 1.0 mV IN CHEST LEADS] POSSIBLE ANTERIOR MYOCARDIAL INFARCTION , OF INDETERMINATE AGE [30 ms Q WAVE IN V3/V4, OR R < 0.2 mV IN V4] POSSIBLE INFERIOR MYOCARDIAL INFARCTION , PROBABLY OLD [30 ms Q WAVE IN II/aVF] Compared to ECG 03/06/2025 12:32:48 Ventricular premature complex(es) no longer present Myocardial infarct finding still present Electronically Signed On 03-09-2025 23:53:47 CDT by NIECY EVANS [email or web address]
[2025-03-07 22:36] VITALS: BP 154/92; PULSE 82; RESP 15; O2SAT 94
[2025-03-07 23:00] VITALS: BP 195/83; PULSE 89; RESP 21; O2SAT 95
[2025-03-07 23:03] LABS: Troponin 5 2HR 16.99 ng/L (0-10)
[2025-03-07 23:24] LABS: Troponin 5 2HR Delta -3.01 ABS# (0-10)
[2025-03-07] MEDS: LORazepam 1 mg Tablet PO (23:48)
[2025-03-07 23:59] VITALS: BP 168/93; PULSE 92; RESP 18; O2SAT 94
== END 2025-03-07 23:54 | disposition home or self-care (01) ==
PROVIDERS: Emergency Medicine; Emergency Provider Emergency Medicine; PCP Family Medicine
DX: R07.89 Other chest pain (principal); F41.9 Anxiety disorder, unspecified; F43.21 Adjustment disorder with depressed mood; Z79.82 Long term (current) use of aspirin
CPT/HCPCS: 36415; 71045; 80053; 83690; 83880; 84484; 85025; 93005; 96374; 96375; 99285; J2060; J2405; J9999

== ENCOUNTER 2025-03-11 16:24 | Outpatient (CLI) | payer MEDICARE, SELFPAY ==
[2025-03-17 16:29] LABS: Phosphorylated tau217 0.31 pg/mL (< OR = 0.15)
== END 2025-03-11 16:25 | disposition home or self-care (01) ==
PROVIDERS: PCP Family Medicine; Visit Provider Psychiatry & Neurology Neurology
DX: R44.3 Hallucinations, unspecified (principal); R41.3 Other amnesia
CPT/HCPCS: 36415; 83520

== ENCOUNTER → 2025-03-13 13:36 | Outpatient (BNVA) | payer MEDICARE, SELFPAY | PROVIDERS: PCP Family Medicine; Visit Provider Psychiatry & Neurology Neurology | DX: G44.309 Post-traumatic headache, unspecified, not intractable (principal); R44.3 Hallucinations, unspecified; R41.3 Other amnesia | CPT/HCPCS: 99212 ==

== ENCOUNTER → 2025-03-19 10:51 | Outpatient (BNVA) | payer MEDICARE, SELFPAY | PROVIDERS: PCP Family Medicine; Visit Provider Nurse Practitioner Family | DX: M48.062 Spinal stenosis, lumbar region with neurogenic claudication (principal) | CPT/HCPCS: 99214 ==

== ENCOUNTER 2025-03-29 08:14 | Outpatient (CLI) | payer MEDICARE, SELFPAY ==
--- NOTE | 2025-03-29 08:30 | MR_ITS ---
WS: [id number] MRI HEAD WITH CONTRAST TECHNIQUE: Sagittal T1, T2 axial, T2 axial FLAIR, axial susceptibility weighted imaging, axial diffusion weighted images, and coronal T2 images were obtained. Pre and post-T1 axial and post T1 coronal images. ADC and FSPGR images. CLINICAL INFORMATION: R44.3 - Hallucinations, unspecified COMPARISON: 2023 FINDINGS: No evidence of restricted diffusion to suggest acute ischemia. Moderate small vessel changes with moderate parenchymal volume loss. 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 Normal vascular flow voids at the skull base. No extra-axial fluid collections. Mucosal thickening in the paranasal sinuses. Mastoid air cells are well aerated. No hemosiderin on the susceptibly weighted images. Moderate symmetric atrophy temporal lobes and hippocampal formations. No abnormal gadolinium enhancement. MR/MR head wo/w con [id number] IMPRESSION: 1. No evidence of restricted diffusion to suggest acute ischemia. 2. Moderate small vessel changes with moderate parenchymal volume loss. This a ppears stable since 2023. 3. 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 4. No hemosiderin. 5. No abnormal gadolinium enhancement. No 6. Moderate symmetric atrophy temporal lobes and hippocampal formations. This appears stable compared to previous.
--- NOTE | 2025-03-29 09:15 | MR_ITS ---
WS: [id number] MRA CAROTID WITHOUT AND WITH GADOLINIUM ENHANCEMENT TECHNIQUE: Axial 2-D TOF and gadolinium bolus images obtained with axial images and axial, sagittal, and coronal 2-D reformatted images. CLINICAL INFORMATION: R51.9 - Headache, unspecified COMPARISON: 2023 FINDINGS: RIGHT: RIGHT common carotid artery is patent. No significant RIGHT ICA stenosis. RIGHT ICA is patent to the skull base. LEFT: LEFT common carotid artery is patent. No significant LEFT ICA stenosis. LEFT ICA is patent to the skull base. Tortuous ICAs at the skull base which remain patent. Codominant and patent vertebral arteries bilaterally. Proximal basilar artery is patent. Proximal subclavian arteries are patent. MR/MR angio neck w con* [id number] IMPRESSION: 1. No significant cervical ICA stenosis. Mild atheromatous disease both caroti d bulbs. 2. Codominant and patent vertebral arteries bilaterally. 3. No other remarkable findings
--- NOTE | 2025-03-29 10:00 | MR_ITS ---
WS: [id number] MRA HEAD TECHNIQUE: Axial 3-D TOF images obtained with axial images and axial, sagittal, and coronal 2-D reformatted images. CLINICAL INFORMATION: R51.9 - Headache, unspecified COMPARISON: 04/10/2024 FINDINGS: Mild intracranial atheromatous disease. Distal vertebral arteries are patent. Proximal basilar artery is patent. 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 Distal vessels remain patent. Both ICAs are patent at the skull base. Normal vascularity to the FREEMAN territory. Patent anterior communicating artery. Normal vascularity to the MCA territory bilaterally. Mild to moderate narrowing in the LEFT supraclinoid ICA which remains patent. MR/MR angio head wo con [id number] IMPRESSION: 1. No evidence of proximal flow-limiting stenosis. 2. Mild intracranial atheromatous disease. 3. Mild to moderate LEFT supraclinoid ICA narrowing appears stable. 4. No remarkable changes compared to previous
[2025-03-29] MEDS: gadobenate dimeglumine 20 mL vial 19 ML IV (10:02)
== END 2025-03-29 08:15 | disposition home or self-care (01) ==
LOC: RAD 08:15
PROVIDERS: PCP Family Medicine; Visit Provider Psychiatry & Neurology Neurology
DX: M70.61 Trochanteric bursitis, right hip (principal); M70.62 Trochanteric bursitis, left hip; R51.9 Headache, unspecified; R41.3 Other amnesia; R44.3 Hallucinations, unspecified; I67.2 Cerebral atherosclerosis; I66.23 Occlusion and stenosis of bilateral posterior cerebral arteries; I65.22 Occlusion and stenosis of left carotid artery
CPT/HCPCS: 20610; 70544; 70548; 70553; J1100; J2795; J3301; J9999

== ENCOUNTER 2025-04-02 05:00 | Outpatient (RCR) | payer MEDICARE, SELFPAY | END 2025-05-02 23:59 | disposition home or self-care (01) | LOC: SPT 05:00 | PROVIDERS: PCP Family Medicine; Visit Provider Orthopaedic Surgery | DX: R10.2 Pelvic and perineal pain (principal); M54.50 Low back pain, unspecified; G89.29 Other chronic pain | CPT/HCPCS: 20560; 97110 ==

== ENCOUNTER 2025-04-19 10:01 | Outpatient (CLI) | payer MEDICARE, SELFPAY ==
--- NOTE | 2025-04-19 10:15 | MR_ITS ---
WS: [id number] MRI LUMBAR SPINE NONCONTRAST HISTORY: back pain, LEFT radiculopathy. COMPARISON: 08/01/2024 TECHNIQUE: Sagittal and axial multisequence imaging is submitted. Posterior lumbar fusion from L3-S1. Interbody spacers at L3-4 and L4-5 and L5-S1. Mild straightening of the normal lumbar lordosis. Disc spaces and vertebral body heights are well-preserved. Conus terminates normally at L1-2 disc level. L1-L2: Normal. L2-L3: Mild annular disc bulging with a RIGHT foraminal disc protrusion. No stenosis. Moderate facet arthritis. L3-L4: Large posterior laminectomy defect. Mild LEFT foraminal stenosis. L4-L5: Laminectomy defects. RIGHT foraminal disc protrusion. Mild bilateral facet arthritis and foraminal stenosis. L5-S1: Large laminectomy defect. Mild bilateral foraminal stenosis. Normal paravertebral soft tissues. Paraspinal muscle atrophy. MR/MR lumbar spine wo con* [id number] IMPRESSION: 1. Prior posterior lumbar fusion from L3-S1 with laminectomy defects. 2. RIGHT foraminal disc protrusion at L2-3. No stenosis. 3. Mild foraminal stenosis at L4-5 and L5-S1 and on the LEFT at L3-4. No high- grade stenosis.
== END 2025-04-19 10:02 | disposition home or self-care (01) ==
PROVIDERS: PCP Family Medicine; Visit Provider Orthopaedic Surgery
DX: M48.061 Spinal stenosis, lumbar region without neurogenic claudication (principal); M51.16 Intervertebral disc disorders with radiculopathy, lumbar region
CPT/HCPCS: 72148

== ENCOUNTER → 2025-04-23 11:19 | Outpatient (BNVA) | payer MEDICARE, SELFPAY | PROVIDERS: PCP Family Medicine; Visit Provider Orthopaedic Surgery | DX: M54.9 Dorsalgia, unspecified (principal); M70.61 Trochanteric bursitis, right hip; M70.62 Trochanteric bursitis, left hip; M25.559 Pain in unspecified hip; M54.50 Low back pain, unspecified; G89.29 Other chronic pain | CPT/HCPCS: 72110 ==

== ENCOUNTER 2025-04-23 11:42 | Outpatient (RCR) | payer MEDICARE, SELFPAY | END 2025-05-02 23:59 | disposition home or self-care (01) | LOC: SPT 11:42 | PROVIDERS: PCP Family Medicine; Visit Provider Family Medicine | DX: R42 Dizziness and giddiness (principal) | CPT/HCPCS: 97161; 99213 ==

== ENCOUNTER → 2025-04-29 13:01 | Outpatient (BNVA) | payer MEDICARE, SELFPAY | PROVIDERS: PCP Family Medicine; Visit Provider Family Medicine | DX: R25.2 Cramp and spasm (principal) | CPT/HCPCS: 80048; 83735 ==

== ENCOUNTER 2025-05-03 06:30 | Outpatient (RCR) | payer MEDICARE, SELFPAY | END 2025-06-02 23:59 | disposition home or self-care (01) | LOC: SPT 06:30 | PROVIDERS: PCP Family Medicine; Visit Provider Orthopaedic Surgery | DX: M54.50 Low back pain, unspecified (principal); R10.2 Pelvic and perineal pain; G89.29 Other chronic pain | CPT/HCPCS: 20560; 97110 ==

== ENCOUNTER → 2025-05-07 10:08 | Outpatient (BNVA) | payer MEDICARE, SELFPAY | PROVIDERS: PCP Family Medicine; Visit Provider Nurse Practitioner Family | DX: M54.50 Low back pain, unspecified (principal); G89.29 Other chronic pain; M48.062 Spinal stenosis, lumbar region with neurogenic claudication | CPT/HCPCS: 99214 ==

== ENCOUNTER 2025-05-23 11:02 | Emergency (ER) | payer MEDICARE, SELFPAY ==
[2025-05-23] VITALS (17 sets, daily range): BP systolic 121–195; BP diastolic 64–97; PULSE 82–104; RESP 16–18; TEMP 36.7; O2SAT 90–99; BMI 32.8
--- OUTSIDE RECORDS SUMMARY | 2025-05-23 11:09 | XMS_ITS | Clinical Summary ---
Author Organization [facility] Address [address] [place]: [place] [address] Care Team Providers Care Sprinkler Installer Name Role Phone Juwan Hernández MD Primary Care Provider [phone] Allergies Active Allergy Reactions Criticality Noted Date Comments Adhesive Tape-Silicones Rash Low 05/17/2024 Levofloxacin Anaphylaxis High 07/16/2008 Pt denies Nitrofurantoin Itching Low 11/26/2020 Pt denies Penicillins Swelling Low 07/16/2008 Streptomycin Rash Low 07/16/2008 Sulfa (Sulfonamide Antibiotics) Swelling Low 07/03 Tramadol Hallucination High 05/22/2024 Tramadol-Acetaminophen Itching Low 11/27/2008 Medications pantoprazole (PROTONIX) 40 mg Tablet, Delayed Release (E.C.) Take 40 mg by mouth daily. 9 Active metoprolol succinate (TOPROL XL) 25 mg Extended Release 24 hour tablet Take 25 mg by mouth daily. 9 Active cyanocobalamin, vitamin B-12, (VITAMIN B-12 ORAL) Take 1 Tablet by mouth daily. 5 Active estradioL (ESTRACE) 0.01% (0.1 mg/g) vaginal cream Insert vaginally daily. 42.5 Gram 3 Active ALPRAZolam (XANAX) 1 mg tablet Take 1 Tablet by mouth 3 times daily. 03/01/202 4 Active celecoxib (CeleBREX) 100 mg capsule Take 100 mg by mouth daily. 4 Active DULoxetine (CYMBALTA) 30 mg Capsule, Delayed Release(E.C.) Take 60 mg by mouth daily. 4 Active Breo Ellipta 100-25 mcg/dose Disk with Device Take 1 Puff by inhalation daily. 4 Active levothyroxine 100 mcg tablet Take 100 mcg by mouth daily. 4 Active aspirin (ECOTRIN EC) 81 mg Tablet, Delayed Release (E.C.) Take 81 mg by mouth daily. Active potassium chloride (KLOR-CON) 20 mEq Extended Release tablet Take 20 mEq by mouth daily. Active CHOLECALCIFEROL , VITAMIN D3, ORAL Take 1 Tablet by mouth daily. Active losartan (COZAAR) 50 mg tablet Take 50 mg by mouth daily. Active acetaminophen (TYLENOL) 500 mg tablet Take 1,000 mg by mouth every 8 hours as needed for Pain, Break-Through or Pain, Mild / Temperature. Active multivitamin (DAILY-CHRIS) tablet Take 1 Tablet by mouth daily. Active amLODIPine (NORVASC) 5 mg tablet Take 1 Tablet (5 mg) by mouth daily. 30 Tablet 12 4 Active fluconazole (DIFLUCAN) 150 mg tablet Take 150 mg by mouth daily. 4 Active risperiDONE (RisperDAL) 0.5 mg tablet Take 0.5 mg by mouth daily. 4 Active solifenacin (VESICARE) 10 mg Tablet Take 1 Tablet by mouth daily. 4 Active fluticasone propionate (FLONASE) 50 mcg/spray [place], Suspension nasal inhalerIndicati ons:Ear fullness, bilateral,Post- nasal drainage,Nasal congestion Administer 2 Sprays in each nostril daily at bedtime. 16 Gram 2 4 Active azelastine (ASTELIN) 137 mcg/actuation nasal sprayIndication s:Ear fullness, bilateral,Post- nasal drainage,Nasal congestion Administer 2 Sprays in each nostril 2 times daily. 30 mL 2 4 Active furosemide (LASIX) 40 mg tablet Take 1 tablet by mouth once daily 90 Tablet 3 5 Active cephALEXin (KEFLEX) 500 mg capsule Take 1 Capsule by mouth 3 times daily. Active Active Problems Problem Noted Date Diagnosed Date Urinary hesitancy 08/20/2024 Mixed incontinence 07/05/2024 Vaginal dryness, menopausal 12/03/2020 Fecal incontinence 11/13/2014 Well woman exam with routine gynecological exam 10/29/2013 High cholesterol 07/17/2010 Irritable bowel 07/10/2010 Hypothyroidism 07/10/2010 Fibromyalgia 06/23/2010 Lentigo 11/21/2009 Encounters Date Type Department Care Team Description 05/21/2025 External Device Data [facility] ABSTRACTION Provider, Abstract 05/08/2025 External Device Data [facility] ABSTRACTION Provider, Abstract 02/20/2025 External Device Data [facility] ABSTRACTION Provider, Abstract from Last 3 Months Immunizations Immunization Administration Dates Next Due Influenza Seasonal Unspecifi ed Formulation IM 07/03/2009,09/08/2004,08/28/2001,1999 Influenza Vaccine Split 3+ Yrs PF IM 07/10/2010 Family History Medical History Relation Name Comments Diabetes Father Heart Failure Father Stroke Father Heart Failure Maternal Grandfather Heart Failure Maternal Grandmother Hypertension Mother Thyroid Disease Mother Heart Failure Paternal Grandfather Other Paternal Grandmother of pneumonia Colon Cancer Neg Hx Relation Name Status Comments Father Maternal Grandfather Maternal Grandmother Mother Alive Paternal Grandfather Paternal Grandmother Social History Tobacco Use Types Packs/Day Years Used Date Smoking Tobacco: Never Smokeless Tobacco: Never Tobacco Cessation:Counseling Given: No Alcohol Use Standard Drinks/Week Comments No 0 (1 standard drink = 0.6 oz pur e alcohol) Feeling Safe Answer Date Recorded Are you in a relationship wi th someone who hurts you emotionally and/or physically? 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 Gender Identity Not on file Sexual Orientation Not on file Last Filed Vital Signs Vital Sign Reading Time Taken Comments Blood Pressure 116/70 02/12/2025 9:42 AM CDT Pulse 79 06/14/2024 9:08 AM CDT Temperature 36.3 C (97.4 F) 05/17/2024 10:00 AM CDT Respiratory Rate 19 07/10/2024 11:30 AM CDT Oxygen Saturation 99% 07/10/2024 11:30 AM CDT Inhaled Oxygen Concentration - - Weight 96.6 kg (213 lb) 02/12/2025 9:42 AM CDT Height 170.2 cm (5' 7 ) 02/12/2025 9:42 AM CDT Body Mass Index 33.36 02/12/2025 9:42 AM CDT Plan of Treatment Upcoming Encounters Date Type Department Care Team (Late st Contact Info) Description 06/07/2025 10:40 AM CDT Office Visit [facility] Orthopedics - [facility]opedic [facility] [address] [place] [phone] Roque Vidal MD [address] [place] [address] 02/11/2026 10:40 AM CDT Office Visit [facility] Th[facility] [address] [place] [address] Marichuy Mckeon FNP [address] [place] [address] Health Maintenance Due Date Last Done Comments DTAP/TDAP/TD VACCINES (1 - Tdap) 1959 PNEUMOCOCCAL VACCINE 50+ YEA RS (1 of 1 - PCV) 01/13/1992 ZOSTER VACCINE (1 of 2) 01/13/1992 RSV VACCINE (60+ or ) (1 - 1-dose 75+ series) 2017 COVID-19 Vaccine (2023-2 5 season) 2024 07/20/2023, 03/16/2022, 07/31/2021, Additional history exists COLORECTAL SCREENING 06/21/2024 06/21/2019, 06/21/2019, 12/19/2014 INFLUENZA VACCINE (#1) 2025 , 10/02/2012, 07/14/2012, Additional history exists OSTEOPOROSIS SCREENING 05/28/2025 05/28/2020, 2017 Medical Devices Implanted Type Area Gas Line Installer Supervisor Device Identifier Shelf Expiration Date Model / Serial / Lot Plate Hand Va Loc 2.0 Str 12h 02.130.351 - [id number] Implanted:Qty: 1 on 12/13/2023 by Roque Vidal MD at [facility] Plate Right: Finger J&J- DEPUY SYNTHES 01/31/2024 02.130.35 1 / / LOAD #[id number] Screw T6 St Va Loc 2.0x10mm 02.130.310 - [id number] Implanted:Qty: 1 on 12/13/2023 by Roque Vidal MD at [facility] Screw Right: Finger [employer]- DEPUY SYNTHES 02.130.31 0 / / Screw T6 St Va Loc 2.0x11mm 02.130.311 - [id number] Implanted:Qty: 1 on 12/13/2023 by Roque Vidal MD at [facility] Screw Right: Finger [employer]J- DEPUY SYNTHES 02.130.31 1 / / Screw T6 St Va Loc 2.0x8mm 02.130.308 - [id number] Implanted:Qty: 1 on 12/13/2023 by Roque Vidal MD at [facility] Screw Right: Finger J[employer]J- DEPUY SYNTHES 02.130.30 8 / / Screw T6 St Va Loc 2.0x8mm 02.130.308 - [id number] Implanted:Qty: 1 on 12/13/2023 by Roque Vidal MD at [facility] Screw Right: Finger J&[employer]- DEPUY SYNTHES 02.130.30 8 / / Screw T6 St Va Loc 2.0x9mm 02.130.309 - [id number] Implanted:Qty: 1 on 12/13/2023 by Roque Vidal MD at [facility] Screw Right: Finger J&J- DEPUY SYNTHES 02.130.30 9 / / Screw T6 St Va Loc 2.0x9mm 02.130.309 - [id number] Implanted:Qty: 1 on 12/13/2023 by Roque Vidal MD at [facility] Sean Screw Right: Finger J&J- DEPUY SYNTHES 130.30 9 / / Screw T6 St Va Loc 2.0x10mm 130.310 - [id number] Implanted:Qty: 1 on 12/13/2023 by Roque Vidal MD at [facility] Screw Right: Finger J&J- DEPUY SYNTHES 130.31 0 / / Screw Micro 2.5x30mm Ft Cmprsn Ar-8725-30h - [id number] Implanted:Qty: 1 on 05/17/2024 by Roque Vidal MD at [facility] Screw Left: Finger [employer] 07/02/2024 AR-8725-3 0H / / LOAD #[id number] Flexigraft Revision Dowel 30-70s84qo X-Long Canc Fulcannu Pcdxl10 - [id number] Implanted:Qty: 1 on 12/13/2023 by Roque Vidal MD at [facility] Tissue Right: Finger LIFENET 2028 PCDXL10 / / [id number] Allograft Vivigen Matrix 1ml Bl-1600-001 - [id number] Implanted:Qty: 1 on 05/17/2024 by Roque Vidal MD at [facility] Tissue Left: Finger L[employer]ET 04/12/2025 BL-1600-0 01 / / [id number] Explanted Type Area Gas Line Installer Supervisor Device Identifier Shelf Expiration Date Model / Serial / Lot Wire K 0.239d7by Ws-1606dt - [id number] Explanted:Qty: 1 on 05/17/2024 by Roque Vidal MD at [facility] Wire Left: Finger [employer] 07/02/2024 WS-[id number] / / LOAD #[id number] Metal Interphalangeal Joint Explanted:Qty: 1 on 12/13/2023 by Roque Vidal MD at [facility] Right: Finger [facility] Care Teams Sprinkler Installer Relationship Specialty Start Date End Date Juwan Hernández MD [address] [place] [address] PCP - General Family Practice 11/09/12
--- OUTSIDE RECORDS SUMMARY | 2025-05-23 11:09 | XMS_ITS | Encounter Summary ---
Author Organization [facility] Address [address] [place] [address] Care Team Providers Care Chef Head Name Role Phone Juwan Hernández MD Primary Care Provider + [phone] Encounter Details Date Type Department Care Team (Late st Contact Info) Description 05/21/2025 External Device Data [facility] ABSTRACTION Provider, Abstract NO ADDRESS ON FILE Social History Tobacco Use Types Packs/Day Years Used Date Smoking Tobacco: Never Smokeless Tobacco: Never Alcohol Use Standard Drinks/Week Comments No 0 (1 standard drink = 0.6 oz pur e alcohol) Feeling Safe Answer Date Recorded Are you in a relationship wi th someone who hurts you emotionally and/or physically? 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 [place] [address] Marichuy Mckeon, BROACHING MACHINE OPERATOR [address] [place] [address] documented as of this encounter Visit Diagnoses Not on filedocumented in this encounter Care Teams Chef Head Relationship Specialty Start Date End Date Juwan Hernández MD [address] [place] [phone] PCP - General Family Practice 11/09/12 documented as of this encounter
--- OUTSIDE RECORDS SUMMARY | 2025-05-23 11:10 | XMS_ITS | Patient Health Record ---
Author Organization [facility] Address [address] [place] [address] Support Name Relationship Address Phone Sarah Victoria Guarantor Unknown [phone] Allergies Allergen (clinical drug ingredient) Drug/Non Drug Allergy documented on EMR Reaction Allergy Type Onset Date Status Sulfur , Drug Allergy Active Reason For Referral No Information Medications Medication SIG (Take, Route, Frequency, Duration) Notes Start Date End Date Status Furosemide 20 MG Oral Tablet Furosemide 20 MG Oral Tablet 07/04/2018 Active Levothyroxine Sodium 0.02 MG/ML Injectable Solution Levothyroxine Sodium 0.02 MG/ML Injectable Solution 07/04/2018 Active pregabalin 50 MG Oral Capsule pregabalin 50 MG Oral Capsule 07/04/2018 Active Citalopram 40 MG Oral Tablet Citalopram 40 MG Oral Tablet 07/04/2018 Active 24 HR Metoprolol Tartrate 25 MG Extended Release Tablet 24 HR Metoprolol Tartrate 25 MG Extended Release Tablet 07/04/2018 Active pantoprazole 4 MG/ML Injectable Solution pantoprazole 4 MG/ML Injectable Solution 07/04/2018 Active Allopurinol 300 MG Oral Tablet Allopurinol 300 MG Oral Tablet 07/04/2018 Active Social History Social History Additional Details Category Social Info Options Details zzMigrated Social History Migrated Social History Smoking Status:Never smoked tobacco (finding) Plan Of Treatment No Information
--- NOTE | 2025-05-23 11:18 | ECG_ITS ---
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 Measurements Intervals [place] Rate: 105 P: 51 WV: 159 QRS: -19 QRSD: 124 T: 107 QT: 313 QTc: 415 Interpretive Statements SINUS TACHYCARDIA ANTERIOR MYOCARDIAL INFARCTION , OF INDETERMINATE AGE [40+ ms Q WAVE AND/OR ST/T ABNORMALITY IN V3/V4] INFERIOR MYOCARDIAL INFARCTION , OF INDETERMINATE AGE [40+ ms Q WAVE AND/OR ST/T ABNORMALITY IN II/aVF] MODERATE T-WAVE ABNORMALITY, CONSIDER LATERAL ISCHEMIA [-0.1+ mV T-WAVE IN I/aVL/V5/V6] Compared to ECG 03/07/2025 20:57:44 T-wave abnormality now present Possible ischemia now present Sinus rhythm no longer present Myocardial infarct finding still present Electronically Signed On 05-25-2025 09:41:33 CDT by Phill Mata M.D. [email or web address]
--- NOTE | 2025-05-23 11:58 | CT_ITS ---
WS: [id number] CT CERVICAL SPINE HISTORY: trauma TECHNIQUE: Contiguous 2.0 mm axial imaging performed through the entire cervical spine. Sagittal and coronal reformats also performed. All CT scans at [facility] use at least one of these dose optimization techniques: automated exposure control; mA and/or kV adjustment per patient size (includes targeted exams where dose is matched to clinical indication); or iterative reconstruction. DLP: 1350.05 mGy.cm COMPARISON: 02/09/2025, 09/29/2023 Slight anterolisthesis of C5 by 2 mm with mild asymmetric narrowing of the disc. There is very slight widening of the C5-C6 spinous process distance as compared to prior studies although positioning of the patient is also different. No fracture is identified. Craniocervical junction is normally aligned. Odontoid is intact. Lateral masses are aligned. C2-C3: Bilateral facet joint arthritis. C3-C4: Bilateral facet arthritis and LEFT foraminal stenosis. C4-C5: Moderate bilateral facet arthritis and moderate foraminal stenosis. C5-C6: Mild facet arthritis. C6-C7: Normal. C7-T1: Normal. Calcification at the carotid bifurcations. CT/CT cervical spin wo con* [id number] IMPRESSION: 1. New 2 mm anterolisthesis of C5 with asymmetric narrowing of the C5-6 disc s pace and slight widening of the spinous processes. No fracture is identified. C onsider follow-up MRI evaluation of the cervical spine to evaluate for edema an d ligamentous injury. 2. Facet joint arthropathy.
--- NOTE | 2025-05-23 11:59 | CT_ITS ---
WS: [id number] CT HEAD NONCONTRAST HISTORY: trauma TECHNIQUE: Contiguous axial imaging performed through the brain. Bone and soft tissue windows. Sagittal and coronal reformats reviewed. All CT scans at [facility] use at least one of these dose optimization techniques: automated exposure control; mA and/or kV adjustment per patient size (includes targeted exams where dose is matched to clinical indication); or iterative reconstruction. DLP: 1350.05 mGy.cm COMPARISON: 03/06/2025 No acute intracranial hemorrhage, midline shift or mass effect. Mild atrophy and moderate small vessel disease. Ventricles: Ventricles and extra-axial spaces are prominent on the basis of atrophy. Paranasal sinuses: As visualized are clear. Mastoid air cells: Well pneumatized. Calvarium and scalp: Skull is intact with no soft tissue edema or swelling. CT/CT head wo con* [id number] IMPRESSION: 1. No acute intracranial hemorrhage or edema. 2. 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 3. Ventriculomegaly secondary to the atrophy.
--- NOTE | 2025-05-23 12:12 | W.ED.HEATRA ---
HPI - Head Injury General: Chief complaint: Head Injury Stated complaint: Fell hit head dizzy hurts to move eyes Time Seen by Provider: 05/23/25 11:58 History of Present Illness: Associated symptoms: Deny neck pain Related Data Home Medications ?Medication ?Instructions ?Recorded ?Confirmed Silver Biotics 5 ml PO DAILY 04/02/23 05/07/25 aspirin 81 mg tablet,delayed 81 mg PO DAILY 04/02/23 05/07/25 release cyanocobalamin (vitamin B-12) 2,000 mcg PO DAILY 02/09/25 05/07/25 2,000 mcg tablet,extended release (Vitamin B-12 ER) levothyroxine 100 mcg tablet 100 mcg PO DAILY 02/09/25 05/07/25 Previous Rx's ?Medication ?Instructions ?Recorded Rollator walker with seat #1 ea 01/26/24 acetaminophen 500 mg tablet 500 - 1,000 mg (1 - 2 x 500 mg) PO 03/02/24 (Tylenol Extra Strength) BID pain #100 tabs allopurinol 100 mg tablet 100 mg PO BID #60 tabs 08/17/24 metoprolol succinate 25 mg 25 mg PO DAILY #90 tabs 08/23/24 tablet,extended release 24 hr potassium chloride 20 mEq 20 meq PO DAILY #30 tabs 10/02/24 tablet,extended release(part/cryst) (Klor-Con M) methenamine hippurate 1 gram tablet 1 g PO BID #180 tabs 03/05/25 alprazolam 1 mg tablet 1 mg PO TID #30 tabs 03/14/25 duloxetine 20 mg capsule,delayed 20 mg PO QDAY #90 caps 03/14/25 release estradiol 0.01% (0.1 mg/gram) See Rx Instructions .Route 03/14/25 vaginal cream .COMPLEX #42.5 grams amlodipine 5 mg tablet 5 mg PO DAILY #90 tabs 04/04/25 pantoprazole 40 mg tablet,delayed 40 mg PO BID #180 tabs 04/04/25 release quetiapine 25 mg tablet (Seroquel) See Rx Instructions PO BID #270 04/11/25 tabs clotrimazole 10 mg debra See Rx Instructions .Route 04/25/25 .COMPLEX #90 ea olanzapine 5 mg tablet 5 mg PO BID #180 tabs 04/25/25 losartan 50 mg tablet See Rx Instructions .Route 04/26/25 .COMPLEX #90 tabs albuterol sulfate 90 mcg/actuation 2 puff inhalation Q6H PRN 04/29/25 aerosol inhaler (Ventolin HFA) shortness of breath or wheezing #8.5 grams cephalexin 500 mg capsule 500 mg PO QID #40 caps 04/29/25 fluconazole 150 mg tablet 150 mg PO Q3D 2 doses #2 tabs 04/29/25 prednisone 10 mg tablet 10 mg PO DAILY #5 tabs 04/29/25 Allergies Allergy/AdvReac Type Severity Reaction Status Date / Time levofloxacin (From Levaquin) Allergy Severe NA Verified 05/07/25 10:14 cetirizine (From Zyrtec) Allergy Intermediate ADR-Halluci Verified 05/07/25 10:14 nating codeine Allergy Intermediate headache/ Verified 05/07/25 10:14 lips numb hydrocodone Allergy Intermediate itching Verified 05/07/25 10:14 Iodinated Contrast Media Allergy Intermediate ADR-Halluci Verified 05/07/25 10:14 nating Penicillins Allergy Intermediate NA Verified 05/07/25 10:14 solifenacin (From Vesicare) Allergy Intermediate hallucinati Verified 05/07/25 10:14 ons nitrofurantoin (From Allergy NA Verified 05/07/25 10:14 Macrobid) phenazopyridine (From Allergy NA Verified 05/07/25 10:14 Pyridium) streptomycin Allergy NA Verified 05/07/25 10:14 Sulfa (Sulfonamide Allergy NA Verified 05/07/25 10:14 Antibiotics) tramadol (From Ultracet) Allergy NA Verified 05/07/25 10:14 bupropion (From Wellbutrin) AdvReac Severe Unknown Verified 05/07/25 10:14 baclofen AdvReac Intermediate hallucinati Verified 05/07/25 10:14 ons duloxetine (From Cymbalta) AdvReac Intermediate stomach Verified 05/07/25 10:14 pain fluoxetine AdvReac Intermediate hallucinati Verified 05/07/25 10:14 ons sertraline (From Zoloft) AdvReac Intermediate diarrhea/ Verified 05/07/25 10:14 hyponatremia atorvastatin (From Lipitor) AdvReac Mild nausea Verified 05/07/25 10:14 Review of Systems Const: Denies: fever(s) or chills Card: Denies: chest pain Resp: Denies: dyspnea GI: Denies: abdominal pain : Denies: dysuria, urinary frequency or urinary urgency Musc: Denies: neck pain or back pain Skin/Breast: Denies: rash Neuro: Reports: headache(s) PFSH ED PFSH: Medical History Greater trochanteric bursitis of both hips Macrocytic anemia Severe sleep apnea Irritable bowel syndrome Fibromyalgia Depression Somatization disorder Anxiety disorder Urethral syndrome Chronic interstitial cystitis Surgical History S/P thyroidectomy H/O: hysterectomy S/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 H/O hand surgery H/O carpal tunnel repair S/P cholecystectomy Family History Father , cva Stroke Mother , 96 Dementia Social History Smoking and tobacco/nicotine status: never used tobacco/nicotine Physical Exam Const: GENERAL APPEARANCE: cooperative and comfortable ORIENTATION/CONSCIOUSNESS: Yes awake, Yes oriented to person, Yes oriented to place and Yes oriented to time HENMT: COMMON NORMALS: normocephalic, atraumatic and hearing grossly normal bilaterally HEAD & SCALP: normocephalic and atraumatic Resp: COMMON NORMALS: normal respiratory effort, No retractions, No use of accessory muscles and clear to auscultation bilaterally AUSCULTATION: clear to auscultation bilaterally Cardio: COMMON NORMALS: regular rate, regular rhythm and No murmurs present (Cardio) RATE: regular rate RHYTHM: regular rhythm GI: COMMON NORMALS: Soft to palpation and No hepatosplenomegaly present AUSCULTATION: Yes normoactive bowel sounds PALPATION: Yes Soft to palpation, No Tenderness to palpation present (GI), No Guarding due to palpation present (GI) and Yes No hepatosplenomegaly present Extremity: COMMON NORMALS: normal to inspection, capillary refill normal, no clubbing, cyanosis or edema, no calf tenderness and no pedal edema Neuro: SENSORIUM/ORIENTATION: Yes oriented to person, Yes oriented to place and Yes oriented to time Skin: COMMON NORMALS: no rashes or lesions noted GENERAL SKIN EXAM: no rashes or lesions noted Course Vital Signs: Vital signs: Vital Signs Temperature 98.0 F 05/23/25 11:11 Pulse Rate 96 05/23/25 18:29 Respiratory Rate 16 05/23/25 18:29 Blood Pressure 171/91 05/23/25 18:29 Pulse Oximetry 94 05/23/25 18:29 Oxygen Delivery Me thod Room Air 05/23/25 18:29 MDM - Head Injury Lab Data 05/23/25 13:08 05/23/25 13:08 Radiology Impressions Cervical Spine CT 05/23/25 11:58 IMPRESSION: 1. New 2 mm anterolisthesis of C5 with asymmetric narrowing of the C5-6 disc space and slight widening of the spinous processes. No fracture is identified. Consider follow-up MRI evaluation of the cervical spine to evaluate for edema and ligamentous injury. 2. Facet joint arthropathy. Head CT 05/23/25 11:59 IMPRESSION: 1. No acute intracranial hemorrhage or edema. 2. Cerebral and cerebellar atrophy and small vessel disease, similar to 03/06/2025. 3. Ventriculomegaly secondary to the atrophy. Cervical Spine MRI 05/23/25 15:14 IMPRESSION: C5/C6 2 mm anterolisthesis with moderate broad-based posterior disc protrusion minimally abutting and effacing the cord with trace cord edema also suspected at this level. Laboratory Results WBC 8.73 10^3/uL (3.29-11.43) 05/23/25 13:08 RBC 3.72 10^6/uL (3.85-5.65) L 05/23/25 13:08 Hgb 12.50 g/dL (11.27-16.99) 05/23/25 13:08 Hct 36.9 % (36-47) 05/23/25 13:08 MCV 99.2 fl (85-98) H 05/23/25 13:08 MCH 33.6 pg (27-33) H 05/23/25 13:08 MCHC 33.9 g/dL (30-55) 05/23/25 13:08 RDW 14.1 % (12.1-15.1) 05/23/25 13:08 Plt Count 265 10^3/cmm (157-399) 05/23/25 13:08 MPV 8.9 fL (7.4-10.4) 05/23/25 13:08 Neut % (Auto) 66.5 % 05/23/25 13:08 Lymph % (Auto) 24.3 % 05/23/25 13:08 [place] % (Auto) 6.8 % 05/23/25 13:08 Eos % (Auto) 0.8 % 05/23/25 13:08 Baso % (Auto) 0.6 % 05/23/25 13:08 Neut # (Auto) 5.81 10^3/uL (1.8-7.7) 05/23/25 13:08 Lymph # (Auto) 2.1 10^3/uL (0.8-4.8) 05/23/25 13:08 [place] # (Auto) 0.6 10^3/uL (0.2-0.9) 05/23/25 13:08 Eos # (Auto) 0.1 10^3/uL (0.0-0.8) 05/23/25 13:08 Baso # (Auto) 0.1 10^3/uL (0.0-0.1) 05/23/25 13:08 Nucleated RBC % (auto) 0 % 05/23/25 13:08 Nucleated RBCs # 0.0 /100WBC 05/23/25 13:08 Sodium 134 mmol/L (136-145) L 05/23/25 13:08 Potassium 4.0 mmol/L (3.5-5.1) 05/23/25 13:08 Chloride 94 mmol/L (98-107) L 05/23/25 13:08 Carbon Dioxide 25 mmol/L (22-29) 05/23/25 13:08 Anion Gap 19.0 (5-19) 05/23/25 13:08 BUN 13 mg/dL (8-23) 05/23/25 13:08 Creatinine 0.8 mg/dL (0.5-0.9) 05/23/25 13:08 GFR Calculation Not Reportable 05/23/25 13:08 Glucose 92 mg/dL (65-115) 05/23/25 13:08 Calculated Osmolality 278 mOsm/kg (285-295) L 05/23/25 13:08 Calcium 9.8 mg/dL (8.5-10.5) 05/23/25 13:08 Total Bilirubin 0.2 mg/dL (0.15-1.2) 05/23/25 13:08 AST 22 U/L (0-32) 05/23/25 13:08 ALT 19 U/L (0-33) 05/23/25 13:08 Alkaline Phosphatase 64 U/L (35-105) 05/23/25 13:08 Total Protein 7.4 g/dL (6.6-8.7) 05/23/25 13:08 Albumin 4.5 g/dL (3.5-5.2) 05/23/25 13:08 Globulin 2.9 g/dL (1.3-4.6) 05/23/25 13:08 Urine Color Yellow (Yellow) 05/23/25 12:47 Urine Appearance Clear (CLEAR) 05/23/25 12:47 Urine pH 6.5 (5-7) 05/23/25 12:47 Ur Specific [place] 1.014 (1.005-1.030) 05/23/25 12:47 Urine Protein 1+ (Negative) A 05/23/25 12:47 Urine Glucose (UA) Negative (Normal) 05/23/25 12:47 Urine Ketones Negative (Negative) 05/23/25 12:47 Urine Blood Negative (Negative) 05/23/25 12:47 Urine Nitrate Negative (Negative) 05/23/25 12:47 Urine Bilirubin Negative (Negative) 05/23/25 12:47 Urine Urobilinogen 0.2 mg/dL (Negative) 05/23/25 12:47 Ur Leukocyte Esterase Negative (Negative) 05/23/25 12:47 Urine RBC 6-10 /hpf (0-2) 05/23/25 12:47 Urine WBC 0-5 /hpf (0-5) 05/23/25 12:47 Ur Squamous Epith Cells 6-10 /hpf (0-5) 05/23/25 12:47 Amorphous Sediment Not Reportable 05/23/25 12:47 Urine Bacteria None seen /hpf (NONE) 05/23/25 12:47 Hyaline Casts 3.30 /lpf 05/23/25 12:47 Lab Data 05/23/25 13:08 05/23/25 13:08 Labs: Lab Results 05/23/25 05/23/25 12:47 13:08 WBC 8.73 10^3/uL (3.29-11.43) RBC 3.72 L 10^6/uL (3.85-5.65) Hgb 12.50 g/dL (11.27-16.99) Hct 36.9 % (36-47) MCV 99.2 H fl (85-98) MCH 33.6 H pg (27-33) MCHC 33.9 g/dL (30-55) RDW 14.1 % (12.1-15.1) Plt Count 265 10^3/cmm (157-399) MPV 8.9 fL (7.4-10.4) Neut % (Auto) 66.5 % Lymph % (Auto) 24.3 % [place] % (Auto) 6.8 % Eos % (Auto) 0.8 % Baso % (Auto) 0.6 % Neut # (Auto) 5.81 10^3/uL (1.8-7.7) Lymph # (Auto) 2.1 10^3/uL (0.8-4.8) [place] # (Auto) 0.6 10^3/uL (0.2-0.9) Eos # (Auto) 0.1 10^3/uL (0.0-0.8) Baso # (Auto) 0.1 10^3/uL (0.0-0.1) Nucleated RBC % (auto) 0 % Nucleated RBCs # 0.0 /100WBC Sodium 134 L mmol/L (136-145) Potassium 4.0 mmol/L (3.5-5.1) Chloride 94 L mmol/L (98-107) Carbon Dioxide 25 mmol/L (22-29) Anion Gap 19.0 (5-19) BUN 13 mg/dL (8-23) Creatinine 0.8 mg/dL (0.5-0.9) GFR Calculation Not Reportable Glucose 92 mg/dL (65-115) Calculated Osmolality 278 L mOsm/kg (285-295) Calcium 9.8 mg/dL (8.5-10.5) Total Bilirubin 0.2 mg/dL (0.15-1.2) AST 22 U/L (0-32) ALT 19 U/L (0-33) Alkaline Phosphatase 64 U/L (35-105) Total Protein 7.4 g/dL (6.6-8.7) Albumin 4.5 g/dL (3.5-5.2) Globulin 2.9 g/dL (1.3-4.6) Urine Color Yellow (Yellow) Urine Appearance Clear (CLEAR) Urine pH 6.5 (5-7) Ur Specific [place] 1.014 (1.005-1.030) Urine Protein 1+ A (Negative) Urine Glucose (UA) Negative (Normal) Urine Ketones Negative (Negative) Urine Blood Negative (Negative) Urine Nitrate Negative (Negative) Urine Bilirubin Negative (Negative) Urine Urobilinogen 0.2 mg/dL (Negative) Ur Leukocyte Esterase Negative (Negative) Urine RBC 6-10 /hpf (0-2) Urine WBC 0-5 /hpf (0-5) Ur Squamous Epith Cells 6-10 /hpf (0-5) Amorphous Sediment Not Reportable Urine Bacteria None seen /hpf (NONE) Hyaline Casts 3.30 /lpf Discharge Plan Discharge Patient Disposition: Home Clinical Impression: Contusion of cervical cord, Falls frequently, Concussion Condition: Stable Prescriptions: No Action (DME) Rollator walker with seat See Rx Instructions .Route .MEDSUPPLY Qty: 1 0RF Rx Instructions: As directed allopurinol 100 mg tablet 100 mg PO BID Qty: 60 11RF duloxetine 20 mg capsule,delayed release(DR/EC) 20 mg PO QDAY Qty: 90 11RF estradiol 0.01 % (0.1 mg/gram) cream See Rx Instructions .ROUTE .COMPLEX Qty: 42.5 11RF Rx Instructions: INSERT ONE GRAM VAGINALLY DAILY AT BEDTIME FOR 2 WEEKS, AND THEN DECREASE TO 2 TIMES WEEKLY (SUCH TUESDAY/TUESDAY) quetiapine [Seroquel] 25 mg tablet See Rx Instructions PO BID Qty: 270 11RF Rx Instructions: 1 tablet in AM and 2 in PM clotrimazole 10 mg debra See Rx Instructions .ROUTE .COMPLEX Qty: 90 3RF Dose Instruction: DISSOLVE 1 TABLET BY MOUTH THREE TIMES DAILY NEEDED Rx Instructions: DISSOLVE 1 TABLET BY MOUTH THREE TIMES DAILY NEEDED. olanzapine 5 mg tablet 5 mg PO BID Qty: 180 3RF acetaminophen [Tylenol Extra Strength] 500 mg tablet 500 - 1,000 mg PO BID Qty: 100 0RF metoprolol succinate 25 mg tablet extended release 24 hr 25 mg PO DAILY Qty: 90 3RF prednisone 10 mg tablet 10 mg PO DAILY Qty: 5 0RF cephalexin 500 mg capsule 500 mg PO QID Qty: 40 0RF albuterol sulfate [Ventolin HFA] 90 mcg/actuation HFA aerosol inhaler 2 puff inhalation Q6H PRN (Reason: shortness of breath or wheezing) Qty: 8.5 11RF fluconazole 150 mg tablet 150 mg PO Q3D 0 Days Qty: 2 0RF Klor-Con M20 20 mEq tablet,ER particles/crystals 20 meq PO DAILY Qty: 30 11RF methenamine hippurate 1 gram tablet 1 g PO BID Qty: 180 11RF alprazolam 1 mg tablet 1 mg PO TID Qty: 30 5RF amlodipine 5 mg tablet 5 mg PO DAILY Qty: 90 11RF pantoprazole 40 mg tablet,delayed release (DR/EC) 40 mg PO BID Qty: 180 3RF losartan 50 mg tablet See Rx Instructions .ROUTE .COMPLEX Qty: 90 3RF Dose Instruction: TAKE 1 TABLET EVERY DAY Rx Instructions: TAKE 1 TABLET EVERY DAY aspirin [Aspir-81] 81 mg Tablet,Delayed Release (Dr/Ec) 81 mg PO DAILY Silver Biotics 5 ml PO DAILY cyanocobalamin (vitamin B-12) [Vitamin B-12] 2,000 mcg Tablet Extended Release 2,000 mcg PO DAILY levothyroxine 100 mcg tablet 100 mcg PO DAILY Discharge Orders: Discharge ED (Routine); Ordered 05/23/25 Ordered By: Isidro Auguste Referrals: Juwan Hernández MD [Primary Care Provider, Family Practice] Discharge Diet: As Directed Discharge Activity: Increase activity as tolerated Patient Instructions: Concussion (ED), Fall Prevention (ED), Patient Portal & Tasha Instructions Activity Restrictions/Additional Instructions: It is very important to not fall and strike your head for the next week as you get better from your concussion. You will have weakness and foggy thinking and headache and visual disturbance for the next few days but if you sleep enough and rest and avoid mental activity this will improve with time. Print Language: Ukrainian Coding Level of Care Code ED Medicare Nurse for Marisol Reese
[2025-05-23 13:05] LABS: Glucose Urine UA Negative (Normal); Nitrate Urine Negative (Negative); Specific Gravity, Urine 1.014 (1.005-1.030)
[2025-05-23 13:10] LABS: Add Urine Microscopic? YES
[2025-05-23 13:32] LABS: Hematocrit 36.9 % (36-47); Hemoglobin 12.50 g/dL (11.27-16.99); Mean Corpuscular HGB Conc 33.9 g/dL (30-55); Mean Corpuscular Hemoglobin 33.6 pg (27-33); Mean Corpuscular Volume 99.2 fl (85-98); Nucleated Red Blood Cells % 0 %; Platelet Count 265 10^3/cmm (157-399); Red Blood Count 3.72 10^6/uL (3.85-5.65); White Blood Count 8.73 10^3/uL (3.29-11.43)
[2025-05-23 13:51] LABS: Alanine Aminotransferase 19 U/L (0-33); Albumin Level 4.5 g/dL (3.5-5.2); Alkaline Phosphatase 64 U/L (35-105); Anion Gap 19.0 (5-19); Aspartate Amino Transferase 22 U/L (0-32); Blood Urea Nitrogen 13 mg/dL (8-23); Calcium 9.8 mg/dL (8.5-10.5); Carbon Dioxide 25 mmol/L (22-29); Chloride 94 mmol/L (98-107); Creatinine Clr Calc Pharmacy 63.1378; Globulin 2.9 g/dL (1.3-4.6); Glucose 92 mg/dL (65-115); Osmolality Calculated 278 mOsm/kg (285-295); Potassium 4.0 mmol/L (3.5-5.1); Sodium 134 mmol/L (136-145); Total Protein 7.4 g/dL (6.6-8.7)
--- NOTE | 2025-05-23 15:14 | MRR_ITS ---
PROCEDURE INFORMATION: Exam: MR Cervical Spine Without Contrast Exam date and time: 05/23/2025 4:45 PM Age: 85 years old Clinical indication: Injury or trauma; Fall; Sprain or strain, cervical ligaments; Injury details: PT fell and hit back of head yesterday 05/22/25; Additional info: Trauma/abnormal CT neck TECHNIQUE: Imaging protocol: Magnetic resonance imaging of the cervical spine without contrast. COMPARISON: CT cervical spin wo con* [id number] 23/05/2025 12:24 FINDINGS: Bones/joints: 2 mm anterolisthesis of C 5 with respect to C6 is noted consistent with the recent CT study from earlier this day. There is no evidence of discrete abnormal increased signal as might indicate anterior or posterior longitudinal ligamentous disruption. No significant increased signal can be seen in the posterior interspinous ligamentous region either.. No fracture. Spinal cord: Trace increased cord signal is seen anteriorly along the central aspect of the cord at C5-C6. This is at the site of the disc protrusion which abuts and slightly displaces the cord here. These findings are best noted on image 56 of series 801 and also I suspect on images 8 and 9 of series 501. C2-C3: No significant disc bulge or herniation. No severe spinal canal stenosis. No significant neural foraminal narrowing. C3-C4: No significant disc bulge or herniation. No severe spinal canal stenosis. No significant neural foraminal narrowing. C4-C5: No significant disc bulge or herniation. No severe spinal canal stenosis. No significant neural foraminal narrowing. C5-C6: Sagittal images best demonstrate slight disc space narrowing at this level along is trace 2 mm anterolisthesis of C 5 with respect to C6. Moderate broad-based posterior disc bulge/protrusion is seen at this level effacing the thecal sac and abutting the anterior aspect of the cord. However, ample CSF is noted posterior to the cord here. Suspected cord contusion at this level as discussed above. C6-C7: No significant disc bulge or herniation. No severe spinal canal stenosis. No significant neural foraminal narrowing. C7-T1: No significant disc bulge or herniation. No severe spinal canal stenosis. No significant neural foraminal narrowing. Soft tissues: Unremarkable. Vasculature: Expected flow voids in the vertebral arteries. MR/MR cervical spin wo con* [id number] IMPRESSION: C5/C6 2 mm anterolisthesis with moderate broad-based posterior disc protrusion minimally abutting and effacing the cord with trace cord edema also suspected at this level.
[2025-05-23] MEDS: morphine 4 mg/mL SDV 1 mL 2 MG IVP (15:36)
[2025-05-23] MEDS: morphine 4 mg/mL SDV 1 mL IVP (18:25)
--- NOTE | 2025-05-23 18:38 | W.ED.HEATRA ---
Documented by User: Isidro Auguste MD 05/23/25 21:32 HPI - Head Injury General: Chief complaint: Head Injury Stated complaint: Fell hit head dizzy hurts to move eyes Time Seen by Provider: 05/23/25 11:58 History of Present Illness: Patient is a well-appearing 85-year-old female seen for fall, headache, neck pain. She states that she has fallen 33 times and that this last fall occurred 2 days ago. She presents because of confusion and inability to perform activities of daily living. She is afraid that she will fall again. She denies unilateral weakness but does note that intermittently she sees red spots in her vision. She currently complains of 3 of 10 neck pain which is mildly worse with motion though she has full range of motion of the neck which does not cause radicular neurologic symptoms. She has no other acute complaints. Related Data Home Medications ?Medication ?Instructions ?Recorded ?Confirmed Silver Biotics 5 ml PO DAILY 04/02/23 05/07/25 aspirin 81 mg tablet,delayed 81 mg PO DAILY 04/02/23 05/07/25 release cyanocobalamin (vitamin B-12) 2,000 mcg PO DAILY 02/09/25 05/07/25 2,000 mcg tablet,extended release (Vitamin B-12 ER) levothyroxine 100 mcg tablet 100 mcg PO DAILY 02/09/25 05/07/25 Previous Rx's ?Medication ?Instructions ?Recorded Rollator walker with seat #1 ea 01/26/24 acetaminophen 500 mg tablet 500 - 1,000 mg (1 - 2 x 500 mg) PO 03/02/24 (Tylenol Extra Strength) BID pain #100 tabs allopurinol 100 mg tablet 100 mg PO BID #60 tabs 08/17/24 metoprolol succinate 25 mg 25 mg PO DAILY #90 tabs 08/23/24 tablet,extended release 24 hr potassium chloride 20 mEq 20 meq PO DAILY #30 tabs 10/02/24 tablet,extended release(part/cryst) (Klor-Con M) methenamine hippurate 1 gram tablet 1 g PO BID #180 tabs 03/05/25 alprazolam 1 mg tablet 1 mg PO TID #30 tabs 03/14/25 duloxetine 20 mg capsule,delayed 20 mg PO QDAY #90 caps 03/14/25 release estradiol 0.01% (0.1 mg/gram) See Rx Instructions .Route 03/14/25 vaginal cream .COMPLEX #42.5 grams amlodipine 5 mg tablet 5 mg PO DAILY #90 tabs 04/04/25 pantoprazole 40 mg tablet,delayed 40 mg PO BID #180 tabs 04/04/25 release quetiapine 25 mg tablet (Seroquel) See Rx Instructions PO BID #270 04/11/25 tabs clotrimazole 10 mg debra See Rx Instructions .Route 04/25/25 .COMPLEX #90 ea olanzapine 5 mg tablet 5 mg PO BID #180 tabs 04/25/25 losartan 50 mg tablet See Rx Instructions .Route 04/26/25 .COMPLEX #90 tabs albuterol sulfate 90 mcg/actuation 2 puff inhalation Q6H PRN 04/29/25 aerosol inhaler (Ventolin HFA) shortness of breath or wheezing #8.5 grams cephalexin 500 mg capsule 500 mg PO QID #40 caps 04/29/25 fluconazole 150 mg tablet 150 mg PO Q3D 2 doses #2 tabs 04/29/25 prednisone 10 mg tablet 10 mg PO DAILY #5 tabs 04/29/25 Allergies Allergy/AdvReac Type Severity Reaction Status Date / Time levofloxacin (From Levaquin) Allergy Severe NA Verified 05/07/25 10:14 cetirizine (From Zyrtec) Allergy Intermediate ADR-Halluci Verified 05/07/25 10:14 nating codeine Allergy Intermediate headache/ Verified 05/07/25 10:14 lips numb hydrocodone Allergy Intermediate itching Verified 05/07/25 10:14 Iodinated Contrast Media Allergy Intermediate ADR-Halluci Verified 05/07/25 10:14 nating Penicillins Allergy Intermediate NA Verified 05/07/25 10:14 solifenacin (From Vesicare) Allergy Intermediate hallucinati Verified 05/07/25 10:14 ons nitrofurantoin (From Allergy NA Verified 05/07/25 10:14 Macrobid) phenazopyridine (From Allergy NA Verified 05/07/25 10:14 Pyridium) streptomycin Allergy NA Verified 05/07/25 10:14 Sulfa (Sulfonamide Allergy NA Verified 05/07/25 10:14 Antibiotics) tramadol (From Ultracet) Allergy NA Verified 05/07/25 10:14 bupropion (From Wellbutrin) AdvReac Severe Unknown Verified 05/07/25 10:14 baclofen AdvReac Intermediate hallucinati Verified 05/07/25 10:14 ons duloxetine (From Cymbalta) AdvReac Intermediate stomach Verified 05/07/25 10:14 pain fluoxetine AdvReac Intermediate hallucinati Verified 05/07/25 10:14 ons sertraline (From Zoloft) AdvReac Intermediate diarrhea/ Verified 05/07/25 10:14 hyponatremia atorvastatin (From Lipitor) AdvReac Mild nausea Verified 05/07/25 10:14 PFSH ED PFSH: Medical History Greater trochanteric bursitis of both hips Macrocytic anemia Severe sleep apnea Irritable bowel syndrome Fibromyalgia Depression Somatization disorder Anxiety disorder Urethral syndrome Chronic interstitial cystitis Surgical History S/P thyroidectomy H/O: hysterectomy S/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 H/O hand surgery H/O carpal tunnel repair S/P cholecystectomy Family History Father , cva Stroke Mother , 96 Dementia Social History Smoking and tobacco/nicotine status: never used tobacco/nicotine Physical Exam Const: COMMON NORMALS: no acute distress, patient oriented x3 and alert HENMT: COMMON NORMALS: normocephalic and atraumatic HEAD & SCALP: normocephalic and atraumatic Eye: COMMON NORMALS: Equal, round and reactive pupils present, EOMs intact bilaterally and no scleral icterus PUPIL: Yes Equal, round and reactive pupils present Neck/C-Spine: OTHER: No midline tenderness of the spine. Mild to deep pain with extremes of motion, particularly chin to chest. Resp: COMMON NORMALS: normal respiratory effort and No retractions Cardio: COMMON NORMALS: regular rate, regular rhythm and No murmurs present (Cardio) RATE: regular rate RHYTHM: regular rhythm GI: COMMON NORMALS: Normal to inspection, nondistended, normoactive bowel sounds present, Soft to palpation and non-tender PALPATION: Yes Soft to palpation Neuro: COMMON NORMALS: patient oriented x3 SENSORIUM/ORIENTATION: Yes alert OTHER: Mild confusion, particularly with short-term memory. Long-term memory intact. No lateralizing deficits. Skin: COMMON NORMALS: no rashes or lesions noted GENERAL SKIN EXAM: no rashes or lesions noted Course Vital Signs: Vital signs: Vital Signs Temperature 98.0 F 05/23/25 11:11 Pulse Rate 78 05/24/25 10:49 Respiratory Rate 78 H 05/24/25 10:48 Blood Pressure 167/71 05/24/25 10:49 Pulse Oximetry 95 05/24/25 10:49 Oxygen Delivery Me thod Nasal Cannula 05/23/25 21:30 Oxygen Flow Rate 2 05/23/25 21:30 MDM - Head Injury Medcial Decision Making In summary, patient is a generally well-appearing 85-year-old female from home where she lives alone. She has fallen 33 times by her own report. Most recent fall was 2 days ago. MRI of the neck was ordered when CT of the neck showed abnormality. I spoke with on-call orthopedics who takes care of spinal cases and they agree there is nothing urgent to do and she can follow-up in clinic. She has no diagnoses requiring mission to the hospital and with daughter and granddaughter in the room I suggested brain rest and felt she would likely be stable for home discharge as long as someone can watch her. Unfortunately, family cannot be with her and she is afraid to go home. She feels she has a high fall risk and is so confused she cannot take care of her activities of daily living. Indeed, she does ask repeated questions and family states this is new for her. Case management will be consulted and hopefully she can be placed in rehab until such time that she regains strength and memory such that she can go home where she currently lives independently. Lab Data 05/23/25 13:08 05/23/25 13:08 Radiology Impressions Cervical Spine CT 05/23/25 11:58 IMPRESSION: 1. New 2 mm anterolisthesis of C5 with asymmetric narrowing of the C5-6 disc space and slight widening of the spinous processes. No fracture is identified. Consider follow-up MRI evaluation of the cervical spine to evaluate for edema and ligamentous injury. 2. Facet joint arthropathy. Head CT 05/23/25 11:59 IMPRESSION: 1. No acute intracranial hemorrhage or edema. 2. Cerebral and cerebellar atrophy and small vessel disease, similar to 03/06/2025. 3. Ventriculomegaly secondary to the atrophy. Cervical Spine MRI 05/23/25 15:14 IMPRESSION: C5/C6 2 mm anterolisthesis with moderate broad-based posterior disc protrusion minimally abutting and effacing the cord with trace cord edema also suspected at this level. Laboratory Results WBC 8.73 10^3/uL (3.29-11.43) 05/23/25 13:08 RBC 3.72 10^6/uL (3.85-5.65) L 05/23/25 13:08 Hgb 12.50 g/dL (11.27-16.99) 05/23/25 13:08 Hct 36.9 % (36-47) 05/23/25 13:08 MCV 99.2 fl (85-98) H 05/23/25 13:08 MCH 33.6 pg (27-33) H 05/23/25 13:08 MCHC 33.9 g/dL (30-55) 05/23/25 13:08 RDW 14.1 % (12.1-15.1) 05/23/25 13:08 Plt Count 265 10^3/cmm (157-399) 05/23/25 13:08 MPV 8.9 fL (7.4-10.4) 05/23/25 13:08 Neut % (Auto) 66.5 % 05/23/25 13:08 Lymph % (Auto) 24.3 % 05/23/25 13:08 [place] % (Auto) 6.8 % 05/23/25 13:08 Eos % (Auto) 0.8 % 05/23/25 13:08 Baso % (Auto) 0.6 % 05/23/25 13:08 Neut # (Auto) 5.81 10^3/uL (1.8-7.7) 05/23/25 13:08 Lymph # (Auto) 2.1 10^3/uL (0.8-4.8) 05/23/25 13:08 [place] # (Auto) 0.6 10^3/uL (0.2-0.9) 05/23/25 13:08 Eos # (Auto) 0.1 10^3/uL (0.0-0.8) 05/23/25 13:08 Baso # (Auto) 0.1 10^3/uL (0.0-0.1) 05/23/25 13:08 Nucleated RBC % (auto) 0 % 05/23/25 13:08 Nucleated RBCs # 0.0 /100WBC 05/23/25 13:08 Sodium 134 mmol/L (136-145) L 05/23/25 13:08 Potassium 4.0 mmol/L (3.5-5.1) 05/23/25 13:08 Chloride 94 mmol/L (98-107) L 05/23/25 13:08 Carbon Dioxide 25 mmol/L (22-29) 05/23/25 13:08 Anion Gap 19.0 (5-19) 05/23/25 13:08 BUN 13 mg/dL (8-23) 05/23/25 13:08 Creatinine 0.8 mg/dL (0.5-0.9) 05/23/25 13:08 GFR Calculation Not Reportable 05/23/25 13:08 Glucose 92 mg/dL (65-115) 05/23/25 13:08 Calculated Osmolality 278 mOsm/kg (285-295) L 05/23/25 13:08 Calcium 9.8 mg/dL (8.5-10.5) 05/23/25 13:08 Total Bilirubin 0.2 mg/dL (0.15-1.2) 05/23/25 13:08 AST 22 U/L (0-32) 05/23/25 13:08 ALT 19 U/L (0-33) 05/23/25 13:08 Alkaline Phosphatase 64 U/L (35-105) 05/23/25 13:08 Total Protein 7.4 g/dL (6.6-8.7) 05/23/25 13:08 Albumin 4.5 g/dL (3.5-5.2) 05/23/25 13:08 Globulin 2.9 g/dL (1.3-4.6) 05/23/25 13:08 Urine Color Yellow (Yellow) 05/23/25 12:47 Urine Appearance Clear (CLEAR) 05/23/25 12:47 Urine pH 6.5 (5-7) 05/23/25 12:47 Ur Specific [place] 1.014 (1.005-1.030) 05/23/25 12:47 Urine Protein 1+ (Negative) A 05/23/25 12:47 Urine Glucose (UA) Negative (Normal) 05/23/25 12:47 Urine Ketones Negative (Negative) 05/23/25 12:47 Urine Blood Negative (Negative) 05/23/25 12:47 Urine Nitrate Negative (Negative) 05/23/25 12:47 Urine Bilirubin Negative (Negative) 05/23/25 12:47 Urine Urobilinogen 0.2 mg/dL (Negative) 05/23/25 12:47 Ur Leukocyte Esterase Negative (Negative) 05/23/25 12:47 Urine RBC 6-10 /hpf (0-2) 05/23/25 12:47 Urine WBC 0-5 /hpf (0-5) 05/23/25 12:47 Ur Squamous Epith Cells 6-10 /hpf (0-5) 05/23/25 12:47 Amorphous Sediment Not Reportable 05/23/25 12:47 Urine Bacteria None seen /hpf (NONE) 05/23/25 12:47 Hyaline Casts 3.30 /lpf 05/23/25 12:47 Discharge Plan Discharge Patient Disposition: Home Clinical Impression: Contusion of cervical cord, Falls frequently, Concussion Condition: Stable Prescriptions: No Action (DME) Rollator walker with seat See Rx Instructions .Route .MEDSUPPLY Qty: 1 0RF Rx Instructions: As directed allopurinol 100 mg tablet 100 mg PO BID Qty: 60 11RF duloxetine 20 mg capsule,delayed release(DR/EC) 20 mg PO QDAY Qty: 90 11RF estradiol 0.01 % (0.1 mg/gram) cream See Rx Instructions .ROUTE .COMPLEX Qty: 42.5 11RF Rx Instructions: INSERT ONE GRAM VAGINALLY DAILY AT BEDTIME FOR 2 WEEKS, AND THEN DECREASE TO 2 TIMES WEEKLY (SUCH TUESDAY/TUESDAY) quetiapine [Seroquel] 25 mg tablet See Rx Instructions PO BID Qty: 270 11RF Rx Instructions: 1 tablet in AM and 2 in PM clotrimazole 10 mg debra See Rx Instructions .ROUTE .COMPLEX Qty: 90 3RF Dose Instruction: DISSOLVE 1 TABLET BY MOUTH THREE TIMES DAILY NEEDED Rx Instructions: DISSOLVE 1 TABLET BY MOUTH THREE TIMES DAILY NEEDED. olanzapine 5 mg tablet 5 mg PO BID Qty: 180 3RF acetaminophen [Tylenol Extra Strength] 500 mg tablet 500 - 1,000 mg PO BID Qty: 100 0RF metoprolol succinate 25 mg tablet extended release 24 hr 25 mg PO DAILY Qty: 90 3RF prednisone 10 mg tablet 10 mg PO DAILY Qty: 5 0RF cephalexin 500 mg capsule 500 mg PO QID Qty: 40 0RF albuterol sulfate [Ventolin HFA] 90 mcg/actuation HFA aerosol inhaler 2 puff inhalation Q6H PRN (Reason: shortness of breath or wheezing) Qty: 8.5 11RF fluconazole 150 mg tablet 150 mg PO Q3D 0 Days Qty: 2 0RF Klor-Con M20 20 mEq tablet,ER particles/crystals 20 meq PO DAILY Qty: 30 11RF methenamine hippurate 1 gram tablet 1 g PO BID Qty: 180 11RF alprazolam 1 mg tablet 1 mg PO TID Qty: 30 5RF amlodipine 5 mg tablet 5 mg PO DAILY Qty: 90 11RF pantoprazole 40 mg tablet,delayed release (DR/EC) 40 mg PO BID Qty: 180 3RF losartan 50 mg tablet See Rx Instructions .ROUTE .COMPLEX Qty: 90 3RF Dose Instruction: TAKE 1 TABLET EVERY DAY Rx Instructions: TAKE 1 TABLET EVERY DAY aspirin [Aspir-81] 81 mg Tablet,Delayed Release (Dr/Ec) 81 mg PO DAILY Silver Biotics 5 ml PO DAILY cyanocobalamin (vitamin B-12) [Vitamin B-12] 2,000 mcg Tablet Extended Release 2,000 mcg PO DAILY levothyroxine 100 mcg tablet 100 mcg PO DAILY Discharge Orders: Discharge ED (Routine); Ordered 05/24/25 Ordered By: Shahzad Evans Referrals: Juwan Hernández MD [Primary Care Provider, Family Practice] Discharge Diet: As Directed Discharge Activity: Increase activity as tolerated Patient Instructions: Concussion (ED), Fall Prevention (ED), Patient Portal & Tasha Instructions Activity Restrictions/Additional Instructions: It is very important to not fall and strike your head for the next week as you get better from your concussion. You will have weakness and foggy thinking and headache and visual disturbance for the next few days but if you sleep enough and rest and avoid mental activity this will improve with time. Print Language: Angolan Sign Out Sign Out Data: Patient Sign Out occurred on 05/24/25 at 07:38. Patient's care was discussed, and care was transferred from Isidro Auguste MD to Shahzad Evans DO. Coding Level of Care Code ED Hourly Shift Manager for [facility] Fwd Documented by User: Shahzad Evans DO 05/27/25 07:18 HPI - Head Injury General: Chief complaint: Head Injury Stated complaint: Fell hit head dizzy hurts to move eyes Time Seen by Provider: 05/23/25 11:58 Related Data Home Medications ?Medication ?Instructions ?Recorded ?Confirmed Silver Biotics 5 ml PO DAILY 04/02/23 05/07/25 aspirin 81 mg tablet,delayed 81 mg PO DAILY 04/02/23 05/07/25 release cyanocobalamin (vitamin B-12) 2,000 mcg PO DAILY 02/09/25 05/07/25 2,000 mcg tablet,extended release (Vitamin B-12 ER) levothyroxine 100 mcg tablet 100 mcg PO DAILY 02/09/25 05/07/25 Previous Rx's ?Medication ?Instructions ?Recorded Rollator walker with seat #1 ea 01/26/24 acetaminophen 500 mg tablet 500 - 1,000 mg (1 - 2 x 500 mg) PO 03/02/24 (Tylenol Extra Strength) BID pain #100 tabs allopurinol 100 mg tablet 100 mg PO BID #60 tabs 08/17/24 metoprolol succinate 25 mg 25 mg PO DAILY #90 tabs 08/23/24 tablet,extended release 24 hr potassium chloride 20 mEq 20 meq PO DAILY #30 tabs 10/02/24 tablet,extended release(part/cryst) (Klor-Con M) methenamine hippurate 1 gram tablet 1 g PO BID #180 tabs 03/05/25 alprazolam 1 mg tablet 1 mg PO TID #30 tabs 03/14/25 duloxetine 20 mg capsule,delayed 20 mg PO QDAY #90 caps 03/14/25 release estradiol 0.01% (0.1 mg/gram) See Rx Instructions .Route 03/14/25 vaginal cream .COMPLEX #42.5 grams amlodipine 5 mg tablet 5 mg PO DAILY #90 tabs 04/04/25 pantoprazole 40 mg tablet,delayed 40 mg PO BID #180 tabs 04/04/25 release quetiapine 25 mg tablet (Seroquel) See Rx Instructions PO BID #270 04/11/25 tabs clotrimazole 10 mg debra See Rx Instructions .Route 04/25/25 .COMPLEX #90 ea olanzapine 5 mg tablet 5 mg PO BID #180 tabs 04/25/25 losartan 50 mg tablet See Rx Instructions .Route 04/26/25 .COMPLEX #90 tabs albuterol sulfate 90 mcg/actuation 2 puff inhalation Q6H PRN 04/29/25 aerosol inhaler (Ventolin HFA) shortness of breath or wheezing #8.5 grams cephalexin 500 mg capsule 500 mg PO QID #40 caps 04/29/25 fluconazole 150 mg tablet 150 mg PO Q3D 2 doses #2 tabs 04/29/25 prednisone 10 mg tablet 10 mg PO DAILY #5 tabs 04/29/25 Allergies Allergy/AdvReac Type Severity Reaction Status Date / Time levofloxacin (From Levaquin) Allergy Severe NA Verified 05/07/25 10:14 cetirizine (From Zyrtec) Allergy Intermediate ADR-Halluci Verified 05/07/25 10:14 nating codeine Allergy Intermediate headache/ Verified 05/07/25 10:14 lips numb hydrocodone Allergy Intermediate itching Verified 05/07/25 10:14 Iodinated Contrast Media Allergy Intermediate ADR-Halluci Verified 05/07/25 10:14 nating Penicillins Allergy Intermediate NA Verified 05/07/25 10:14 solifenacin (From Vesicare) Allergy Intermediate hallucinati Verified 05/07/25 10:14 ons nitrofurantoin (From Allergy NA Verified 05/07/25 10:14 Macrobid) phenazopyridine (From Allergy NA Verified 05/07/25 10:14 Pyridium) streptomycin Allergy NA Verified 05/07/25 10:14 Sulfa (Sulfonamide Allergy NA Verified 05/07/25 10:14 Antibiotics) tramadol (From Ultracet) Allergy NA Verified 05/07/25 10:14 bupropion (From Wellbutrin) AdvReac Severe Unknown Verified 05/07/25 10:14 baclofen AdvReac Intermediate hallucinati Verified 05/07/25 10:14 ons duloxetine (From Cymbalta) AdvReac Intermediate stomach Verified 05/07/25 10:14 pain fluoxetine AdvReac Intermediate hallucinati Verified 05/07/25 10:14 ons sertraline (From Zoloft) AdvReac Intermediate diarrhea/ Verified 05/07/25 10:14 hyponatremia atorvastatin (From Lipitor) AdvReac Mild nausea Verified 05/07/25 10:14 PFSH ED PFSH: Medical History Greater trochanteric bursitis of both hips Macrocytic anemia Severe sleep apnea Irritable bowel syndrome Fibromyalgia Depression Somatization disorder Anxiety disorder Urethral syndrome Chronic interstitial cystitis Surgical History S/P thyroidectomy H/O: hysterectomy S/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 H/O hand surgery H/O carpal tunnel repair S/P cholecystectomy Family History Father , cva Stroke Mother , 96 Dementia Social History Smoking and tobacco/nicotine status: never used tobacco/nicotine Course Vital Signs: Vital signs: Vital Signs Temperature 98.0 F 05/23/25 11:11 Pulse Rate 78 05/24/25 10:49 Respiratory Rate 78 H 05/24/25 10:48 Blood Pressure 167/71 05/24/25 10:49 Pulse Oximetry 95 05/24/25 10:49 Oxygen Delivery Me thod Nasal Cannula 05/23/25 21:30 Oxygen Flow Rate 2 05/23/25 21:30 MDM - Head Injury Medcial Decision Making In summary, patient is a generally well-appearing 85-year-old female from home where she lives alone. She has fallen 33 times by her own report. Most recent fall was 2 days ago. MRI of the neck was ordered when CT of the neck showed abnormality. I spoke with on-call orthopedics who takes care of spinal cases and they agree there is nothing urgent to do and she can follow-up in clinic. She has no diagnoses requiring mission to the hospital and with daughter and granddaughter in the room I suggested brain rest and felt she would likely be stable for home discharge as long as someone can watch her. Unfortunately, family cannot be with her and she is afraid to go home. She feels she has a high fall risk and is so confused she cannot take care of her activities of daily living. Indeed, she does ask repeated questions and family states this is new for her. Case management will be consulted and hopefully she can be placed in rehab until such time that she regains strength and memory such that she can go home where she currently lives independently. Care assumed at change of shift eventually we were able to get the patient set up with home health care. She will be discharged home with home health. Lab Data 05/23/25 13:08 05/23/25 13:08 Radiology Impressions Cervical Spine CT 05/23/25 11:58 IMPRESSION: 1. New 2 mm anterolisthesis of C5 with asymmetric narrowing of the C5-6 disc space and slight widening of the spinous processes. No fracture is identified. Consider follow-up MRI evaluation of the cervical spine to evaluate for edema and ligamentous injury. 2. Facet joint arthropathy. Head CT 05/23/25 11:59 IMPRESSION: 1. No acute intracranial hemorrhage or edema. 2. Cerebral and cerebellar atrophy and small vessel disease, similar to 03/06/2025. 3. Ventriculomegaly secondary to the atrophy. Cervical Spine MRI 05/23/25 15:14 IMPRESSION: C5/C6 2 mm anterolisthesis with moderate broad-based posterior disc protrusion minimally abutting and effacing the cord with trace cord edema also suspected at this level. Laboratory Results WBC 8.73 10^3/uL (3.29-11.43) 05/23/25 13:08 RBC 3.72 10^6/uL (3.85-5.65) L 05/23/25 13:08 Hgb 12.50 g/dL (11.27-16.99) 05/23/25 13:08 Hct 36.9 % (36-47) 05/23/25 13:08 MCV 99.2 fl (85-98) H 05/23/25 13:08 MCH 33.6 pg (27-33) H 05/23/25 13:08 MCHC 33.9 g/dL (30-55) 05/23/25 13:08 RDW 14.1 % (12.1-15.1) 05/23/25 13:08 Plt Count 265 10^3/cmm (157-399) 05/23/25 13:08 MPV 8.9 fL (7.4-10.4) 05/23/25 13:08 Neut % (Auto) 66.5 % 05/23/25 13:08 Lymph % (Auto) 24.3 % 05/23/25 13:08 [place] % (Auto) 6.8 % 05/23/25 13:08 Eos % (Auto) 0.8 % 05/23/25 13:08 Baso % (Auto) 0.6 % 05/23/25 13:08 Neut # (Auto) 5.81 10^3/uL (1.8-7.7) 05/23/25 13:08 Lymph # (Auto) 2.1 10^3/uL (0.8-4.8) 05/23/25 13:08 [place] # (Auto) 0.6 10^3/uL (0.2-0.9) 05/23/25 13:08 Eos # (Auto) 0.1 10^3/uL (0.0-0.8) 05/23/25 13:08 Baso # (Auto) 0.1 10^3/uL (0.0-0.1) 05/23/25 13:08 Nucleated RBC % (auto) 0 % 05/23/25 13:08 Nucleated RBCs # 0.0 /100WBC 05/23/25 13:08 Sodium 134 mmol/L (136-145) L 05/23/25 13:08 Potassium 4.0 mmol/L (3.5-5.1) 05/23/25 13:08 Chloride 94 mmol/L (98-107) L 05/23/25 13:08 Carbon Dioxide 25 mmol/L (22-29) 05/23/25 13:08 Anion Gap 19.0 (5-19) 05/23/25 13:08 BUN 13 mg/dL (8-23) 05/23/25 13:08 Creatinine 0.8 mg/dL (0.5-0.9) 05/23/25 13:08 GFR Calculation Not Reportable 05/23/25 13:08 Glucose 92 mg/dL (65-115) 05/23/25 13:08 Calculated Osmolality 278 mOsm/kg (285-295) L 05/23/25 13:08 Calcium 9.8 mg/dL (8.5-10.5) 05/23/25 13:08 Total Bilirubin 0.2 mg/dL (0.15-1.2) 05/23/25 13:08 AST 22 U/L (0-32) 05/23/25 13:08 ALT 19 U/L (0-33) 05/23/25 13:08 Alkaline Phosphatase 64 U/L (35-105) 05/23/25 13:08 Total Protein 7.4 g/dL (6.6-8.7) 05/23/25 13:08 Albumin 4.5 g/dL (3.5-5.2) 05/23/25 13:08 Globulin 2.9 g/dL (1.3-4.6) 05/23/25 13:08 Urine Color Yellow (Yellow) 05/23/25 12:47 Urine Appearance Clear (CLEAR) 05/23/25 12:47 Urine pH 6.5 (5-7) 05/23/25 12:47 Ur Specific [place] 1.014 (1.005-1.030) 05/23/25 12:47 Urine Protein 1+ (Negative) A 05/23/25 12:47 Urine Glucose (UA) Negative (Normal) 05/23/25 12:47 Urine Ketones Negative (Negative) 05/23/25 12:47 Urine Blood Negative (Negative) 05/23/25 12:47 Urine Nitrate Negative (Negative) 05/23/25 12:47 Urine Bilirubin Negative (Negative) 05/23/25 12:47 Urine Urobilinogen 0.2 mg/dL (Negative) 05/23/25 12:47 Ur Leukocyte Esterase Negative (Negative) 05/23/25 12:47 Urine RBC 6-10 /hpf (0-2) 05/23/25 12:47 Urine WBC 0-5 /hpf (0-5) 05/23/25 12:47 Ur Squamous Epith Cells 6-10 /hpf (0-5) 05/23/25 12:47 Amorphous Sediment Not Reportable 05/23/25 12:47 Urine Bacteria None seen /hpf (NONE) 05/23/25 12:47 Hyaline Casts 3.30 /lpf 05/23/25 12:47 All radiology interpretation(s) finalized by discharge Discharge Plan Discharge Patient Disposition: Home Clinical Impression: Contusion of cervical cord, Falls frequently, Concussion Condition: Stable Prescriptions: No Action (DME) Rollator walker with seat See Rx Instructions .Route .MEDSUPPLY Qty: 1 0RF Rx Instructions: As directed allopurinol 100 mg tablet 100 mg PO BID Qty: 60 11RF duloxetine 20 mg capsule,delayed release(DR/EC) 20 mg PO QDAY Qty: 90 11RF estradiol 0.01 % (0.1 mg/gram) cream See Rx Instructions .ROUTE .COMPLEX Qty: 42.5 11RF Rx Instructions: INSERT ONE GRAM VAGINALLY DAILY AT BEDTIME FOR 2 WEEKS, AND THEN DECREASE TO 2 TIMES WEEKLY (SUCH TUESDAY/TUESDAY) quetiapine [Seroquel] 25 mg tablet See Rx Instructions PO BID Qty: 270 11RF Rx Instructions: 1 tablet in AM and 2 in PM clotrimazole 10 mg debra See Rx Instructions .ROUTE .COMPLEX Qty: 90 3RF Dose Instruction: DISSOLVE 1 TABLET BY MOUTH THREE TIMES DAILY NEEDED Rx Instructions: DISSOLVE 1 TABLET BY MOUTH THREE TIMES DAILY NEEDED. olanzapine 5 mg tablet 5 mg PO BID Qty: 180 3RF acetaminophen [Tylenol Extra Strength] 500 mg tablet 500 - 1,000 mg PO BID Qty: 100 0RF metoprolol succinate 25 mg tablet extended release 24 hr 25 mg PO DAILY Qty: 90 3RF prednisone 10 mg tablet 10 mg PO DAILY Qty: 5 0RF cephalexin 500 mg capsule 500 mg PO QID Qty: 40 0RF albuterol sulfate [Ventolin HFA] 90 mcg/actuation HFA aerosol inhaler 2 puff inhalation Q6H PRN (Reason: shortness of breath or wheezing) Qty: 8.5 11RF fluconazole 150 mg tablet 150 mg PO Q3D 0 Days Qty: 2 0RF Klor-Con M20 20 mEq tablet,ER particles/crystals 20 meq PO DAILY Qty: 30 11RF methenamine hippurate 1 gram tablet 1 g PO BID Qty: 180 11RF alprazolam 1 mg tablet 1 mg PO TID Qty: 30 5RF amlodipine 5 mg tablet 5 mg PO DAILY Qty: 90 11RF pantoprazole 40 mg tablet,delayed release (DR/EC) 40 mg PO BID Qty: 180 3RF losartan 50 mg tablet See Rx Instructions .ROUTE .COMPLEX Qty: 90 3RF Dose Instruction: TAKE 1 TABLET EVERY DAY Rx Instructions: TAKE 1 TABLET EVERY DAY aspirin [Aspir-81] 81 mg Tablet,Delayed Release (Dr/Ec) 81 mg PO DAILY Silver Biotics 5 ml PO DAILY cyanocobalamin (vitamin B-12) [Vitamin B-12] 2,000 mcg Tablet Extended Release 2,000 mcg PO DAILY levothyroxine 100 mcg tablet 100 mcg PO DAILY Discharge Orders: Discharge ED (Routine); Ordered 05/24/25 Ordered By: Shahzad Evans Referrals: Juwan Hernández MD [Primary Care Provider, [facility]] Discharge Diet: As Directed Discharge Activity: Increase activity as tolerated Patient Instructions: Concussion (ED), Fall Prevention (ED), Patient Portal & Tasha Instructions Activity Restrictions/Additional Instructions: It is very important to not fall and strike your head for the next week as you get better from your concussion. You will have weakness and foggy thinking and headache and visual disturbance for the next few days but if you sleep enough and rest and avoid mental activity this will improve with time. Print Language: Angolan Sign Out Sign Out Data: Patient Sign Out occurred on 05/24/25 at 07:38. Patient's care was discussed, and care was transferred from Isidro Auguste MD to Shahzad Evans DO. Coding Level of Care Code ED Hourly Shift Manager for Marisol Reese
--- NOTE | 2025-05-23 20:30 | PC.NURSE ---
2030 patient home meds placed in [facility].
--- NOTE | 2025-05-23 20:30 | PC.NURSE ---
Pt family left pt medications with this nurse. This nurse contacted pharmacy and was told they are to go in [place] kerri. Pt had Alprazolam counted at 54 pills with DIA Molina. Meds were given to DIA Laurentmeat cutting block repairer.
[2025-05-24] VITALS (27 sets, daily range): BP systolic 106–167; BP diastolic 56–75; PULSE 76–91; RESP 18–78; O2SAT 90–99
--- NOTE | 2025-05-24 08:26 | PC.NURSE ---
breakfast tray provided, pt denies any further needs
--- NOTE | 2025-05-24 09:22 | PC.NURSE ---
per case management, jhon Alvarez is being d/c home with home health. pt is contacting family members to see who can pick her up
[2025-05-24] MEDS: morphine 4 mg/mL SDV 1 mL 2 MG IVP (10:40)
--- NOTE | 2025-05-24 10:59 | PC.SOCIAL ---
HH Referral CM contacted to speak with patient about SNF. Referral faxed to all three local SNF proactively, [facility] and [facility] states that they would be willing to accept, however they need PA from insurance and cannot obtain it from the notes sent from ER. Spoke with patient. She states that she lives at home alone and sees Dr. Hernández for primary care. She drives herself and is typically independent with ADLs. She states that she wants to go home at time of discharge, she does not want to go to rehab, but her family wishes for her to. She states that she cannot afford to private pay. She is agreeable to , and this was set up with [facility]. Nisa at [facility] updated that patient will be going home today.
== END 2025-05-24 11:20 | disposition home or self-care (01) ==
PROVIDERS: Emergency Provider Family Medicine; PCP Family Medicine
DX: S14.109A Unspecified injury at unspecified level of cervical spinal cord, initial encounter (principal); S06.0X0A Concussion without loss of consciousness, initial encounter; Z79.82 Long term (current) use of aspirin; R29.6 Repeated falls; W19.XXXA Unspecified fall, initial encounter
CPT/HCPCS: 36415; 70450; 72125; 72141; 80053; 81001; 85025; 93005; 96374; 96376; 99285; J2270

== ENCOUNTER 2025-06-10 11:43 | Emergency (ER) | payer MEDICARE, SELFPAY ==
--- OUTSIDE RECORDS SUMMARY | 2025-06-10 11:48 | XMS_ITS | Clinical Summary ---
[facility] Organization [facility] Address [address] Deleon: [place] [address] Care Team Providers Care Central Aisle Cashier Name Role Phone Juwan Hernández MD Primary Care Provider [phone] Allergies Active Allergy Reactions Criticality Noted Date [...] 4 Active fluticasone propionate (FLONASE) 50 mcg/spray L[place], Suspension nasal inhalerIndicati ons:Ear fullness, bilateral,Post- nasal [...] Encounters Date Type Department Care Team Description 06/04/2025 External Device Data STL ABSTRACTION Provider, Abstract 05/21/2025 External Device Data STL ABSTRACTION Provider, [...] on file Legal Sex Female 2:32 AM 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 [place] [address] Marichuy Mckeon FNP [address] [place] [address] Health Maintenance Due Date Last Done Comments DTAP/TDAP/TD VACCINES (1 - Tdap) 1959 PNEUMOCOCCAL VACCINE 50+ YEA RS (1 of 1 - PCV) 01/13/1992 ZOSTER VACCINE (1 of 2) 01/13/1992 RSV VACCINE (60+ or ) (1 - 1-dose 75+ series) 2017 COLORECTAL SCREENING 06/21/2024 06/21/2019, 06/21/2019, 12/19/2014 INFLUENZA VACCINE (#1) 2025 , 10/02/2012, 07/14/2012, Additional history exists OSTEOPOROSIS SCREENING 05/28/2025 05/28/2020, 2017 COVID-19 Vaccine (6 - 2024-2 6 season) 2025 07/20/2023, 03/16/2022, 07/31/2021, Additional history exists Medical Devices Implanted Type Area Paper Goods Machine Operator Device Identifier Shelf Expiration Date Model / Serial / Lot Plate Hand Va Loc 2.0 Str 12h 02.130.351 - [id number] Implanted:Qty: 1 on 12/13/2023 by Roque Vidal MD at [facility] Plate Right: Finger [employer]- DEPUY SYNTHES 01/31/2024 02.130.35 1 / / LOAD #[id number] Screw T6 St Va Loc 2.0x10mm 02.130.310 - [id number] Implanted:Qty: 1 on 12/13/2023 by Roque Vidal MD at [facility] Screw Right: Finger [employer]- DEPUY SYNTHES 02.130.31 0 / / Screw T6 St Va Loc 2.0x11mm 02.130.311 - [id number] Implanted:Qty: 1 on 12/13/2023 by Roque Vidal MD at [facility] Screw Right: Finger [employer]- DEPUY SYNTHES 02.130.31 1 / / Screw T6 St Va Loc 2.0x8mm 02.130.308 - [id number] Implanted:Qty: 1 on 12/13/2023 by Roque Vidal MD at [facility] Screw Right: Finger [employer]- DEPUY SYNTHES 02.130.30 8 / / Screw T6 St Va Loc 2.0x8mm 02.130.308 - [id number] Implanted:Qty: 1 on 12/13/2023 by Roque Vidal MD at [facility] Screw Right: Finger [employer]- DEPUY SYNTHES 02.130.30 8 / / Screw T6 St Va Loc 2.0x9mm 02.130.309 - [id number] Implanted:Qty: 1 on 12/13/2023 by Roque Vidal MD at [facility] Screw Right: Finger [employer]- DEPUY SYNTHES 02.130.30 9 / / Screw T6 St Va Loc 2.0x9mm 02.130.309 - [id number] Implanted:Qty: 1 on 12/13/2023 by Roque Vidal MD at [facility] Screw Right: Finger [employer]- DEPUY SYNTHES 02.130.30 9 / / Screw T6 St Va Loc 2.0x10mm 02.130.310 - [id number] Implanted:Qty: 1 on 12/13/2023 by Roque Vidal MD at [facility] Screw Right: Finger [employer]- DEPUY SYNTHES 02.130.31 0 / / Screw Micro 2.5x30mm Ft Jovanni Lobo8725-30h - [id number] Implanted:Qty: 1 on 05/17/2024 by Roque Vidal MD at [facility] Screw Left: Finger [employer] 07/02/2024 AR-8725-3 0H / / LOAD #[id number] Flexigraft Revision Dowel 30-59r41ln X-Long Canc Fulcannu Pcdxl10 - [id number] Implanted:Qty: 1 on 12/13/2023 by Roque Vidal MD at [facility] Tissue Right: Finger LIFENET 2028 PCDXL10 / / [id number] Allograft Vivigen Matrix 1ml -1600-001 - [id number] Implanted:Qty: 1 on 05/17/2024 by Roque Vidal MD at [facility] Tissue Left: Finger [employer] 04/12/2025 BL-1600-0 01 / / [id number] Explanted Type Area Paper Goods Machine Operator Device Identifier Shelf Expiration Date Model / Serial / Lot Wire K 0.385y9ck Ws-1606dt - [id number] Explanted:Qty: 1 on 05/17/2024 by Roque Vidal MD at [facility] Wire Left: Finger [employer] 07/02/2024 WS-1606DT / / LOAD #[id number] Metal Interphalangeal Joint Explanted:Qty: 1 on 12/13/2023 by Roque Vidal MD at [facility] Right: Finger Insurance [facility] Care Teams Central Aisle Cashier Relationship Specialty Start Date End Date Juwan Hernández MD [address] [place] [address] PCP - General Family Practice 11/09/12
--- OUTSIDE RECORDS SUMMARY | 2025-06-10 11:48 | XMS_ITS | Encounter Summary ---
Author Organization [facility] Address 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 [place] [address] Marichuy Mckeon FNP [address] [place] [address] documented as of this encounter Visit Diagnoses Not on filedocumented in this encounter Care Teams Dinkey Dispatcher Relationship Specialty Start Date End Date Juwan Hernández MD [facility] [place] [address] PCP - General Family Practice 11/09/12 documented as of this encounter
--- OUTSIDE RECORDS SUMMARY | 2025-06-10 11:48 | XMS_ITS | Patient Health Record ---
Author Organization [facility] Address [address] [place] [address] Support Name Relationship Address Phone Sarah Victoria Guarantor Unknown [phone] Allergies Allergen (clinical drug ingredient) Drug/Non Drug [...]
[2025-06-10 11:50] VITALS: BP 150/73; PULSE 108; TEMP 36.7; O2SAT 94
--- NOTE | 2025-06-10 11:54 | ECG_ITS ---
[facility] Test Date: 2025-06-10 Pat Name: Sarah Victoria Department: Room: Gender: Female Beverage Inspection Machine Tender: : 1940 Requested By: Shahzad Oneill Order Number: [id number] Rona MD: Obed Schneider M.D. Measurements Intervals [place] Rate: 101 P: 37 [place]: 122 QRS: -12 QRSD: 91 T: 113 QT: 314 QTc: 408 Interpretive Statements SINUS TACHYCARDIA POSSIBLE ANTERIOR MYOCARDIAL INFARCTION , OF INDETERMINATE AGE [30 ms Q WAVE IN V3/V4, OR R < 0.2 mV IN V4] INFERIOR MYOCARDIAL INFARCTION , PROBABLY OLD [40+ ms Q WAVE AND/OR ST/T ABNORMALITY IN II/aVF] MODERATE T-WAVE ABNORMALITY, CONSIDER LATERAL ISCHEMIA [-0.1+ mV T-WAVE IN I/aVL/V5/V6] INTERPRETATION BASED ON A DEFAULT AGE OF 40 YEARS Compared to ECG 05/23/2025 11:20:20 No significant changes Electronically Signed On 06-12-2025 20:19:33 CDT by Obed Schneider M.D. [id number]
--- NOTE | 2025-06-10 12:04 | XR_ITS ---
WS: [id number] Portable AP upright chest, 06/10/2025 Clinical Data: chest pain Comparison: Portable chest, 03/07/2025 Findings: No nodules, masses or effusions are seen. The heart is normal. The pulmonary vascularity is not increased. No pneumonia or pneumothorax is seen. There is elevation of the right diaphragm unchanged. There are midline sternotomy sutures and an artificial cardiac valve. The aortic arch and desce nding thoracic aorta show mild calcification and tortuosity. There is a minimal dextroscoliosis. XR/XR chest 1V portable [id number] Impression: Atherosclerosis.
[2025-06-10 12:58] LABS: Hematocrit 41.3 % (36-47); Hemoglobin 12.90 g/dL (11.27-16.99); Mean Corpuscular HGB Conc 31.2 g/dL (30-55); Mean Corpuscular Hemoglobin 32.0 pg (27-33); Mean Corpuscular Volume 102.5 fl (85-98); Nucleated Red Blood Cells % 0 %; Platelet Count 249 10^3/cmm (157-399); Red Blood Count 4.03 10^6/uL (3.85-5.65); White Blood Count 7.75 10^3/uL (3.29-11.43)
[2025-06-10 13:17] LABS: Slide Review Slide Review Perform
--- NOTE | 2025-06-10 13:17 | W.ED.CHESTPA ---
HPI - Chest Pain General: Chief Complaint: Chest Pain Stated Complaint: chest pain Time Seen by Provider: 06/10/25 12:08 History of Present Illness: 85-year-old female presents emergency room with complaint of chest pain. Patient was sitting resting had chest comfort that radiated into her neck. No radiation into the arms or back. She has had it with for the last several days. She has a previous aortic valve replacement with a bioprosthetic valve nearly 2 decades ago. She is not on any anticoagulants. She has not had any previous coronary artery disease. She is not having any symptoms at this time she does state that when she takes Gas-X it helps her symptoms. Associated symptoms: Deny abdominal pain, dyspnea or fever(s) Related Data Home Medications ?Medication ?Instructions ?Recorded ?Confirmed Silver Biotics 5 ml PO DAILY 04/02/23 05/27/25 aspirin 81 mg tablet,delayed 81 mg PO DAILY 04/02/23 05/27/25 release cyanocobalamin (vitamin B-12) 2,000 mcg PO DAILY 02/09/25 05/27/25 2,000 mcg tablet,extended release (Vitamin B-12 ER) levothyroxine 100 mcg tablet 100 mcg PO DAILY 02/09/25 05/27/25 Previous Rx's ?Medication ?Instructions ?Recorded Rollator walker with seat #1 ea 01/26/24 acetaminophen 500 mg tablet 500 - 1,000 mg (1 - 2 x 500 mg) PO 03/02/24 (Tylenol Extra Strength) BID pain #100 tabs metoprolol succinate 25 mg 25 mg PO DAILY #90 tabs 08/23/24 tablet,extended release 24 hr potassium chloride 20 mEq 20 meq PO DAILY #30 tabs 10/02/24 tablet,extended release(part/cryst) (Klor-Con M) methenamine hippurate 1 gram tablet 1 g PO BID #180 tabs 03/05/25 alprazolam 1 mg tablet 1 mg PO TID #30 tabs 03/14/25 duloxetine 20 mg capsule,delayed 20 mg PO QDAY #90 caps 03/14/25 release estradiol 0.01% (0.1 mg/gram) See Rx Instructions .Route 03/14/25 vaginal cream .COMPLEX #42.5 grams amlodipine 5 mg tablet 5 mg PO DAILY #90 tabs 04/04/25 pantoprazole 40 mg tablet,delayed 40 mg PO BID #180 tabs 04/04/25 release quetiapine 25 mg tablet (Seroquel) See Rx Instructions PO BID #270 04/11/25 tabs clotrimazole 10 mg debra See Rx Instructions .Route 04/25/25 .COMPLEX #90 ea olanzapine 5 mg tablet 5 mg PO BID #180 tabs 04/25/25 losartan 50 mg tablet See Rx Instructions .Route 04/26/25 .COMPLEX #90 tabs albuterol sulfate 90 mcg/actuation 2 puff inhalation Q6H PRN 04/29/25 aerosol inhaler (Ventolin HFA) shortness of breath or wheezing #8.5 grams cephalexin 500 mg capsule 500 mg PO QID #40 caps 04/29/25 fluconazole 150 mg tablet 150 mg PO Q3D 2 doses #2 tabs 04/29/25 prednisone 10 mg tablet 10 mg PO DAILY #5 tabs 04/29/25 allopurinol 100 mg tablet See Rx Instructions .Route 05/31/25 .COMPLEX #180 tabs Allergies Allergy/AdvReac Type Severity Reaction Status Date / Time levofloxacin (From Levaquin) Allergy Severe NA Verified 06/10/25 12:00 cetirizine (From Zyrtec) Allergy Intermediate ADR-Halluci Verified 06/10/25 12:00 nating codeine Allergy Intermediate headache/ Verified 06/10/25 12:00 lips numb hydrocodone Allergy Intermediate itching Verified 06/10/25 12:00 Iodinated Contrast Media Allergy Intermediate ADR-Halluci Verified 06/10/25 12:00 nating Penicillins Allergy Intermediate NA Verified 06/10/25 12:00 solifenacin (From Vesicare) Allergy Intermediate hallucinati Verified 06/10/25 12:00 ons nitrofurantoin (From Allergy NA Verified 06/10/25 12:00 Macrobid) phenazopyridine (From Allergy NA Verified 06/10/25 12:00 Pyridium) streptomycin Allergy NA Verified 06/10/25 12:00 Sulfa (Sulfonamide Allergy NA Verified 06/10/25 12:00 Antibiotics) tramadol (From Ultracet) Allergy NA Verified 06/10/25 12:00 bupropion (From Wellbutrin) AdvReac Severe Unknown Verified 06/10/25 12:00 baclofen AdvReac Intermediate hallucinati Verified 06/10/25 12:00 ons duloxetine (From Cymbalta) AdvReac Intermediate stomach Verified 06/10/25 12:00 pain fluoxetine AdvReac Intermediate hallucinati Verified 06/10/25 12:00 ons sertraline (From Zoloft) AdvReac Intermediate diarrhea/ Verified 06/10/25 12:00 hyponatremia atorvastatin (From Lipitor) AdvReac Mild nausea Verified 06/10/25 12:00 Review of Systems Const: Denies: fever(s) or chills Card: Reports: chest pain Resp: Denies: dyspnea GI: Denies: abdominal pain : Denies: dysuria, urinary frequency or urinary urgency Musc: Denies: neck pain or back pain Skin/Breast: Denies: rash PFSH ED PFSH: Medical History Greater trochanteric bursitis of both hips Macrocytic anemia Severe sleep apnea Irritable bowel syndrome Fibromyalgia Depression Somatization disorder Anxiety disorder Urethral syndrome Chronic interstitial cystitis Surgical History S/P thyroidectomy H/O: hysterectomy S/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 H/O hand surgery H/O carpal tunnel repair S/P cholecystectomy Family History Father , cva Stroke Mother , 96 Dementia Social History Smoking and tobacco/nicotine status: never used tobacco/nicotine Physical Exam Const: GENERAL APPEARANCE: cooperative ORIENTATION/CONSCIOUSNESS: Yes awake, Yes oriented to person, Yes oriented to place and Yes oriented to time HENMT: COMMON NORMALS: normocephalic, atraumatic and hearing grossly normal bilaterally HEAD & SCALP: normocephalic and atraumatic Resp: COMMON NORMALS: normal respiratory effort, No retractions, No use of accessory muscles and clear to auscultation bilaterally AUSCULTATION: clear to auscultation bilaterally Cardio: COMMON NORMALS: regular rate, regular rhythm and No murmurs present (Cardio) RATE: regular rate RHYTHM: regular rhythm GI: COMMON NORMALS: Soft to palpation and No hepatosplenomegaly present AUSCULTATION: Yes normoactive bowel sounds PALPATION: Yes Soft to palpation, No Tenderness to palpation present (GI), No Guarding due to palpation present (GI) and Yes No hepatosplenomegaly present Extremity: COMMON NORMALS: normal to inspection, capillary refill normal, no clubbing, cyanosis or edema, no calf tenderness and no pedal edema Neuro: SENSORIUM/ORIENTATION: Yes oriented to person, Yes oriented to place and Yes oriented to time Skin: COMMON NORMALS: no rashes or lesions noted GENERAL SKIN EXAM: no rashes or lesions noted Course Vital Signs: Vital signs: Vital Signs Temperature 98.0 F 06/10/25 11:50 Pulse Rate 85 06/10/25 13:30 Blood Pressure 108/68 06/10/25 13:30 Pulse Oximetry 95 06/10/25 13:30 Oxygen Delivery Me thod Room Air 06/10/25 13:30 MDM - Chest Pain Medical Decision Making Patient having no further symptoms at this time. She feels fine most of her symptoms seem more GI related. We are to go ahead and start her on some Protonix. Will discharge patient home set up for an outpatient stress test and echocardiogram follow-up with cardiology clinic. Medical Records I reviewed the patient's medical records. Lab Data I reviewed the patient's lab results. 06/10/25 12:45 06/10/25 12:45 Radiology Impressions Chest X-Ray 06/10/25 12:04 Impression: Atherosclerosis. Laboratory Results WBC 7.75 10^3/uL (3.29-11.43) 06/10/25 12:45 RBC 4.03 10^6/uL (3.85-5.65) 06/10/25 12:45 Hgb 12.90 g/dL (11.27-16.99) 06/10/25 12:45 Hct 41.3 % (36-47) 06/10/25 12:45 MCV 102.5 fl (85-98) H 06/10/25 12:45 MCH 32.0 pg (27-33) 06/10/25 12:45 MCHC 31.2 g/dL (30-55) 06/10/25 12:45 RDW 14.3 % (12.1-15.1) 06/10/25 12:45 Plt Count 249 10^3/cmm (157-399) 06/10/25 12:45 MPV 9.6 fL (7.4-10.4) 06/10/25 12:45 Neut % (Auto) 66.1 % 06/10/25 12:45 Lymph % (Auto) 25.3 % 06/10/25 12:45 [place] % (Auto) 6.8 % 06/10/25 12:45 Eos % (Auto) 0.5 % 06/10/25 12:45 Baso % (Auto) 0.5 % 06/10/25 12:45 Neut # (Auto) 5.12 10^3/uL (1.8-7.7) 06/10/25 12:45 Lymph # (Auto) 2.0 10^3/uL (0.8-4.8) 06/10/25 12:45 [place] # (Auto) 0.5 10^3/uL (0.2-0.9) 06/10/25 12:45 Eos # (Auto) 0.0 10^3/uL (0.0-0.8) 06/10/25 12:45 Baso # (Auto) 0.0 10^3/uL (0.0-0.1) 06/10/25 12:45 Nucleated RBC % (auto) 0 % 06/10/25 12:45 Nucleated RBCs # 0.0 /100WBC 06/10/25 12:45 Sodium 137 mmol/L (136-145) 06/10/25 12:45 Potassium 4.2 mmol/L (3.5-5.1) 06/10/25 12:45 Chloride 98 mmol/L (98-107) 06/10/25 12:45 Carbon Dioxide 22 mmol/L (22-29) 06/10/25 12:45 Anion Gap 21.2 (5-19) H 06/10/25 12:45 BUN 10 mg/dL (8-23) 06/10/25 12:45 Creatinine 0.8 mg/dL (0.5-0.9) 06/10/25 12:45 GFR Calculation Not Reportable 06/10/25 12:45 Glucose 120 mg/dL (65-115) H 06/10/25 12:45 Calculated Osmolality 284 mOsm/kg (285-295) L 06/10/25 12:45 Calcium 9.8 mg/dL (8.5-10.5) 06/10/25 12:45 Total Bilirubin 0.3 mg/dL (0.15-1.2) 06/10/25 12:45 AST 34 U/L (0-32) H 06/10/25 12:45 ALT 22 U/L (0-33) 06/10/25 12:45 Alkaline Phosphatase 69 U/L (35-105) 06/10/25 12:45 Troponin T Baseline 32 ng/L (0-10) H 06/10/25 12:45 Troponin T 120 Minute 28.13 ng/L (0-10) H 06/10/25 14:46 Delta Troponin T -3.87 ABS# (0-10) L 06/10/25 14:46 Total Protein 7.2 g/dL (6.6-8.7) 06/10/25 12:45 Albumin 4.6 g/dL (3.5-5.2) 06/10/25 12:45 Globulin 2.6 g/dL (1.3-4.6) 06/10/25 12:45 All radiology interpretation(s) finalized by discharge EKG Data EKG 1: Interpretation: EKG 06/10/2025 11:54 AM sinus tachycardia with a rate of 100. WI interval 122 QTc 408. Q waves in V3 and 4 no significant change from EKG 05/23/2025 EKG 2: Computer generated interpretation: 06/10/2025 1351 sinus rhythm rate of 84. [place] 161 QTc 337. Q waves in V1 and 2. No acute ST elevation. Clincial Decision Support The following clinical decision support tools were used to aid in care of the patient HEART Score -> History: Slightly Suspicous, EKG: Non-specific Changes, Age: 65 or more yrs, Risk Factors: 1 or 2 Risk Factors, Troponin: Baseline Trop 16-45 ng/L. Resulting HEART Score: 5. Discharge Plan Discharge Patient Disposition: Home Clinical Impression: Atypical chest pain, GERD with esophagitis Condition: Stable Prescriptions: No Action (DME) Rollator walker with seat See Rx Instructions .Route .MEDSUPPLY Qty: 1 0RF Rx Instructions: As directed duloxetine 20 mg capsule,delayed release(DR/EC) 20 mg PO QDAY Qty: 90 11RF estradiol 0.01 % (0.1 mg/gram) cream See Rx Instructions .ROUTE .COMPLEX Qty: 42.5 11RF Rx Instructions: INSERT ONE GRAM VAGINALLY DAILY AT BEDTIME FOR 2 WEEKS, AND THEN DECREASE TO 2 TIMES WEEKLY (SUCH TUESDAY/TUESDAY) quetiapine [Seroquel] 25 mg tablet See Rx Instructions PO BID Qty: 270 11RF Rx Instructions: 1 tablet in AM and 2 in PM clotrimazole 10 mg debra See Rx Instructions .ROUTE .COMPLEX Qty: 90 3RF Dose Instruction: DISSOLVE 1 TABLET BY MOUTH THREE TIMES DAILY NEEDED Rx Instructions: DISSOLVE 1 TABLET BY MOUTH THREE TIMES DAILY NEEDED. olanzapine 5 mg tablet 5 mg PO BID Qty: 180 3RF acetaminophen [Tylenol Extra Strength] 500 mg tablet 500 - 1,000 mg PO BID Qty: 100 0RF metoprolol succinate 25 mg tablet extended release 24 hr 25 mg PO DAILY Qty: 90 3RF prednisone 10 mg tablet 10 mg PO DAILY Qty: 5 0RF cephalexin 500 mg capsule 500 mg PO QID Qty: 40 0RF albuterol sulfate [Ventolin HFA] 90 mcg/actuation HFA aerosol inhaler 2 puff inhalation Q6H PRN (Reason: shortness of breath or wheezing) Qty: 8.5 11RF fluconazole 150 mg tablet 150 mg PO Q3D 0 Days Qty: 2 0RF Klor-Con M20 20 mEq tablet,ER particles/crystals 20 meq PO DAILY Qty: 30 11RF methenamine hippurate 1 gram tablet 1 g PO BID Qty: 180 11RF alprazolam 1 mg tablet 1 mg PO TID Qty: 30 5RF amlodipine 5 mg tablet 5 mg PO DAILY Qty: 90 11RF pantoprazole 40 mg tablet,delayed release (DR/EC) 40 mg PO BID Qty: 180 3RF losartan 50 mg tablet See Rx Instructions .ROUTE .COMPLEX Qty: 90 3RF Dose Instruction: TAKE 1 TABLET EVERY DAY Rx Instructions: TAKE 1 TABLET EVERY DAY allopurinol 100 mg tablet See Rx Instructions .ROUTE .COMPLEX Qty: 180 3RF Dose Instruction: TAKE 1 TABLET TWICE DAILY Rx Instructions: TAKE 1 TABLET TWICE DAILY aspirin [Aspir-81] 81 mg Tablet,Delayed Release (Dr/Ec) 81 mg PO DAILY Silver Biotics 5 ml PO DAILY cyanocobalamin (vitamin B-12) [Vitamin B-12] 2,000 mcg Tablet Extended Release 2,000 mcg PO DAILY levothyroxine 100 mcg tablet 100 mcg PO DAILY Discharge Orders: Discharge ED (Routine); Ordered 06/10/25 Ordered By: Shahzad Evans Referrals: Juwan Hernández MD [Primary Care Provider, Family Practice] Discharge Diet: Usual diet Discharge Activity: Resume usual activity Patient Instructions: Opioid Safety, Pain Management, Patient Portal & Tasha Instructions Activity Restrictions/Additional Instructions: Thank you for choosing [facility] for your healthcare needs today. It is very important that you follow up as instructed or that you return to the Emergency Department should you have concerns or if your condition changes or worsens in any way. Emergency department visits are focused on emergent conditions, in some cases you may require further evaluation on an outpatient basis. You are seen in the emergency room with complaints of chest discomfort occasionally radiating to your neck your heart enzymes were normal EKG does not show any acute changes from previous EKGs. Will discharge home set you up for an outpatient echocardiogram and stress testing and follow-up with the cardiology clinic. (Please note that included in your discharge packet is information concerning opioid safety and pain management. This information is given to all patients were discharged from the ER regardless of their discharge diagnosis or the medicines they usually take or are prescribed.) Print Language: Greenlandic Coding Level of Care Code ED Tube Closing Machine Operator for Marisol Reese
[2025-06-10 13:19] LABS: Alanine Aminotransferase 22 U/L (0-33); Albumin Level 4.6 g/dL (3.5-5.2); Alkaline Phosphatase 69 U/L (35-105); Blood Urea Nitrogen 10 mg/dL (8-23); Calcium 9.8 mg/dL (8.5-10.5); Carbon Dioxide 22 mmol/L (22-29); Chloride 98 mmol/L (98-107); Creatinine Clr Calc Pharmacy 61.9171; Globulin 2.6 g/dL (1.3-4.6); Glucose 120 mg/dL (65-115); Osmolality Calculated 284 mOsm/kg (285-295); Sodium 137 mmol/L (136-145); Total Protein 7.2 g/dL (6.6-8.7)
[2025-06-10 13:21] LABS: Anion Gap 21.2 (5-19); Aspartate Amino Transferase 34 U/L (0-32); Potassium 4.2 mmol/L (3.5-5.1)
[2025-06-10 13:22] LABS: Troponin(5th) Baseline 32 ng/L (0-10)
[2025-06-10 13:30] VITALS: BP 108/68; PULSE 85; O2SAT 95
--- NOTE | 2025-06-10 14:04 | ECG_ITS ---
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 Measurements Intervals [place] Rate: 84 P: 43 [place]: 161 QRS: -14 QRSD: 90 T: 72 QT: 337 QTc: 400 Interpretive Statements SINUS RHYTHM WITH SINUS ARRHYTHMIA ANTERIOR MYOCARDIAL INFARCTION , OF INDETERMINATE AGE [40+ ms Q WAVE AND/OR ST/T ABNORMALITY IN V3/V4] INFERIOR MYOCARDIAL INFARCTION , PROBABLY OLD [40+ ms Q WAVE AND/OR ST/T ABNORMALITY IN II/aVF] Compared to ECG 06/10/2025 11:54:59 Sinus tachycardia no longer present Electronically Signed On 06-12-2025 22:56:02 CDT by Obed Schneider M.D. [id number]
[2025-06-10 14:30] VITALS: BP 146/88; PULSE 83; O2SAT 94
[2025-06-10 15:17] LABS: Troponin 5 2HR 28.13 ng/L (0-10)
[2025-06-10 15:18] LABS: Troponin 5 2HR Delta -3.87 ABS# (0-10)
[2025-06-10 15:54] VITALS: BP 198/93; PULSE 78; O2SAT 95
--- NOTE | 2025-06-12 08:53 | DCPLANNER ---
faxed outpatient rishi order to scheduling
== END 2025-06-10 15:55 | disposition home or self-care (01) ==
PROVIDERS: Emergency Provider Family Medicine; PCP Family Medicine
DX: R07.89 Other chest pain (principal); K21.9 Gastro-esophageal reflux disease without esophagitis; Z79.82 Long term (current) use of aspirin
CPT/HCPCS: 36415; 71045; 80053; 84484; 85025; 93005; 99285; J9999

== ENCOUNTER → 2025-06-13 09:27 | Outpatient (BNVA) | payer MEDICARE, SELFPAY | PROVIDERS: PCP Family Medicine; Visit Provider Internal Medicine Cardiovascular Disease | DX: R07.9 Chest pain, unspecified (principal); I10 Essential (primary) hypertension; R00.2 Palpitations; R06.02 Shortness of breath; I70.0 Atherosclerosis of aorta; Z95.2 Presence of prosthetic heart valve; I35.1 Nonrheumatic aortic (valve) insufficiency | CPT/HCPCS: 99214 ==

== ENCOUNTER 2025-06-24 12:57 | Emergency (ER) | payer MEDICARE, SELFPAY ==
[2025-06-24 12:58] VITALS: BP 162/70; PULSE 97; RESP 16; TEMP 36.4; O2SAT 91
--- NOTE | 2025-06-24 12:59 | XR_ITS ---
WS: [id number] Exam: XR chest 1V portable [id number] Date/Time of Exam: 06/24/2025 1:21 PM Reason For Exam: chest pain Comparison 06/10/2025. The lungs are fully inflated and clear. Heart size is normal. The mediastinum is normal in contour. Signs of previous median sternotomy and cardiac valve replacement. Chronic elevation of the RIGHT diaphragm. Bony structures are intact. Degenerative changes of both shoulders. XR/XR chest 1V portable [id number] IMPRESSION: 1. No acute cardiopulmonary finding. No change.
--- NOTE | 2025-06-24 13:04 | ECG_ITS ---
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 Measurements Intervals [place] Rate: 96 P: 29 [place]: 136 QRS: -14 QRSD: 103 T: 90 QT: 334 QTc: 422 Interpretive Statements SINUS RHYTHM WITH OCCASIONAL VENTRICULAR PREMATURE COMPLEXES POSSIBLE ANTERIOR MYOCARDIAL INFARCTION , OF INDETERMINATE AGE [30 ms Q WAVE IN V3/V4, OR R < 0.2 mV IN V4] INFERIOR MYOCARDIAL INFARCTION , OF INDETERMINATE AGE [40+ ms Q WAVE AND/OR ST/T ABNORMALITY IN II/aVF] MODERATE T-WAVE ABNORMALITY, CONSIDER LATERAL ISCHEMIA [-0.1+ mV T-WAVE IN I/aVL/V5/V6] Compared to ECG 06/10/2025 13:51:29 Ventricular premature complex(es) now present T-wave abnormality now present. Possible ischemia now present Sinus arrhythmia no longer present Myocardial infarct finding still present Electronically Signed On 06-24-2025 20:20:04 CDT by Gerard Sousa M.D. [email or web address]
--- NOTE | 2025-06-24 13:10 | W.ED.EXTPRO ---
HPI - Extremity Problem General: Chief complaint: Extremity Injury, Upper Stated complaint: left arm pain/tingling Time Seen by Provider: 06/24/25 12:59 History of Present Illness: 85-year-old female presents emergency room complaining of right arm tingling. It extends from the proximal forearm down to her hand in a glove like distribution. She states this is chronic and waxes and wanes. No recent injury. She has no facial weakness no difficulty speech or balance no weakness in her lower extremities. No recent trauma or fall no chest pain or shortness of breath. Associated symptoms: Deny chest pain, fever(s) or rash Related Data Home Medications ?Medication ?Instructions ?Recorded ?Confirmed Silver Biotics 5 ml PO DAILY 04/02/23 06/23/25 aspirin 81 mg tablet,delayed 81 mg PO DAILY 04/02/23 06/23/25 release cyanocobalamin (vitamin B-12) 2,000 mcg PO DAILY 02/09/25 06/23/25 2,000 mcg tablet,extended release (Vitamin B-12 ER) levothyroxine 100 mcg tablet 100 mcg PO DAILY 02/09/25 06/23/25 Previous Rx's ?Medication ?Instructions ?Recorded Rollator walker with seat #1 ea 01/26/24 acetaminophen 500 mg tablet 500 - 1,000 mg (1 - 2 x 500 mg) PO 03/02/24 (Tylenol Extra Strength) BID pain #100 tabs metoprolol succinate 25 mg 25 mg PO DAILY #90 tabs 08/23/24 tablet,extended release 24 hr potassium chloride 20 mEq 20 meq PO DAILY #30 tabs 10/02/24 tablet,extended release(part/cryst) (Klor-Con M) methenamine hippurate 1 gram tablet 1 g PO BID #180 tabs 03/05/25 alprazolam 1 mg tablet 1 mg PO TID #30 tabs 03/14/25 duloxetine 20 mg capsule,delayed 20 mg PO QDAY #90 caps 03/14/25 release estradiol 0.01% (0.1 mg/gram) See Rx Instructions .Route 03/14/25 vaginal cream .COMPLEX #42.5 grams amlodipine 5 mg tablet 5 mg PO DAILY #90 tabs 04/04/25 pantoprazole 40 mg tablet,delayed 40 mg PO BID #180 tabs 04/04/25 release clotrimazole 10 mg debra See Rx Instructions .Route 04/25/25 .COMPLEX #90 ea allopurinol 100 mg tablet See Rx Instructions .Route 05/31/25 .COMPLEX #180 tabs aspirin 81 mg tablet,delayed 81 mg PO DAILY #90 tabs 06/13/25 release (Adult Aspirin Regimen) ezetimibe 10 mg tablet (Zetia) 10 mg PO DAILY #90 tabs 06/13/25 losartan 100 mg tablet 100 mg PO DAILY #90 tabs 06/13/25 olanzapine 5 mg tablet 5 mg PO BID #30 tabs 06/13/25 Allergies Allergy/AdvReac Type Severity Reaction Status Date / Time levofloxacin (From Levaquin) Allergy Severe NA Verified 06/13/25 09:40 cetirizine (From Zyrtec) Allergy Intermediate ADR-Halluci Verified 06/13/25 09:40 nating codeine Allergy Intermediate headache/ Verified 06/13/25 09:40 lips numb hydrocodone Allergy Intermediate itching Verified 06/13/25 09:40 Iodinated Contrast Media Allergy Intermediate ADR-Halluci Verified 06/13/25 09:40 nating Penicillins Allergy Intermediate NA Verified 06/13/25 09:40 solifenacin (From Vesicare) Allergy Intermediate hallucinati Verified 06/13/25 09:40 ons nitrofurantoin (From Allergy NA Verified 06/13/25 09:40 Macrobid) phenazopyridine (From Allergy NA Verified 06/13/25 09:40 Pyridium) streptomycin Allergy NA Verified 06/13/25 09:40 Sulfa (Sulfonamide Allergy NA Verified 06/13/25 09:40 Antibiotics) tramadol (From Ultracet) Allergy NA Verified 06/13/25 09:40 bupropion (From Wellbutrin) AdvReac Severe Unknown Verified 06/13/25 09:40 baclofen AdvReac Intermediate hallucinati Verified 06/13/25 09:40 ons duloxetine (From Cymbalta) AdvReac Intermediate stomach Verified 06/13/25 09:40 pain fluoxetine AdvReac Intermediate hallucinati Verified 06/13/25 09:40 ons sertraline (From Zoloft) AdvReac Intermediate diarrhea/ Verified 06/13/25 09:40 hyponatremia atorvastatin (From Lipitor) AdvReac Mild nausea Verified 06/13/25 09:40 Review of Systems Const: Denies: fever(s) or chills Card: Denies: chest pain Resp: Denies: dyspnea GI: Denies: abdominal pain : Denies: dysuria, urinary frequency or urinary urgency Musc: Denies: neck pain or back pain Skin/Breast: Denies: rash PFSH ED PFSH: Medical History Greater trochanteric bursitis of both hips Macrocytic anemia Severe sleep apnea Irritable bowel syndrome Fibromyalgia Depression Somatization disorder Anxiety disorder Urethral syndrome Chronic interstitial cystitis Surgical History S/P thyroidectomy H/O: hysterectomy S/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 H/O hand surgery H/O carpal tunnel repair S/P cholecystectomy Family History Father , cva Stroke Mother , 96 Dementia Social History Smoking and tobacco/nicotine status: never used tobacco/nicotine Physical Exam Const: COMMON NORMALS: no acute distress GENERAL APPEARANCE: cooperative and comfortable ORIENTATION/CONSCIOUSNESS: Yes awake, Yes oriented to person, Yes oriented to place and Yes oriented to time HENMT: COMMON NORMALS: normocephalic, atraumatic and hearing grossly normal bilaterally HEAD & SCALP: normocephalic and atraumatic Resp: COMMON NORMALS: normal respiratory effort, No retractions, No use of accessory muscles and clear to auscultation bilaterally AUSCULTATION: clear to auscultation bilaterally Cardio: COMMON NORMALS: regular rate, regular rhythm and No murmurs present (Cardio) RATE: regular rate RHYTHM: regular rhythm GI: COMMON NORMALS: Soft to palpation and No hepatosplenomegaly present AUSCULTATION: Yes normoactive bowel sounds PALPATION: Yes Soft to palpation, No Tenderness to palpation present (GI), No Guarding due to palpation present (GI) and Yes No hepatosplenomegaly present Extremity: COMMON NORMALS: normal to inspection, capillary refill normal, no clubbing, cyanosis or edema, no calf tenderness and no pedal edema Neuro: SENSORIUM/ORIENTATION: Yes oriented to person, Yes oriented to place and Yes oriented to time OTHER: No facial asymmetry sensation upper extremities bilaterally equal neurovascularly intact bilaterally in the upper and lower extremities no drift in the arms or in the legs. No lateralizing symptoms suggestive of stroke. Skin: COMMON NORMALS: no rashes or lesions noted GENERAL SKIN EXAM: no rashes or lesions noted Course Vital Signs: Vital signs: Vital Signs Temperature 97.6 F 06/24/25 12:58 Pulse Rate 89 06/24/25 14:34 Respiratory Rate 16 06/24/25 12:58 Blood Pressure 143/90 06/24/25 14:34 Pulse Oximetry 91 06/24/25 14:34 Oxygen Delivery Me thod Room Air 06/24/25 12:58 MDM - Extremity (Nontraumatic) Medical Decision Making Patient has minimal findings at this time there are certainly no lateralizing symptoms. Abbreviated NIH is negative. Her numbness and tingling her hand is not in a ulnar or median nerve distribution is more of a glove like distribution she does not have it in the left hand or in either leg at this time. Will discharge patient home. I do not believe she has anything acute at this time however follow-up with her primary care doctor. Medical Records I reviewed the patient's medical records. Lab Data I reviewed the patient's lab results. 06/24/25 13:12 06/24/25 13:12 Radiology Impressions Chest X-Ray 06/24/25 12:59 IMPRESSION: 1. No acute cardiopulmonary finding. No change. Laboratory Results WBC 8.47 10^3/uL (3.29-11.43) 06/24/25 13:12 RBC 3.70 10^6/uL (3.85-5.65) L 06/24/25 13:12 Hgb 12.10 g/dL (11.27-16.99) 06/24/25 13:12 Hct 36.1 % (36-47) 06/24/25 13:12 MCV 97.6 fl (85-98) 06/24/25 13:12 MCH 32.7 pg (27-33) 06/24/25 13:12 MCHC 33.5 g/dL (30-55) 06/24/25 13:12 RDW 14.3 % (12.1-15.1) 06/24/25 13:12 Plt Count 214 10^3/cmm (157-399) 06/24/25 13:12 MPV 9.6 fL (7.4-10.4) 06/24/25 13:12 Neut % (Auto) 67.3 % 06/24/25 13:12 Lymph % (Auto) 25.7 % 06/24/25 13:12 [place] % (Auto) 5.4 % 06/24/25 13:12 Eos % (Auto) 0.5 % 06/24/25 13:12 Baso % (Auto) 0.4 % 06/24/25 13:12 Neut # (Auto) 5.70 10^3/uL (1.8-7.7) 06/24/25 13:12 Lymph # (Auto) 2.2 10^3/uL (0.8-4.8) 06/24/25 13:12 [place] # (Auto) 0.5 10^3/uL (0.2-0.9) 06/24/25 13:12 Eos # (Auto) 0.0 10^3/uL (0.0-0.8) 06/24/25 13:12 Baso # (Auto) 0.0 10^3/uL (0.0-0.1) 06/24/25 13:12 Nucleated RBC % (auto) 0 % 06/24/25 13:12 Nucleated RBCs # 0.0 /100WBC 06/24/25 13:12 Sodium 139 mmol/L (136-145) 06/24/25 13:12 Potassium 3.6 mmol/L (3.5-5.1) 06/24/25 13:12 Chloride 101 mmol/L (98-107) 06/24/25 13:12 Carbon Dioxide 18 mmol/L (22-29) L 06/24/25 13:12 Anion Gap 23.6 (5-19) H 06/24/25 13:12 BUN 12 mg/dL (8-23) 06/24/25 13:12 Creatinine 1.0 mg/dL (0.5-0.9) H 06/24/25 13:12 GFR Calculation Not Reportable 06/24/25 13:12 Glucose 148 mg/dL (65-115) H 06/24/25 13:12 Calculated Osmolality 291 mOsm/kg (285-295) 06/24/25 13:12 Calcium 9.2 mg/dL (8.5-10.5) 06/24/25 13:12 Total Bilirubin 0.2 mg/dL (0.15-1.2) 06/24/25 13:12 AST 21 U/L (0-32) 06/24/25 13:12 ALT 17 U/L (0-33) 06/24/25 13:12 Alkaline Phosphatase 72 U/L (35-105) 06/24/25 13:12 Troponin T Baseline 27 ng/L (0-10) H 06/24/25 13:12 Total Protein 6.9 g/dL (6.6-8.7) 06/24/25 13:12 Albumin 4.6 g/dL (3.5-5.2) 06/24/25 13:12 Globulin 2.3 g/dL (1.3-4.6) 06/24/25 13:12 All radiology interpretation(s) finalized by discharge Discharge Plan Discharge Patient Disposition: Home Clinical Impression: Peripheral neuropathy Qualifiers: Peripheral neuropathy type: polyneuropathy, unspecified Qualified Code(s): G62.9 - Polyneuropathy, unspecified Condition: Stable Prescriptions: No Action (DME) Rollator walker with seat See Rx Instructions .Route .MEDSUPPLY Qty: 1 0RF Rx Instructions: As directed duloxetine 20 mg capsule,delayed release(DR/EC) 20 mg PO QDAY Qty: 90 11RF estradiol 0.01 % (0.1 mg/gram) cream See Rx Instructions .ROUTE .COMPLEX Qty: 42.5 11RF Rx Instructions: INSERT ONE GRAM VAGINALLY DAILY AT BEDTIME FOR 2 WEEKS, AND THEN DECREASE TO 2 TIMES WEEKLY (SUCH TUESDAY/TUESDAY) clotrimazole 10 mg debra See Rx Instructions .ROUTE .COMPLEX Qty: 90 3RF Dose Instruction: DISSOLVE 1 TABLET BY MOUTH THREE TIMES DAILY NEEDED Rx Instructions: DISSOLVE 1 TABLET BY MOUTH THREE TIMES DAILY NEEDED. losartan 100 mg tablet 100 mg PO DAILY Qty: 90 3RF aspirin [Adult Aspirin Regimen] 81 mg tablet,delayed release (DR/EC) 81 mg PO DAILY Qty: 90 3RF ezetimibe [Zetia] 10 mg tablet 10 mg PO DAILY Qty: 90 3RF acetaminophen [Tylenol Extra Strength] 500 mg tablet 500 - 1,000 mg PO BID Qty: 100 0RF metoprolol succinate 25 mg tablet extended release 24 hr 25 mg PO DAILY Qty: 90 3RF Klor-Con M20 20 mEq tablet,ER particles/crystals 20 meq PO DAILY Qty: 30 11RF methenamine hippurate 1 gram tablet 1 g PO BID Qty: 180 11RF alprazolam 1 mg tablet 1 mg PO TID Qty: 30 5RF amlodipine 5 mg tablet 5 mg PO DAILY Qty: 90 11RF pantoprazole 40 mg tablet,delayed release (DR/EC) 40 mg PO BID Qty: 180 3RF allopurinol 100 mg tablet See Rx Instructions .ROUTE .COMPLEX Qty: 180 3RF Dose Instruction: TAKE 1 TABLET TWICE DAILY Rx Instructions: TAKE 1 TABLET TWICE DAILY olanzapine 5 mg tablet 5 mg PO BID Qty: 30 3RF aspirin [Aspir-81] 81 mg Tablet,Delayed Release (Dr/Ec) 81 mg PO DAILY Silver Biotics 5 ml PO DAILY cyanocobalamin (vitamin B-12) [Vitamin B-12] 2,000 mcg Tablet Extended Release 2,000 mcg PO DAILY levothyroxine 100 mcg tablet 100 mcg PO DAILY Discharge Orders: Discharge ED (Routine); Ordered 06/24/25 Ordered By: Shahzad Evans Referrals: Juwan Hernández MD [Primary Care Provider, Family Practice] Patient Instructions: Opioid Safety, Pain Management, Patient Portal & Tasha Instructions Activity Restrictions/Additional Instructions: Thank you for choosing [facility] for your healthcare needs today. It is very important that you follow up as instructed or that you return to the Emergency Department should you have concerns or if your condition changes or worsens in any way. Emergency department visits are focused on emergent conditions, in some cases you may require further evaluation on an outpatient basis. You were seen in the emergency room with complaints of numbness tingling in your right arm. The pattern of numbness tingling is consistent with a peripheral neuropathy. You had mentioned that this has been going on for several months. Your exam did not show any indication of acute stroke or acute coronary syndrome. Recommend you follow-up with your primary care doctor regarding the intermittent numbness and tingling you have in that right arm. (Please note that included in your discharge packet is information concerning opioid safety and pain management. This information is given to all patients were discharged from the ER regardless of their discharge diagnosis or the medicines they usually take or are prescribed.) Print Language: Faroese Coding Level of Care Code ED Senior Analyst Developer for Marisol Reese
[2025-06-24 13:18] LABS: Hematocrit 36.1 % (36-47); Hemoglobin 12.10 g/dL (11.27-16.99); Mean Corpuscular HGB Conc 33.5 g/dL (30-55); Mean Corpuscular Hemoglobin 32.7 pg (27-33); Mean Corpuscular Volume 97.6 fl (85-98); Nucleated Red Blood Cells % 0 %; Platelet Count 214 10^3/cmm (157-399); Red Blood Count 3.70 10^6/uL (3.85-5.65); White Blood Count 8.47 10^3/uL (3.29-11.43)
--- OUTSIDE RECORDS SUMMARY | 2025-06-24 13:21 | XMS_ITS | Patient Health Record ---
Author Organization [facility] Address [address] [place] [address] Support Name Relationship Address Phone Sarah Victoria Guarantor Unknown [phone] Allergies Allergen (clinical drug ingredient) Drug/Non Drug [...]
--- OUTSIDE RECORDS SUMMARY | 2025-06-24 13:21 | XMS_ITS | Clinical Summary ---
Author Organization [facility] Address [address] 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 [place] [address] Marichuy Mckeon FNP [address] [place] [address] Health Maintenance Due Date Last [...] history exists Medical Devices Implanted Type Area Wellness Assistant Device Identifier Shelf Expiration Date Model / Serial / Lot Plate Hand Va Loc 2.0 Str 12h 02.130.351 - [id number] Implanted:Qty: 1 on 12/13/2023 by Roque Vidal MD at [facility] Plate Right: Finger J[employer]J- DEPUY SYNTHES 01/31/2024 02.130.35 1 / / LOAD #[id number] Screw T6 St Va Loc 2.0x10mm 02.130.310 - [id number] Implanted:Qty: 1 on 12/13/2023 by Roque Vidal MD at [facility] Screw Right: Finger [employer]- DEPUY SYNTHES 02.130.31 0 / / Screw T6 St Va Loc 2.0x11mm 02.130.311 - [id number] Implanted:Qty: 1 on 12/13/2023 by Roque Vidal MD at [facility] Screw Right: Finger [employer]- DEPUY SYNTHES 02.130.31 1 / / Screw T6 St Va Loc 2.0x8mm 02.130.308 - [id number] Implanted:Qty: 1 on 12/13/2023 by Roque Vidal MD at [facility] Screw Right: Finger [employer]- DEPUY SYNTHES 02.130.30 8 / / Screw T6 St Va Loc 2.0x8mm 02.130.308 - [id number] Implanted:Qty: 1 on 12/13/2023 by Roque Vidal MD at [facility] Screw Right: Finger [employer]- DEPUY SYNTHES 02.130.30 8 / / Screw T6 St Va Loc 2.0x9mm 02.130.309 - [id number] Implanted:Qty: 1 on 12/13/2023 by Roque Vidal MD at [facility] Screw Right: Finger J&J- DEPUY SYNTHES 02.130.30 9 / / Screw T6 St Va Loc 2.0x9mm 02.130.309 - [id number] Implanted:Qty: 1 on 12/13/2023 by Roque Vidal MD at [facility] Screw Right: Finger J&J- DEPUY SYNTHES 02.130.30 9 / / Screw T6 St Va Loc 2.0x10mm 02.130.310 - [id number] Implanted:Qty: 1 on 12/13/2023 by Roque Vidal MD at [facility] Screw Right: Finger J&J- DEPUY SYNTHES 02.130.31 0 / / Screw Micro 2.5x30mm Ft Jovanni Lobo8725-30h - [id number] Implanted:Qty: 1 on 05/17/2024 by Roque Vidal MD at [facility] Screw Left: Finger [employer] 07/02/2024 AR-8725-3 0H / / [id number] #[id number] Flexigraft Revision Dowel [id number] X-Long Canc Fulcannu Pcdxl10 - [id number] Implanted:Qty: 1 on 12/13/2023 by Roque Vidal MD at [facility] Tissue Right: Finger LIFENET 2028 PCDXL10 / / [id number] Allograft Vivigen Matrix 1ml -1600-001 - [id number] Implanted:Qty: 1 on 05/17/2024 by Roque Vidal MD at [facility] Tissue Left: Finger LIFENET 04/12/2025 BL-1600-0 01 / / [id number] Explanted Type Area Wellness Assistant Device Identifier Shelf Expiration Date Model / Serial / Lot Wire K [id number] Ws-1606dt - [id number] Explanted:Qty: 1 on 05/17/2024 by Roque Vidal MD at [facility] Wire Left: Finger [employer] 07/02/2024 WS-1606DT / / LOAD #[id number] Metal Interphalangeal Joint Explanted:Qty: 1 on 12/13/2023 by Roque Vidal MD at [facility] Right: Finger Insurance [facility] Care Teams Loading Checker Relationship Specialty Start Date End Date Juwan Hernández MD [address] [place] [address] PCP - General Family Practice 11/09/12
[2025-06-24 13:37] LABS: Troponin(5th) Baseline 27 ng/L (0-10)
[2025-06-24 13:44] LABS: Alanine Aminotransferase 17 U/L (0-33); Albumin Level 4.6 g/dL (3.5-5.2); Alkaline Phosphatase 72 U/L (35-105); Anion Gap 23.6 (5-19); Aspartate Amino Transferase 21 U/L (0-32); Blood Urea Nitrogen 12 mg/dL (8-23); Calcium 9.2 mg/dL (8.5-10.5); Carbon Dioxide 18 mmol/L (22-29); Chloride 101 mmol/L (98-107); Creatinine Clr Calc Pharmacy 49.5337; Globulin 2.3 g/dL (1.3-4.6); Glucose 148 mg/dL (65-115); Osmolality Calculated 291 mOsm/kg (285-295); Potassium 3.6 mmol/L (3.5-5.1); Sodium 139 mmol/L (136-145); Total Protein 6.9 g/dL (6.6-8.7)
[2025-06-24 14:34] VITALS: BP 143/90; PULSE 89; O2SAT 91
== END 2025-06-24 14:36 | disposition home or self-care (01) ==
PROVIDERS: Emergency Provider Family Medicine; PCP Family Medicine
DX: G62.9 Polyneuropathy, unspecified (principal)
CPT/HCPCS: 36415; 71045; 80053; 84484; 85025; 93005; 99285; J9999

== ENCOUNTER 2025-06-25 13:53 | Emergency (ER) | payer MEDICARE, SELFPAY ==
--- NOTE | 2025-06-25 13:53 | CT_ITS ---
WS: [id number] CT HEAD TECHNIQUE: Noncontrast CT of the head obtained from the skullbase to the vertex. CLINICAL INFORMATION: AMS COMPARISON: 05/23/2025 DLP: 1330.[address] scans at [facility] use at least one of these dose optimization techniques: automated exposure control; mA and/or kV adjustment per patient size (includes targeted exams where dose is matched to clinical indication); or iterative reconstruction. FINDINGS: No evidence of intracranial hemorrhage or mass effect. Ventricular system and basal cisterns are patent. Mild small vessel changes with moderate parenchymal volume loss. No extra-axial fluid collections. No evidence of mass or mass effect. Vascular calcification Paranasal sinuses and mastoid air cells are well aerated. .Normal visualized soft tissues. CT/CT head wo con* [id number] IMPRESSION: 1. No evidence of intracranial hemorrhage or mass effect. 2. No acute intracranial findings.
[2025-06-25 13:54] VITALS: BP 151/75; PULSE 92; RESP 18; TEMP 36.9; O2SAT 96; BMI 31.6
--- NOTE | 2025-06-25 14:00 | ECG_ITS ---
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 Measurements Intervals [place] Rate: 88 P: 42 [place]: 157 QRS: -12 QRSD: 93 T: 106 QT: 327 QTc: 398 Interpretive Statements SINUS RHYTHM POSSIBLE ANTERIOR MYOCARDIAL INFARCTION , OF INDETERMINATE AGE [30 ms Q WAVE IN V3/V4, OR R < 0.2 mV IN V4] INFERIOR MYOCARDIAL INFARCTION , OF INDETERMINATE AGE [40+ ms Q WAVE AND/OR ST/T ABNORMALITY IN II/aVF] T WAVE ABNORMALITY, CONSIDER ISCHEMIA Compared to ECG 06/24/2025 13:04:52 Ventricular premature complex(es) no longer present Electronically Signed On 06-26-2025 20:52:25 CDT by Obed Schneider M.D. [email or web address]
--- OUTSIDE RECORDS SUMMARY | 2025-06-25 14:02 | XMS_ITS | Patient Health Record ---
Author Organization [facility] Address [address] [place] [address] Support Name Relationship Address Phone Sarah Victoria Guarantor Unknown [phone] Allergies Allergen (clinical drug ingredient) Drug/Non Drug [...]
--- OUTSIDE RECORDS SUMMARY | 2025-06-25 14:02 | XMS_ITS | Clinical Summary ---
Author Organization [facility] Address [address] 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 [place] [address] Marichuy Mckeon FNP [address] [place] [address] Health Maintenance Due Date Last [...] history exists Medical Devices Implanted Type Area Supervisor Stone Device Identifier Shelf Expiration Date Model / Serial / Lot Plate Hand Va Loc 2.0 Str 12h 02.130.351 - [id number] Implanted:Qty: 1 on 12/13/2023 by Roque Vidal MD at [facility] Plate Right: Finger [employer]- DEPUY SYNTHES 01/31/2024 02.130.35 1 / / LOAD #[id number] Screw T6 St Va Loc 2.0x10mm 02.130.310 - [id number] Implanted:Qty: 1 on 12/13/2023 by Roque Vidal MD at [facility] Screw Right: Finger [employer]- DEPUY SYNTHES 02.130.31 0 / / Screw T6 St Va Loc 2.0x11mm 02.130.311 - [id number] Implanted:Qty: 1 on 12/13/2023 by Roque Vidal MD at [facility] Screw Right: Finger [employer]J- DEPUY SYNTHES 02.130.31 1 / / Screw T6 St Va Loc 2.0x8mm 02.130.308 - [id number] Implanted:Qty: 1 on 12/13/2023 by Roque Vidal MD at [facility] Screw Right: Finger J[employer]J- DEPUY SYNTHES 02.130.30 8 / / Screw T6 St Va Loc 2.0x8mm 02.130.308 - [id number] Implanted:Qty: 1 on 12/13/2023 by Roque Vidal MD at [facility] Screw Right: Finger J&J- DEPUY SYNTHES 02.130.30 8 / / Screw T6 St Va Loc 2.0x9mm 02.130.309 - [id number] Implanted:Qty: 1 on 12/13/2023 by Roque Vidal MD at [facility] Screw Right: Finger J&J- DEPUY SYNTHES 02.130.30 9 / / Screw T6 St Va Loc 2.0x9mm 02.130.309 - [id number] Implanted:Qty: 1 on 12/13/2023 by Roque Vidal MD at [facility] Screw Right: Finger J&J- DEPUY SYNTHES 02.130.30 9 / / Screw T6 St Va Loc 2.0x10mm 02.130.310 - [id number] Implanted:Qty: 1 on 12/13/2023 by Roque Vidal MD at [facility] Screw Right: Finger J&J- DEPUY SYNTHES 02.130.31 0 / / Screw Micro 2.5x30mm Ft Jovanni Lobo8725-30h - [id number] Implanted:Qty: 1 on 05/17/2024 by Roque Vidal MD at [facility] Screw Left: Finger [employer] 07/02/2024 AR-8725-3 0H / / LOAD #[id number] Flexigraft Revision Dowel [id number] X-Long Canc Fulcannu Pcdxl10 - [id number] Implanted:Qty: 1 on 12/13/2023 by Roque Vidal MD at [facility] Tissue Right: Finger LIFENET 2028 PCDXL10 / / [id number] Allograft Vivigen Matrix 1ml -1600-001 - [id number] Implanted:Qty: 1 on 05/17/2024 by Roque Vidal MD at [facility] Tissue Left: Finger [employer] 04/12/2025 BL-1600-0 01 / / [id number] Explanted Type Area Supervisor Stone Device Identifier Shelf Expiration Date Model / Serial / Lot Wire K [id number] Ws-1606dt - [id number] Explanted:Qty: 1 on 05/17/2024 by Roque Vidal MD at [facility] Wire Left: Finger [employer] 07/02/2024 WS-1606DT / / LOAD #[id number] Metal Interphalangeal Joint Explanted:Qty: 1 on 12/13/2023 by Roque Vidal MD at [facility] Right: Finger Insurance [facility] Care Teams Vp Of Digital Marketing Relationship Specialty Start Date End Date Juwan Hernández MD [address] [place] [address] PCP - General Family Practice 11/09/12
[2025-06-25 14:03] VITALS: PULSE 91; O2SAT 97
--- NOTE | 2025-06-25 14:04 | W.ED.CHESTPA ---
HPI - Chest Pain General: Chief Complaint: Chest Pain Stated Complaint: hallucinations - cp Time Seen by Provider: 06/25/25 13:53 History of Present Illness: 85-year-old female presents emergency room she has been having hallucinations. Seen her multiple times the last several days she complains of chronic pain issues which is not unusual or unknown for she has had several evaluations for chest pain all of which have been negative she was seen yesterday for some numbness in her arm that extended into a glove like fashion. She does not have that today. Earlier today she had hallucinations that someone was broken into her house the police were called. She was transferred here by EMS because of her hallucination she also complained of some chest pain. Associated symptoms: Deny abdominal pain, dyspnea or fever(s) Related Data Home Medications ?Medication ?Instructions ?Recorded ?Confirmed Silver Biotics 5 ml PO DAILY 04/02/23 06/23/25 aspirin 81 mg tablet,delayed 81 mg PO DAILY 04/02/23 06/23/25 release cyanocobalamin (vitamin B-12) 2,000 mcg PO DAILY 02/09/25 06/23/25 2,000 mcg tablet,extended release (Vitamin B-12 ER) levothyroxine 100 mcg tablet 100 mcg PO DAILY 02/09/25 06/23/25 Previous Rx's ?Medication ?Instructions ?Recorded Rollator walker with seat #1 ea 01/26/24 acetaminophen 500 mg tablet 500 - 1,000 mg (1 - 2 x 500 mg) PO 03/02/24 (Tylenol Extra Strength) BID pain #100 tabs metoprolol succinate 25 mg 25 mg PO DAILY #90 tabs 08/23/24 tablet,extended release 24 hr potassium chloride 20 mEq 20 meq PO DAILY #30 tabs 10/02/24 tablet,extended release(part/cryst) (Klor-Con M) methenamine hippurate 1 gram tablet 1 g PO BID #180 tabs 03/05/25 alprazolam 1 mg tablet 1 mg PO TID #30 tabs 03/14/25 duloxetine 20 mg capsule,delayed 20 mg PO QDAY #90 caps 03/14/25 release estradiol 0.01% (0.1 mg/gram) See Rx Instructions .Route 03/14/25 vaginal cream .COMPLEX #42.5 grams amlodipine 5 mg tablet 5 mg PO DAILY #90 tabs 04/04/25 pantoprazole 40 mg tablet,delayed 40 mg PO BID #180 tabs 04/04/25 release clotrimazole 10 mg debra See Rx Instructions .Route 04/25/25 .COMPLEX #90 ea allopurinol 100 mg tablet See Rx Instructions .Route 05/31/25 .COMPLEX #180 tabs aspirin 81 mg tablet,delayed 81 mg PO DAILY #90 tabs 06/13/25 release (Adult Aspirin Regimen) ezetimibe 10 mg tablet (Zetia) 10 mg PO DAILY #90 tabs 06/13/25 losartan 100 mg tablet 100 mg PO DAILY #90 tabs 06/13/25 olanzapine 5 mg tablet 5 mg PO BID #30 tabs 06/13/25 Allergies Allergy/AdvReac Type Severity Reaction Status Date / Time levofloxacin (From Levaquin) Allergy Severe NA Verified 06/13/25 09:40 cetirizine (From Zyrtec) Allergy Intermediate ADR-Halluci Verified 06/13/25 09:40 nating codeine Allergy Intermediate headache/ Verified 06/13/25 09:40 lips numb hydrocodone Allergy Intermediate itching Verified 06/13/25 09:40 Iodinated Contrast Media Allergy Intermediate ADR-Halluci Verified 06/13/25 09:40 nating Penicillins Allergy Intermediate NA Verified 06/13/25 09:40 solifenacin (From Vesicare) Allergy Intermediate hallucinati Verified 06/13/25 09:40 ons nitrofurantoin (From Allergy NA Verified 06/13/25 09:40 Macrobid) phenazopyridine (From Allergy NA Verified 06/13/25 09:40 Pyridium) streptomycin Allergy NA Verified 06/13/25 09:40 Sulfa (Sulfonamide Allergy NA Verified 06/13/25 09:40 Antibiotics) tramadol (From Ultracet) Allergy NA Verified 06/13/25 09:40 bupropion (From Wellbutrin) AdvReac Severe Unknown Verified 06/13/25 09:40 baclofen AdvReac Intermediate hallucinati Verified 06/13/25 09:40 ons duloxetine (From Cymbalta) AdvReac Intermediate stomach Verified 06/13/25 09:40 pain fluoxetine AdvReac Intermediate hallucinati Verified 06/13/25 09:40 ons sertraline (From Zoloft) AdvReac Intermediate diarrhea/ Verified 06/13/25 09:40 hyponatremia atorvastatin (From Lipitor) AdvReac Mild nausea Verified 06/13/25 09:40 Review of Systems Const: Denies: fever(s) or chills Card: Reports: chest pain Resp: Denies: dyspnea GI: Denies: abdominal pain : Denies: dysuria, urinary frequency or urinary urgency Musc: Denies: neck pain or back pain Skin/Breast: Denies: rash PFSH ED PFSH: Medical History Greater trochanteric bursitis of both hips Macrocytic anemia Severe sleep apnea Irritable bowel syndrome Fibromyalgia Depression Somatization disorder Anxiety disorder Urethral syndrome Chronic interstitial cystitis Surgical History S/P thyroidectomy H/O: hysterectomy S/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 H/O hand surgery H/O carpal tunnel repair S/P cholecystectomy Family History Father , cva Stroke Mother , 96 Dementia Social History Smoking and tobacco/nicotine status: never used tobacco/nicotine Physical Exam Const: COMMON NORMALS: no acute distress GENERAL APPEARANCE: cooperative and comfortable ORIENTATION/CONSCIOUSNESS: Yes awake HENMT: COMMON NORMALS: normocephalic, atraumatic and hearing grossly normal bilaterally HEAD & SCALP: normocephalic and atraumatic Resp: COMMON NORMALS: normal respiratory effort, No retractions, No use of accessory muscles and clear to auscultation bilaterally AUSCULTATION: clear to auscultation bilaterally Cardio: COMMON NORMALS: regular rate, regular rhythm and No murmurs present (Cardio) RATE: regular rate RHYTHM: regular rhythm GI: COMMON NORMALS: Soft to palpation and No hepatosplenomegaly present AUSCULTATION: Yes normoactive bowel sounds PALPATION: Yes Soft to palpation, No Tenderness to palpation present (GI), No Guarding due to palpation present (GI) and Yes No hepatosplenomegaly present Extremity: COMMON NORMALS: normal to inspection, capillary refill normal, no clubbing, cyanosis or edema, no calf tenderness and no pedal edema Skin: COMMON NORMALS: no rashes or lesions noted GENERAL SKIN EXAM: no rashes or lesions noted Course Vital Signs: Vital signs: Vital Signs Temperature 98.4 F 06/25/25 13:54 Pulse Rate 91 06/25/25 14:03 Respiratory Rate 18 06/25/25 13:54 Blood Pressure 177/71 06/25/25 16:45 Pulse Oximetry 94 06/25/25 14:34 Oxygen Delivery Me thod Room Air 06/25/25 14:34 MDM - Chest Pain Medical Decision Making Cardiac enzymes again unremarkable EKG does not show any acute changes. Patient is still having some hallucinations here she is given some Ativan. She has had multiple ER visits recently. No significant medical findings will look for placement in geriatric psychiatry patient is agreeable. Medical Records I reviewed the patient's medical records. Lab Data I reviewed the patient's lab results. 06/25/25 14:04 06/25/25 14:[address] 06/25/25 13:53 IMPRESSION: 1. No evidence of intracranial hemorrhage or mass effect. 2. No acute intracranial findings. Laboratory Results WBC 8.16 10^3/uL (3.29-11.43) 06/25/25 14:04 RBC 3.87 10^6/uL (3.85-5.65) 06/25/25 14:04 Hgb 12.60 g/dL (11.27-16.99) 06/25/25 14:04 Hct 37.5 % (36-47) 06/25/25 14:04 MCV 96.9 fl (85-98) 06/25/25 14:04 MCH 32.6 pg (27-33) 06/25/25 14:04 MCHC 33.6 g/dL (30-55) 06/25/25 14:04 RDW 14.5 % (12.1-15.1) 06/25/25 14:04 Plt Count 223 10^3/cmm (157-399) 06/25/25 14:04 MPV 9.4 fL (7.4-10.4) 06/25/25 14:04 Neut % (Auto) 56.5 % 06/25/25 14:04 Lymph % (Auto) 35.8 % 06/25/25 14:04 [place] % (Auto) 6.0 % 06/25/25 14:04 Eos % (Auto) 0.6 % 06/25/25 14:04 Baso % (Auto) 0.4 % 06/25/25 14:04 Neut # (Auto) 4.61 10^3/uL (1.8-7.7) 06/25/25 14:04 Lymph # (Auto) 2.9 10^3/uL (0.8-4.8) 06/25/25 14:04 [place] # (Auto) 0.5 10^3/uL (0.2-0.9) 06/25/25 14:04 Eos # (Auto) 0.1 10^3/uL (0.0-0.8) 06/25/25 14:04 Baso # (Auto) 0.0 10^3/uL (0.0-0.1) 06/25/25 14:04 Nucleated RBC % (auto) 0 % 06/25/25 14:04 Nucleated RBCs # 0.0 /100WBC 06/25/25 14:04 Sodium 139 mmol/L (136-145) 06/25/25 14:04 Potassium 3.7 mmol/L (3.5-5.1) 06/25/25 14:04 Chloride 101 mmol/L (98-107) 06/25/25 14:04 Carbon Dioxide 19 mmol/L (22-29) L 06/25/25 14:04 Anion Gap 22.7 (5-19) H 06/25/25 14:04 BUN 13 mg/dL (8-23) 06/25/25 14:04 Creatinine 0.9 mg/dL (0.5-0.9) 06/25/25 14:04 GFR Calculation Not Reportable 06/25/25 14:04 Glucose 141 mg/dL (65-115) H 06/25/25 14:04 Calculated Osmolality 290 mOsm/kg (285-295) 06/25/25 14:04 Calcium 9.7 mg/dL (8.5-10.5) 06/25/25 14:04 Total Bilirubin 0.3 mg/dL (0.15-1.2) 06/25/25 14:04 AST 22 U/L (0-32) 06/25/25 14:04 ALT 17 U/L (0-33) 06/25/25 14:04 Alkaline Phosphatase 69 U/L (35-105) 06/25/25 14:04 Troponin T Baseline 21 ng/L (0-10) H 06/25/25 14:04 Troponin T 120 Minute 21.12 ng/L (0-10) H 06/25/25 15:56 Delta Troponin T 0.12 ABS# (0-10) 06/25/25 15:56 Total Protein 7.2 g/dL (6.6-8.7) 06/25/25 14:04 Albumin 4.7 g/dL (3.5-5.2) 06/25/25 14:04 Globulin 2.5 g/dL (1.3-4.6) 06/25/25 14:04 Urine Color Yellow (Yellow) 06/25/25 14:30 Urine Appearance Clear (CLEAR) 06/25/25 14:30 Urine pH 5.5 (5-7) 06/25/25 14:30 Ur Specific [place] 1.013 (1.005-1.030) 06/25/25 14:30 Urine Protein Trace (Negative) A 06/25/25 14:30 Urine Glucose (UA) Negative (Normal) 06/25/25 14:30 Urine Ketones Negative (Negative) 06/25/25 14:30 Urine Blood Negative (Negative) 06/25/25 14:30 Urine Nitrate Negative (Negative) 06/25/25 14:30 Urine Bilirubin Negative (Negative) 06/25/25 14:30 Urine Urobilinogen 0.2 mg/dL (Negative) 06/25/25 14:30 Ur Leukocyte Esterase Negative (Negative) 06/25/25 14:30 Urine RBC 0-2 /hpf (0-2) 06/25/25 14:30 Urine WBC 0-5 /hpf (0-5) 06/25/25 14:30 Ur Squamous Epith Cells 0-5 /hpf (0-5) 06/25/25 14:30 Amorphous Sediment Not Reportable 06/25/25 14:30 Urine Bacteria None seen /hpf (NONE) 06/25/25 14:30 Hyaline Casts 0-4 /lpf H 06/25/25 14:30 All radiology interpretation(s) finalized by discharge EKG Data EKG 1: Interpretation: EKG 06/25/2025 1400 hrs. Sinus rhythm rate of 88 VT interval 157 QTc 498. No acute changes from previous EKG done 06/24/2025. EKG 2: Interpretation: EKG 06/25/2025 1653. Sinus rhythm rate of 83 P R interval 130 QTc 406 Q waves in V1 1 and 2 still present. No acute changes from EKG done's same day earlier. Discharge Plan Discharge Patient Disposition: Xfer Psychiatric Hosp Clinical Impression: Hallucinations, Anxiety disorder, Depression, Fibromyalgia Condition: Stable Referrals: Juwan Hernández MD [Primary Care Provider, Family Practice] Print Language: Ecuadorean Coding Level of Care Code ED Toaster Element Repairer for Chg Hugh
[2025-06-25 14:10] LABS: Hematocrit 37.5 % (36-47); Hemoglobin 12.60 g/dL (11.27-16.99); Mean Corpuscular HGB Conc 33.6 g/dL (30-55); Mean Corpuscular Hemoglobin 32.6 pg (27-33); Mean Corpuscular Volume 96.9 fl (85-98); Nucleated Red Blood Cells % 0 %; Platelet Count 223 10^3/cmm (157-399); Red Blood Count 3.87 10^6/uL (3.85-5.65); White Blood Count 8.16 10^3/uL (3.29-11.43)
[2025-06-25 14:31] LABS: Troponin(5th) Baseline 21 ng/L (0-10)
[2025-06-25 14:34] VITALS: O2SAT 94
[2025-06-25 14:35] LABS: Alanine Aminotransferase 17 U/L (0-33); Albumin Level 4.7 g/dL (3.5-5.2); Alkaline Phosphatase 69 U/L (35-105); Anion Gap 22.7 (5-19); Aspartate Amino Transferase 22 U/L (0-32); Blood Urea Nitrogen 13 mg/dL (8-23); Calcium 9.7 mg/dL (8.5-10.5); Carbon Dioxide 19 mmol/L (22-29); Chloride 101 mmol/L (98-107); Creatinine Clr Calc Pharmacy 55.0374; Globulin 2.5 g/dL (1.3-4.6); Glucose 141 mg/dL (65-115); Osmolality Calculated 290 mOsm/kg (285-295); Potassium 3.7 mmol/L (3.5-5.1); Sodium 139 mmol/L (136-145); Total Protein 7.2 g/dL (6.6-8.7)
[2025-06-25 14:45] LABS: Glucose Urine UA Negative (Normal); Nitrate Urine Negative (Negative); Specific Gravity, Urine 1.013 (1.005-1.030)
[2025-06-25 14:48] LABS: Add Urine Microscopic? YES
--- NOTE | 2025-06-25 15:53 | ECG_ITS ---
[facility]25 Pat Name: Sarah Victoria Department: Room: Gender: Female Computer Network Engineer: : 1940 Requested By: Shahzad Oneill Order Number: [id number] Rona MD: Obed Schneider M.D. Measurements Intervals [place] Rate: 83 P: 30 ID: 130 QRS: -16 QRSD: 98 T: 80 QT: 367 QTc: 432 Interpretive Statements SINUS RHYTHM POSSIBLE ANTERIOR MYOCARDIAL INFARCTION , OF INDETERMINATE AGE [30 ms Q WAVE IN V3/V4, OR R < 0.2 mV IN V4] INFERIOR INFARCT, AGE INDETERMINATE T WAVE INVERSIONS, POSSIBLE LATERAL ISCHEMIA Compared to ECG 06/25/2025 14:00:38 No significant changes Electronically Signed On 06-26-2025 21:38:26 CDT by Obed Schneider M.D. [email or web address] [id number]
[2025-06-25 16:38] LABS: Troponin 5 2HR 21.12 ng/L (0-10); Troponin 5 2HR Delta 0.12 ABS# (0-10)
[2025-06-25 16:45] VITALS: BP 177/71
[2025-06-25 17:47] LABS: Thyroid Stimulating Hormone 1.99 uIU/mL (0.27-4.20)
[2025-06-25 17:48] LABS: Acetaminophen < 5.0 ug/mL (10-30); Alcohol Level < 10 mg/dL (0-10); Salicylate < 0.3 mg/dL (3-10)
[2025-06-25 17:50] LABS: Respiratory Syncytial Virus Ce NEGATIVE (Negative); SARS-CoV-2 PCR NEGATIVE (Negative)
[2025-06-25 18:29] LABS: PCP Screen Urine Negative (Negative)
[2025-06-25] MEDS: HYDROcodone-acetaminophen 5-325 mg Tablet 1 TAB PO (23:12)
[2025-06-25 23:32] VITALS: BP 175/85; PULSE 85; O2SAT 92
[2025-06-26 00:39] VITALS: BP 143/94; PULSE 86; O2SAT 99
[2025-06-26 06:07] VITALS: BP 159/73; PULSE 88; O2SAT 92
[2025-06-26 09:01] VITALS: BP 147/96; PULSE 74; RESP 18; O2SAT 94
[2025-06-26 09:02] VITALS: BP 147/96; PULSE 74; O2SAT 94
== END 2025-06-26 09:08 ==
PROVIDERS: Emergency Provider Family Medicine; PCP Family Medicine
DX: R44.3 Hallucinations, unspecified (principal); F41.8 Other specified anxiety disorders; F32.A Depression, unspecified; M79.7 Fibromyalgia
CPT/HCPCS: 36415; 70450; 80053; 80306; 80307; 81001; 84443; 84484; 85025; 87637; 93005; 99284; J9999

== ENCOUNTER → 2025-07-19 10:10 | Outpatient (BNVA) | payer MEDICARE, SELFPAY | PROVIDERS: PCP Family Medicine; Visit Provider Specialist | DX: M70.61 Trochanteric bursitis, right hip (principal); M70.62 Trochanteric bursitis, left hip | CPT/HCPCS: 20610; J1100; J2795; J3301; J9999 ==

== ENCOUNTER 2025-07-30 09:47 | Outpatient (CLI) | payer MEDICARE, SELFPAY ==
--- NOTE | 2025-07-30 09:59 | MM_ITS ---
WS: [id number] BILATERAL 3D TOMOSYNTHESIS DIGITAL SCREENING MAMMOGRAPHY WITH CAD CLINICAL INFORMATION: SCREENING HISTORY: Screening mammogram. No current complaints. COMPARISON: 2023 TECHNIQUE: Bilateral CC and MLO views. FINDINGS: The breasts are composed of heterogeneous fibroglandular density tissue, which can limit the detection of small underlying mass lesions. No suspicious mass, asymmetry, calcifications, or architectural distortion. No evidence of malignancy. Stable secretory calcifications RIGHT breast. Vascular calcific ation. MM/MM [facility] tomosynthesis [id number] IMPRESSION: DENSITY: The breasts are heterogeneously dense, which may obscure small masses. BI-RADS: 2 - Benign FOLLOW UP: 1 Year Follow-up Recommend return to annual screening mammography.
== END 2025-07-30 09:48 | disposition home or self-care (01) ==
LOC: RAD 09:49
PROVIDERS: PCP Family Medicine; Visit Provider Family Medicine
DX: Z12.31 Encounter for screening mammogram for malignant neoplasm of breast (principal); R92.333 Mammographic heterogeneous density, bilateral breasts; R92.323 Mammographic fibroglandular density, bilateral breasts; R92.1 Mammographic calcification found on diagnostic imaging of breast
CPT/HCPCS: 77063; 77067

== ENCOUNTER 2025-08-12 08:49 | Outpatient (CLI) | payer MEDICARE, SELFPAY ==
[2025-08-12 09:17] VITALS: BMI 31.6
--- NOTE | 2025-08-12 09:30 | NMCV_ITS ---
NM nataliya perf SPECT r/s* [id number] Sarah Victoria Age: 85 Gender: F : 1940 Exam Date: 08/12/2025 09:52 Ordering Phys: Shahzad Evans DO Technologist: JONNY Gill Exam Location: [facility] Indications: cp STRESS TEST Please see separate stress test report in [facility] for full findings IMAGE PROTOCOL Rest/Stress 1 Lexiscan Day Radiopharmaceutical Dose (mCi) Administration Site Administered by Rest: Tc-99m 10.5 IV JONNY Gill Sestamibi Stress:Tc-99m 32.4 IV JONNY Rae Sestamibi Rest: 12-Aug-2025 60 Discovery 630 Stress: 12-Aug-2025 30 Discovery 630 0.4mg Lexiscan. Images obtained in supine and prone position. SPECT RESULTS Technical Quality: Good Raw Data Analysis: Normal Image Corrections: No attenuation or motion correction applied Summed Stress Score: 0 Summed Rest Score: 0 Summed Difference Score: 0 PERFUSION FINDINGS SPECT images demonstrate homogeneous tracer distribution throughout the myocardium. FUNCTIONAL RESULTS (calculated via Gated SPECT) Stress Image LV EF (%): 73 Stress EDV (mL):64 TID: 1.08 Stress ESV (mL):17 FUNCTIONAL FINDINGS: There is normal left ventricular systolic function. IMPRESSIONS 1. Normal myocardial perfusion imaging with no evidence of ischemia 2. LV systolic function is normal Phill Mata MD (Electronically Signed) Final Date: 13 August 2025 10:36 S
--- NOTE | 2025-08-12 09:30 | ECG_ITS ---
[facility] 2025-[facility]12 Pat Name: Sarah Victoria Department: Room: Gender: Female Community Advocate: : 1940 Requested By: Shahzad Oneill Order Number: [id number] Rona MD: Phill Mata M.D. Interpretive Statements LEXISCAN SESTAMIBI STRESS TEST Procedure: At the baseline, the blood pressure was 137/89 mmHg with a heart rate of 94 bpm. The electrocardiogram showed normal sinus rhythm, normal axis with normal ST and T's. The Lexiscan was infused over a period of 20 seconds. A total of 0.4 mg of Lexiscan was infused. The stress phase was continued for a total of 5 minutes. Heart rate was at the end of stress phase was 100 bpm and a blood pressure of 140/67 mmHg. The EKG at the peak infusion revealed normal sinus rhythm with no significant ST-T wave changes. Sestamibi was injected 20 seconds after the Lexiscan infusion. Blood pressure at the end of recovery phase was 136/64 mmHg with a heart rate of 100 bpm. Conclusion: 1. Normal EKG response to Lexiscan infusion 2. No Lexiscan induced chest pain or cardiac arrhythmia. 3. Normal blood pressure and heart rate response. 4. Sestamibi/sestamibi perfusion scan pending; see separate report. Electronically Signed On 08-27-2025 10:29:33 INSPECTION AND TESTING SUPERVISOR by Phill Mata M.D. [email or web address] [id number]
[2025-08-12 10:44] VITALS: BP 136/64; PULSE 100
--- NOTE | 2025-08-12 11:30 | USCV_ITS ---
Sarah Victoria Age: 85 Gender: F : 1940 Exam Date: 08/12/2025 12:37 Ordering Phys: Obed Schneider MD ([email or web address]) Technologist: [place] [facility] [place] cp sob BP: 137 / 89 HR: 73 Rhythm: Sinus Technical Quality: Adequate MEASUREMENTS (Male / Female) Normal Values 2D ECHO LV Diastolic Diameter PLAX 4.0 cm 4.2 - 5.9 / 3.9 - 5.3 cm IVS Diastolic Thickness 1.3 cm 0.6 - 1.0 / 0.6 - 0.9 cm IVS Systolic Thickness 1.8 cm LVPW Diastolic Thickness 1.5 cm 0.6 - 1.0 / 0.6 - 0.9 cm LVPW Systolic Thickness 1.8 cm LVOT Diameter 2.1 cm LV Ejection Fraction 2D Teich 67.9 % LV Ejection Fraction MOD 4C 62.5 % LV Ejection Fraction MOD 2C 55.1 % LV Ejection Fraction 2C AL 56.3 % LA Diameter 4.6 cm RA Systolic Volume 4C AL 28.3 ml RA Systolic Volume 4C MOD 26.2 ml Aorta at Sinotubular Diameter 2.9 cm IVC Diameter 1.6 cm M-MODE LA Ao Ratio MM 1.2 AV Cusp Separation MM 2.0 cm DOPPLER AV Peak Velocity 274.3 cm/s LVOT Peak Velocity 92.0 cm/s AV Area Cont Eq vti 1.2 cm squared AV Area Cont Eq pk 1.1 cm squared MV Peak Velocity 103.0 cm/s MV Area PHT 3.7 cm squared Mitral E to A Ratio 0.7 TV Peak Velocity 205.5 cm/s TR Peak Velocity 239.0 cm/s TR Peak Gradient 22.8 mmHg TV Peak E Velocity 82.0 cm/s PV Peak Velocity 111.0 cm/s FINDINGS Left Ventricle Normal left ventricular size and global left ventricular systolic function. EF 56%. There is mild paradoxical septal motion. Mild left ventricular hypertrophy. Normal left ventricular diastolic function. Right Ventricle Normal right ventricular size and systolic function. Right Atrium Normal right atrial size. Left Atrium Mildly increased left atrial size. IA Septum Normal appearance of the interatrial septum. Mitral Valve Normal mitral valve structure. Mild regurgitation. Aortic Valve Normal functioning bioprosthetic aortic valve replacement, mean pressure gradient 10 mm Hg and dimensionless velocity index 0.33. Tricuspid Valve Normal tricuspid valve structure. Trace regurgitation. Normal pulmonary pressure. Pulmonic Valve Normal pulmonic valve structure. No pulmonic valve stenosis or regurgitation. Pericardium No pericardial effusion. Aorta Normal diameter of the aortic root and ascending thoracic aorta. IVC Normal IVC diameter. CONCLUSIONS Normal left ventricular size and global left ventricular systolic function. EF 56%. There is mild paradoxical septal motion. Mild left ventricular hypertrophy. Normal LV diastolic function. Normal right ventricular size and systolic function. Normal functioning bioprosthetic aortic valve replacement. Obed Schneider MD, FACC (Electronically Signed) Final Date: 17 August 2025 13:29 S
== END 2025-08-12 08:50 | disposition home or self-care (01) ==
LOC: CDL 08:51
PROVIDERS: PCP Family Medicine; Visit Provider Family Medicine
DX: I35.1 Nonrheumatic aortic (valve) insufficiency (principal); R07.9 Chest pain, unspecified; R06.02 Shortness of breath; I51.7 Cardiomegaly
CPT/HCPCS: 36415; 78452; 93017; 93306; 96374; A9500; J2785

== ENCOUNTER → 2025-09-04 14:49 | Outpatient (BNVA) | payer MEDICARE, SELFPAY | PROVIDERS: PCP Family Medicine; Visit Provider Nurse Practitioner Family | DX: D69.2 Other nonthrombocytopenic purpura (principal); L82.1 Other seborrheic keratosis; D18.01 Hemangioma of skin and subcutaneous tissue; L57.8 Other skin changes due to chronic exposure to nonionizing radiation; L81.4 Other melanin hyperpigmentation; L82.0 Inflamed seborrheic keratosis; R20.8 Other disturbances of skin sensation; Z78.9 Other specified health status; L53.8 Other specified erythematous conditions; L29.89 Other pruritus; L57.0 Actinic keratosis | CPT/HCPCS: 17000; 17110; 99213 ==

== ENCOUNTER → 2025-09-13 10:13 | Outpatient (BNVA) | payer MEDICARE, SELFPAY | PROVIDERS: PCP Family Medicine; Visit Provider Internal Medicine Cardiovascular Disease | DX: R00.0 Tachycardia, unspecified (principal); Z78.0 Asymptomatic menopausal state | CPT/HCPCS: 99214 ==

== ENCOUNTER → 2025-09-19 09:35 | Outpatient (BNVA) | payer MEDICARE, SELFPAY | PROVIDERS: PCP Family Medicine; Visit Provider Family Medicine | DX: R32 Unspecified urinary incontinence (principal) | CPT/HCPCS: 81000 ==